=== PATIENT | female | born 2000 | race Caucasian/White ===

== ENCOUNTER 2024-04-22 07:57 | Outpatient (OUT) | payer BC, SELFPAY ==
--- NOTE | 2024-04-22 08:10 | US_ITS ---
The [address] [address] Patient Name: GRACIELA HORN MRN: [id number] date: 2000 Sex: F Assigned Patient Location: Current Patient Location: Accession/Order Number: [id number] Exam Date: 04/22/2024 08:10 Report Date: 04/22/2024 08:53 At the request of: CORDELL MALIK Procedure: US OB transvaginal EXAMINATION: US OB transvaginal HISTORY: AMENORRHEA COMPARISON: No relevant comparison available. FINDINGS: GESTATIONAL SAC: Present and normal appearing. YOLK SAC: Present and normal appearing. POLE: Present and normal appearing. CARDIAC: Present. UTERUS: Normal size and appearance. OVARIES: Right: Normal. Left: Normal. CERVIX: 3.8 cm in length and closed. CUL-DE-SAC: Normal. OTHER: None. AGE BY LMP: 8 weeks 0 days BRADLEY BY LMP: 12/02/2024 AGE BY US CRL: 6 weeks 1 day BRADLEY BY US CRL: 12/15/2024 US/US OB transvaginal IMPRESSION: 1. Single live intrauterine . Electronically authenticated by: JOSEPH LOPEZ Date: 04/22/2024 08:53
== END 2024-04-22 07:58 | disposition home or self-care (01) ==
LOC: US 08:03
PROVIDERS: PCP Student in an Organized Health Care Education/Training Program; Visit Provider Midwife
DX: N91.2 Amenorrhea, unspecified (principal); Z3A.08 8 weeks gestation of pregnancy
CPT/HCPCS: 76817

== ENCOUNTER 2024-10-23 16:50 | Observation (INO) | payer BC, OTHER, SELFPAY ==
--- OUTSIDE RECORDS SUMMARY | 2024-10-09 15:00 | XMS_ITS | Encounter Summary ---
Author Organization [facility] Address [address] [place] [address] Care Team Providers Care Negative Assembler Name Role Phone Tiara Casper MD Primary Care Provider [phone] Encounter Details Date Type Department Care Team (Latest Contact Info) Description 10/09/2024 3:00 PM EDT Ancillary Procedure [facility] [address] [address] related condition in third trimester ([facility]) Social History Tobacco Use Types Packs/Day Years Used Date Smoking Tobacco: Former Cigarettes Smokeless Tobacco: Never Alcohol Use Standard Drinks/Week Comments Not Currently 0 (1 standard drink = 0.6 oz pur e alcohol) Estimated Date of Delivery Comme nts Yes 12/15/2024 Based on Ultraso und Sex and Gender Information Value Date Recorded Sex Assigned at Not on file Legal Sex Female 10:12 PM EDT Gender Identity Not on file Sexual Orientation Not on file documented as of this encounter Plan of Treatment Upcoming Encounters Date Type Department Care Team (Late st Contact Info) Description 10/26/2024 3:30 PM EDT Routine [facility] [address] [place] [address] Terri Gifford CNM [address] [place] [address] documented as of this encounter Goals Goal Patient Goal Type Associated Problems Recent Progress Patient-Stated? Author Reminders Care Plan OB Reminders No Open Scheduling, Background documented as of this encounter Procedures Procedure Name Priority Date/Time Associated Diagnosis Comments US OB FOLLOW UP TRANSABDOMINAL APPROACH Routine 10/09/2024 3:39 PM EDT related condition in third trimester ([facility]) documented in this encounter Results * US OB follow up transabdominal approach (10/09/2024 3:39 PM EDT) Anatomical Region Laterality Modality Body Ultrasound 10/11/2024 8:27 AM EDT Narrative 10/11/2024 8:27 AM EDT EXAM: US OB FOLLOW UP TRANSABDOMINAL APPROACH HISTORY: growth. COMPARISON: Ob ultrasound 07/31/2024. TECHNIQUE: Two-dimensional transabdominal grayscale ultrasound imaging of the pelvis was performed. Limited exam due to position and movement. FINDINGS: Gestation: Single Presentation: Cephalic Cardiac Activity: 143 beats per minute Placental Location: Posterior with no sonographic abnormalities identified. Cervical Length: 3.7 cm Amniotic Fluid Index: 15.2 cm MEASUREMENTS: BPD: 7.7 cm EGA: 31 weeks 0 days HC: 28.4 cm EGA: 31 weeks 1 days AC: 26.8 cm EGA: 30 weeks 6 days FL: 5.9 cm EGA: 30 weeks 6 days HC/AC Ratio: 1.06 The gestational age by today's ultrasound is 31 weeks 0 days. Estimated Weight: 1658 grams, ( 3 lb 10 oz). Weight Percentile for gestational age: 53 % IMPRESSION: 1. Single, live intrauterine gestation 30 weeks, 3 days by LMP. Today's ultrasound measurements correlate with a gestational age of 31 weeks 0 days. Estimated weight is 1658 grams, ( 3 lb 10 oz) which correlates to 53 %. BRADLEY is 12/11/2024. Interpreted by: Electronically signed by JENNIFER JOLLY II, MD, PHD at 11-Oct-2024 08:25:22 AM [facility] Procedure Note Jennifer Jolly MD - 10/11/2024 EXAM: US OB FOLLOW UP TRANSABDOMINAL APPROACH HISTORY: growth. COMPARISON: Ob ultrasound 07/31/2024. TECHNIQUE: Two-dimensional transabdominal grayscale ultrasound imaging ofthe pelvis was performed. Limited exam due to position and fetalmovement. FINDINGS: Gestation: Single Presentation: Cephalic Cardiac Activity: 143 beats per minute Placental Location: Posterior with no sonographic abnormalitiesidentified. Cervical Length: 3.7 cm Amniotic Fluid Index: 15.2 cm MEASUREMENTS: BPD: 7.7 cm EGA: 31 weeks 0 days HC: 28.4 cm EGA: 31 weeks 1 days AC: 26.8 cm EGA: 30 weeks 6 days FL: 5.9 cm EGA: 30 weeks 6 days HC/AC Ratio: 1.06 The gestational age by today's ultrasound is 31 weeks 0 days. Estimated Weight: 1658 grams, ( 3 lb 10 oz). Weight Percentile for gestational age: 53 % IMPRESSION: 1. Single, live intrauterine gestation 30 weeks, 3 days by LMP. Today'sultrasound measurements correlate with a gestational age of 31 weeks 0days. Estimated weight is 1658 grams, ( 3 lb 10 oz) which correlatesto 53 %. BRADLEY is 12/11/2024. Interpreted by: Electronically signed by JENNIFER JOLLY II, MD, PHD [id number] 08:25:22 AM [facility] us Terri Gifford CNM IMG OB US PROCEDURES Final R esult documented in this encounter Visit Diagnoses Diagnosis related condition in third trimester ([facility]) documented in this encounter Additional Health Concerns Active Problems Noted Date Diagnosed Date OB Reminders 06/22/2024 documented as of this encounter Care Teams Negative Assembler Relationship Specialty Start Date End Date Tiara Casper MD PCP - General Family Medicine 02/19/23 documented as of this encounter
--- OUTSIDE RECORDS SUMMARY | 2024-10-23 16:56 | XMS_ITS | Clinical Summary ---
Author Organization [employer] Address [id number] [address] [place] [address] Care Team Providers Care Cafeteria Manager Name Role Phone Mini Cristobal MD Primary Care Provider [phone] Allergies No known active allergies Medications vit no.[id number] c acid ( VITAMIN) 27 mg iron- 800 mcg tablet Take 1 tablet by mouth in the morning. Active Active Problems Problem Noted Date Diagnosed Date Obesity (BMI 30-39.9) 05/26/2023 Comments Yes Family History Medical History Relation Name Comments Breast cancer Mother Relation Name Status Comments Mother Alive Social History Tobacco Use Types Packs/Day Years Used Date Smoking Tobacco: Former Cigarettes S tarted: 07/02/2023 Smokeless Tobacco: Former Tobacco Cessation:Counseling Given: Not Answered Alcohol Use Standard Drinks/Week Comments Not Currently 0 (1 standard drink = 0.6 oz pur e alcohol) occasionally Overall Financial Resource Strain (CARDIA) Answe r Date Recorded How hard is it for you to pa y for the very basics like food, housing, medical care, and heating? Not hard at all 04/20/2023 PRAPARE - Transportation Answer Date Re corded In the past 12 months, has l ack of transportation kept you from medical appointments or from getting medications? No 04/02 In the past 12 months, has l ack of transportation kept you from meetings, work, or from getting things needed for daily living? No 04/20/2023 Housing Instability Answer Date Recorde d Are you worried or concerned that in the next two months you may not have stable housing that you own, rent or stay in as a part of a household? No 04/20/2023 Hunger Screening Answer Date Recorded Within the past 12 months we worried whether our food would run out before we got money to buy more. Never True 09/08/2023 Within the past 12 months th e food we bought just didn't last and we didn't have money to get more. Never True 09/08/2023 Comments Yes Sex and Gender Information Value Date Recorded Sex Assigned at Not on file Legal Sex Female 1:35 PM EDT Gender Identity Not on file Sexual Orientation Not on file Last Filed Vital Signs Vital Sign Reading Time Taken Comments Blood Pressure 116/68 02/24/2024 11:30 AM EDT Pulse 72 02/24/2024 11:30 AM EDT Temperature 37.1 C (98.7 F) 02/24/2024 11:30 AM EDT Respiratory Rate 20 09/08/2023 12:16 PM EDT Oxygen Saturation 98% 02/24/2024 11:30 AM EDT Inhaled Oxygen Concentration - - Weight 104.3 kg (230 lb) 02/24/2024 11:30 AM EDT Height 180.3 cm (5' 11 ) 02/24/2024 11:30 AM EDT Body Mass Index 32.08 02/24/2024 11:30 AM EDT Plan of Treatment Health Maintenance Due Date Last Done Comments Chlamydia Screening 1999 Depression Screening 2011 Adult BMI Follow Up Plan 10/26/2017 Pap Smear 10/26/2020 COVID-19 Vaccine (2 - 2023-2 5 season) 2024 05/05/2021 DTaP,Tdap and Td Vaccines (8 - Td or Tdap) 06/29/2024 06/29/2014, 07/23/2011, 12/26/2004, Additional history exists Influenza Vaccine 01/01/2025 Adult BMI Screening 02/23/2025 02/24/2024 Tobacco Screening 02/23/2025 02/24/2024 Medical Devices Not on file Insurance TERA Care Teams Cafeteria Manager Relationship Specialty Start Date End Date Mini Cristobal MD [address] [place] [address] PCP - General Internal Medicine 02/24/23
--- OUTSIDE RECORDS SUMMARY | 2024-10-23 16:56 | XMS_ITS | Encounter Summary ---
Author Organization [facility] Address [address] [facility] [place] [address] Care Team Providers Care Loss Control Consultant Name Role Phone Tiara Casper MD Primary Care Provider [phone] Encounter Details Date Type Department Care Team (Late Contact Info) Description 09/07/2024 Results Follow-Up [facility] [address] [place] [address] Terri Gifford CN [address] [place], [place] [phone] Social History Tobacco Use Types Packs/Day Years [...] Encounters Date Type Department Care Team (Late Contact Info) Description 10/26/2024 3:30 PM EDT Routine [facility] [address] [place] [address] Terri Gifford CN [address] [place], [place] [id number] documented as of this encounter Goals Goal Patient Goal Type Associated Problems Recent Progress Patient-Stated? Author Reminders Care Plan OB Reminders No Open Scheduling, Background documented as of this encounter Visit Diagnoses Not on filedocumented in this encounter Additional Health Concerns Active Problems Noted Date Diagnosed Date OB Reminders 06/22/2024 documented as of this encounter Care Teams Loss Control Consultant Relationship Specialty Start Date End Date Tiara Casper MD PCP - General Family Medicine 02/19/23 documented as of this encounter
--- OUTSIDE RECORDS SUMMARY | 2024-10-23 16:56 | XMS_ITS | Encounter Summary ---
Author Organization [facility] Address [address] [place] [address] Care Team Providers Care Data Transcriber Name Role Phone Tiara Casper MD Primary Care Provider [phone] Encounter Details Date Type Department Care Team (Late Contact Info) Description 04/22/2024 Clinisync Result Encounter [facility] External Department Unsolicited Cordell Gifford CNM [address] [place], [place] [id number] Social History Tobacco Use Types Packs/Day Years Used Date Smoking Tobacco: Former Cigarettes Smokeless Tobacco: Never Alcohol Use Standard Drinks/Week Comments Never 0 (1 standard drink = 0.6 oz pur e alcohol) Comments Yes Sex and Gender Information Value Date Recorded Sex Assigned at Not on file Legal Sex Female 10:12 PM EDT Gender Identity Not on file Sexual Orientation Not on file documented as of this encounter Plan of Treatment Upcoming Encounters Date Type Department Care Team ([facility] Contact Info) Description 10/26/2024 3:30 PM EDT Routine [facility] OB [address] [place] [phone] Cordell Gifford CNM [address] [place], [place] [phone] documented as of this encounter Procedures Procedure Name Priority Date/Time Associated Diagnosis Comments US OB TRANSVAGINAL 04/22/2024 8: 53 AM EST documented in this encounter Results * US OB TRANSVAGINAL (04/22/2024 8:53 AM EST) Anatomical Region Laterality Modality Other 04/22/2024 8:53 AM EST Narrative 04/22/2024 8:55 [place] [address] Ultrasound Report Signed Patient: JACQUE MYERS MR#: [id number] : 2000 Acct:[id number] Age/Sex: 23 / F ADM Date: 04/22/24 Loc: US Attending Dr: CORDELL GIFFORD APRN, CNM Ordering Physician: CORDELL GIFFORD APRN, CNM Date of Service: 04/22/24 Procedure(s): US OB transvaginal Accession Number(s): [id number] cc: Mini Cristobal ND; CORDELL GIFFORD APRN, CNM [place] [address] Patient Name: JACQUE MYERS MRN: [id number] date: 2000 Sex: F Assigned Patient Location: US Current Patient Location: US Accession/Order Number: [id number] Exam Date: 04/22/2024 08:10 Report Date: 04/22/2024 08:53 At the request of: CORDELL GIFFORD Procedure: US OB transvaginal EXAMINATION: US OB transvaginal HISTORY: AMENORRHEA COMPARISON: No relevant comparison available. FINDINGS: GESTATIONAL SAC: Present and normal appearing. YOLK SAC: Present and normal appearing. POLE: Present and normal appearing. CARDIAC: Present. UTERUS: Normal size and appearance. OVARIES: Right: Normal. Left: Normal. CERVIX: 3.8 cm in length and closed. CUL-DE-SAC: Normal. OTHER: None. AGE BY LMP: 8 weeks 0 days BRADLEY BY LMP: 12/02/2024 AGE BY US CRL: 6 weeks 1 day BRADLEY BY US CRL: 12/15/2024 US/US OB transvaginal IMPRESSION: 1. Single live intrauterine . Electronically authenticated by: RIO COOLEY Date: 04/22/2024 08:53 Dictated By: Rio Cooley M.D. Signed By: 04/22/2455 DD/ 2 TD/TT: Licensing Director: Procedure Note Radiology, Radiologist, MD - 04/22/2024 [place] [address] Ultrasound Report Signed Patient: JACQUE MYERS CMR#: [id number] : 2000Acct:[id number] Age/Sex: 23 / FADM Date: 04/22/24 Loc: US Attending Dr: CORDELL GIFFORD APRN, CNM Ordering Physician: CORDELL GIFFORD APRN, CNM Date of Service: 04/22/24 Procedure(s): US OB transvaginal Accession Number(s): [id number] cc: Mini Cristobal ND; CORDELL GIFFORD APRN, CNM The [place] [id number] Patient Name: JACQUE MYERS MRN: [id number] date: 2000 Sex: F Assigned Patient Location: US Current Patient Location: US Accession/Order Number: [id number] Exam Date: 04/22/2024 08:10 Report Date: 04/22/2024 08:53 At the request of: CORDELL GIFFORD Procedure: US OB transvaginal EXAMINATION: US OB transvaginal HISTORY: AMENORRHEA COMPARISON: No relevant comparison available. FINDINGS: GESTATIONAL SAC: Present and normal appearing. YOLK SAC: Present and normal appearing. POLE: Present and normal appearing. CARDIAC: Present. UTERUS: Normal size and appearance. OVARIES: Right: Normal. Left: Normal. CERVIX: 3.8 cm in length and closed. CUL-DE-SAC: Normal. OTHER: None. AGE BY LMP: 8 weeks 0 days BRADLEY BY LMP: 12/02/2024 AGE BY US CRL: 6 weeks 1 day BRADLEY BY US CRL: 12/15/2024 US/US OB transvaginal IMPRESSION: 1. Single live intrauterine . Electronically authenticated by: RIO COOLEY Date: 04/22/2024 08:53 Dictated By: Rio Cooley M.D. Signed By:04/22/24854 DD/ 2 TD/TT: Licensing Director: us Cordell Gifford CNM [facility] Final Resu lt documented in this encounter Visit Diagnoses Not on filedocumented in this encounter Care Teams Data Transcriber Relationship Specialty Start Date End Date Tiara Casper MD PCP - General Family Medicine 02/19/23 documented as of this encounter
--- OUTSIDE RECORDS SUMMARY | 2024-10-23 16:56 | XMS_ITS | Encounter Summary ---
Author Organization [facility] Address [address] [place] [address] Care Team Providers Care Fur Weigher Name Role Phone Missy Britt MD Primary Care Provider [phone] Reason for Visit * Reason Onset Date Comments Medication Refill 03/03/2014 Encounter Details Date Type Department Care Team (Late st Contact Info) Description 03/03/2014 Refill [facility] [place] [address] [place] [address] Michelle Cramer, MATERIALS TECH - [facility] [address] [place] [address] Medication Refill Social History Tobacco Use Types Packs/Day Years Used Date Smoking Tobacco: Never Alcohol Use Standard Drinks/Week Comments No 0 (1 standard drink = 0.6 oz pur e alcohol) Comments No Sex and Gender Information Value Date Recorded Sex Assigned at Not on file Legal Sex Female 5:52 PM EST Gender Identity Not on file Sexual Orientation Not on file documented as of this encounter Plan of Treatment Not on file documented as of this encounter Visit Diagnoses Not on filedocumented in this encounter Additional Health Concerns Infection Onset Date Last Indicated Resolved Time COVID-19 (Rule Out) 01/03/2020 01/03/2020 01/09/20 20 6:08 PM EDT COVID-19 (Rule Out) 01/10/2020 01/10/2020 01/12/20 20 5:06 PM EDT documented as of this encounter Care Teams Fur Weigher Relationship Specialty Start Date End Date Missy Britt MD [address] [place] [address] PCP - General 01/09/20 documented as of this encounter
--- OUTSIDE RECORDS SUMMARY | 2024-10-23 16:56 | XMS_ITS | Encounter Summary ---
Author Organization [employer] Address [id number] [address] [place] [address] Care Team Providers Care Zoning Engineer Name Role Phone iMni Cristobal MD Primary Care Provider [phone] Encounter Details Date Type Department Care Team ([facility] st Contact Info) Description 03/04[facility]20[facility] [address] [address] Sarah Curran Social History Tobacco Use Types Packs/Day Years Used Date Smoking Tobacco: Former Cigarettes S tarted: 07/02/2023 Smokeless Tobacco: Former Alcohol Use Standard Drinks/Week Comments Not Currently [...] on file documented as of this encounter Miscellaneous Notes * Telephone Encounter - Sarah Curran - 03/04/2024 10:[address] Antunez's 03/02/24 note in Sleep Lab encounter: Ok for PS[facility] PPG read/follow * Telephone Encounter - Nandini Muller - 03/04/2024 10:13 AM EDT Called and left message can add 04/20 with SE. documented in this encounter Plan of Treatment Not on file documented as of this encounter Visit Diagnoses Not on filedocumented in this encounter Care Teams Zoning Engineer Relationship Specialty Start Date End Date Mini Cirstobal MD [address] [facility] [place] [address] PCP - General Internal Medicine 02/24/23 documented as of this encounter
--- OUTSIDE RECORDS SUMMARY | 2024-10-23 16:56 | XMS_ITS | Encounter Summary ---
Author Organization [employer] [facility] tem Address [id number] [address] [place] [address] Care Team Providers Care Fitter Armament Name Role Phone Mini Cristobal MD Primary Care Provider [phone] Encounter Details Date Type Department Care Team (Late st Contact Info) Description 02/24/2023 Telephone [facility] Family Medicine [address] [place] [address] Mini Cristobal MD [address] [place] [address] Social History Tobacco Use Types Packs/Day Years Used Date Smoking Tobacco: Every Day Cigarettes Smokeless Tobacco: Former Alcohol Use Standard Drinks/Week Comments Yes 0 (1 standard drink = 0.6 oz pur e alcohol) occasionally Comments Unknown Sex and Gender Information Value Date Recorded Sex Assigned at Not on file Legal Sex Female 1:35 PM EDT Gender Identity Not on file Sexual Orientation Not on file documented as of this encounter Miscellaneous Notes * Telephone Encounter - Crystal Nelson - 02/24/2023 11:20 AM EDT LM to let patient know the orders for her labs are in her chart. documented in this encounter Plan of Treatment Not on file documented as of this encounter Visit Diagnoses Not on filedocumented in this encounter Care Teams Fitter Armament Relationship Specialty Start Date End Date Mini Cristobal MD [address] [place] [address] PCP - General Internal Medicine 02/24/23 documented as of this encounter
--- OUTSIDE RECORDS SUMMARY | 2024-10-23 16:56 | XMS_ITS | Encounter Summary ---
Author Organization [facility] Address [address] [place] [address] Care Team Providers Care Rug Clipper Name Role Phone Tiara Casper MD Primary Care Provider [phone] Encounter Details Date Type Department Care Team (Late Contact Info) Description 10/04/2024 Results Follow-Up [facility] OB [address] [place] [address] Nell Goldstein MA Social History Tobacco Use Types Packs/Day Years [...] Upcoming Encounters Date Type Department Care Team ([facility] Contact Info) Description 10/26/2024 3:30 PM EDT Routine [facility] OB [address] [place] [address] Terri Gifford, LINDAM [address] [place] [address] documented as of this encounter Goals Goal Patient Goal Type Associated Problems Recent Progress Patient-Stated? Author Reminders Care Plan OB Reminders No Open Scheduling, Background documented as of this encounter Visit Diagnoses Not on filedocumented in this encounter Additional Health Concerns Active Problems Noted Date Diagnosed Date OB Reminders 06/22/2024 documented as of this encounter Care Teams Rug Clipper Relationship Specialty Start Date End Date Tiara Casper MD PCP - General Family Medicine 02/19/23 documented as of this encounter
--- OUTSIDE RECORDS SUMMARY | 2024-10-23 16:56 | XMS_ITS | Encounter Summary ---
Author Organization [employer] Address [id number] [address] [place] [address] Care Team Providers Care Blower Blast Furnace Name Role Phone Mini Cristobal MD Primary Care Provider [phone] Encounter Details Date Type Department Care Team (Late st Contact Info) Description 03/09/2023 Orders Only [facility] [address] [place] [address] Bhargavi Clemens CMA Social History Tobacco Use Types Packs/Day Years [...] on filedocumented in this encounter Care Teams Blower Blast Furnace Relationship Specialty Start Date End Date Mini Cristobal MD [address], [place] [address] PCP - General Internal Medicine 02/24/23 documented as of this encounter
--- OUTSIDE RECORDS SUMMARY | 2024-10-23 16:56 | XMS_ITS | Encounter Summary ---
Author Organization [facility] Address [address] [place] [address] Care Team Providers Care Alarm Adjuster Name Role Phone Tiara Casper MD Primary Care Provider [phone] Encounter Details Date Type Department Care Team (Latest Contact Info) Description 10/09/2024 Travel Social History Tobacco Use Types Packs/Day Years [...] Upcoming Encounters Date Type Department Care Team ( Contact Info) Description 10/26/2024 3:30 PM EDT Routine [facility] OB [address] [place] [id number] Terri Gifford, CNM [address] [place], [place] [id number] documented as of this encounter Goals Goal Patient Goal Type Associated Problems Recent Progress Patient-Stated? Author Reminders Care Plan OB Reminders No Open Scheduling, Background documented as of this encounter Visit Diagnoses Not on filedocumented in this encounter Additional Health Concerns Active Problems Noted Date Diagnosed Date OB Reminders 06/22/2024 documented as of this encounter Care Teams Alarm Adjuster Relationship Specialty Start Date End Date Tiara Casper MD PCP - General Family Medicine 02/19/23 documented as of this encounter
--- OUTSIDE RECORDS SUMMARY | 2024-10-23 16:56 | XMS_ITS | Clinical Summary ---
Author Organization [facility] Address [address] [place] [address] Care Team Providers Care Data Control Assistant Name Role Phone Missy Britt MD Primary Care Provider [phone] Allergies No known active allergies Medications Norgestim-Eth Estrad Triphasic (TRI-SPRINTEC) 0.18/0.215/0.25 MG-35 MCG TABSIndications: Irregular menstrual cycle Take 1 tablet by mouth daily 28 tablet 1 04/10/2019 Active Active Problems No known active problems Immunizations Immunization Administration Dates Next Due DTaP, INFANRIX, (age 6w-6y), IM, 0.5mL 0 12/26/2004,05/12/2001,05/20/2000,03/09,1999 Hep B, ENGERIX-B, RECOMBIVAX -HB, (age - 19y), IM, 0.5mL 11/02/2000,03/09/2000,1999 Hepatitis A Ped/Adol (Vaqta) 01/28/2012,07/23/19 12 Hib PRP-OMP, PEDVAXHIB, (age 2m-6y, Adlt Risk), IM, 0.5mL 11/02/2000,03/09/2000,1999 MMR, PRIORIX, M-M-R II, (age 12m+), SC, 0.5mL 12/26/2004,05/12/2001 Meningococcal ACWY, MENACTRA (MenACWY-D), (age 9m-55y), IM, 0.5mL 12/17/2016,09/24/2011 Poliovirus, IPOL, (age 6w+), SC/IM, 0.5mL 12/26/2004,05/12/2001,03/09/2000,12/28 TDaP, ADACEL (age 10y-64y), BOOSTRIX (age 10y+), IM, 0.5mL 06/29/2014 Varicella, VARIVAX, (age 12m +), SC, 0.5mL 07/23/2011,11/02/2000 Family History Medical History Relation Name Comments Breast Cancer Mother Relation Name Status Comments Mother Alive Social History Tobacco Use Types Packs/Day Years Used Date Smoking Tobacco: Every Day Cigarettes Smokeless Tobacco: Never Comments: 4 cigarrettes a da y Alcohol Use Standard Drinks/Week Comments No 0 (1 standard drink = 0.6 oz pur e alcohol) Comments No Sex and Gender Information Value Date Recorded Sex Assigned at Not on file Legal Sex Female 5:52 PM EST Gender Identity Not on file Sexual Orientation Not on file Last Filed Vital Signs Vital Sign Reading Time Taken Comments Blood Pressure 138/75 08/06/2018 2:14 PM EDT Pulse 62 08/06/2018 2:14 PM EDT Temperature 37.4 C (99.3 F) 08/06/2018 2:14 PM EDT Respiratory Rate 16 08/06/2018 2:14 PM EDT Oxygen Saturation 98% 06/29/2014 10:01 PM EST Inhaled Oxygen Concentration - - Weight 77.1 kg (170 lb) 08/06/2018 2:14 PM EDT Height 180.3 cm (5' 11 ) 08/06/2018 2:14 PM EDT Body Mass Index 23.71 08/06/2018 2:14 PM EDT Plan of Treatment Not on file Insurance [address] [place] [address] [facility] OUT OF STATE Care Teams Data Control Assistant Relationship Specialty Start Date End Date Missy Britt MD [address] [place] [address] PCP - General 01/09/20
--- OUTSIDE RECORDS SUMMARY | 2024-10-23 16:56 | XMS_ITS | Clinical Summary ---
Author Organization [facility] Address [address] [place] [address] Care Team Providers Care Self Sealing Fuel Tank Repairer Name Role Phone Tiara Casper MD Primary Care Provider [phone] Allergies No known active allergies Medications Dtdkqmnu-Vnj-Or -FA ( 1 + IRON PO) Take by mouth Active ferrous sulfate (Fe Tabs) 325 (65 Fe) MG EC tabletIndicatio ns: related condition in third trimester ([facility]) Take 1 tablet (325 mg) by mouth in the morning and 1 tablet (325 mg) before bedtime. Do not crush, chew, or split. 60 tablet 11 5 10/05/19 26 Active docusate sodium (Colace) 100 MG capsuleIndicati ons: related condition in third trimester ([facility]) Take 1 capsule (100 mg) by mouth in the morning and 1 capsule (100 mg) before bedtime. 60 capsule 3 5 02/02/20 25 Active docusate sodium (Colace) 50 MG capsule Take 50 mg by mouth in the morning and 50 mg before bedtime. 09/29/19 25 Discontinu ed(Therapy completed) Fiber Gummies 2 g chewable tablet Chew 09/29/19 25 Discontinu ed(Therapy completed) predniSONE (Deltasone) 20 MG tabletIndicatio ns:Connor MYLES for care of first , second trimester ([facility]) 40 mg daily x5 days 10 tablet 5 09/29/19 25 Discontinu ed(Therapy completed) azithromycin (Zithromax) 250 MG tabletIndicatio ns:COVID,Encoun ter for care of first , second trimester ([facility]) 500 mg on day #1 and then 250 mg x4 days 6 tablet 09/29/19 25 Discontinu ed(Therapy completed) Encounters Date Type Department Care Team Description 10/09/2024 3:00 PM EDT Ancillary Procedure [facility] [address] [place] [id number] related condition in third trimester ([facility]) 10/09/2024 Travel 10/04/2024 Results Follow-Up [facility] [address] [facility] [place] [address] Nell Goldstein MA 10/04/2024 Refill [facility] [address] [facility] [place] [phone] Nell Goldstein MA related condition in third trimester ([facility]) 09/28/2024 2:30 PM EDT Routine [facility] [address] [facility] [place] [id number] Terri Gifford CNM Encounter for supervision of other normal , second trimester ([facility]) (Primary Dx); Screening for diabetes mellitus; Screening for iron deficiency anemia; related condition in third trimester ([facility]) 09/28/2024 Bamboo flowsheet [facility] [address] [place] [phone] Terri Gifford CNM 09/07/2024 Results Follow-Up [facility] [address] [facility] [place] [id number] Terri Gifford CNM 08/29/2024 3:00 PM EDT Routine [facility] [address] [facility] [place] [address] Terri Gifford CNM Encounter for supervision of other normal , second trimester ([facility]) (Primary Dx) 08/29/2024 Bamboo flowsheet [facility] [address] [place] [phone] Terri Gifford CNM 07/31/2024 7:00 PM EDT Routine [facility] [address] [place] [phone] Terri Gifford CNM Encounter for supervision of other normal , second trimester ([facility]) (Primary Dx); related condition in second trimester ([facility]) 07/31/2024 6:15 PM EDT Ancillary Procedure [facility] [address] [facility] [address] [place] [address] related condition in second trimester ([facility]) 07/31/2024 Bamboo flowsheet [facility] [address] [place] [address] Terri Gifford CNM 07/31/2024 Travel from Last 3 Months Family History Relation Name Status Comments Father Alive Mother Alive Social History Tobacco Use Types Packs/Day Years Used Date Smoking Tobacco: Former Cigarettes Smokeless Tobacco: Never Tobacco Cessation:Counseling Given: Not Answered Alcohol Use [...] Sign Reading Time Taken Comments Blood Pressure 122/70 09/28/2024 2:28 PM EDT Pulse - - Temperature - - Respiratory Rate - - Oxygen Saturation - - Inhaled Oxygen Concentration - - Weight 123 kg (271 lb) 09/28/2024 2:28 PM EDT Height 179.1 cm (5' 10.5 ) 08/04/2022 12:00 PM E DT Body Mass Index 38.33 08/04/2022 12:00 PM EDT Plan of Treatment Upcoming Encounters Date Type Department Care Team (Late st Contact Info) Description 10/26/2024 3:30 PM EDT Routine [facility] [address] [place] [address] Balta Terri Alcocer, CNM [address] [place] [address] Health Maintenance Due Date Last Done Comments Influenza Vaccine (Season Ended) 2025 Goals Goal Patient Goal Type Associated Problems Recent Progress Patient-Stated? Author Reminders Care Plan OB Reminders No Open Scheduling, Background Procedures Procedure Name Priority Date/Time Associated Diagnosis Comments US OB FOLLOW UP TRANSABDOMINAL APPROACH Routine 10/09/2024 3:39 PM EDT related condition in third trimester ([facility]) CBC Routine 09/28/2024 3:17 PM EDT Screening for iron deficiency anemia GLUCOSE, GESTATIONAL SCREEN (50G)-135 CUTOFF Routine 09/28/2024 3:17 PM EDT Screening for diabetes mellitus US OB 14+ WEEKS ANATOMY SCAN Routine 07/31/2024 7:04 PM EDT related condition in second trimester ([facility]) from Last 3 Months Results * US OB follow up transabdominal [...] II, MD, PHD at 11-Oct-2024 08:25:22 AM [facility] Procedure Note Jennifer Jolly MD - [...] signed by JENNIFER JOLLY II, MD, PHD [id number] 08:25:22 AM [facility] us Terri Gifford CNM IMG OB US PROCEDURES Final R esult * GLUCOSE, GESTATIONAL SCREEN (50G)-135 CUTOFF (09/28/2024 3:17 PM EDT) GLUCOSE, GESTATIONAL SCREEN (50G)-135 CUTOFF 106 <135 mg/dL [facility] 09/28/2024 3:17 PM EDT 09/28/2024 3:18 PM EDT Narrative Resulting Agency Comment Performing Organization Information Site ID: QPT Name: [facility] Address: [address] [place] [address] Director: Juan Mensah MD us Terri MCKEON LAB BLOOD ORDERABLES Final R esult [facility] * (ABNORMAL) CBC (09/28/2024 3:17 PM EDT) WHITE BLOOD CELL COUNT 11.9(H) 3.8 - 10.8 Thousand/u L [facility] RED BLOOD CELL COUNT 3.80 3.80 - 5.10 Million/uL [facility] HEMOGLOBIN 10.9(L) 11.7 - 15.5 g/dL [facility] HEMATOCRIT 33.7(L) 35.0 - 45.0 % [facility] MCV 88.7 80.0 - 100.0 fL [facility] MCH 28.7 27.0 - 33.0 pg [facility] MCHC 32.3 32.0 - 36.0 g/dL [facility] Comment: For adults, a slight decrease in the calculated MCHC value (in the range of 30 to 32 g/dL) is most likely not clinically significant; however, it should be interpreted with caution in correlation with other red cell parameters and the patient's clinical condition. RDW 12.8 11.0 - 15.0 % [facility] PLATELET COUNT 303 140 - 400 Thousand/u L [facility] MPV 10.9 7.5 - 12.5 fL [facility] Blood Venous blood specimen / Unknown 09/28/2024 3:17 PM EDT 09/28/2024 3:18 PM EDT Narrative Resulting Agency Comment Performing Organization Information Site ID: QPT Name: [facility]: [facility] [address] [place] [address] Director: Juan Mensah MD us Terri Leodan Gifford CNM LAB BLOOD ORDERABLES Final R esult [facility] * US OB 14+ weeks anatomy scan (07/31/2024 7:04 PM EDT) Anatomical Region Laterality Modality Body Ultrasound 08/01/2024 4:36 PM EDT Narrative 08/01/2024 4:36 PM EDT TITLE OF EXAM: OB Ultrasound: REASON FOR EXAM: Anatomy scan. COMPARISON: None TECHNIQUE: Grayscale and M-mode Doppler imaging is performed. FINDINGS: heart rate: 139 bpm BRITTANY: 17.3 cm (9.4-21.3) BPD: 4.9 cm HC: 18.1 cm AC: 15.4 cm FL: 3.6 cm GA for sonogram: 20.6 wk (19.2-22.0) Cervix length: 4.3 cm BRADLEY: 12/15/2024 Weight Estimate: Weight: 386 gm / 0 lbs, 13 oz (330-443 gm) Hadlock Normal: 370 gm (307-433 gm) Hadlock Wt%: 65% for 20.6 wks (GA selected) <3% for 22.3 wks (LMP) LMP: 02-26-24 Age by LMP: 22 w 2 d Age Prior US: 20 w 3 d Age US Today: 20 w 6 d BRADLEY by LMP: 12-02-24 BRADLEY Prior US: 12-15-24 BRADLEY US Today: 12-12-24 Gestation: Single Position: Cephalic Placental Location: 4.3 cm from cervix Placental Grade: 0 Heart Rate: 139 BPM Cervical Length: 4.3 cm Lateral Ventricles: Yes Cerebellum: Yes Cisterna Mag: Yes Orbits: Yes 4 Chamber heart: Yes Stomach: Yes Renals: Yes Cord Insert: Yes Heart Rate: 139 bpm 3 Vessel Cord: Yes Bladder: Yes Gender: Female 12 Long Bones: Yes Diaphragm: Yes Long Spine: Yes TRV Spine: Yes Somatic Movement: Yes IMPRESSION: 1. Single intrauterine gestation in cephalic position. Estimated ultrasound age of 20 weeks 6 days. 2. Posterior placenta. 3. Discrepant weight depending on whether last menstrual period or estimated ultrasound age is used. Dictated and transcribed 08/01/24dpd This report has been electronically signed and approved by the interpreting radiologist. Procedure Note Patric Knapp MD - 08/01/2024 TITLE OF EXAM: OB Ultrasound: REASON FOR EXAM: Anatomy scan. COMPARISON: None TECHNIQUE: Grayscale and M-mode Doppler imaging is performed. FINDINGS: heart rate: 139 bpm BRITTANY: 17.3 cm (9.4-21.3) BPD: 4.9 cm HC: 18.1 cm AC: 15.4 cm FL: 3.6 cm GA for sonogram: 20.6 wk (19.2-22.0) Cervix length: 4.3 cm BRADLEY: 12/15/2024 Weight Estimate: Weight: 386 gm / 0 lbs, 13 oz (330-443 gm) Hadlock Normal: 370 gm (307-433 gm) Hadlock Wt%: 65% for 20.6 wks (GA selected) <3% for 22.3 wks (LMP) LMP: 02-26-24 Age by LMP: 22 w 2 d Age Prior US: 20 w 3 d Age US Today: 20w 6 d BRADLEY by LMP: 12-02-24 BRADLEY Prior US: 12-15-24 BRADLEY US Today:12-12-24 Gestation: Single Position: Cephalic Placental Location: 4.3 cm from cervix Placental Grade: 0 Heart Rate: 139 BPM Cervical Length: 4.3 cm Lateral Ventricles: Yes Cerebellum: Yes Cisterna Mag: Yes Orbits: Yes 4 Chamber heart: Yes Stomach: Yes Renals: Yes Cord Insert: Yes Heart Rate: 139 bpm 3 Vessel Cord: Yes Bladder: Yes Gender: Female 12 Long Bones: Yes Diaphragm: Yes Long Spine: Yes TRV Spine: Yes Somatic Movement: Yes IMPRESSION: 1. Single intrauterine gestation in cephalic position. Estimatedultrasound age of 20 weeks 6 days. 2. Posterior placenta. 3. Discrepant weight depending on whether last menstrual period orestimated ultrasound age is used. Dictated and transcribed 08/01/24dpd This report has been electronically signed and approved by theinterpreting radiologist. us Terri Gifford CNM IMG OB US PROCEDURES Final R esult from Last 3 Months Additional Health Concerns Active Problems Noted Date Diagnosed Date OB Reminders 06/22/2024 Insurance [facility] [place]ID [place] [facility] [place] Care Teams Self Sealing Fuel Tank Repairer Relationship Specialty Start Date End Date Tiara Casper MD PCP - General Family Medicine 02/19/23
--- NOTE | 2024-10-23 17:03 | US_ITS ---
[place] [id number] Patient Name: GRACIELA HORN MRN: [id number] date: 2000 Sex: F Assigned Patient Location: [facility] Current Patient Location: Accession/Order Number: [id number] Exam Date: 10/23/2024 19:09 Report Date: 10/23/2024 19:14 At the request of: CORDELL MALIK APRN [facility] Procedure: US OB cervical length US OB cervical length 10/23/2024 7:10 PM SIGNS AND SYMPTOMS: ^spotting PROTOCOL: Transabdominal sonographic imaging of the gravid uterus/cervix COMPARISON: None FINDINGS: Estimated gestational age is 32 weeks and 3 days. heart rate is 131 bpm. The cervix measures 3.0 cm in length. The internal os is closed. US/US OB cervical length IMPRESSION: The cervix measures 3.0 cm in length. The internal os is closed. Impression dictated by: Rom Ortega M.D. 10/23/2024 7:14 PM Dictation Location: [facility] Electronically authenticated by: [id number] Y Date: 10/23/2024 19:14
[2024-10-23 17:09] VITALS: BP 131/69; PULSE 95
[2024-10-23 17:23] LABS: Bilirubin Urine NEGATIVE (NEGATIVE); Blood Urine NEGATIVE (NEGATIVE); Clarity Urine CLEAR (CLEAR); Color Urine LT. YELLOW (YELLOW); Glucose Urine UA NEGATIVE (NEGATIVE); Ketones Urine NEGATIVE (NEGATIVE); Leukocyte Esterase Urine SMALL (NEGATIVE); Nitrite Urine NEGATIVE (NEGATIVE); Protein Urine NEGATIVE (NEG/TRACE); Specific Gravity Urine <=1.005 (1.005-1.025); Urobilinogen Urine 0.2 EU/dL (0.2-1.0)
[2024-10-23 17:25] LABS: Urine Microscopic Indicated YES
--- NOTE | 2024-10-23 17:27 | US_ITS ---
[address] [address] Patient Name: GRACIELA HORN MRN: [id number] date: 2000 Sex: F Assigned Patient Location: [facility] Current Patient Location: Accession/Order Number: [id number] Exam Date: 10/23/2024 19:15 Report Date: 10/23/2024 19:16 At the request of: CORDELL MALIK APRN [facility] Procedure: US OB BPP w non-stress US OB BPP w non-stress 10/23/2024 7:10 PM SIGNS AND SYMPTOMS: ^02/26/2024 ^decreased movement PROTOCOL: Transabdominal imaging of the gravid uterus COMPARISON: None FINDINGS: Estimated gestational age is 32 weeks and 3 days Amniotic fluid index is 18.03 cm. The single deepest vertical pocket is 5.9 cm. heart rate is 133 bpm. Biophysical profile: movement: 2/2 tone: 2/2. breathing movements: 2/2 Amniotic fluid volume: 2/2 US/US OB BPP w non-stress IMPRESSION: Biophysical profile score: 8/8 Impression dictated by: Rom Ortega M.D. 10/23/2024 7:16 PM Dictation Location: [facility] Electronically authenticated by: [id number] Y Date: 10/23/2024 19:16
[2024-10-23 17:51] LABS: Bacteria Urine TRACE #/HPF (NONE SEEN); Cast Seen? NONE SEEN #/LPF (NONE SEEN); Crystals Seen? None Seen #/HPF (None Seen); Mucus Urine TRACE (NONE SEEN); RBC Urine 0-2 #/HPF (0-2); Squamous Epithelial Cell Urine MODERATE #/LPF (NONE/RARE); Urine Culture Indicated YES-LC
--- OUTSIDE RECORDS SUMMARY | 2024-10-23 18:49 | XMS_ITS | CCD ---
Author Organization [facility] Care Team Providers Care Record Searcher Name Role Phone Karel Barkley I Primary Care Provider LIYA MISSY Admitting Unavailable LIYA MISSY Attending Unavailable LIT ELIZABETH P Referring Unavailable MOCATALINOI, ROMENA I Primary Care Unavailable LIT ELIZABETH P Referring Unavailable MOCATALINOI, ROMENA I Primary Care Unavailable LIYA MISSY Abreu Referring Unavailable LIYA MISSY Abreu Primary Care Unavailable Missy Britt Brady Primary Care Provider [phone] DORON, MUHAMID M Primary Care Unavailable JOSH HUNTLEY Attending Unavailable JOSH HUNTLEY Referring Unavailable DORON, MUHAMID M Primary Care Unavailable DORON, MUHAMID M Attending Unavailable DORON, MUHAMID M Referring Unavailable DORON, MUHAMID M Primary Care Unavailable DORON, MUHAMID M Attending Unavailable DORON, MUHAMID M Referring Unavailable DORON, MUHAMID M Primary Care Unavailable DORON, MUHAMID M Attending Unavailable DORON, MUHAMID M Referring Unavailable DORON, MUHAMID M Primary Care Unavailable DORON, MUHAMID M Attending Unavailable DORON, MUHAMID M Referring Unavailable DORON, MUHAMID M Primary Care Unavailable Tiara Casper MD Primary Care Provider Mini Sal MD Primary Care Provider [phone] CORDELL GIFFORD Attending Unavailable FLORO, CORDELL L Attending Unavailable FLORO, CORDELL L Attending Unavailable FLORO, CORDELL L Referring Unavailable FLORO, CORDELL L Attending Unavailable FLORO, CORDELL L Attending Unavailable FLORO, CORDELL L Referring Unavailable FLORO, CORDELL L Attending Unavailable Medications Current Medications Medication Drug Class(es) Dates Sig (Normalized) Sig (Original) ciprofloxacin 3 mg/ml / dexamethasone 1 mg/ml otic suspension (1 source) Corticosteroid, Quinolone Antimicrobial Start: 07-06-2023 End: 07-13-2023 ciprofloxacin-dex AMETHasone (CIPRODEX) otic suspension Indications: Acute otitis externa of both ears, unspecified type Administer 4 drops into both ears in the morning and 4 drops before bedtime. Do all this for 7 days. 7.5 mL 0 07/06/2023 07/13/2023 Active docusate sodium 100 mg oral capsule (20 sources) Start: 10-04-2024 End: 02-01-2025 take 1 capsule by mouth in the morning docusate sodium (Colace) 100 MG capsule Indications: related condition in third trimester ([facility]) Take 1 capsule (100 mg) by mouth in the morning and 1 capsule (100 mg) before bedtime. 60 capsule 3 10/04/2024 02/01/2025 Active End: 09-28-2024 take 1 capsule by mouth in the morning docusate sodium (Colace) 50 MG capsule Take 50 mg by mouth in the morning and 50 mg before bedtime. 09/28/2024 Discontinued (Therapy completed) Ethinyl Estradiol / norgestimate (3 sources) Progestin, Estrogen Start: 04-10-2019 take 1 tablet by mouth once daily Norgestim-Eth Estrad Triphasic (TRI-SPRINTEC) 0.18/0.215/0.25 MG-35 MCG TABS Indications: Irregular menstrual cycle Take 1 tablet by mouth daily 28 tablet 1 04/10/2019 Active ferrous sulfate 325 mg delayed release oral tablet (1 source) Start: 10-04-2024 End: 10-04-2025 take 1 tablet by mouth in the morning ferrous sulfate (Fe Tabs) 325 (65 Fe) MG EC tablet Indications: related condition in third trimester ([facility]) Take 1 tablet (325 mg) by mouth in the morning and 1 tablet (325 mg) before bedtime. Do not crush, chew, or split. 60 tablet 11 10/04/2024 10/04/2025 Active Mbrrdpmb-Iep-Fb-FA ( 1 + IRON PO) (20 sources) Ajzzxvrq-Aor-Rx-FA ( 1 + IRON PO) Take by mouth Active vit no.527-unzk-xqycb acid ( VITAMIN) 27 mg iron- 800 mcg tablet (3 sources) take 1 tablet by mouth in the morning vit no.652-escr-bhlgq acid ( VITAMIN) 27 mg iron- 800 mcg tablet Take 1 tablet by mouth in the morning. Active Completed/Discontinued Medications Medication Drug Class(es) Dates Sig (Normalized) Sig (Original) azithromycin 250 mg oral tablet (10 sources) Macrolide Antimicrobial Start: 06-27-2024 End: 09-28-2024 azithromycin (Zithromax) 250 MG tablet Indications: COVID , Encounter for care of first , second trimester 500 mg on day #1 and then 250 mg x4 days 6 tablet 06/27/2024 09/28/2024 Discontinued (Therapy completed) Fiber Gummies 2 g chewable tablet (17 sources) End: 09-28-2024 Fiber Gummies 2 g chewable tablet Chew 09/28/2024 Discontinued (Therapy completed) Fiber Gummies 2 g chewable tablet Chew Active predniSONE 20 mg oral tablet (10 sources) Start: 06-27-2024 End: 09-28-2024 predniSONE (Deltasone) 20 MG tablet Indications: COVID , Encounter for care of first , second trimester 40 mg daily x5 days 10 tablet 06/27/2024 09/28/2024 Discontinued (Therapy completed) topiramate 50 mg oral tablet (4 sources) Start: 04-20-2023 End: 02-24-2024 take 1 tablet by mouth in the morning, then take 1 tablet by mouth at bedtime topiramate (TOPAMAX) 50 mg tablet Indications: Weight loss Take 1 tablet (50 mg total) by mouth in the morning and 1 tablet (50 mg total) before bedtime. 60 tablet 2 04/20/2023 02/24/2024 Discontinued Problems Active Problems Problem Classification Problem Date Documented Da te Episodic/Chronic Hemorrhage during ; abruptio placenta; placenta previa (1 source) Threatened ; Translations: [Threatened ] Onset: 09-08-2023 Episodic Other complications of (4 sources) Finding related to ; Translations: [ related conditions, unspecified, second trimester] 07-31-2024 Episodic Other endocrine disorders (1 source) Polycystic ovarian syndrome; Translations: [Polycystic ovarian syndrome] Onset: 02-24-2024 Chronic Other endocrine disorders (1 source) Polycystic ovary syndrome; Translations: [Polycystic ovarian syndrome] 02-24-2024 Chronic Other female genital disorders (2 sources) Vaginal bleeding Onset: 09-08-2023 Chronic Other female genital disorders (1 source) Other specified conditions associated with female genital organs and menstrual cycle; Translations: [Other specified conditions associated with female genital organs and menstrual cycle] Onset: 09-08-2023 Episodic Other nutritional; endocrine; and metabolic disorders (1 source) Obesity Onset: 02-24-2024 Chronic Other nutritional; endocrine; and metabolic disorders (1 source) Obesity, unspecified; Translations: [Obesity, unspecified] Onset: 05-26-2023 Chronic Other nutritional; endocrine; and metabolic disorders (13 sources) Body mass index 30+ - obesity; Translations: [Body mass index (BMI) 35.0-35.9, adult] Onset: 05-26-2023 05-26-2023 Chronic Other and delivery including normal (15 sources) test positive; Translations: [Encounter for test, result positive] 06-20-2024 Episodic Other screening for suspected conditions (not mental disorders or infectious disease) (5 sources) Raised TSH level; Translations: [Other specified abnormal findings of blood chemistry] 06-20-2024 Episodic Unclassified (1 source) medication Onset: 07-06-2023 Unclassified (13 sources) OB Reminders Onset: 06-22-2024 06-22-2024 Viral infection (1 source) Disease caused by 2019-nCoV; Translations: [COVID-19] 06-27-2024 Episodic Past or Other Problems Problem Classification Problem Date Documented Da te Episodic/Chronic Other ear and sense organ disorders (1 source) Unspecified acute noninfective otitis externa, bilateral; Translations: [Unspecified acute noninfective otitis externa, bilateral] Onset: 07-06-2023 Episodic Other ear and sense organ disorders (1 source) Acute otitis externa of bilateral ears; Translations: [Unspecified acute noninfective otitis externa, bilateral] 07-06-2023 Episodic Other nutritional; endocrine; and metabolic disorders (1 source) Abnormal weight loss; Translations: [Abnormal weight loss] Onset: 04-20-2023 Episodic Other nutritional; endocrine; and metabolic disorders (2 sources) Weight loss; Translations: [Abnormal weight loss] 05-26-2023 Episodic Results Test Name Value Interpretation Reference Range Facility [facility] UA (CLEAN/CATCH) [employer] SUPERINTENDENT/ANNABELLA RO IF IND.on 10-23-2024 BILIRUBIN URINE Negative NEGATIVE [facility] BLOOD URINE Negative NEGATIVE [facility] Clarity (U) CLEAR CLEAR [facility] Color (U) LT. YELLOW YELLOW [facility] GLUCOSE URINE UA Negative NEGATIVE mg/dL [facility] Interpretation and review of laboratory results Abnormal [facility] Ketones Ql (U) Negative NEGATIVE mg/dL [facility] Leukocyte esterase Test strip Ql (U) SMALL Abnormal NEGATIVE [facility] NITRITE URINE Negative NEGATIVE [facility] pH (U) 6.0 [pH] 5.0 - 9.0 [facility] PROTEIN URINE Negative NEG/TRACE mg/dL [facility] SPECIFIC GRAVITY URINE <=1.005 Abnormal 1.005 - 1.025 [facility] URINE MICROSCOPIC INDICATED YES [facility] UROBILINOGEN URINE 0.2 EU/dL 0.2 - 1.0 EU/dL [facility] US OB FOLLOW UP TRANSABDOMIN AL APPROACHon 10-09-2024 US OB FOLLOW UP TRANSABDOMINAL APPROACH EXAM: US OB FOLLOW UP TRANSABDOMINAL APPROACH [...] 12/11/2024. Interpreted by: Electronically signed by JENNIFER CURTIS II, MD, PHD at 11-Oct-2024 08:25:22 AM [facility] Normal Not Available US OB 14+ WEEKS ANATOMY SCAN on 07-31-2024 US OB 14+ WEEKS ANATOMY SCAN TITLE OF EXAM: OB Ultrasound: REASON FOR [...] ultrasound age is used. Dictated and transcribed 08/01/24/dpd This report has been electronically signed and approved by the interpreting radiologist. Normal Not Available Bacteria identified Cx Nom ( U)on 05-26-2024 Appearance (U) Adequate [facility] Internal identifier for Provider [id number] [facility] Specimen source Nom (Unsp spec) URINE [facility] STATUS FINAL [facility] - Drug toxicology on 05-26-2024 5-Iaxsnknnoy-4,5-Dimethy l-3,3-Diphenylpyrrolidin e (EDDP) Ql (U) Negative NINF - 100 ng/mL [facility] Amphetamines Ql (U) Negative NINF - 5 00 ng/mL [facility] Barbiturates Ql (U) Negative NINF - 3 00 ng/mL [facility] Benzodiazepines Ql (U) Negative NINF - 100 ng/mL [facility] Benzoylecgonine Ql (U) Negative NINF - 150 ng/mL [facility] Opiates Ql (U) Negative NINF - 100 ng/mL [facility] oxyCODONE Ql (U) Negative NINF - 100 ng/mL [facility] Phencyclidine Ql (U) Negative NINF - 25 ng/mL [facility] Tetrahydrocannabinol Screen method >20 ng/mL Ql (U) Negative NINF - 20 ng/mL [facility] Laboratory - Microbiology an d Antimicrobial susceptibilityon 05-26-2024 Bacteria identified Cx Nom (U) SEE NOTE [facility] Comment on above: No Growth Laboratory - Miscellaneous t estson 05-26-2024 Service comment (Unsp spec) [Interp] [facility] Comment on above: This urine was martin zed for the presence of WBC, RBC, bacteria, casts, and other formed elements. Only those elements seen were reported. Laboratory - Urinalysison Bacteria LM.HPF (Urine sed) [#/Area] NONE SEEN NONE SEEN /HPF [facility] Epithelial cells.squamous LM.HPF (Urine sed) [#/Area] 0-5 < OR = 5 /HPF [facility] Hyaline casts (Urine sed) [#/Area] NONE SEEN NONE SEEN /LPF [facility] RBC LM.HPF (Urine sed) [#/Area] NONE SEEN < OR = 2 /HPF [facility] WBC LM.HPF (Urine sed) [#/Area] 6-10 Abnormal < OR = 5 /HPF [facility] N. gonorrhoeae DNA CHRISTY+probe Ql (Cervical mucus)on 05-26-2024 C. trachomatis rRNA CHRISTY+probe Ql (Unsp spec) Not detected NOT DETECTED [facility] N. gonorrhoeae rRNA CHRISTY+probe Ql (Unsp spec) Not detected NOT DETECTED [facility] No Panel Informationon 05-26 (ALWAYS MESSAGE) [facility] Comment on above: See Note 1 Note 1 This drug testing is for medical treatment only. Analysis was performed as non-forensic testing and these results should be used only by healthcare providers to render diagnosis or treatment, or to monitor progress of medical conditions. For assistance with interpreting these drug results, please contact a [facility]ist: [phone] ( ), M-F, 8am-6pm EST. The analytical perfo rmance characteristics of this assay, when used to test SurePath(TM) specimens have been determined by [facility]. The modifications have not been cleared or approved by the FDA. This assay has been validated pursuant to the CLIA regulations and is used for clinical purposes. For additional information, please refer to https://education.3Jam/faq/WKY409 (This link is being provided for information/ educational purposes only.) Interpretation and review of laboratory results Abnormal [facility] SPLIT 05/24/2024 FROM [id number] A.P Avanashiappa [facility] Organization Information Site ID: QPT Name: [facility] Address: [address] [place] [address], [address] [place] [phone] Director: Juan Mensah MD [facility] CBC panel Auto (Bld)on 05-25 Erythrocyte distribution width (RBC) [Ratio] 12.9 % 11.0 - 15.0 % [facility] Hematocrit (Bld) [Volume fraction] 39.1 % 35.0 - 45.0 % [facility] Hemoglobin (Bld) [Mass/Vol] 12.9 g/dL 11.7 - 15.5 g/dL [facility] MCH (RBC) [Entitic mass] 28.8 pg 27. 0 - 33.0 pg [facility] MCHC (RBC) [Mass/Vol] 33 g/dL 32.0 - 36.0 g/dL [facility] Comment on above: For adults, a slight decrease in the calculated MCHC value (in the range of 30 to 32 g/dL) is most likely not clinically significant; however, it should be interpreted with caution in correlation with other red cell parameters and the patient's clinical condition. MCV (RBC) [Entitic vol] 87.3 fL 80.0 - 100.0 fL [facility] Platelet mean volume (Bld) [Entitic vol] 10.4 fL 7.5 - 12.5 fL [facility] Platelets (Bld) [#/Vol] 269 10*3/uL [facility] RBC (Bld) [#/Vol] 4.48 10*6/uL [facility] WBC (Bld) [#/Vol] 10.6 10*3/uL [facility] Performing Organization Information Site ID: QTW Name: [facility] Address: [address] [place] [phone] Director: Nishi Squires [facility] Laboratory - Blood bankon ABO group Nom (Bld) O [facility] Blood group antibody screen Ql Detected [facility] Comment on above: Reference range No antibodies detected This assay is a screening test for the detection of red blood cell antibodies. The test is not to be used for pretransfusion screening or for the medical management of an alloimmunized . Rh Nom (Bld) Positive [facility] Comment on above: For additional information, please refer to http://education.[employer]faq/ATJ201 (This link is being provided for informational/ educational purposes only.) Laboratory - Chemistry and C hemistry - challengeon 05-25-2024 Free T4 [Mass/Vol] 1.3 ng/dL 0.8 - 1.8 ng/dL [facility] TSH Qn 4.91 m[IU]/L High mIU/L [facility] Comment on above: Reference Range > or = 20 Years 0.40-4.50 Ranges First trimester 0.26-2.66 Second trimester 0.55-2.73 Third trimester 0.43-2.91 Laboratory - Hematology and Cell countson 05-25-2024 HbA1c (Bld) [Mass fraction] 5.5 % [facility] Comment on above: For the purpose of s creening for the presence of diabetes: <5.7% Consistent with the absence of diabetes 5.7-6.4% Consistent with increased risk for diabetes (prediabetes) > or =6.5% Consistent with diabetes This assay result is consistent with a decreased risk of diabetes. Currently, no consensus exists regarding use of hemoglobin A1c for diagnosis of diabetes in children. According to [place] [employer] (ADA) guidelines, hemoglobin A1c <7.0% represents optimal control in non- diabetic patients. Different metrics may apply to specific patient populations. Standards of Medical Care in Diabetes(ADA). Laboratory - Microbiology an d Antimicrobial susceptibilityon 05-25-2024 HBV surface Ag IA Ql Non-Reactive NON-REACTIVE [facility] Comment on above: For additional information, please refer to http://PharmMD.3Jam/faq/NQV253 (This link is being provided for informational/ educational purposes only.) HCV Ab IA Ql Non-Reactive NON-REACTIVE [facility] Comment on above: HCV antibody was non-reactive. There is no laboratory evidence of HCV infection. In most cases, no further action is required. However, if recent HCV exposure is suspected, a test for HCV RNA (test code 14068) is suggested. For additional information please refer to http://PharmMD.3Jam/faq/ZDI54h4 (This link is being provided for informational/ educational purposes only.) HIV 1+2 Ab+HIV1 p24 Ag IA Ql Non-Reactive NON-REACTIVE [facility] Comment on above: HIV-1 antigen and HI V-1/HIV-2 antibodies were not detected. There is no laboratory evidence of HIV infection. PLEASE NOTE: This information has been disclosed to you from records whose confidentiality may be protected by state law. If your state requires such protection, then the state law prohibits you from making any further disclosure of the information without the specific written consent of the person to whom it pertains, or as otherwise permitted by law. A general authorization for the release of medical or other information is NOT sufficient for this purpose. For additional information please refer to http://PharmMD.3Jam/faq/PEN138 (This link is being provided for informational/ educational purposes only.) The performance of this assay has not been clinically validated in patients less than 2 years old. Reagin Ab RPR Ql (S) Non-Reactive NON-REACTIVE [facility] Rubella virus IgG Qn (S) 1.63 [IU]/mL Index [facility] Comment on above: Index Interpretation ----- <0.90 Not consistent with immunity 0.90-0.99 Equivocal > or = 1.00 Consistent with immunity The presence of rubella IgG antibody suggests immunization or past or current infection with rubella virus. No Panel Informationon 05-25 Interpretation and review of laboratory results Abnormal [facility] COLLECTION KIT GIVEN TO PATIENT. PATIENT ADVISED TO RETURN. [facility] Organization Information Site ID: QPT Name: [facility] Address: [address] , [address] [place] [phone] Director: Juan Mensah MD [facility] BASIC METABOLIC PANLon 09-07 Anion gap [Moles/Vol] 8 mmol/L Normal 5-15 [facility] Comment on above: Performed By: #### C BELEN ALTAMIRANO, #### [facility] ([id number]) [address] [place] [address] Calcium [Mass/Vol] 9.8 mg/dL Normal 8.5-10.5 [facility] Comment on above: Performed By: #### C BELEN ALTAMIRANO, #### [facility] ([id number]) [address] [place] [address] Chloride [Moles/Vol] 102 mmol/L Normal 98-[address] [facility] Comment on above: Performed By: #### C BELEN ALTAMIRANO, #### [facility] ([id number]) [address] [place] [address]338 CO2 [Moles/Vol] 25 mmol/L Normal 22-32 [facility] Comment on above: Performed By: #### C BELEN ALTAMIRANO, #### [facility] ([id number]) [address] [place] [address]75 Creatinine [Mass/Vol] 0.66 mg/dL Normal 0.40-1.00 [facility] Comment on above: Result Comment: METH OD TRACEABLE TO IDMS STANDARD Performed By: #### C BELEN ALTAMIRANO, #### [facility] ([id number]) [address] [place] [address] eGFR (CKD-EPI) NON-RACE DEPENDENT >90 Normal >59 [facility] Comment on above: Result Comment: Reported eGFR is based on the CKD-EPI 2020 equation that does not use a race coefficient. Performed By: #### C BELEN ALTAMIRANO, #### [facility] ([id number]) [address] [place] [address] Glucose [Mass/Vol] 97 mg/dL Normal 65-99 [facility] Comment on above: Performed By: #### C BELEN ALTAMIRANO, #### [facility] ([id number]) [address] [place] [address] Potassium [Moles/Vol] 3.6 mmol/L Normal 3.5-5.0 [facility] Comment on above: Performed By: #### C BELEN ALTAMIRANO, #### [facility] ([id number]) [address] [place] [address] 13690 Sodium [Moles/Vol] 135 mmol/L Normal 134-146 [facility] Comment on above: Performed By: #### C BELEN ALTAMIRANO, #### [facility] ([id number]) [address] [place] [address] 13523 Urea nitrogen [Mass/Vol] 14 mg/dL Normal 5-23 [facility] Comment on above: Performed By: #### C BELNE ALTAMIRANO, #### [facility] ([id number]) [address] [place] [address] 15174 CBC AND AUTO DIFFon 09-08-19 24 ABSOLUTE BASOPHIL 0.1 X10E9/L Normal 0.0-0.2 [facility] Comment on above: Performed By: #### C EVELIA [facility], #### [facility] ([id number]) [address] [place] [address]78 ABSOLUTE NEUTROPHIL 6.9 X10E9/L High 1.5-6.[address] [facility] Comment on above: Performed By: #### BELEN Chowdary [facility], #### [facility] ([id number]) [address] [place] [address] 74998 Basophils/100 WBC (Bld) 0.8 % Normal [facility] Comment on above: Performed By: #### BELEN Chowdary [facility], #### [facility] ([id number]) [address] [place] [address] 37463 Eosinophils (Bld) [#/Vol] 0.2 10*3/uL Normal 0.0-0.4 [facility] Comment on above: Performed By: #### C EVELIA [facility], #### [facility] ([id number]) [address] [place] [address] 62850 Eosinophils/100 WBC (Bld) 2.0 % Normal [facility] Comment on above: Performed By: #### Ricarda ALTAMIRANO [facility], #### [facility] ([id number]) [address] [place] [address]76 Erythrocyte distribution width (RBC) [Ratio] 12.9 % Normal 11.5-15.0 [facility] Comment on above: Performed By: #### C BELEN ALTAMIRANO, #### [facility] ([id number]) [address] [place] [address]5008 Hematocrit (Bld) [Volume fraction] 39.3 % Normal 35-47 [facility] Comment on above: Performed By: #### BELEN Chowdary [facility], #### [facility] ([id number]) [address] [place] [address] 56530 Hemoglobin (Bld) [Mass/Vol] 13.1 g/dL Normal 11.7-15.5 [facility] Comment on above: Performed By: #### C BELEN ALTAMIRANO, #### [facility] ([id number]) [address] [place] [address] 14392 Lymphocytes (Bld) [#/Vol] 2.2 10*3/uL Normal 1.0-3.5 [facility] Comment on above: Performed By: #### BELEN Chowdary [facility], #### [facility] ([id number]) [address] [place] [address] 84489 Lymphocytes/100 WBC (Bld) 21.0 % Normal [facility] Comment on above: Performed By: #### BELEN Chowdary [facility], #### [facility] ([id number]) [address] [place] [address] 35359 MCH (RBC) [Entitic mass] 29.1 pg Normal 27-34 [facility] Comment on above: Performed By: #### BELEN Chowdary B[facility], #### [facility] ([id number]) [address] [place] [address] 69883 MCHC (RBC) [Mass/Vol] 33.3 g/dL Normal 32-36 [facility] Comment on above: Performed By: #### BELEN Chowdary BCA, #### [facility] ([id number]) [address] [place] [address] 15388 MCV (RBC) [Entitic vol] 87 fL Normal 80-100 [facility] Comment on above: Performed By: #### BELEN Chowdary BCA, #### [facility] ([id number]) [address] [place] [address] 40091 Monocytes (Bld) [#/Vol] 1.0 10*3/uL High 0-0.9 [facility] Comment on above: Performed By: #### C BELEN ALTAMIRANO, #### [facility] ([id number]) [address] [place] [address] 24781 Monocytes/100 WBC (Bld) 9.5 % Normal [facility] Comment on above: Performed By: #### BELEN Chowdary BCA, #### [facility] ([id number]) [address] [place] [address] 65072 Neutrophils/100 WBC (Bld) 66.7 % Normal [facility] Comment on above: Performed By: #### BELEN Chowdary BCA, #### [facility] ([id number]) [address] [place] [address] 00328 Platelet mean volume (Bld) [Entitic vol] 8.7 fL Normal 7-12 [facility] Comment on above: Performed By: #### BELEN Chowdary BCA, #### [facility] ([id number]) [address] [place] [address] 21817 Platelets (Bld) [#/Vol] 299 10*3/uL Normal 150-450 [facility] Comment on above: Performed By: #### BELEN Chowdary BCA, #### [facility] ([id number]) [address] [place] [address] 12967 RBC COUNT 4.50 X10E12/L Normal 3.80-5.20 [facility] Comment on above: Performed By: #### BELEN Chowdary BCA, #### [facility] ([id number]) [address] [place] [address] 87069 WBC (Bld) [#/Vol] 10.4 10*3/uL Normal 4.0-11.0 [facility] Comment on above: Performed By: #### C BELEN ALTAMIRANO, [id number] #### [facility] ([id number]) [address] [place] [address] 21312 HCG ( test) Ql (U)o n 09-08-2023 Beta HCG ( test) Ql (U) Positive Abnormal NEG [facility] Comment on above: Performed By: #### 2 106-3 #### [facility] ([id number]) [address] [place] [address] 48383 HCG.beta subunit IA 3rd IS Q non 09-08-2023 HCG.beta subunit Qn 126 m[IU]/mL Normal [facility] Comment on above: Result Comment: NEW REFERENCE RANGE WEEKS (SINCE LMP) MIU/mL 3 WEEKS 5 - 50 4 WEEKS 5 - 426 5 WEEKS 18 - 7,340 6 WEEKS 1,080 - 56,500 7-8 WEEKS 7,650 - 229,000 9-12 WEEKS 25,700 - 288,000 13-16 WEEKS 13,300 - 254,000 17-24 WEEKS 4,060 - 165,400 25-40 WEEKS 3,640 - 117,000 MALES AND NON- FEMALES - <5 MIU/mL This test has been FDA approved for use in only. Elevated levels are not necessarily diagnostic for trophoblastic or nontrophoblastic neoplasms. Performed By: #### C BELEN ALTAMIRANO, #### [facility] ([id number]) [address] [place] [address] 55274 URINE CULTUREon 09-08-2023 Bacteria identified Cx Nom (U) CULTURE RESULTS >100,000 ORGANISMS/ML NORMAL UROGENITAL JUSTINE Normal [facility] Comment on above: Performed By: #### 6 30-4 #### [facility] ([id number]) [address] [place] [address], [address] [place] [address] URN MACROSCOPIC NURon 2023 BILIRUBIN PRAMOD Negative Normal NEG [facility] Comment on above: Performed By: #### N UM #### [facility] ([id number]) [address] [place] [address] 42436 BLOOD/HGB PRAMOD Large Abnormal NEG [facility] Comment on above: Performed By: #### N UM #### [facility] ([id number]) [address] [place] [address] 74832 GLUCOSE PRAMOD Negative Normal NEG [facility] Comment on above: Performed By: #### N UM #### [facility] ([id number]) [address] [place] [address] 50571 KETONES PRAMOD Negative Normal NEG [facility] Comment on above: Performed By: #### N UM #### [facility] ([id number]) [address] [place] [address] 10774 LEUKOCYTE ESTERASE PRAMOD Small Abnormal NEG Pr [facility] Comment on above: Performed By: #### N UM #### [facility] ([id number]) [address] [place] [address] 34880 NITRITE PRAMOD Negative Normal NEG [facility] Comment on above: Performed By: #### N UM #### [facility] ([id number]) [address] [place] [address] 57202 PH PRAMOD 5.0 Normal 5.0-8.5 [facility] Comment on above: Performed By: #### N UM #### [facility] ([id number]) [address] [place] [address] 10484 PROTEIN PRAMOD 100 mg/dL Abnormal NEG [facility] Comment on above: Performed By: #### N UM #### [facility] ([id number]) [address] [place] [address] 62300 SPECIFIC GRAVITY PRAMOD 1.025 Normal 1.003-1.[address] [facility] Comment on above: Performed By: #### N UM #### [facility] ([id number]) [address] [place] [address] 10786 UROBILINOGEN PRAMOD 0.2 eu/dL Normal <1.1 [facility] Comment on above: Performed By: #### N UM #### [facility] ([id number]) [address] [place] [address] 08263 US PREG LESS THAN 14 WKS WIT H TRANSVAGINALon 09-08-2023 US PREG LESS THAN 14 WKS WITH TRANSVAGINAL US PREG LESS THAN 14 WKS WITH TRANSVAGINAL US PREG LESS THAN 14 WKS WITH TRANSVAGINAL: 09/08/2023 1:02 PM Clinical: Positive test. Polycystic ovarian disease. Irregular periods. Real-time transabdominal transvaginal sonography pelvis performed. Unremarkable uterus measures 7.9 x 3.9 x 4.3 cm. Endometrium is 5 mm in thickness. No intrauterine seen. Unremarkable right ovary measures 3.6 x 2.4 x 2.8 cm. In the left adnexa there are 2 distinct structures one of which is likely the ovary and 1 which is a adnexal mass. These measure 3.4 x 2.2 x 2.1 cm and 2.9 x 1.4 x 1.4 cm. Small amount cul-de-sac fluid. IMPRESSION: * No intrauterine greater than 5-6 weeks. * Given the positive test, differential diagnosis includes early intrauterine and missed . Ectopic is also possible given the left adnexal mass separate from the left ovary. Recommend correlation with quantitative beta hCG. THIS REPORT CONTAINS A SIGNIFICANT RESULT AND/OR RECOMMENDATION, WHICH REQUIRES THE ATTENTION OF THE LICENSED CAREGIVER RESPONSIBLE FOR THIS PATIENT. THEREFORE, I SPECIFICALLY DESIGNATED THIS REPORT TO BE TELEPHONED BY THE RADIOLOGY DEPARTMENT. * Finalized by Gato Dave MD on 09/08/2023 1:54 PM Normal [facility] [id number] 01-12-2020 SARS-CoV-2 Not Detected Normal Not Detected [facility] Hospital Comment on above: Result Comment: (NOT E) This nucleic acid amplification test was developed and its performance characteristics determined by [employer]. Nucleic acid amplification tests include PCR and TMA. This test has not been FDA cleared or approved. This test has been authorized by FDA under an Emergency Use Authorization (EUA). This test is only authorized for the duration of time the declaration that circumstances exist justifying the authorization of the emergency use of in vitro diagnostic tests for detection of SARS-CoV-2 virus and/or diagnosis of COVID-19 infection under section 564(b)(1) of the Act, 21 U.S.C. 360bbb-3(b) (1), unless the authorization is terminated or revoked sooner. When diagnostic testing is negative, the possibility of a false negative result should be considered in the context of a patient's recent exposures and the presence of clinical signs and symptoms consistent with COVID-19. An individual without symptoms of COVID- 19 and who is not shedding SARS-CoV-2 virus would expect to have a negative (not detected) result in this assay. Performed At: [facility] [address] [facility] [place] [id number] Cindy Rodriguez MD Ph:[phone] Performed By: #### A COV #### [facility] [address] [place] [address] Boat Puller: Gerardo Baez MD [id number] 01-09-2020 SARS-CoV-2 Not Detected Normal Not Detected [facility] Comment on above: Result Comment: (NOT E) This nucleic acid amplification test was developed and its performance characteristics determined by [employer]. Nucleic acid amplification tests include PCR and TMA. This test has not been FDA cleared or approved. This test has been authorized by FDA under an Emergency Use Authorization (EUA). This test is only authorized for the duration of time the declaration that circumstances exist justifying the authorization of the emergency use of in vitro diagnostic tests for detection of SARS-CoV-2 virus and/or diagnosis of COVID-19 infection under section 564(b)(1) of the Act, 21 U.S.C. 360bbb-3(b) (1), unless the authorization is terminated or revoked sooner. When diagnostic testing is negative, the possibility of a false negative result should be considered in the context of a patient's recent exposures and the presence of clinical signs and symptoms consistent with COVID-19. An individual without symptoms of COVID- 19 and who is not shedding SARS-CoV-2 virus would expect to have a negative (not detected) result in this assay. Performed At: [facility] [address] [place], [place] [id number] Bunny Esquivel [facility] Ph:[phone] Performed By: #### A COV #### [facility] [address] [place] [address] Boat Puller: Gerardo Baez MD Vital Signs Date Time Vital Sign Value Performing Clinician Facility 09-28-2024 14:28-0400 Body mass index (BMI) [Ratio] 38.33 kg/m2 Cordell Floro CNM Work Phone: [facility] 09-28-2024 14:28-0400 Body weight 122.92 kg Cordell Floro CNM Work Phone: [facility] 09-28-2024 14:28-0400 Diastolic blood pressure 70 mm[Hg] Cordell Floro CNM Work Phone: [facility] 09-28-2024 14:28-0400 Systolic blood pressure 122 mm[Hg] Cordell Floro CNM Work Phone: [facility] 08-29-2024 15:07-0400 Body mass index (BMI) [Ratio] 37.2 kg/m2 Cordell Floro CNM Work Phone: [facility] 08-29-2024 15:07-0400 Body weight 119.3 kg Cordell Floro CNM Work Phone: [facility] 08-29-2024 15:07-0400 Diastolic blood pressure 80 mm[Hg] Cordell Floro CNM Work Phone: [facility] 08-29-2024 15:07-0400 Systolic blood pressure 118 mm[Hg] Cordell Floro CNM Work Phone: [facility] 07-31-2024 17:13-0400 Body mass index (BMI) [Ratio] 36.64 kg/m2 Cordell Floro CNM Work Phone: [facility] 07-31-2024 17:13-0400 Body weight 117.48 kg Cordell Floro CNM Work Phone: [facility] 06-22-2024 08:28-0500 Body mass index (BMI) [Ratio] 35.08 kg/m2 Cordell Floro CNM Work Phone: [facility] 06-22-2024 08:28-0500 Body weight 112.49 kg Cordell Floro CNM Work Phone: [facility] 06-22-2024 08:28-0500 Diastolic blood pressure 72 mm[Hg] Cordell Floro CNM Work Phone: [facility] 06-22-2024 08:28-0500 Systolic blood pressure 120 mm[Hg] Cordell Floro CNM Work Phone: [facility] 05-04-2024 14:32-0500 Body mass index (BMI) [Ratio] 32.96 kg/m2 Cordell Floro CNM Work Phone: [facility] 05-04-2024 14:32-0500 Body weight 105.69 kg Cordell Floro CNM Work Phone: [facility] 05-04-2024 14:32-0500 Diastolic blood pressure 70 mm[Hg] Cordell Floro CNM Work Phone: [facility] 05-04-2024 14:32-0500 Systolic blood pressure 110 mm[Hg] Cordell Floro CNM Work Phone: [facility] 02-24-2024 11:30-0400 Body height 180.3 cm Mini Sal MD Work Phone: [facility] 02-24-2024 11:30-0400 Body mass index (BMI) [Ratio] 32.08 kg/m2 Mini Sal MD Work Phone: [facility] 02-24-2024 11:30-0400 Body temperature 98.71 [degF] Mini Sal MD Work Phone: [facility] 02-24-2024 11:30-0400 Body weight 104.33 kg Mini Sal MD Work Phone: [facility] 02-24-2024 11:30-0400 Diastolic blood pressure 68 mm[Hg] Mini Sal MD Work Phone: [facility] 02-24-2024 11:30-0400 Heart rate 72 /min Mini Sal MD Work Phone: [facility] 02-24-2024 11:30-0400 SaO2% (BldA) [Mass fraction] 98 % Mini Sal MD Work Phone: [facility] 02-24-2024 11:30-0400 Systolic blood pressure 116 mm[Hg] Mini Sal MD Work Phone: [facility] 07-06-2023 12:57-0500 Body height 179.1 cm Mini Sal MD Work Phone: [facility] 07-06-2023 12:57-0500 Body mass index (BMI) [Ratio] 31.39 kg/m2 Mini Sal MD Work Phone: [facility] 07-06-2023 12:57-0500 Body temperature 98.8 [degF] Mini Sal MD Work Phone: [facility] 07-06-2023 12:57-0500 Body weight 100.7 kg Mini Sal MD Work Phone: [facility] 07-06-2023 12:57-0500 Diastolic blood pressure 74 mm[Hg] Mini Sal MD Work Phone: [facility] 07-06-2023 12:57-0500 Heart rate 70 /min Mini Sal MD Work Phone: [facility] 07-06-2023 12:57-0500 SaO2% (BldA) [Mass fraction] 99 % Mini Sal MD Work Phone: [facility] 07-06-2023 12:57-0500 Systolic blood pressure 122 mm[Hg] Mini Sal MD Work Phone: [facility] Encounters Encounter Date Encounter Type Care Provider Facility Start: 10-23-2024 End: 10-23-2024 Clinisync Result Encounter Cordell Solimano CNM Work Phone: [facility] Unsolicited Start: 10-23-2024 End: 10-23-2024 Clinisync Result Encounter Cordell Solimano CNM Work Phone: [facility] Unsolicited Start: 10-09-2024 End: 10-09-2024 ambulatory CORDELL L FLORO Not Available Start: 09-28-2024 End: 09-28-2024 Subsequent care visit Cordell Solimano CNM Work Phone: [facility] Comment on above: Encounter for superv ision of other normal , second trimester (Primary Dx); Screening for diabetes mellitus; Screening for iron deficiency anemia; related condition in third trimester Start: 09-28-2024 End: 09-28-2024 ambulatory CORDELL L FLORO Not Available Start: 09-28-2024 End: 09-28-2024 Bamboo flowsheet Cordell L Floro CNM Work Phone: [facility] Start: 09-28-2024 End: 09-28-2024 Bamboo flowsheet Cordell L Floro CNM Work Phone: [facility] Start: 08-29-2024 End: 08-29-2024 Subsequent care visit Cordell Leodan Solimano CNM Work Phone: [facility] Comment on above: Encounter for superv ision of other normal , second trimester (Primary Dx) Start: 08-29-2024 End: 08-29-2024 ambulatory CORDELL L FLORO Not Available Start: 08-29-2024 End: 08-29-2024 Bamboo flowsheet Cordell L Floro CNM Work Phone: [facility] Start: 08-29-2024 End: 08-29-2024 Bamboo flowsheet Cordell L Floro CNM Work Phone: [facility] Start: 07-31-2024 End: 07-31-2024 Subsequent care visit Cordell L Floro CNM Work Phone: [facility] Comment on above: Encounter for superv ision of other normal , second trimester (Primary Dx); related condition in second trimester Start: 07-31-2024 End: 07-31-2024 ambulatory CORDELL L FLORO Not Available Start: 07-31-2024 End: 07-31-2024 Bamboo flowsheet Cordell L Floro CNM Work Phone: [facility] Start: 07-31-2024 End: 07-31-2024 Bamboo flowsheet Cordell L Floro CNM Work Phone: [facility] Start: 06-27-2024 End: 06-27-2024 Orders Only Cordell L Floro CNM Work Phone: [facility] Comment on above: COVID (Primary Dx); Encounter for care of first , second trimester Start: 06-22-2024 End: 06-22-2024 Bamboo flowsheet Cordell L Floro CNM Work Phone: [facility] Start: 06-22-2024 End: 06-22-2024 Bamboo flowsheet Cordell L Floro CNM Work Phone: [facility] Start: 06-22-2024 End: 06-22-2024 Subsequent care visit Cordell L Floro CNM Work Phone: [facility] Comment on above: Encounter for prenat al care of first , second trimester (Primary Dx) Start: 06-22-2024 End: 06-22-2024 ambulatory CORDELL L FLORO Not Available Start: 06-20-2024 End: 06-20-2024 Orders Only Cordell L Floro CNM Work Phone: [facility] Comment on above: Elevated TSH (Primar y Dx) Start: 05-24-2024 End: 05-24-2024 Bamboo flowsheet Cordell L Floro CNM Work Phone: [facility] Start: 05-24-2024 End: 05-24-2024 Bamboo flowsheet Cordell L Floro CNM Work Phone: [facility] Start: 05-24-2024 End: 05-24-2024 ambulatory CORDELL L FLORO Not Available Start: 05-04-2024 End: 05-04-2024 ambulatory Cordell L Floro CNM Work Phone: [facility] Comment on above: GA: 7w6d Start: 05-04-2024 End: 05-04-2024 Bamboo flowsheet Cordell L Floro CNM Work Phone: [facility] Start: 05-04-2024 End: 05-04-2024 Bamboo flowsheet Cordell L Floro CNM Work Phone: [facility] Start: 04-28-2024 End: 04-28-2024 ambulatory Cordell L Floro CNM Work Phone: [facility] Comment on above: GA: 7w0d Start: 04-21-2024 End: 04-21-2024 ambulatory CORDELL FLORO Not Available Start: 04-03-2024 End: 04-03-2024 Telephone encounter Cordell L Floro CNM Work Phone: [facility] Start: 02-28-2024 End: 02-28-2024 Telephone encounter Mini Sal MD Work Phone: [facility] Comment on above: Sleep Lab (HST/PSG/C PAP) Start: 02-24-2024 End: 02-24-2024 ambulatory [facility] Start: 02-24-2024 End: 02-24-2024 Office outpatient visit 25 minutes Mini Sal MD Work Phone: [facility] Comment on above: Obesity (BMI 30-39.9 ) (Primary Dx); Weight loss; PCOS (polycystic ovarian syndrome) Start: 01-13-2024 End: 01-13-2024 Telephone encounter Karolina Lawrence [facility] Call Karl powell Comment on above: Abdominal Pain; Dizz iness Start: 09-08-2023 End: 09-09-2023 Emergency department patient visit JOSH Aimee [facility] Start: 07-06-2023 End: 07-06-2023 Office outpatient visit 25 minutes Mini Sal MD Work Phone: [facility] Comment on above: Obesity (BMI 30-39.9 ) (Primary Dx); Acute otitis externa of both ears, unspecified type Start: 07-06-2023 End: 07-06-2023 ambulatory [facility] Start: 05-26-2023 End: 05-26-2023 ambulatory [facility] Start: 05-26-2023 End: 05-26-2023 Office outpatient visit 25 minutes Mini Sal MD Work Phone: [facility] Comment on above: Obesity (BMI 30-39.9 ) (Primary Dx); Weight loss; BMI 35.0-35.9,adult Start: 04-20-2023 End: 04-20-2023 ambulatory [facility] Start: 01-10-2020 Patient encounter procedure MISSY BRITT Facility: Start: 01-10-2020 End: 01-11-2020 Patient encounter procedure MISSY BRITT [facility] Start: 01-10-2020 End: 01-10-2020 Subsequent hospital visit by physician [facility] Covid Screening Schedule [facility] Screening Comment on above: Arrived Start: 01-04-2020 End: 01-05-2020 Patient encounter procedure LIT Pedroza [facility] Start: 01-04-2020 End: 01-04-2020 Subsequent hospital visit by physician Karel [facility] Start: 01-03-2020 End: 01-04-2020 Patient encounter procedure LIT Pedroza [facility] Start: 01-03-2020 End: 01-03-2020 Subsequent hospital visit by physician Karel Barkley [facility] Laboratory Procedures Date Procedure Procedure Detail Performing Clinician Start: 10-23-2024 TBH UA (CLEAN/CATCH) [employer] SUPERINTENDENT/MICRO IF IND. Cordell L Floro CNM Work Phone: Start: 05-24-2024 Culture bacterial quanttative colony count urine Cordell L Floro CNM Work Phone: Start: 05-24-2024 DRUG TOX MONITORIGN 6 W/ CONF,URINE Cordell L Floro CNM Work Phone: Start: 05-24-2024 URINALYSIS MICROSCOPIC Cordell L Floro CNM Work Phone: Start: 05-24-2024 Antibody screen rbc each serum technique Cordell L Floro CNM Work Phone: Start: 05-24-2024 Hemoglobin glycosyla leighton a1c Cordell L Floro CNM Work Phone: Start: 05-24-2024 Iaad ia hepatitis b surface antigen Cordell L Floro CNM Work Phone: Start: 05-24-2024 TSH W/REFLEX TO FT4 Mery nahomi L Floro CNM Work Phone: Start: 01-10-2020 COVID-19 AMBULATORY DIP CJ ELIZABETH Start: 01-03-2020 COVID-19 AMBULATORY DIP CJ ELIZABETH Plan of Treatment Date Care Activity Detail Author Start: 02-23-2025 Adult BMI Screening Adult BMI Screen ing [facility] Start: 02-23-2025 Tobacco Screening Tobacco Screening [facility] Start: 01-01-2025 Influenza vaccination Influenz a Vaccine (Season Ended) [facility] Start: 10-26-2024 End: 10-26-2024 Patient encounter procedure 10/26/2024 3:30 PM EDT Routine [facility] [address] [place] [phone] Cordell Gifford CNM [address] [place] [address] [facility] Start: 09-28-2024 End: 09-28-2024 Patient encounter procedure [facility] Comment on above: Screening for diabet es mellitus; Screening for iron deficiency anemia; related condition in third trimester Start: 09-28-2024 End: 09-28-2025 CBC panel - Blood by Automated count CBC Lab Routine Screening for iron deficiency anemia Expected: 09/28/2024 (Approximate), Expires: 09/28/2025 [facility] Comment on above: Expected: 09/28/2024 (Approximate), Expires: 09/28/2025 Start: 09-28-2024 End: 09-28-2025 GLUCOSE, GESTATIONAL SCREEN (50G)-135 CUTOFF GLUCOSE, GESTATIONAL SCREEN (50G)-135 CUTOFF Lab Routine Screening for diabetes mellitus Expected: 09/28/2024 (Approximate), Expires: 09/28/2025 [facility] Work Phone: Comment on above: Expected: 09/28/2024 (Approximate), Expires: 09/28/2025 Start: 09-28-2024 End: 09-28-2025 US for US OB follow up transabdominal approach Imaging Routine related condition in third trimester Expected: 09/28/2024, Expires: 09/28/2025 [facility] Comment on above: Expected: 09/28/2024 , Expires: 09/28/2025 Start: 09-07-2024 Adult BMI Screening Adult BMI Screen ing [facility] Start: 09-07-2024 Tobacco Screening Tobacco Screening [facility] Start: 08-29-2024 End: 08-29-2024 Patient encounter procedure 08/29/2024 3:00 PM EDT Routine [facility] [address] [place] [phone] Cordell Gifford, CNM [address] [place] [address] Arrived [facility] Comment on above: Arrived Start: 08-28-2024 End: 08-28-2024 Patient encounter procedure 08/28/2024 5:00 PM EDT Routine [facility] [address] [place] [phone] Cordell Gifford, CNM [address] [place] [address] [facility] Start: 07-31-2024 End: 07-31-2024 Patient encounter procedure [facility] Comment on above: related co ndition in second trimester Start: 07-31-2024 End: 07-31-2024 Professional / ancillary services management 07/31/2024 5:45 PM EDT Ancillary Procedure [facility] [address] [place] [phone] [facility] Start: 07-31-2024 End: 07-31-2025 US for [facility] Work Phone: Comment on above: Expected: 07/31/2024 , Expires: 07/31/2025 Start: 07-20-2024 End: 07-20-2024 Patient encounter procedure 07/20/2024 3:00 PM EDT Routine [facility] [address] [facility] [place] [phone] Cordell Gifford, CNM [address] [place] [address] [facility] Start: 07-05-2024 Adult BMI Screening Adult BMI Screen ing [facility] Start: 07-05-2024 Tobacco Screening Tobacco Screening [facility] Start: 06-29-2024 DTaP,Tdap and Td Vac cines (8 - Td or Tdap) DTaP,Tdap and Td Vaccines (8 - Td or Tdap) [facility] Start: 06-29-2024 DTaP/Tdap/Td vaccine (7 - Td) DTaP/Tdap/Td vaccine (7 - Td) [place] Start: 06-22-2024 End: 06-22-2024 Patient encounter procedure [facility] Comment on above: Arrived Start: 06-20-2024 End: 06-20-2025 Thyrotropin [Units/volume] in Serum or Plasma TSH Lab Routine Elevated TSH Expected: 06/20/2024 (Approximate), Expires: 06/20/2025 [facility] Work Phone: Comment on above: Expected: 06/20/2024 (Approximate), Expires: 06/20/2025 Start: 05-24-2024 End: 05-24-2024 Patient encounter procedure 05/24/2024 8:30 AM EST Routine [facility] [address] [place] [address] Cordell Gifford CNM [address] [place], [place] [id number] Arrived [facility] Comment on above: Arrived Start: 03-17-2024 Adult BMI Screening Adult BMI Screen [facility] Start: 03-17-2024 Tobacco Screening Tobacco Screening [facility] Start: 02-24-2024 End: 02-23-2025 Polysomnography 4 or more parameters with PAP titration Polysomnography 4 or more parameters with PAP titration Sleep Center Routine Obesity (BMI 30-39.9) Expected: 02/24/2024 (Approximate), Expires: 02/23/2025 [facility] Comment on above: Expected: 02/24/2024 (Approximate), Expires: 02/23/2025 Start: 02-24-2024 End: 02-23-2025 PSG Diagnostic [facility] Routine Obesity (BMI 30-39.9) Expected: 02/24/2024 (Approximate), Expires: 02/23/2025 [facility] Comment on above: Expected: 02/24/2024 (Approximate), Expires: 02/23/2025 Start: 02-24-2024 End: 03-26-2024 SARS COV 2 (COVID-19) SARS COV 2 (COVID-19) Microbiology STAT Obesity (BMI 30-39.9) Expected: 02/24/2024 (Approximate), Expires: 03/26/[address] [facility] Comment on above: Expected: 02/24/2024 (Approximate), Expires: 03/26/2024 Start: 02-24-2024 End: 02-23-2025 TSH with Reflex TSH with Reflex Lab Routine PCOS (polycystic ovarian syndrome) Expected: 02/24/2024 (Approximate), Expires: 02/23/[address] [facility] Work Phone: Comment on above: Expected: 02/24/2024 (Approximate), Expires: 02/23/2025 Start: 02-24-2024 End: 02-23-2025 Vitamin D 25 hydroxy Vitamin D 25 hydroxy Lab Routine PCOS (polycystic ovarian syndrome) Expected: 02/24/2024 (Approximate), Expires: 02/23/[address] [facility] Organizer Comment on above: Expected: 02/24/2024 (Approximate), Expires: 02/23/2025 Start: 01-02-2024 COVID-19 Vaccine () COVID-19 Vaccine () [facility] Start: 01-02-2024 Influenza vaccination N [facility] Start: 10-08-2023 End: 10-08-2023 Patient encounter procedure 10/08/2023 9:00 AM EDT Office Visit [facility] [address] [place] [id number] Mini Sal MD [address] [place] [address] [facility] Start: 01-01-2023 COVID-19 Vaccine ( season) COVID-19 Vaccine () [facility] Start: 01-01-2023 Influenza vaccination Influenza Vacc ine [facility] Start: 10-26-2020 Screening for malign ant neoplasm of cervix Pap Smear [facility] Start: 01-02-2020 Influenza vaccination Flu vaccine (# 1) [place], [place] Start: 05-31-2018 Screening for Chlamy esthela trachomatis Chlamydia screen [place] Start: 10-26-2017 Adult BMI Follow Up Plan Adult BMI F ollow Up Plan [facility] Start: 10-26-2014 HIV screening HIV screen [facility] [place], [place] Start: 2011 [facility] Start: 10-26-2010 HPV vaccine (1 - 2-d ose series) HPV vaccine (1 - 2-dose series) [place], [place] Start: 10-26-2005 Pneumococcal 0-64 ye ars Vaccine (1 of 1 - PPSV23) Pneumococcal 0-64 years Vaccine (1 of 1 - PPSV23) [place], [place] Start: 1999 Screening for Chlamy esthela trachomatis Chlamydia Screening [facility] Start: 1999 Tobacco Counseling Tobacco Counselin g [facility] End: 02-23-2025 Cortisol Cortisol Lab Routine PCOS (polycystic ovarian syndrome) 1 Occurrences starting 02/24/2024 until 02/23/2025 [facility] Comment on above: 1 Occurrences starti ng 02/24/2024 until 02/23/2025 End: 01-03-2020 Covid-19 Ambulatory Covid-19 Ambulatory Lab Routine Once for 1 Occurrences starting 01/03/2020 until 01/03/2020 [place] Comment on above: Once for 1 Occurrenc es starting 01/03/2020 until 01/03/2020 Covid-19 Ambulatory [place], [place] End: 01-10-2020 Covid-19 Ambulatory Covid-19 Ambulatory Lab Routine Once for 1 Occurrences starting 01/10/2020 until 01/10/2020 [place] Comment on above: Once for 1 Occurrenc es starting 01/10/2020 until 01/10/2020 End: 02-23-2025 Estradiol Estradiol Lab Routine PCOS (polycystic ovarian syndrome) 1 Occurrences starting 02/24/2024 until 02/23/2025 [facility] Comment on above: 1 Occurrences starti ng 02/24/2024 until 02/23/2025 End: 02-23-2025 FSH FSH Lab Routine PCOS (polycystic ovarian syndrome) 1 Occurrences starting 02/24/2024 until 02/23/[address] [facility] Comment on above: 1 Occurrences starti ng 02/24/2024 until 02/23/2025 End: 02-23-2025 Home sleep study Home sleep study Sleep Center Routine Obesity (BMI 30-39.9) 1 Occurrences starting 02/24/2024 until 02/23/[address] [facility] Comment on above: 1 Occurrences starti ng 02/24/2024 until 02/23/2025 End: 02-23-2025 Luteinizing hormone Luteinizing hormone Lab Routine PCOS (polycystic ovarian syndrome) 1 Occurrences starting 02/24/2024 until 02/23/[address] [facility] Comment on above: 1 Occurrences starti ng 02/24/2024 until 02/23/2025 End: 02-23-2025 Testosterone [Mass/volume] in Serum or Plasma Testosterone Lab Routine PCOS (polycystic ovarian syndrome) 1 Occurrences starting 02/24/2024 until 02/23/[address] [facility] Comment on above: 1 Occurrences starti ng 02/24/2024 until 02/23/2025 Immunizations Immunization Date Immunization Notes Care Provider Cristin pereira 12-17-2016 meningococcal polysaccharide (groups A, C, Y and W-135) diphtheria toxoid conjugate vaccine (MCV4P) [facility] 06-29-2014 tetanus toxoid, redu marci diphtheria toxoid, and acellular pertussis vaccine, adsorbed [facility] 01-28-2012 Hepatitis A Ped/Adol (Vaqta) [facility] 09-24-2011 meningococcal polysaccharide (groups A, C, Y and W-135) diphtheria toxoid conjugate vaccine (MCV4P) [facility] 07-23-2011 Hepatitis A Ped/Adol (Vaqta) [facility] 07-23-2011 varicella virus vaccine [facility], [place] 12-26-2004 diphtheria, tetanus toxoids and acellular pertussis vaccine [facility] 12-26-2004 measles, mumps and r ubella virus vaccine [facility] 12-26-2004 poliovirus vaccine, inactivated [facility] 05-12-2001 diphtheria, tetanus toxoids and acellular pertussis vaccine [facility] 05-12-2001 measles, mumps and r ubella virus vaccine [facility] 05-12-2001 poliovirus vaccine, inactivated [facility] 11-02-2000 haemophilus influenz ae type b vaccine, PRP-OMP conjugate [facility] 11-02-2000 hepatitis B vaccine, pediatric or pediatric/adolescent dosage [facility] 11-02-2000 varicella virus vaccine [facility] 05-20-2000 diphtheria, tetanus toxoids and acellular pertussis vaccine [facility] 03-09-2000 diphtheria, tetanus toxoids and acellular pertussis vaccine [facility] 03-09-2000 haemophilus influenz ae type b vaccine, PRP-OMP conjugate [facility] 03-09-2000 hepatitis B vaccine, pediatric or pediatric/adolescent dosage [facility] 03-09-2000 poliovirus vaccine, inactivated [facility], [place] 1999 diphtheria, tetanus toxoids and acellular pertussis vaccine [facility], [place] 1999 haemophilus influenz ae type b vaccine, PRP-OMP conjugate [facility], [place] 1999 hepatitis B vaccine, pediatric or pediatric/adolescent dosage [facility], [place] 1999 poliovirus vaccine, inactivated [facility] Payers Date Payer Category Payer Medicaid [place]ICAID [place] [id number] 2024 Medicaid [id number] 2019 Blue Cross Blue Shield [id number] 2019 Blue Cross Blue Shie ld Managed Care - Other [employer] [id number] 2019 Unknown [employer] BCBS OUT OF STATE PPO/TRUST [id number] 2019-Present [phone] [id number] [place] [address] [id number] 2017 Unknown [id number]. [id number] 1999 Unknown [id number] 2.16.840.1.130374.3.579.2. 593 1999 Unknown [id number] 2.16.840.1.165076.3.579.2. 173 1999 Unknown [id number] 2.16.840.1.838071.3.579.2. 173 1999 Unknown [id number] 2.16.840.1.445398.3.579.2. 173 1999 Unknown [id number] 2.16.840.1.679351.3.579.2. 128 1999 Unknown [id number] 2.16.840.1.748330.3.579.2. 1285 1999 Unknown [id number] 2.16.840.1.171982.3.579.2. 1285 1999 Unknown [id number] 2.16.840.1.848150.3.579.2. 1285 1999 Unknown [id number] 2.16.840.1.238730.3.579.2. 1285 1999 Unknown [id number] 2.16.840.1.175734.3.579.2. 1285 1999 Unknown [id number] 2.16.840.1.998488.3.579.2. 1258 1999 Unknown [id number] 2.16.840.1.722959.3.579.2. 1258 1999 Unknown [id number] 2.16.840.1.440155.3.579.2. 1258 1999 Unknown [id number] 2.16.840.1.047296.3.579.2. 1258 1999 Unknown [id number] 2.16.840.1.186509.3.579.2. 9 1999 Unknown [id number] 2.16.840.1.886104.3.579.2. 9 1999 Unknown [id number] 2.16.840.1.468748.3.579.2. 1259 1999 Unknown [id number] 2.16.840.1.817553.3.579.2. 1259 1999 Unknown [id number] 2.16.840.1.729708.3.579.2. 1259 1959 Self-pay Social History Date Type Detail Facility Start: 08-06-2018 End: 02-18-2023 Tobacco smoking status VAIS Current every day smoker [place] Start: 07-02-2023 History of tobacco use Cigarette Smo [place] Start: 08-06-2018 End: 09-09-2023 Tobacco use and exposure Never used [place] Start: 08-06-2018 Alcohol intake Current non-dr heel edge inker machine of alcohol (finding) [place] Start: 08-06-2018 Tobacco Comment 4 cigarrettes a day [place] Start: 1999 Sex Assigned At Not on file [place] Start: 09-08-2023 End: 09-09-2023 Tobacco smoking status [facility] Ex-smoker [facility] Start: 07-02-2023 History of tobacco use Current smoke r [facility] Start: 09-09-2023 Alcoholic beverage intake Lifetime non-drinker (finding) [facility] Start: 09-09-2023 End: 05-04-2024 History of Social function [facility] Start: 09-09-2023 End: 05-04-2024 Tobacco use panel [facility] Start: 04-28-2024 End: 05-04-2024 Alcoholic beverage intake Ex-drinker (finding) [facility] Start: 03-24-2024 [facility] Start: 02-18-2023 End: 09-08-2023 Tobacco use and exposure Former smokeless tobacco user [facility] Start: 03-17-2023 End: 07-06-2023 Alcohol intake Current drinker of alcohol (finding) [facility] How hard is it for y ou to pay for the very basics like food, housing, medical care, and heating Not hard at all [facility] Start: 02-18-2023 Alcohol Comment occasionally [facility] Start: 01-14-2023 Sex Female (finding) [facility] Goals Date Patient Goal Desired Activity /State Personal health goal Clinical Notes 05-26-2023 to 09-28-2024 Cordell Giffrod CNM - 09/28/2024 2:30 PM EDMathieu Gifford CNM - 08/29/2024 3:00 PM EDTCordell Gifford CNM - 06/27/2024 3:38 PM Stefanie Gifford CNM - 06/22/2024 8:30 AM ESTPatient Instructions Note Date & Type Note Facility 09-28-2024 History of Presen t illness Narrative Subjective No chief complaint on file. Jacque Horn is a 23 y.o. at 28w6d with a working estimated date of delivery of 12/15/2024, by Ultrasound who presents for a routine visit. She denies vaginal bleeding, leakage of fluid, decreased movements, or contractions. OB History Para Term AB Living 2 1 SAB IAB Ectopic Multiple Live Births 1 # Outcome Date GA Lbr Brooks/2nd Weight Sex Type Anes PTL Lv 2 Current 1 SAB Her is complicated by: h/o PCOS, had low thyroid with labs, and then repeated and lab is normal No problems The following portions of the chart were reviewed this encounter and updated as appropriate: Objective Physical Exam Weight: 271 lb Expected Total Weight Gain: 11 lb-19 lb Pregravid BMI: 32.95 Urine protein-negative Urine glucose-negative Labs: reviewed Imaging Assessment/Plan Continue vitamin. Labs reviewed. Rhogam not needed GTT today Follow up in 4 weeks for a routine visit. documented in this encounter [facility] 08-29-2024 History of Presen t illness Narrative Subjective No chief complaint on file. Jacque Horn is a 23 y.o. at 24w4d with a working estimated date of delivery of 12/15/2024, by Ultrasound who presents for a routine visit. She denies vaginal bleeding, leakage of fluid, decreased movements, or contractions. OB History Para Term AB Living 2 1 SAB IAB Ectopic Multiple Live Births 1 # Outcome Date GA Lbr Brooks/2nd Weight Sex Type Anes PTL Lv 2 Current 1 SAB Her is complicated by: history of previous loss, h/o PCOS The following portions of the chart were reviewed this encounter and updated as appropriate: Objective Physical Exam Weight: 263 lb Expected Total Weight Gain: 11 lb-19 lb Pregravid BMI: 32.95 BP: 118/80 Urine protein-negative Urine glucose-negative Labs: reviewed Imaging Assessment/Plan Diagnoses and all orders for this visit: Encounter for supervision of other normal , second trimester 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 I did question the liability this could place on her and especially will get more difficult as her progresses. I will write a note to her employer if needed. I did advise her to go the HR and inquire what the legal PRODUCER DIRECTOR to patient ratio is . Not only for the resident's safety, but my patient's as well. She states she will inquire about it as it's getting harder to do. Continue vitamin. Labs reviewed. Rhogam GTT . Follow up in 2 weeks for a routine visit. documented in this encounter [facility] 06-27-2024 History of Presen t illness Narrative Patient is and tested positive for COVID. Instructions to go to nearest ER for difficulty breathing, chest pain, or worsening symptoms. Rx meds sent to pharmacy documented in this encounter [facility] 06-22-2024 History of Presen t illness Narrative Subjective No chief complaint on file. Jacque Horn is a 23 y.o. at 14w6d with a working estimated date of delivery of 12/15/2024, by Ultrasound who presents for a routine visit. She denies vaginal bleeding, leakage of fluid, decreased movements, or contractions. OB History Para Term AB Living 2 1 SAB IAB Ectopic Multiple Live Births 1 # Outcome Date GA Lbr Brooks/2nd Weight Sex Type Anes PTL Lv 2 Current 1 SAB Her is complicated by: pt states that she doesn't have pain during intercourse but the day after she has it she has abdominal pain. If she doesn't have intercourse, she doesn't have the pain. The following portions of the chart were reviewed this encounter and updated as appropriate: Objective Physical Exam weight: 248 lb Expected Total Weight Gain: 11 lb-19 lb Pregravid BMI: 32.95 BP: 120/72 Urine protein-negative Urine glucose-negative Labs: reviewed Imaging Assessment/Plan Diagnoses and all orders for this visit: Encounter for care of first , second trimester Continue vitamin. Labs reviewed. Rhogam not needed patient is O+ positive GTT at 28 weeks Patient had elevated thyroid in labs, repeated today if remains elevated I will start her on medication and have her follow up with PCP PVU and agrees with the plan of care. Follow up in 2 weeks for a growth scan and then 4 weeks for a routine visit. documented in this encounter [facility] 05-04-2024 History of Presen t illness Narrative Subjective Jacque Horn is a 23 y.o. at 7w6d with a working estimated date of delivery of 12/15/2024, by Ultrasound who presents for an initial visit. This is planned. Patient Care Team: Tiara Casper MD as PCP - General (Family Medicine) OB History Para Term AB Living 2 1 SAB IAB Ectopic Multiple Live Births 1 # Outcome Date GA Lbr Brooks/2nd Weight Sex Type Anes PTL Lv 2 Current 1 SAB Her is complicated by: Patient referred by Gynecology History Last Pap 07/22/22..abnormal The following portions of the chart were reviewed this encounter and updated as appropriate: Review of Systems Negative except Objective Physical Exam weight: 233 lb Expected Total Weight Gain: 11 lb-19 lb Pregravid BMI: 32.95 Urine protein Urine glucose Labs Assessment/Plan Diagnoses and all orders for this visit: examination or test, positive result - Hepatitis B surface antigen; Future - Rubella antibody, IgG; Future - CBC; Future - Antibody screen; Future - RPR; Future - Hemoglobin A1c; Future - TSH W/REFLEX TO FT4; Future - HIV-1 and HIV-2 antibodies; Future - ABO/Rh - DRUG TOX MONITORIGN 6 W/ CONF,URINE; Future - Hepatitis C antibody; Future - Urine culture; Future - URINALYSIS MICROSCOPIC; Future - C. trachomatis / N. gonorrhoeae, DNA probe; Future - Ambulatory referral to Obstetrics / Gynecology; Future Other orders - T4, free Blue education folder given. Patient educated on safe medication list. Genetic testing information given. Discussed the do's and don'ts in the blue folder. We discussed labs and what we draw and what we are testing for. Patient is also informed that we do a urine drug test. Patient also given office phone number and [facility] number to call in case of an emergency or after hours needs. PVU and all questions answered. We did discuss place of delivery. Patient should plan to go to [facility] for all services unless an emergency and they need to go to the closest ER. We can make other arrangements possibly if patient would like to deliver at another facility but I did explain I am now at [place] 100% of the time and would like to do all deliveries there. documented in this encounter [facility] 04-28-2024 History of Presen t illness Narrative W OB nurse visit documented in this encounter [facility] 04-03-2024 Telephone encount er Note PT TOOK a positive preganacy test and is about 3 weeks, and wants scheduled lola. [facility] 04-03-2024 Miscellaneous Notes Formattin g of this note might be different from the original. PT TOOK a positive preganacy test and is about 3 weeks, and wants scheduled lola. documented in this encounter [facility] 02-28-2024 Miscellaneous Notes Formattin g of this note might be different from the original. 02/23 Order received 02/27 Called PT LM to schedule sleep study. HST/PSG/PAP Order and 02/24/24 M. Doron Epic Notes documented in this encounter [facility] 02-28-2024 Telephone encount er Note 02/23 Order received 02/27 Called PT LM to schedule sleep study. HST/PSG/PAP Order and 02/24/24 M. Doron Epic Notes [facility] 02-24-2024 History of Presen t illness Narrative Images from the original note were not included. [address] [place] [id number] Patient: Jacque Horn Date of : 2000 Encounter Date: 02/24/2024 SUBJECTIVE: Chief Complaint: Chief Complaint Patient presents with Obesity Patient ID: Jacque Horn is a 23 y.o. female. Plan 23-year-old female here today with concerns of menstrual irregularities, concerns of weight gain, fatigue. Did undergo a spontaneous approximately 6 weeks several months ago. Since that time reports feeling not like herself and feeling like her periods are regular. Does report having periods every 35 days which she is tracking regularly. Previously has been concerned of PCOS. Follows OB Gyne for routine well-woman care. She does endorse some challenges sleep, including multiple waking throughout the night, does not endorse any snoring or apneic episodes. Does endorse waking up with some fatigue and brain fog which takes some time to resolve. Reports feeling tired throughout the day despite having a full night sleep. Sneezes her alarm multiple times. Will doze off fall asleep when watching TV in the evening. STOP BANG SCORE high The following portions of the patient's history were reviewed and updated as appropriate: allergies, current medications, past family history, past medical history, past social history, past surgical history and problem list. PHYSICAL EXAMINATION: Vitals: 02/24/24 1130 BP: 116/68 Pulse: 72 Temp: 37.1 C (98.7 F) TempSrc: Oral SpO2: 98% Weight: 104.3 kg (230 lb) Height: 180.3 cm (5' 11 ) Physical Exam Vitals reviewed. Constitutional: General: She is not in acute distress. Appearance: Normal appearance. Eyes: Extraocular Movements: Extraocular movements intact. Pupils: Pupils are equal, round, and reactive to light. Cardiovascular: Rate and Rhythm: Normal rate and regular rhythm. Pulses: Normal pulses. Heart sounds: Normal heart sounds. Pulmonary: Effort: Pulmonary effort is normal. No respiratory distress. Breath sounds: Normal breath sounds. No wheezing or rhonchi. Abdominal: General: Bowel sounds are normal. There is no distension. Palpations: Abdomen is soft. There is no mass. Tenderness: There is no abdominal tenderness. There is no right CVA tenderness, left CVA tenderness or guarding. Musculoskeletal: Cervical back: Normal range of motion and neck supple. Neurological: Mental Status: She is alert and oriented to person, place, and time. Mental status is at baseline. ASSESSMENT/PLAN: Jacque was seen today for obesity. Diagnoses and all orders for this visit: Obesity (BMI 30-39.9) - SARS COV 2 (COVID-19); Future - PSG Diagnostic; Future - Polysomnography 4 or more parameters with PAP titration; Future - Ambulatory referral to [facility] Sleep Medicine; Future - Home sleep study; Future Weight loss PCOS (polycystic ovarian syndrome) - TSH with Reflex; Future - Luteinizing hormone; Future - FSH; Future - Testosterone; Future - Estradiol; Future - Vitamin D 25 hydroxy; Future - Cortisol; Future Pleasant 23-year-old female interested in BMI of 32 Stopping score high, will order sleep apnea assessment as above Also screening for PCOS as above A1c has been within normal limits. Follow-up in 3 months MINI SAL MD Family Medicine Physician [facility] / [facility] 02/24/24 This note was completed with voice recognition software. The document was reviewed for errors however some may still be present. Please do not hesitate to contact/Epic ms the author to verify any questions/concerns. documented in this encounter [facility] 01-13-2024 Miscellaneous Notes Formattin g of this note might be different from the original. Contract: ob [id number] Ms Jose Alejandro pantoja 27 weeks, has been experiencing off and on pain for about 3 days, has been more steady this evening; a little dizziness Numeric page sent documented in this encounter [facility] 01-13-2024 Telephone encount er Note Contract: ob [id number] Ms Jose Alejandro pantoja 27 weeks, has been experiencing off and on pain for about 3 days, has been more steady this evening; a little dizziness [facility] 01-13-2024 Telephone encount er Note Numeric page sent [facility] 07-06-2023 History of Presen t illness Narrative Images from the original note were not included. [address] [place] [id number] Patient: Jacque Horn Date of : 2000 Encounter Date: 07/06/2023 SUBJECTIVE: Chief Complaint: Chief Complaint Patient presents with medication Patient ID: Jacque Horn is a 22 y.o. female. Ear infection, right ear, started 2 days ago Intermittent Had ear infections in the past but this feels different No recent URI Symptoms worse at night Taking topamax, interested in trying to lose weight. Desires coming off the topamax with lifestyle modifications. The following portions of the patient's history were reviewed and updated as appropriate: allergies, current medications, past family history, past medical history, past social history, past surgical history and problem list. PHYSICAL EXAMINATION: Vitals: 07/06/23 1257 BP: 122/74 Pulse: 70 Temp: 37.1 C (98.8 F) SpO2: 99% Weight: 100.7 kg (222 lb) Height: 179.1 cm (5' 10.51 ) Physical Exam Vitals reviewed. Constitutional: General: She is not in acute distress. Appearance: Normal appearance. HENT: Ears: Comments: Bilateral chronic ear effusion, tympanic membrane not bulging or erythematous. Ear canal on right side notably edematous, erythematous with white discharge present. Eyes: Extraocular Movements: Extraocular movements intact. Pupils: Pupils are equal, round, and reactive to light. Cardiovascular: Rate and Rhythm: Normal rate and regular rhythm. Pulses: Normal pulses. Heart sounds: Normal heart sounds. Pulmonary: Effort: Pulmonary effort is normal. No respiratory distress. Breath sounds: Normal breath sounds. No wheezing or rhonchi. Abdominal: General: Bowel sounds are normal. There is no distension. Palpations: Abdomen is soft. There is no mass. Tenderness: There is no abdominal tenderness. There is no right CVA tenderness, left CVA tenderness or guarding. Musculoskeletal: Cervical back: Normal range of motion and neck supple. Neurological: Mental Status: She is alert and oriented to person, place, and time. Mental status is at baseline. ASSESSMENT/PLAN: Jacque was seen today for medication. Diagnoses and all orders for this visit: Obesity (BMI 30-39.9) Patient doing a good job of cutting down on weight. Draw from 240-222. Discussed lifestyle modifications including decreasing sugar intake, monitoring carb intake stays between 30 and 120 g, on average well below 100 most days. Does try to incorporate exercise as able. Currently on Topamax 50 mg since April. Desires to cut back or scaled back. -plan to scale back but maintain good lifestyle modifications. Monitor may need re-initiation. Follow-up in 1-3 months. Acute otitis externa of both ears, unspecified type - ciprofloxacin-dexAMETHasone (CIPRODEX) otic suspension; Administer 4 drops into both ears in the morning and 4 drops before bedtime. Do all this for 7 days. MINI SAL MD Family Medicine Physician [facility] / [facility] 07/06/23 This note was completed with voice recognition software. The document was reviewed for errors however some may still be present. Please do not hesitate to contact/[facility] the author to verify any questions/concerns. documented in this encounter [facility] 05-26-2023 History of Presen t illness Narrative Images from the original note were not included. [address] [place] [phone] Patient: Jacque Horn Date of : 2000 Encounter Date: 05/26/2023 SUBJECTIVE: Chief Complaint: No chief complaint on file. Patient ID: Jacque Horn is a 22 y.o. female. Here today for interval weight loss management visit. Approximately 1 month ago we had started Topamax and increase the dose to 50 mg b.i.d., she has been tolerating this well. Does note that intermittently will get paresthesias of her lower extremities although there rapidly resolving when she gets up or moves around. Has been trying to stay active and eat healthy, monitoring carb intake. Carb intake levels ranging for anywhere from 60 g to 200 gm a day. Goal is approximately 60-80 per day. Max 100. -Goes to gym 3 time a week -Wt 254 -> 233. On the weighing scale at the gym. The following portions of the patient's history were reviewed and updated as appropriate: allergies, current medications, past family history, past medical history, past social history, past surgical history and problem list. PHYSICAL EXAMINATION: There were no vitals filed for this visit. Physical Exam Constitutional: Appearance: She is well-developed. She is not ill-appearing. HENT: Head: Normocephalic and atraumatic. Nose: Nose normal. Eyes: General: No scleral icterus. Extraocular Movements: Extraocular movements intact. Pupils: Pupils are equal, round, and reactive to light. Musculoskeletal: Cervical back: Normal range of motion. Neurological: Mental Status: She is alert and oriented to person, place, and time. Psychiatric: Mood and Affect: Mood normal. Behavior: Behavior normal. Thought Content: Thought content normal. Judgment: Judgment normal. ASSESSMENT/PLAN: Diagnoses and all orders for this visit: Obesity (BMI 30-39.9) Weight loss BMI 35.0-35.9,adult Consumes 30-40% of her calories in the evening, skips meals, endorses a lot of emotionally eating based on stressors. Current dose of Topamax 25 mg b.i.d. -increase Topamax dose of 50 mg b.i.d. Patient was previously tried Wellbutrin and had negative side effects of his non option. May consider addition of phentermine her Adipex in the future or GLP1 Currently is losing weight at a steady and healthy paste, will continue stay the course. Provided motivational reinforcement and support for positive changes. Patient to call insurance company and find out coverage for GLP 1 agonist Follow-up in 1 month Video Visit via Real-time Synchronous Audiovisual Provider Location: [facility] [address] [place] [phone] Patient Location: Patient's home Video Visit Consent Statement: I discussed risks, benefits, and alternatives of a real-time synchronous audiovisual consultation with the patient (and any accompanying persons) including the risks that the patient's personal health details and medical records will be discussed over real-time, synchronous, interactive video/audio/telecommunication technology, the visit will not be recorded without the express consent of both the provider and the patient, and that there are some limitations compared to [id number] evaluations. The patient consented to the presence of additional virtual and/or in-person participants. We elected to proceed. MINI SAL MD Family Medicine Physician [facility] 05/26/23 This note was completed with voice recognition software. The document was reviewed for errors however some may still be present. Please do not hesitate to contact/[facility] the author to verify any questions/concerns. documented in this encounter [facility] 05-26-2023 Instructions Mini Sal MD - 05/26/2023 7:45 AM EST Call number on back of insuracne card to find out if they cover GLP1 medications. If so, for what diagnosis? Diabetes or Weight loss? Which GLP1 medications are preferred? ie: Ozempic, wegovy, mounjaro, trulicity etc. documented in this encounter [facility] Evaluation note Diagnosis Obesity (BMI 30-39.9)- Primary Weight loss Loss of weight BMI 35.0-35.9,adult [facility] Diagnosis Obesity (BMI 30-39.9)- Primary Acute otitis externa of both ears, unspecified type [facility] Diagnosis Obesity (BMI 30-39.9)- Primary Weight loss Loss of weight PCOS (polycystic ovarian syndrome) Polycystic ovaries [facility] Diagnosis examination or test, positive result [facility] Diagnosis Elevated TSH- Primary Other abnormal blood chemistry [facility] Diagnosis Encounter for care of first , second trimester- Primary [facility]* Diagnosis COVID- Primary Encounter for care of first , second trimester [facility]* Diagnosis examination or test, positive result- Primary [facility] Diagnosis Encounter for supervision of other normal , second trimester- Primary related condition in second trimester [facility] Diagnosis Encounter for supervision of other normal , second trimester- Primary [facility] Diagnosis Encounter for supervision of other normal , second trimester- Primary Screening for diabetes mellitus Screening for iron deficiency anemia related condition in third trimester documented [facility] Narrative* Cordell Gifford CNM - 07/31/2024 7:00 PM EDT Subjective No chief complaint on file. Jacque Horn is a 23 y.o. at 20w3d with a working estimated date of delivery of 12/15/2024, by Ultrasound who presents for a routine visit. She denies vaginal bleeding, leakage of fluid, decreased movements, or contractions. OB History Para Term AB Living 2 1 SAB IAB Ectopic Multiple Live Births 1 # Outcome Date GA Lbr Brooks/2nd Weight Sex Type Anes PTL Lv 2 Current 1 SAB Her is complicated by: The following portions of the chart were reviewed this encounter and updated as appropriate: Objective Physical Exam weight: 259 lb Expected Total Weight Gain: 11 lb-19 lb Pregravid BMI: 32.95 Urine protein-negative Urine glucose-negative Labs: reviewed Imaging Assessment/Plan Diagnoses and all orders for this visit: Encounter for supervision of other normal , second trimester related condition in second trimester - US OB 14+ weeks anatomy scan; Future Continue vitamin. Labs reviewed. Rhogam GTT . Follow up in 2 weeks for a routine visit. documented in this encounterNOKS HealthcareInstructionsNot on filedocumented in this encounterProMedide Health SystemInstructionsNot on filedocumented in this encounterProUniversity [facility] SystemInstructionsNot on filedocumented in this encounterProUniversity [facility]als [facility] System Advance Directives Documents on File Type Date Recorded Patient Roading Engineer Expl anation ACP-Advance Directive ACP-Power of [employer]mer Summary Purpose Family History No Family History Records FoundNo Family History Records FoundNo Family History Records FoundNo Family History Records FoundNo Family History Records Found Additional Source Comments INFORMATION SOURCE (unrecogn ized section and content) DATE CREATED AUTHOR 01/11/2020 [facility] DATE CREATED AUTHOR AUTHOR'S ORGANIZ ATION 01/13/2020 [facility] DATE CREATED AUTHOR AUTHOR'S ORGANIZ ATION 09/10/2023 [facility] DATE CREATED AUTHOR AUTHOR'S ORGANIZ ATION 02/26/2024 [facility] DATE CREATED AUTHOR AUTHOR'S ORGANIZ ATION 10/13/2024 [facility] Special[facility] Care Teams (unrecognized sec tion and content) Record Searcher Relationship Specialty Start Date End Date Tiara Casper MD PCP - General Family Medicine 02/19/23 Record Searcher Relationship Specialty Start Date End Date Tiara Casper MD PCP - General Family Medicine 02/19/23 Record Searcher Relationship Specialty Start Date End Date Tiara Casper MD PCP - General Family Medicine 02/19/23 Record Searcher Relationship Specialty Start Date End Date Mini Sal MD [address] [place] [address] PCP - General Internal Medicine 02/24/23 Record Searcher Relationship Specialty Start Date End Date Mini Sal MD [address] [place] [address] PCP - General Internal Medicine 02/24/23 Record Searcher Relationship Specialty Start Date End Date Mini Sal MD [address] [place] [address] PCP - General Internal Medicine 02/24/23 Record Searcher Relationship Specialty Start Date End Date Mini Sal MD [address] [place] [address] PCP - General Internal Medicine 02/24/23 Record Searcher Relationship Specialty Start Date End Date Mini Sal MD [address] [place] [id number] PCP - General Internal Medicine 02/24/23 Record Searcher Relationship Specialty Start Date End Date Tiara Casper MD PCP - General Family Medicine 02/19/23 Record Searcher Relationship Specialty Start Date End Date Tiara Casper MD PCP - General Family Medicine 02/19/23 Record Searcher Relationship Specialty Start Date End Date Tiara Casper MD PCP - General Family Medicine 02/19/23 Record Searcher Relationship Specialty Start Date End Date Tiara Casper MD PCP - General Family Medicine 02/19/23 Record Searcher Relationship Specialty Start Date End Date Tiara Casper MD PCP - General Family Medicine 02/19/23 Record Searcher Relationship Specialty Start Date End Date Tiara Casper MD PCP - General Family Medicine 02/19/23 Record Searcher Relationship Specialty Start Date End Date Tiara Casper MD PCP - General Family Medicine 02/19/23 Record Searcher Relationship Specialty Start Date End Date Tiara Casper MD PCP - General Family Medicine 02/19/23 Record Searcher Relationship Specialty Start Date End Date Tiara Casper MD PCP - General Family Medicine 02/19/23 Reason for Visit (unrecogniz ed section and content) Reason Comments medication Reason Onset Date Comments Abdominal Pain 01/13/2024 Dizziness 01/13/2024 Reason Comments Obesity Reason Onset Date Comments Sleep Lab 02/28/2024 HST/PSG/CPAP Reason Comments Initial Visit FOR RECORDS PERTAINING TO PATIENTS WHO ARE OR HAVE BEEN ENROLLED IN A CHEMICAL DEPENDENCY/SUBSTANCEABUSE PROGRAM, SOME INFORMATION MAY BE OMITTED. This clinical summary was aggregated from multiple sources. Caution should be exercised in using it in the provision of clinical care. This summary normalizes information from multiple sources, and as a consequence, information in this document may materially change the coding, format and clinical context of patient data. In addition, data may be omitted in some cases. CLINICAL DECISIONS SHOULD BE BASED ON THE PRIMARY CLINICAL RECORDS. [facility]. provides no warranty or guarantee of the accuracy or completeness of information in this document.
== END 2024-10-23 18:35 | disposition home or self-care (01) ==
PROVIDERS: Admitting Provider Midwife; PCP Student in an Organized Health Care Education/Training Program; Visit Provider Midwife
DX: O26.853 Spotting complicating pregnancy, third trimester (principal); Z3A.32 32 weeks gestation of pregnancy
CPT/HCPCS: 76817; 76818; 81001; 87086; G0378; G0379

== ENCOUNTER 2024-11-28 16:04 | Observation (INO) | payer BC, OTHER, SELFPAY ==
[2024-11-28 16:22] VITALS: BP 135/79; PULSE 95; O2SAT 97
[2024-11-28 16:54] VITALS: BP 115/70; PULSE 92
[2024-11-28 17:14] VITALS: BP 131/70; PULSE 94
--- OUTSIDE RECORDS SUMMARY | 2024-11-28 18:17 | XMS_ITS | CCD ---
Author Organization [facility] Care Team Providers Care Coat Examiner Name Role Phone Karel Barkley I Primary Care Provider [phone] LORENZAMISSY Admitting Unavailable LORENZA MISSY Attending Unavailable EDDI ELIZABETHKIAM P Referring Unavailable MOORJANI, ROMENA I Primary Care Unavailable MICHELLE ELIZABETHAKKUMAR P Referring Unavailable MOORJANI, ROMENA I Primary Care Unavailable LORENZAMISSY Referring Unavailable LORENZA MISSY Abreu Primary Care Unavailable Lorenza Missy Abreu Primary Care Provider [phone] DORON, MUHAMID M Primary Care Unavailable JOSH [...] Provider Mini Sal MD Primary Care Provider [phone] CORDELL GIFFORD Attending Unavailable CORDELL GIFFORD Attending Unavailable CORDELL GIFFORD Attending Unavailable CORDELL GIFFORD Referring Unavailable CORDELL GIFFORD Attending Unavailable CORDELL GIFFORD Attending Unavailable JERMAINEOCORDELL Referring Unavailable CORDELL GIFFORD Attending Unavailable CORDELL GIFFORD Attending Unavailable CORDELL GIFFORD Referring Unavailable CORDELL GIFFORD Attending Unavailable Medications Current Medications Medication Drug [...] capsule Indications: related condition in third trimester (HHS-HCC) Take 1 capsule (100 mg) by mouth [...] sulfate 325 mg delayed release oral tablet (7 sources) Start: 10-04-2024 End: 10-04-2025 take 1 tablet by mouth in the morning ferrous sulfate (Fe Tabs) 325 (65 Fe) MG EC tablet Indications: 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 Do not crush, chew, or split. 60 tablet 11 10/04/2024 10/04/2025 Active Kslxuryx-Fop-Uy-FA ( 1 + IRON PO) (20 sources) Tkjjyijz-Qzm-Hn-FA ( 1 + IRON PO) Take by mouth Active vit no.247-zudz-oojaa acid ( VITAMIN) 27 mg iron- 800 mcg tablet (3 sources) take 1 tablet by mouth in the morning vit no.411-szed-maaom acid ( VITAMIN) 27 mg iron- 800 [...] conditions, unspecified, second trimester] 07-31-2024 Episodic Other complications of (2 sources) Excessive growth affecting management of mother; Translations: [Maternal care for excessive growth, third trimester, fetus 1] 11-22-2024 Episodic Other endocrine disorders (1 source) Polycystic [...] 35.0-35.9, adult] Onset: 05-26-2023 05-26-2023 Chronic Other conditions (2 sources) Kupbi-wnz-cjbsl at regardless of gestation period; Translations: [Other heavy for gestational age ] 11-22-2024 Episodic Other and delivery including normal (17 sources) test positive; Translations: [Encounter for test, result positive] 06-20-2024 Episodic Other screening for suspected conditions (not mental disorders or infectious disease) (7 sources) Raised TSH level; Translations: [Other specified abnormal findings of blood chemistry] 06-20-2024 Episodic Unclassified (1 source) medication Onset: 07-06-2023 Unclassified (19 sources) OB Reminders Onset: 06-22-2024 06-22-2024 Viral [...] Test Name Value Interpretation Reference Range Facility US OB FOLLOW UP TRANSABDOMIN AL APPROACHon 11-23-2024 US OB FOLLOW UP TRANSABDOMINAL APPROACH EXAM: [...] 12/08/2024. Interpreted by: Electronically signed by JENNIFER CURTIS II, MD, PHD at 24-Nov-2024 08:35:02 AM [facility] Normal Not Available [facility] UA (CLEAN/CATCH) SCORE CALLER/ANNABELLA RO IF IND.on 10-23-2024 BILIRUBIN URINE Negative NEGATIVE [facility] BLOOD URINE Negative NEGATIVE [facility] Clarity (U) CLEAR CLEAR [facility] Color (U) LT. YELLOW YELLOW [facility] GLUCOSE URINE UA Negative NEGATIVE mg/dL [facility] Interpretation and review of laboratory results Abnormal [facility] Ketones Ql (U) Negative NEGATIVE mg/dL [facility] Leukocyte esterase Test strip Ql (U) SMALL Abnormal NEGATIVE [facility] NITRITE URINE Negative NEGATIVE [facility] pH (U) 6.0 [pH] 5.0 - 9.0 [facility] PROTEIN URINE Negative NEG/TRACE mg/dL [facility] SPECIFIC GRAVITY URINE <=1.005 Abnormal 1.005 - 1.025 [facility] URINE MICROSCOPIC INDICATED YES [facility] UROBILINOGEN URINE 0.2 EU/dL 0.2 - 1.0 EU/dL [facility] US OB CERVICAL LENGTHon 10-02 [place] [address] Ultrasound Report Signed Patient: JACQUE HORN MR#: [id number] : 2000 Acct:[id number] Age/Sex: 23 / F ADM Date: Loc: [facility] 254-[address]: CORDELL GIFFORD APRN, CNM Ordering Physician: CORDELL GIFFORD APRN, CNM Date of Service: 10/23/24 Procedure(s): US OB cervical length Accession Number(s): [id number] cc: Mini Sal ND; CORDELL GIFFORD APRN, CNM [place] [id number] Patient Name: JACQUE HORN MRN: [id number] date: 2000 Sex: F Assigned Patient Location: [facility] Current Patient Location: Accession/Order Number: [id number] Exam Date: 10/23/2024 19:09 Report Date: 10/23/2024 19:14 At the request of: CORDELL GIFFORD APRN, CNM Procedure: US OB cervical length US OB cervical length 10/23/2024 7:10 PM SIGNS AND SYMPTOMS: spotting PROTOCOL: Transabdominal sonographic imaging of the gravid uterus/cervix COMPARISON: None FINDINGS: Estimated gestational age is 32 weeks and 3 days. heart rate is 131 bpm. The cervix measures 3.0 cm in length. The internal os is closed. US/US OB cervical length IMPRESSION: The cervix measures 3.0 cm in length. The internal os is closed. Impression dictated by: Rom Ortega M.D. 10/23/2024 7:14 PM Dictation Location: [place] [address] Electronically authenticated by: [id number] Y Date: 10/23/2024 19:14 Dictated By: Rom Ortega M.D. Signed By: 10/23/241916 DD/ 13 TD/TT: Gas Charger: [facility] Radiology, Radiologist, MD - 10/23/2024 [place] [address] Ultrasound Report Signed Patient: JACQUE HORN MR#: [id number] : 2000 Acct:[id number] Age/Sex: 23 / F ADM Date: Loc: [facility] 254-[address]: CORDELL GIFFORD APRN, CNM Ordering Physician: CORDELL GIFFORD APRN, CNM Date of Service: 10/23/24 Procedure(s): US OB cervical length Accession Number(s): [id number] cc: Mini Sal ND; CORDELL GIFFORD APRN, CNM The [place] [id number] Patient Name: JACQUE HORN MRN: [facility]:[id number] date: 2000 Sex: F Assigned Patient Location: [facility] Current Patient Location: Accession/Order Number: [id number] Exam Date: 10/23/2024 19:09 Report Date: 10/23/2024 19:14 At the request of: CORDELL GIFFORD APRN, CNM Procedure: US OB cervical length US OB cervical length 10/23/2024 7:10 PM SIGNS AND SYMPTOMS: spotting PROTOCOL: Transabdominal sonographic imaging of the gravid uterus/cervix COMPARISON: None FINDINGS: Estimated gestational age is 32 weeks and 3 days. heart rate is 131 bpm. The cervix measures 3.0 cm in length. The internal os is closed. US/US OB cervical length IMPRESSION: The cervix measures 3.0 cm in length. The internal os is closed. Impression dictated by: Rom Ortega M.D. 10/23/2024 7:14 PM Dictation Location: [place] [address] Electronically authenticated by: [id number] Y Date: 10/23/2024 19:14 Dictated By: Rom Ortega M.D. Signed By: 10/23/241916 DD/ 13 TD/TT: Gas Charger: [facility] Radiology Study observation (narrative) [facility] US OB CERVICAL LENGTHOrdered By: Radiologist Radiology on 10-23-2024 [facility] Work Phone: US OB BPP W NON-STRESS on 10-23-2024 [place] [address] Ultrasound Report Signed Patient: JACQUE HORN MR#: [id number] : 2000 Acct:[id number] Age/Sex: 23 / F ADM Date: Loc: [facility] 254-[address]: CORDELL GIFFORD APRN, CNM Ordering Physician: CORDELL GFIFORD APRN, CNM Date of Service: 10/23/24 Procedure(s): US OB BPP w non-stress Accession Number(s): [id number] cc: Mini Sal ND; CORDELL GIFFORD APRN, CNM [place] [address] Patient Name: JACQUE HORN MRN: [id number] date: 2000 Sex: F Assigned Patient Location: [facility] Current Patient Location: Accession/Order Number: [id number] Exam Date: 10/23/2024 19:15 Report Date: 10/23/2024 19:16 At the request of: CORDELL GIFFORD APRN, CNM Procedure: US OB BPP w non-stress US OB BPP w non-stress 10/23/2024 7:10 PM SIGNS AND SYMPTOMS: 02/26/2024 decreased movement PROTOCOL: Transabdominal imaging of the gravid uterus COMPARISON: None FINDINGS: Estimated gestational age is 32 weeks and 3 days Amniotic fluid index is 18.03 cm. The single deepest vertical pocket is 5.9 cm. heart rate is 133 bpm. Biophysical profile: movement: 2/2 tone: 2/2. breathing movements: 2/2 Amniotic fluid volume: 2/2 US/US OB BPP w non-stress IMPRESSION: Biophysical profile score: 8/8 Impression dictated by: Rom Ortega M.D. 10/23/2024 7:16 PM Dictation Location: [place] [address] Electronically authenticated by: [id number] Y Date: 10/23/2024 19:16 Dictated By: Rom Ortega M.D. Signed By: 10/23/241917 DD/ 15 TD/TT: Gas Charger: [facility] Radiology, Radiologist, MD - 10/23/2024 [place] [address] Ultrasound Report Signed Patient: JACQUE HORN MR#: [id number] : 2000 Acct:[id number] Age/Sex: 23 / F ADM Date: Loc: [facility] 254-[address]: CORDELL GIFFORD APRN, CNM Ordering Physician: CORDELL GIFFORD APRN, CNM Date of Service: 10/23/24 Procedure(s): US OB BPP w non-stress Accession Number(s): [id number] cc: Mini Sal ND; CORDELL GIFFORD APRN, CNM The [address] [address] Patient Name: JACQUE HORN MRN: [facility]:[id number] date: 2000 Sex: F Assigned Patient Location: [facility] Current Patient Location: Accession/Order Number: [id number] Exam Date: 10/23/2024 19:15 Report Date: 10/23/2024 19:16 At the request of: CORDELL GIFFORD APRN, CNM Procedure: US OB BPP w non-stress US OB BPP w non-stress 10/23/2024 7:10 PM SIGNS AND SYMPTOMS: 02/26/2024 decreased movement PROTOCOL: Transabdominal imaging of the gravid uterus COMPARISON: None FINDINGS: Estimated gestational age is 32 weeks and 3 days Amniotic fluid index is 18.03 cm. The single deepest vertical pocket is 5.9 cm. heart rate is 133 bpm. Biophysical profile: movement: 2/2 tone: 2/2. breathing movements: 2/2 Amniotic fluid volume: 2/2 US/US OB BPP w non-stress IMPRESSION: Biophysical profile score: 8/8 Impression dictated by: Rom Ortega M.D. 10/23/2024 7:16 PM Dictation Location: [place] [address] Electronically authenticated by: [id number] Y Date: 10/23/2024 19:16 Dictated By: Rom Ortega M.D. Signed By: 10/23/241917 DD/ 15 TD/TT: Gas Charger: [facility] Radiology Study observation (narrative) [facility] US OB BPP W NON-STRESS Ordered By: Radiologist Radiology on 10-23-2024 [facility] Work Phone: US OB FOLLOW UP TRANSABDOMIN AL APPROACHon [...] II, MD, PHD at 11-Oct-2024 08:25:22 AM [facility] Normal Not Available US OB 14+ [...] Nom ( U)on 05-26-2024 Appearance (U) Adequate [facility] Internal identifier for Provider [id number] [facility] Specimen source Nom (Unsp spec) URINE [facility] STATUS FINAL [facility] Laboratory - Drug toxicology on 05-26-2024 2-Ijwrqoglly-0,5-Dimethy l-3,3-Diphenylpyrrolidin e (EDDP) Ql (U) Negative NINF - 100 ng/mL [facility] Amphetamines Ql (U) Negative NINF - 5 00 ng/mL [facility] Barbiturates Ql (U) Negative NINF - 3 00 ng/mL [facility] Benzodiazepines Ql (U) Negative NINF - 100 ng/mL [facility] Benzoylecgonine Ql (U) Negative NINF - 150 ng/mL [facility] Opiates Ql (U) Negative NINF - 100 ng/mL [facility] oxyCODONE Ql (U) Negative NINF - 100 ng/mL [facility] Phencyclidine Ql (U) Negative NINF - 25 ng/mL [facility] Tetrahydrocannabinol Screen method >20 ng/mL Ql (U) Negative NINF - 20 ng/mL [facility] Laboratory - Microbiology an d Antimicrobial susceptibilityon 05-26-2024 Bacteria identified Cx Nom (U) SEE NOTE [facility] Comment on above: No Growth Laboratory - Miscellaneous t estson 05-26-2024 Service comment (Unsp spec) [Interp] [facility] Comment on above: This urine was martin zed for the presence of WBC, RBC, bacteria, casts, and other formed elements. Only those elements seen were reported. Laboratory - Urinalysison Bacteria LM.HPF (Urine sed) [#/Area] NONE SEEN NONE SEEN /HPF [facility] Epithelial cells.squamous LM.HPF (Urine sed) [#/Area] 0-5 < OR = 5 /HPF [facility] Hyaline casts (Urine sed) [#/Area] NONE SEEN NONE SEEN /LPF [facility] RBC LM.HPF (Urine sed) [#/Area] NONE SEEN < OR = 2 /HPF [facility] WBC LM.HPF (Urine sed) [#/Area] 6-10 Abnormal < OR = 5 /HPF [facility] N. gonorrhoeae DNA CHRISTY+probe Ql (Cervical mucus)on 05-26-2024 C. trachomatis rRNA CHRISTY+probe Ql (Unsp spec) Not detected NOT DETECTED [facility] N. gonorrhoeae rRNA CHRITSY+probe Ql (Unsp spec) Not detected NOT DETECTED [facility] No Panel Informationon 05-26 (ALWAYS MESSAGE) [facility] Comment on above: See Note 1 Note 1 This drug testing is for medical treatment only. Analysis was performed as non-forensic testing and these results should be used only by healthcare providers to render diagnosis or treatment, or to monitor progress of medical conditions. For assistance with interpreting these drug results, please contact a [facility] Toxicology Specialist: [phone] ( ), M-F, 8am-6pm EST. The analytical perfo rmance characteristics of this assay, when used to test SurePath(TM) specimens have been determined by [facility]. The modifications have not been cleared or approved by the FDA. This assay has been validated pursuant to the CLIA regulations and is used for clinical purposes. For additional information, please refer to https://education.[employer]/faq/ISI019 (This link is being provided for information/ educational purposes only.) Interpretation and review of laboratory results Abnormal [facility] SPLIT 05/24/2024 FROM [id number] [employer] Organization Information Site ID: QPT Name: [facility] [address] Address: [address] [place] [address], [address] [place] [phone] Director: Juan Mensah MD [facility] CBC panel Auto (Bld)on 05-25 Erythrocyte distribution width (RBC) [Ratio] 12.9 % 11.0 - 15.0 % [facility] Hematocrit (Bld) [Volume fraction] 39.1 % 35.0 - 45.0 % [facility] Hemoglobin (Bld) [Mass/Vol] 12.9 g/dL 11.7 - 15.5 g/dL [facility] MCH (RBC) [Entitic mass] 28.8 pg 27. 0 - 33.0 pg [facility] MCHC (RBC) [Mass/Vol] 33 g/dL 32.0 - 36.0 g/dL [facility] Comment on above: For adults, a slight decrease in the calculated MCHC value (in the range of 30 to 32 g/dL) is most likely not clinically significant; however, it should be interpreted with caution in correlation with other red cell parameters and the patient's clinical condition. MCV (RBC) [Entitic vol] 87.3 fL 80.0 - 100.0 fL [facility] Platelet mean volume (Bld) [Entitic vol] 10.4 fL 7.5 - 12.5 fL [facility] Platelets (Bld) [#/Vol] 269 10*3/uL [facility] RBC (Bld) [#/Vol] 4.48 10*6/uL [facility] WBC (Bld) [#/Vol] 10.6 10*3/uL [facility] Performing Organization Information Site ID: QTW Name: [facility] Address: [address] [place] [phone] Director: Nishi Squires [facility] Laboratory - Blood bankon ABO group Nom (Bld) O [facility] Blood group antibody screen Ql Detected [facility] Comment on above: Reference range No antibodies detected This assay is a screening test for the detection of red blood cell antibodies. The test is not to be used for pretransfusion screening or for the medical management of an alloimmunized . Rh Nom (Bld) Positive [facility] Comment on above: For additional information, please refer to http://education.[facility]/faq/FTU445 (This link is being provided for informational/ educational purposes only.) Laboratory - Chemistry and C hemistry - challengeon 05-25-2024 Free T4 [Mass/Vol] 1.3 ng/dL 0.8 - 1.8 ng/dL [facility] TSH Qn 4.91 m[IU]/L High mIU/L [facility] Comment on above: Reference Range > or = 20 Years 0.40-4.50 Ranges First trimester 0.26-2.66 Second trimester 0.55-2.73 Third trimester 0.43-2.91 Laboratory - Hematology and Cell countson 05-25-2024 HbA1c (Bld) [Mass fraction] 5.5 % [facility]F [facility] Comment on above: For the purpose of s creening for the presence of diabetes: <5.7% Consistent with the absence of diabetes 5.7-6.4% Consistent with increased risk for diabetes (prediabetes) > or =6.5% Consistent with diabetes This assay result is consistent with a decreased risk of diabetes. Currently, no consensus exists regarding use of hemoglobin A1c for diagnosis of diabetes in children. According to [place] [employer] (ADA) guidelines, hemoglobin A1c <7.0% represents optimal control in non- diabetic patients. Different metrics may apply to specific patient populations. Standards of Medical Care in Diabetes(ADA). Laboratory - Microbiology an d Antimicrobial susceptibilityon 05-25-2024 HBV surface Ag IA Ql Non-Reactive NON-REACTIVE [facility] Comment on above: For additional information, please refer to http://education.[employer]/faq/IKL767 (This link is being provided for informational/ educational purposes only.) HCV Ab IA Ql Non-Reactive NON-REACTIVE [facility] Comment on above: HCV antibody was non-reactive. There is no laboratory evidence of HCV infection. In most cases, no further action is required. However, if recent HCV exposure is suspected, a test for HCV RNA (test code 98978) is suggested. For additional information please refer to http://education.[employer]/faq/XKD96m1 (This link is being provided for informational/ educational purposes only.) HIV 1+2 Ab+HIV1 p24 Ag IA Ql Non-Reactive NON-REACTIVE [facility] Comment on above: HIV-1 antigen and HI [...] purpose. For additional information please refer to http://education.[employer]/faq/LHA983 (This link is being provided for informational/ educational purposes only.) The performance of this assay has not been clinically validated in patients less than 2 years old. Reagin Ab RPR Ql (S) Non-Reactive NON-REACTIVE [facility] Rubella virus IgG Qn (S) 1.63 [IU]/mL Index [facility] Comment on above: Index Interpretation ----- <0.90 Not consistent with immunity 0.90-0.99 Equivocal > or = 1.00 Consistent with immunity The presence of rubella IgG antibody suggests immunization or past or current infection with rubella virus. No Panel Informationon 05-25 Interpretation and review of laboratory results Abnormal [facility] COLLECTION KIT GIVEN TO PATIENT. PATIENT ADVISED TO RETURN. [employer] Information Site ID: QPT Name: [facility] [address] [facility] Address: [address] [place] [address], [address] [place] [phone] Director: Juan Mensah MD [facility] BASIC METABOLIC PANLon 09-07 Anion gap [Moles/Vol] 8 mmol/L Normal 5-15 [facility] Comment on above: Performed By: #### C [facility], #### [facility] ([id number]) [address] [place] [address] Calcium [Mass/Vol] 9.8 mg/dL Normal 8.5-10.5 [facility] Comment on above: Performed By: #### C [facility], #### [facility] ([id number]) [address] [place] [address] Chloride [Moles/Vol] 102 mmol/L Normal 98-[address] [facility] Comment on above: Performed By: #### C [facility], #### [facility] ([id number]) [address] [place] [address] CO2 [Moles/Vol] 25 mmol/L Normal 22-32 [facility] Comment on above: Performed By: #### C BELEN ALTAMIRANO, [address]-3 #### [facility] ([id number]) [address] [place] [address] Creatinine [Mass/Vol] 0.66 mg/dL Normal 0.40-1.00 [facility] Comment on above: Result Comment: METH OD TRACEABLE TO IDMS STANDARD Performed By: #### C BELEN ALTAMIRANO, #### [facility] ([id number]) [address] [place] [address] eGFR (CKD-EPI) NON-RACE DEPENDENT >90 Normal >59 [facility] Comment on above: Result Comment: Reported eGFR is based on the CKD-EPI 2020 equation that does not use a race coefficient. Performed By: #### C BELEN ALTAMIRANO, #### [facility] ([id number]) [address] [place] [address] Glucose [Mass/Vol] 97 mg/dL Normal 65-99 [facility] Comment on above: Performed By: #### C [facility], #### [facility] ([id number]) [address] [place] [address] Potassium [Moles/Vol] 3.6 mmol/L Normal 3.5-5.0 [facility] Comment on above: Performed By: #### C BELEN ALTAMIRANO, #### [facility] ([id number]) [address] [place] [address] Sodium [Moles/Vol] 135 mmol/L Normal 134-146 [facility] Comment on above: Performed By: #### C BELEN ALTAMIRANO, #### [facility] ([id number]) [address] [place] [address] Urea nitrogen [Mass/Vol] 14 mg/dL Normal 5-23 [facility] Comment on above: Performed By: #### C [facility], #### [facility] ([id number]) [address] [place] [address] CBC AND AUTO DIFFon 09-08-19 24 ABSOLUTE BASOPHIL 0.1 X10E9/L Normal 0.0-0.2 [facility] Comment on above: Performed By: #### Ricarda [facility]AMIRANO [facility], #### [facility] ([id number]) [address] [place] [address] ABSOLUTE NEUTROPHIL 6.9 X10E9/L High 1.5-6.[address] [facility] Comment on above: Performed By: #### C BELEN ALTAMIRANO, #### [facility] ([id number]) [address] [place] [address] Basophils/100 WBC (Bld) 0.8 % Normal [facility] Comment on above: Performed By: #### Ricarda ALTAMIRANO [facility], #### [facility] ([id number]) [address] [place] [address] Eosinophils (Bld) [#/Vol] 0.2 10*3/uL Normal 0.0-0.4 [facility] Comment on above: Performed By: #### BELEN Chowdary [facility], #### [facility] ([id number]) [address] [place] [address] Eosinophils/100 WBC (Bld) 2.0 % Normal [facility] Comment on above: Performed By: #### BELEN Chowdary [facility], #### [facility] ([id number]) [address] [place] [address] Erythrocyte distribution width (RBC) [Ratio] 12.9 % Normal 11.5-15.0 [facility] Comment on above: Performed By: #### C BELEN ALTAMIRANO, #### [facility] ([id number]) [address] [place] [address] Hematocrit (Bld) [Volume fraction] 39.3 % Normal 35-47 [facility] Comment on above: Performed By: #### BELEN Chowdary BCA, #### [facility] ([id number]) [address] [place] [address] 04328 Hemoglobin (Bld) [Mass/Vol] 13.1 g/dL Normal 11.7-15.5 [facility] Comment on above: Performed By: #### BELEN Chowdary BCA, #### [facility] ([id number]) [address] [place] [address] 42273 Lymphocytes (Bld) [#/Vol] 2.2 10*3/uL Normal 1.0-3.5 [facility] Comment on above: Performed By: #### BELEN Chowdary BCA, #### [facility] ([id number]) [address] [place] [address] 54438 Lymphocytes/100 WBC (Bld) 21.0 % Normal [facility] Comment on above: Performed By: #### BELEN Chowdary BCA, #### [facility] ([id number]) [address] [place] [address] 98571 MCH (RBC) [Entitic mass] 29.1 pg Normal 27-34 [facility] Comment on above: Performed By: #### BELEN Chowdary BCA, #### [facility] ([id number]) [address] [place] [address] 24813 MCHC (RBC) [Mass/Vol] 33.3 g/dL Normal 32-36 [facility] Comment on above: Performed By: #### BELEN Chowdary BCA, #### [facility] ([id number]) [address] [place] [address] 41288 MCV (RBC) [Entitic vol] 87 fL Normal 80-100 [facility] Comment on above: Performed By: #### BELEN Chowdary BCA, #### [facility] ([id number]) [address] [place] [address] 64753 Monocytes (Bld) [#/Vol] 1.0 10*3/uL High 0-0.9 [facility] Comment on above: Performed By: #### Ricarda [facility]ANO [facility], #### [facility] ([id number]) [address] [place] [address] 27871 Monocytes/100 WBC (Bld) 9.5 % Normal [facility] Comment on above: Performed By: #### Ricarda [facility]ANO [facility], #### [facility] ([id number]) [address] [place] [address] 71574 Neutrophils/100 WBC (Bld) 66.7 % Normal [facility] Comment on above: Performed By: #### Ricarda [facility], #### [facility] ([id number]) [address] [place] [address] 99290 Platelet mean volume (Bld) [Entitic vol] 8.7 fL Normal 7-12 [facility] Comment on above: Performed By: #### Ricarda [facility], #### [facility] ([id number]) [address] [place] [address] 15108 Platelets (Bld) [#/Vol] 299 10*3/uL Normal 150-450 [facility] Comment on above: Performed By: #### BELEN Chowdary BCA, #### [facility] ([id number]) [address] [place] [address] 57468 RBC COUNT 4.50 X10E12/L Normal 3.80-5.20 [facility] Comment on above: Performed By: #### C BELEN ALTAMIRANO, #### [facility] ([id number]) [address] [place] [address] 93104 WBC (Bld) [#/Vol] 10.4 10*3/uL Normal 4.0-11.0 [facility] Comment on above: Performed By: #### C BELEN ALTAMIRANO, #### [facility] ([id number]) [address] [place] [address] 31325 HCG ( test) Ql (U)o n 09-08-2023 Beta HCG ( test) Ql (U) Positive Abnormal NEG [facility] Comment on above: Performed By: #### 2 106-3 #### [facility] ([id number]) [address] [place] [address] 62097 HCG.beta subunit IA 3rd IS Q non 09-08-2023 HCG.beta subunit Qn 126 m[IU]/mL Normal [facility] Comment on above: Result Comment: NEW REFERENCE [...] Performed By: #### C BELEN ALTAMIRANO, #### [facility] ([id number]) [address] [place] [address] 67009 URINE CULTUREon 09-08-2023 Bacteria identified Cx Nom (U) CULTURE RESULTS >100,000 ORGANISMS/ML NORMAL UROGENITAL JUSTINE Normal [facility] Comment on above: Performed By: #### 6 30-4 #### [facility] ([id number]) [address] [place] [address], [address] [place] [address] URN MACROSCOPIC NURon 2023 BILIRUBIN PRAMOD Negative Normal NEG [facility] Comment on above: Performed By: #### N UM #### [facility] ([id number]) [address] [place] [address] 53027 BLOOD/HGB PRAMOD Large Abnormal NEG [facility] Comment on above: Performed By: #### N UM #### [facility] ([id number]) [address] [place] [address] 66821 GLUCOSE PRAMOD Negative Normal NEG [facility] Comment on above: Performed By: #### N UM #### [facility] ([id number]) [address] [place] [address] 24054 KETONES PRAMOD Negative Normal NEG [facility] Comment on above: Performed By: #### N UM #### [facility] ([id number]) [address] [place] [address] 93114 LEUKOCYTE ESTERASE PRAMOD Small Abnormal NEG [facility] Comment on above: Performed By: #### N UM #### [facility] ([id number]) [address] [place] [address] 08286 NITRITE PRAMOD Negative Normal NEG [facility] Comment on above: Performed By: #### N UM #### [facility] ([id number]) [address] [place] [address] 77148 PH PRAMOD 5.0 Normal 5.0-8.5 [facility] Comment on above: Performed By: #### N UM #### [facility] ([id number]) [address] [place] [address] PROTEIN PRAMOD 100 mg/dL Abnormal NEG [facility] Comment on above: Performed By: #### N UM #### [facility] ([id number]) [address] [place] [address] SPECIFIC GRAVITY PRAMOD 1.025 Normal 1.003-1.035 Pro [facility] Comment on above: Performed By: #### N UM #### [facility] ([id number]) [address] [place] [address] 46167 UROBILINOGEN PRAMOD 0.2 eu/dL Normal <1.1 [facility] Comment on above: Performed By: #### N UM #### [facility] ([id number]) [address] [place] [address] 40140 [place] PREG LESS THAN 14 WKS WIT [...] Dave MD on 09/08/2023 1:54 PM Normal [facility] [id number] 01-12-2020 SARS-CoV-2 Not Detected Normal Not Detected [facility] Comment on above: Result Comment: (NOT E) This nucleic acid amplification test was developed and its performance characteristics determined by [employer]. Nucleic acid amplification tests include PCR and [...] detected) result in this assay. Performed At: [facility] [address] [facility] [place] [id number] Cindy Rodriguez MD Ph:[phone] Performed By: #### A COV #### [facility] [address] [place] [address] [employer] Operator: Gerardo Baez MD [id number] 01-09-2020 SARS-CoV-2 Not Detected Normal Not Detected [facility] Comment on above: Result Comment: (NOT E) This nucleic acid amplification test was developed and its performance characteristics determined by [employer]. Nucleic acid amplification tests include PCR and [...] assay. Performed At: [facility] [address] [place], [place] [id number] Pavithraeli Núñezeli [facility] Ph:[phone] Performed By: #### A COV #### [facility] [address] [place] [address] [employer]: Gerardo Baez MD Vital Signs Date Time Vital Sign Value Performing Clinician Facility 11-22-2024 16:01-0400 Body mass index (BMI) [Ratio] 40.6 kg/m2 Cordell Yoviao CN Work Phone: [facility] 11-22-2024 16:01-0400 Body weight 130.18 kg Cordell Jermaineo CNM Work Phone: [facility] 11-22-2024 16:01-0400 Diastolic blood pressure 80 mm[Hg] Cordell Floro CNM Work Phone: [facility] 11-22-2024 16:01-0400 Systolic blood pressure 122 mm[Hg] Cordell Floro CNM Work Phone: [facility] 09-28-2024 14:28-0400 Body mass index (BMI) [Ratio] 38.33 kg/m2 Cordell Floro CNM Work Phone: [facility] 09-28-2024 14:28-0400 Body weight 122.92 kg Cordell Jermaineo CNM Work Phone: [facility] 09-28-2024 14:28-0400 Diastolic blood pressure 70 mm[Hg] Cordell Floro CNM Work Phone: [facility] 09-28-2024 14:28-0400 Systolic blood pressure 122 mm[Hg] Cordell Floro CNM Work Phone: [facility] 08-29-2024 15:07-0400 Body mass index (BMI) [Ratio] 37.2 kg/m2 Cordell Floro CNM Work Phone: [facility] 08-29-2024 15:07-0400 Body weight 119.3 kg Cordell Floro CNM Work Phone: [facility] 08-29-2024 15:07-0400 Diastolic blood pressure 80 mm[Hg] Cordell Floro CNM Work Phone: [facility] 08-29-2024 15:07-0400 Systolic blood pressure 118 mm[Hg] Cordell Floro CNM Work Phone: [facility] 07-31-2024 17:13-0400 Body mass index (BMI) [Ratio] 36.64 kg/m2 Cordell Floro CNM Work Phone: [facility] 07-31-2024 17:13-0400 Body weight 117.48 kg Cordell Floro CNM Work Phone: [facility] 06-22-2024 08:28-0500 Body mass index (BMI) [Ratio] 35.08 kg/m2 Cordell Floro CNM Work Phone: [facility] 06-22-2024 08:28-0500 Body weight 112.49 kg Cordell Floro CNM Work Phone: [facility] 06-22-2024 08:28-0500 Diastolic blood pressure 72 mm[Hg] Cordell Floro CNM Work Phone: [facility] 06-22-2024 08:28-0500 Systolic blood pressure 120 mm[Hg] Cordell Floro CNM Work Phone: [facility] 05-04-2024 14:32-0500 Body mass index (BMI) [Ratio] 32.96 kg/m2 Cordell Gifford CNM Work Phone: [facility] 05-04-2024 14:32-0500 Body weight 105.69 kg Cordell Gifford CNM Work Phone: [facility] 05-04-2024 14:32-0500 Diastolic blood pressure 70 mm[Hg] Cordell Gifford CNM Work Phone: [facility] 05-04-2024 14:32-0500 Systolic blood pressure 110 mm[Hg] Cordell Gifford CNM Work Phone: [facility] 02-24-2024 11:30-0400 Body height 180.3 cm Mini Sal MD Work Phone: [facility] 02-24-2024 11:30-0400 Body mass index (BMI) [Ratio] 32.08 kg/m2 Mini Sal MD Work Phone: [facility] 02-24-2024 11:30-0400 Body temperature 98.71 [degF] Mini Sal MD Work Phone: [facility] 02-24-2024 11:30-0400 Body weight 104.33 kg Mini Sal MD Work Phone: [facility] 02-24-2024 11:30-0400 Diastolic blood pressure 68 mm[Hg] Mini Sal MD Work Phone: [facility] 02-24-2024 11:30-0400 Heart rate 72 /min Mini Sal MD Work Phone: [facility] 02-24-2024 11:30-0400 SaO2% (BldA) [Mass fraction] 98 % Mini Sal MD Work Phone: [facility] 02-24-2024 11:30-0400 Systolic blood pressure 116 mm[Hg] Mini Sal MD Work Phone: [facility] 07-06-2023 12:57-0500 Body height 179.1 cm Mini Sal MD Work Phone: [facility] 07-06-2023 12:57-0500 Body mass index (BMI) [Ratio] 31.39 kg/m2 Mini Sal MD Work Phone: [facility] 07-06-2023 12:57-0500 Body temperature 98.8 [degF] Mini Sal MD Work Phone: [facility] 07-06-2023 12:57-0500 Body weight 100.7 kg Mini Sal MD Work Phone: [facility] 07-06-2023 12:57-0500 Diastolic blood pressure 74 mm[Hg] Mini Sal MD Work Phone: [facility] 07-06-2023 12:57-0500 Heart rate 70 /min Mini Sal MD Work Phone: [facility] 07-06-2023 12:57-0500 SaO2% (BldA) [Mass fraction] 99 % Mini Sal MD Work Phone: [facility] 07-06-2023 12:57-0500 Systolic blood pressure 122 mm[Hg] Mini Sal MD Work Phone: [facility] Encounters Encounter Date Encounter Type Care Provider Facility Start: 11-23-2024 End: 11-23-2024 ambulatory CORDELL GIFFORD Not Available Start: 11-22-2024 End: 11-22-2024 Subsequent care visit Cordell Gifford CNM Work Phone: [facility] Comment on above: Large for dates affe cting management of mother, third trimester, fetus 1 ([facility]) (Primary Dx); Encounter for care of first , third trimester ([facility]); screening for streptococcus B ([facility]); Large for dates ([facility]) Start: 11-22-2024 End: 11-22-2024 ambulatory CORDELL L FLORO Not Available Start: 11-22-2024 End: 11-22-2024 Bamboo flowsheet Cordell L Floro CNM Work Phone: [facility] Start: 11-22-2024 End: 11-22-2024 Bamboo flowsheet Cordell L Floro CNM Work Phone: [facility] Start: 11-07-2024 End: 11-07-2024 ambulatory CORDELL L FLORO Not Available Start: 11-07-2024 End: 11-07-2024 Bamboo flowsheet Cordell L Floro CNM Work Phone: [facility] Start: 11-07-2024 End: 11-07-2024 Bamboo flowsheet Cordell L Floro CNM Work Phone: [facility] Start: 10-23-2024 End: 10-23-2024 Clinisync Result Encounter Cordell L Floro CNM Work Phone: [facility] Unsolicited Start: 10-23-2024 End: 10-23-2024 Clinisync Result Encounter Cordell L Floro CNM Work Phone: [facility] Unsolicited Start: 10-09-2024 End: 10-09-2024 ambulatory CORDELL L FLORO Not Available Start: 09-28-2024 End: 09-28-2024 Subsequent care visit Cordell L Floro CNM [...] 07-31-2024 End: 07-31-2024 Subsequent care visit Cordell Leodan Solimano CNM [...] 7w0d Start: 04-21-2024 End: 04-21-2024 ambulatory CORDELL GIFFORD Not Available Start: 04-03-2024 End: 04-03-2024 Telephone encounter Cordell Gifford CNM Work Phone: [facility] Start: 02-28-2024 End: 02-28-2024 Telephone encounter Mini Sal MD Work Phone: [facility] Comment on above: Sleep Lab (HST/PSG/C PAP) Start: 02-24-2024 End: 02-24-2024 ambulatory [facility] Start: 02-24-2024 End: 02-24-2024 Office outpatient visit 25 minutes Mini Sal MD Work Phone: [facility] Comment on above: Obesity (BMI 30-39.9 ) (Primary Dx); Weight loss; PCOS (polycystic ovarian syndrome) Start: 01-13-2024 End: 01-13-2024 Telephone encounter Karolinapati Lawrence [facility] Call Karl powell Comment on above: Abdominal Pain; Dizz iness Start: 09-08-2023 End: 09-09-2023 Emergency department patient visit JOSH Yu [facility] Start: 07-06-2023 End: 07-06-2023 Office outpatient visit 25 minutes Mini Sal MD Work Phone: [facility] Comment on above: Obesity (BMI 30-39.9 ) (Primary Dx); Acute otitis externa of both ears, unspecified type Start: 07-06-2023 End: 07-06-2023 ambulatory [facility] Start: 05-26-2023 End: 05-26-2023 ambulatory [facility] Start: 05-26-2023 End: 05-26-2023 Office outpatient visit 25 minutes Mini Sal MD Work Phone: [facility] Comment on above: Obesity (BMI 30-39.9 ) (Primary Dx); Weight loss; BMI 35.0-35.9,adult Start: 04-20-2023 End: 04-20-2023 ambulatory MINI Farias [facility] Start: 01-10-2020 Patient encounter procedure MISSY NICKERSON Facility: Start: 01-10-2020 End: 01-11-2020 Patient encounter procedure MISSY NICKERSON [facility] Start: 01-10-2020 End: 01-10-2020 Subsequent hospital visit by physician Stephenie Covid Screening Schedule [facility] Covid Screening Comment on above: Arrived Start: 01-04-2020 End: 01-05-2020 Patient encounter procedure [facility] Start: 01-04-2020 End: 01-04-2020 Subsequent hospital visit by physician Karel [facility] Start: 01-03-2020 End: 01-04-2020 Patient encounter procedure [facility] Start: 01-03-2020 End: 01-03-2020 Subsequent hospital visit by physician Karel Barkley [facility] Laboratory Procedures Date Procedure Procedure Detail Performing Clinician Start: 10-23-2024 US OB BPP W NON-STRESS Cordell L Floro CNM Work Phone: Start: 10-23-2024 US OB CERVICAL LENGTH V alerie L Floro CNM Work Phone: Start: 10-23-2024 [facility] UA (CLEAN/CATCH) SCORE CALLER/MICRO IF IND. Cordell L Floro CNM Work [...] Start: 05-24-2024 Hemoglobin glycosyla leighton a1c Cordell Gifford CNM Work Phone: Start: 05-24-2024 Iaad ia hepatitis b surface antigen Cordell Gifford CNM Work Phone: Start: 05-24-2024 TSH W/REFLEX TO FT4 Mery nahomi Gifford CNM Work Phone: Start: 01-10-2020 COVID-19 AMBULATORY DIP AKKUMAR ELIZABETH Start: 01-03-2020 COVID-19 AMBULATORY DIP AKKUMAR ELIZABETH Plan of Treatment Date Care Activity Detail Author Start: 02-23-2025 Adult BMI Screening Adult BMI Screen ing [facility] Start: 02-23-2025 Tobacco Screening Tobacco Screening [facility] Start: 01-01-2025 Influenza vaccination N [facility] Start: 12-13-2024 End: 12-13-2024 Patient encounter procedure 12/13/2024 3:30 PM EDT Routine [facility] [address] [place] [phone] Cordell Gifford, CNM [address] [place] [address] [facility] Start: 12-06-2024 End: 12-06-2024 Patient encounter procedure 12/06/2024 3:30 PM EDT Routine [facility] [address] [place] [id number] Cordell Gifford CNM [address] [place] [address] [facility] Start: 11-29-2024 End: 11-29-2024 Patient encounter procedure 11/29/2024 3:00 PM EDT Routine [facility] [address] [place] [phone] Cordell Gifford, LINDAM [address] [place] [address] [facility] Start: 11-23-2024 End: 11-23-2024 Professional / ancillary services management 11/23/2024 2:15 PM EDT Ancillary Procedure [facility] [address] [place] [phone] [facility] Start: 11-22-2024 End: 11-22-2024 Patient encounter procedure 11/22/2024 4:00 PM EDT Routine [facility] [address] [place] [phone] Cordell Gifford, CNM [address] [place], [place] [phone] Arrived [facility] Comment on above: Arrived Start: 11-22-2024 End: 11-22-2025 STREPTOCCOUS, GROUP B CULTURE STREPTOCCOUS, GROUP B CULTURE Lab Routine screening for streptococcus B ([facility]) Expected: 11/22/2024 (Approximate), Expires: 11/22/2025 [facility] Work Phone: Comment on above: Expected: 11/22/2024 (Approximate), Expires: 11/22/2025 Start: 11-22-2024 End: 11-22-2025 US for US OB follow up transabdominal approach Imaging Routine Large for dates ([facility]) Expected: 11/22/2024, Expires: 11/22/2025 [facility] Comment on above: Expected: 11/22/2024 , Expires: 11/22/2025 Start: 10-26-2024 End: 10-26-2024 Patient encounter procedure 10/26/2024 3:30 PM EDT Routine [facility] [address] [facility] [place]NOTE [address]], [place] [phone] Cordell Gifford, CNM [address] [place] [address] [facility] Start: 09-28-2024 End: 09-28-2024 Patient encounter procedure [facility] Comment on above: Screening for diabet es mellitus; Screening for iron deficiency anemia; related condition in third trimester Start: 09-28-2024 End: 09-28-2025 CBC panel - Blood by Automated count CBC Lab Routine Screening for iron deficiency anemia Expected: 09/28/2024 (Approximate), Expires: 09/28/2025 [facility] Comment on above: Expected: 09/28/2024 (Approximate), Expires: 09/28/2025 Start: 09-28-2024 End: 09-28-2025 GLUCOSE, GESTATIONAL SCREEN (50G)-135 CUTOFF GLUCOSE, GESTATIONAL SCREEN (50G)-135 CUTOFF Lab Routine Screening for diabetes mellitus Expected: 09/28/2024 (Approximate), Expires: 09/28/2025 [facility] Work Phone: Comment on above: Expected: 09/28/2024 (Approximate), Expires: 09/28/2025 Start: 09-28-2024 End: 09-28-2025 US for US OB follow up transabdominal approach Imaging Routine related condition in third trimester Expected: 09/28/2024, Expires: 09/28/2025 [facility] Comment on above: Expected: 09/28/2024 , Expires: 09/28/2025 Start: 09-07-2024 Adult BMI Screening Adult BMI Screen ing [facility] Start: 09-07-2024 Tobacco Screening Tobacco Screening [facility] Start: 08-29-2024 End: 08-29-2024 Patient encounter procedure 08/29/2024 3:00 PM EDT Routine [facility] [address] [place] [address] Cordell Gifford, [facility] [address] [place] [address] Arrived [facility] Comment on above: Arrived Start: 08-28-2024 End: 08-28-2024 Patient encounter procedure 08/28/2024 5:00 PM EDT Routine [facility] [address] [place] [address] Cordell Gifford, ASA [address] [place] [address] [facility] Start: 07-31-2024 End: 07-31-2024 Patient encounter procedure [facility] Comment on above: related co ndition in second trimester Start: 07-31-2024 End: 07-31-2024 Professional / ancillary services management 07/31/2024 5:45 PM EDT Ancillary Procedure [facility] [address] [phone] [facility] Start: 07-31-2024 End: 07-31-2025 US for [facility] Work Phone: Comment on above: Expected: 07/31/2024 , Expires: 07/31/2025 Start: 07-20-2024 End: 07-20-2024 Patient encounter procedure 07/20/2024 3:00 PM EDT Routine [facility] [address] [place] [phone] Cordell Gifford CNM [address] [place], [place] [id number] [facility] Start: 07-05-2024 Adult BMI Screening Adult BMI Screen ing [facility] Start: 07-05-2024 Tobacco Screening Tobacco Screening [facility] Start: 06-29-2024 DTaP,Tdap and Td Vac cines (8 - Td or Tdap) DTaP,Tdap and Td Vaccines (8 - Td or Tdap) [facility] Start: 06-29-2024 DTaP/Tdap/Td vaccine (7 - Td) DTaP/Tdap/Td vaccine (7 - Td) [facility] [place] Start: 06-22-2024 End: 06-22-2024 Patient encounter procedure [facility] Comment on above: Arrived Start: 06-20-2024 End: 06-20-2025 Thyrotropin [Units/volume] in Serum or Plasma TSH Lab Routine Elevated TSH Expected: 06/20/2024 (Approximate), Expires: 06/20/2025 [facility] Work Phone: Comment on above: Expected: 06/20/2024 (Approximate), Expires: 06/20/2025 Start: 05-24-2024 End: 05-24-2024 Patient encounter procedure 05/24/2024 8:30 AM EST Routine [facility] [address] [place] [address] Cordell Gifford CNM [address] [place], [place] [phone] Arrived [facility] Comment on above: Arrived Start: 03-17-2024 Adult BMI Screening Adult BMI Screen ing [facility] Start: 03-17-2024 Tobacco Screening Tobacco Screening [facility] Start: 02-24-2024 End: 02-23-2025 Polysomnography 4 or more parameters with PAP titration Polysomnography 4 or more parameters with PAP titration Sleep Center Routine Obesity (BMI 30-39.9) Expected: 02/24/2024 (Approximate), Expires: 02/23/2025 [facility] Comment on above: Expected: 02/24/2024 (Approximate), Expires: 02/23/2025 Start: 02-24-2024 End: 02-23-2025 PSG Diagnostic [facility] Routine Obesity (BMI 30-39.9) Expected: 02/24/2024 (Approximate), Expires: 02/23/2025 [facility] Comment on above: Expected: 02/24/2024 (Approximate), Expires: 02/23/2025 Start: 02-24-2024 End: 03-26-2024 SARS COV 2 (COVID-19) SARS COV 2 (COVID-19) Microbiology STAT Obesity (BMI 30-39.9) Expected: 02/24/2024 (Approximate), Expires: 03/26/2024 [facility] Comment on above: Expected: 02/24/2024 (Approximate), Expires: 03/26/2024 Start: 02-24-2024 End: 10-24-2025 TSH with Reflex TSH with Reflex Lab Routine PCOS (polycystic ovarian syndrome) Expected: 02/24/2024 (Approximate), Expires: 02/23/2025 [facility] Work Phone: Comment on above: Expected: 02/24/2024 (Approximate), Expires: 02/23/2025 Start: 02-24-2024 End: 02-23-2025 Vitamin D 25 hydroxy Vitamin D 25 hydroxy Lab Routine PCOS (polycystic ovarian syndrome) Expected: 02/24/2024 (Approximate), Expires: 02/23/2025 [facility] Comment on above: Expected: 02/24/2024 (Approximate), Expires: 02/23/2025 Start: 01-02-2024 COVID-19 Vaccine () COVID-19 Vaccine () [facility] Start: 01-02-2024 Influenza vaccination N [facility] Start: 10-08-2023 End: 10-08-2023 Patient encounter procedure 10/08/2023 9:00 AM EDT Office Visit [facility] [address] [place] [address] [phone] Mini Sal MD [address] [place] [address] [facility] Start: 01-01-2023 COVID-19 Vaccine () COVID-19 Vaccine () [facility] Start: 01-01-2023 Influenza vaccination Influenza Vacc ine [facility] Start: 10-26-2020 Screening for malign ant neoplasm of cervix Pap Smear [facility] Start: 01-02-2020 Influenza vaccination Flu vaccine (# 1) [place], [place] Start: 05-31-2018 Screening for Chlamy esthela trachomatis Chlamydia screen [place], [place] Start: 10-26-2017 Adult BMI Follow Up Plan Adult BMI F ollow Up Plan [facility] Start: 10-26-2014 HIV screening HIV screen [place], [place] Start: 2011 Depression Screening Depression Scre ening [facility] Start: 10-26-2010 HPV vaccine (1 - 2-d ose series) HPV vaccine (1 - 2-dose series) [place] Start: 10-26-2005 Pneumococcal 0-64 ye ars Vaccine (1 of 1 - PPSV23) Pneumococcal 0-64 years Vaccine (1 of 1 - PPSV23) [place] Start: 1999 Screening for Chlamy esthela trachomatis Chlamydia Screening [facility] Start: 1999 Tobacco Counseling Tobacco Counselin g [facility] End: 02-23-2025 Cortisol Cortisol Lab Routine PCOS (polycystic ovarian syndrome) 1 Occurrences starting 02/24/2024 until 02/23/2025 [facility] Comment on above: 1 Occurrences starti ng 02/24/2024 until 02/23/2025 End: 01-03-2020 Covid-19 Ambulatory Covid-19 Ambulatory Lab Routine Once for 1 Occurrences starting 01/03/2020 until 01/03/2020 [place] Comment on above: Once for 1 Occurrenc es starting 01/03/2020 until 01/03/2020 Covid-19 Ambulatory [place], [place] End: 01-10-2020 Covid-19 Ambulatory Covid-19 Ambulatory Lab Routine Once for 1 Occurrences starting 01/10/2020 until 01/10/2020 [place] Comment on above: Once for 1 Occurrenc es starting 01/10/2020 until 01/10/2020 End: 02-23-2025 Estradiol Estradiol Lab Routine PCOS (polycystic ovarian syndrome) 1 Occurrences starting 02/24/2024 until 02/23/2025 [facility] Comment on above: 1 Occurrences starti ng 02/24/2024 until 02/23/2025 End: 02-23-2025 FSH FSH Lab Routine PCOS (polycystic ovarian syndrome) 1 Occurrences starting 02/24/2024 until 02/23/2025 [facility] Comment on above: 1 Occurrences starti ng 02/24/2024 until 02/23/2025 End: 02-23-2025 Home sleep study Home sleep study Sleep Center Routine Obesity (BMI 30-39.9) 1 Occurrences starting 02/24/2024 until 02/23/2025 [facility] Comment on above: 1 Occurrences starti ng 02/24/2024 until 02/23/2025 End: 02-23-2025 Luteinizing hormone Luteinizing hormone Lab Routine PCOS (polycystic ovarian syndrome) 1 Occurrences starting 02/24/2024 until 02/23/2025 [facility] Comment on above: 1 Occurrences starti ng 02/24/2024 until 02/23/2025 End: 02-23-2025 Testosterone [Mass/volume] in Serum or Plasma Testosterone Lab Routine PCOS (polycystic ovarian syndrome) 1 Occurrences starting 02/24/2024 until 02/23/2025 [facility] Comment on above: 1 Occurrences starti ng 02/24/2024 until 02/23/2025 Immunizations Immunization Date Immunization Notes Care Provider Cristin pereira 12-17-2016 meningococcal polysaccharide (groups A, C, Y and W-135) diphtheria toxoid conjugate vaccine (MCV4P) [facility], [place] 06-29-2014 tetanus toxoid, redu marci diphtheria toxoid, and acellular pertussis vaccine, adsorbed [facility] 01-28-2012 Hepatitis A Ped/Adol (Vaqta) [facility], [place] 09-24-2011 meningococcal polysaccharide (groups A, C, Y and W-135) diphtheria toxoid conjugate vaccine (MCV4P) [facility] 07-23-2011 Hepatitis A Ped/Adol (Vaqta) [facility], [place] 07-23-2011 varicella virus vaccine [facility], [place] 12-26-2004 diphtheria, tetanus toxoids and acellular pertussis vaccine [facility] 12-26-2004 measles, mumps and r ubella virus vaccine [facility] 12-26-2004 poliovirus vaccine, inactivated [facility] 05-12-2001 diphtheria, tetanus toxoids and acellular pertussis vaccine [facility], [place] 05-12-2001 measles, mumps and r ubella virus vaccine [facility], [place] 05-12-2001 poliovirus vaccine, inactivated [facility], [place] 11-02-2000 haemophilus influenz ae type b vaccine, PRP-OMP conjugate [facility], [place] 11-02-2000 hepatitis B vaccine, pediatric or pediatric/adolescent dosage [facility], [place] 11-02-2000 varicella virus vaccine [facility], [place] 05-20-2000 diphtheria, tetanus toxoids and acellular pertussis vaccine [facility], [place] 03-09-2000 diphtheria, tetanus toxoids and acellular pertussis vaccine [facility], [place] 03-09-2000 haemophilus influenz ae type b vaccine, PRP-OMP conjugate [facility], [place] 03-09-2000 hepatitis B vaccine, pediatric or pediatric/adolescent dosage [facility], [place] 03-09-2000 poliovirus vaccine, inactivated [facility], [place] 1999 diphtheria, tetanus toxoids and acellular pertussis vaccine [facility], [place] 1999 haemophilus influenz ae type b vaccine, PRP-OMP conjugate [facility], [place] 1999 hepatitis B vaccine, pediatric or pediatric/adolescent dosage [facility], [place] 1999 poliovirus vaccine, inactivated [facility], [place] Payers Date Payer Category Payer Private Health Insurance [facility] MEDICAID [id number] 2024 Medicaid [place]ICAID [place] [id number] 2024 Medicaid [id number] 2019 Blue Cross Blue Shield [id number] 2019 Blue Cross Blue Shie ld Managed Care - Other ANTHEM [id number] 2019 Unknown ANTHEM BCBS OUT OF STATE PPO/TRUST [id number] 2019-Present [phone] [address] [place] [address] [id number] 2017 Unknown [id number] [id number]. [id number] 1999 Unknown [id number] 2.16.840.1.399817.3.579.2. 593 1999 Unknown [id number] 2.16.840.1.022529.3.579.2. 173 1999 Unknown [id number] 2.16.840.1.169483.3.579.2. 173 1999 Unknown [id number] 2.16.840.1.634512.3.579.2. 173 1999 Unknown [id number] 2.16.840.1.854975.3.579.2. 1286 1999 Unknown [id number] 2.16.840.1.096043.3.579.2. 1286 1999 Unknown [id number] 2.16.840.1.330450.3.579.2. 128 1999 Unknown [id number] 2.16.840.1.576926.3.579.2. 128 1999 Unknown [id number] 2.16.840.1.279377.3.579.2. 1285 1999 Unknown [id number] 2.16.840.1.848543.3.579.2. 1286 1999 Unknown [id number] 2.16.840.1.683068.3.579.2. 1259 1999 Unknown [id number] 2.16.840.1.390030.3.579.2. 1259 1999 Unknown [id number] 2.16.840.1.772633.3.579.2. 9 1999 Unknown [id number] 2.16.840.1.500701.3.579.2. 1259 1999 Unknown [id number] 2.16.840.1.404418.3.579.2. 9 1999 Unknown [id number] 2.16.840.1.182129.3.579.2. 9 1999 Unknown [id number] 2.16.840.1.351085.3.579.2. 9 1999 Unknown [id number] 2.16.840.1.569319.3.579.2. 1258 1999 Unknown [id number] 2.16.840.1.618889.3.579.2. 1258 1999 Unknown [id number] 2.16.840.1.473220.3.579.2. 1258 1999 Unknown [id number] 2.16.840.1.684834.3.579.2. 1258 1999 Unknown [id number] 2.16.840.1.892159.3.579.2. 1259 1959 Self-pay Social History Date Type Detail Facility Start: 08-06-2018 End: 02-18-2023 Tobacco smoking status NYIS Current every day smoker [place] Start: 07-02-2023 History of tobacco use Cigarette Smo [place] Start: 08-06-2018 End: 09-09-2023 Tobacco use and exposure Never used [place] Start: 08-06-2018 Alcohol intake Current non-dr sausage linker of alcohol (finding) [place] Start: 08-06-2018 Tobacco Comment 4 cigarrettes a day [place], [place] Start: 1999 Sex Assigned At Not on file M [place], [place] Start: 09-08-2023 End: 09-09-2023 Tobacco smoking status NYIS Ex-smoker [facility] Start: 07-02-2023 History of tobacco use Current smoke r [facility] Start: 09-09-2023 Alcoholic beverage intake Lifetime non-drinker (finding) [facility] Start: 09-09-2023 End: 05-04-2024 History of Social function [facility] Start: 09-09-2023 End: 05-04-2024 Tobacco use panel [facility] Start: 04-28-2024 End: 05-04-2024 Alcoholic beverage intake Ex-drinker (finding) [facility] Start: 03-24-2024 [facility] Start: 02-18-2023 End: 09-08-2023 Tobacco use and exposure Former smokeless tobacco user [facility] Start: 03-17-2023 End: 07-06-2023 Alcohol intake Current drinker of alcohol (finding) [facility] How hard is it for y ou to pay for the very basics like food, housing, medical care, and heating Not hard at all [facility] Start: 02-18-2023 Alcohol Comment occasionally [facility] Start: 01-14-2023 Sex Female (finding) [facility] Goals Date Patient Goal Desired Activity /State Personal health goal Clinical Notes 05-26-2023 to 11-22-2024 LINDA Lau - 11/22/2024 4:00 PM EDMathieu Gifford, LINDA - 09/28/2024 2:30 PM EDTCordell Gifford, LINDA - 08/29/2024 3:00 PM EDTCordell Gifford, LINDA - 06/27/2024 3:38 PM ESTPatient Instructions Note Date & Type Note Facility 11-22-2024 History of Presen t illness Narrative Subjective No chief complaint on file. Jacque Horn is a 24 y.o. at 36w5d with [...] management of mother, third trimester, fetus 1 ([facility]) Encounter for care of first , third trimester ([facility]) screening for streptococcus B ([facility]) - STREPTOCCOUS, GROUP B CULTURE; Future Large for dates ([facility]) - US OB follow up transabdominal approach; Future Continue vitamin. Labs reviewed. GBS taken today Expected mode of delivery Patient is measuring large for dates. She is 36.5 today and measuring 41. I will get US -growth done tomorrow. Scheduled Follow up in 1 week for a routine visit. documented in this encounter [facility] 09-28-2024 History of Presen t illness Narrative [...] a routine visit. documented in this encounter [facility] 08-29-2024 History of Presen t illness Narrative [...] normal , second trimester Patient is an [employer] at the [employer] in [place]. 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 I did question the liability this could place on her and especially will get more difficult as her progresses. I will write a note to her employer if needed. I did advise her to go the HR and inquire what the legal [employer] to patient ratio is . Not only for the resident's safety, but my patient's as well. She states she will inquire about it as it's getting harder to do. Continue vitamin. Labs reviewed. Rhogam GTT . Follow up in 2 weeks for a routine visit. documented in this encounter [facility] 06-27-2024 History of Presen t illness Narrative Patient is and tested positive for COVID. Instructions to go to nearest ER for difficulty breathing, chest pain, or worsening symptoms. Rx meds sent to pharmacy documented in this encounter [facility] 06-22-2024 History of Presen t illness Narrative [...] a routine visit. documented in this encounter [facility] 05-04-2024 History of Presen t illness Narrative [...] also given office phone number and [facility] number to call in case of an emergency or after hours needs. PVU and all questions answered. We did discuss place of delivery. Patient should plan to go to [facility] for all services unless an emergency and they need to go to the closest ER. We can make other arrangements possibly if patient would like to deliver at another facility but I did explain I am now at [place] 100% of the time and would like to do all deliveries there. documented in this encounter [facility] 04-28-2024 History of Presen t illness Narrative W OB nurse visit documented in this encounter [facility] 04-03-2024 Telephone encount er Note PT TOOK a positive preganacy test and is about 3 weeks, and wants scheduled lola. [facility] 04-03-2024 Miscellaneous Notes Formattin g of this note might be different from the original. PT TOOK a positive preganacy test and is about 3 weeks, and wants scheduled lola. documented in this encounter [facility] 02-28-2024 Miscellaneous Notes Formattin g of this note might be different from the original. 02/23 Order received 02/27 Called PT LM to schedule sleep study. HST/PSG/PAP Order and 02/24/24 M. Doron Epic Notes documented in this encounter [facility] 02-28-2024 Telephone encount er Note 02/23 Order received 02/27 Called PT LM to schedule sleep study. HST/PSG/PAP Order and 02/24/24 M. Doron Epic Notes [facility] 02-24-2024 History of Presen t illness Narrative Images from the original note were not included. [address] [place] [phone] Patient: Jacque Horn Date of : [...] PAP titration; Future - Ambulatory referral to [facility] Sleep Medicine; Future - Home [...] months MINI SAL MD Family Medicine Physician [facility] / [facility] 02/24/24 This note was completed with voice recognition software. The document was reviewed for errors however some may still be present. Please do not hesitate to contact/Epic ms the author to verify any questions/concerns. documented in this encounter [facility] 01-13-2024 Miscellaneous Notes Formattin g of this note might be different from the original. Contract: ob [id number] Ms Jose Alejandro pantoja 27 weeks, has been experiencing off and on pain for about 3 days, has been more steady this evening; a little dizziness Numeric page sent documented in this encounter [facility] 01-13-2024 Telephone encount er Note Contract: ob [phone] Ms Blount re 27 weeks, has been experiencing off and on pain for about 3 days, has been more steady this evening; a little dizziness [facility] 01-13-2024 Telephone encount er Note Numeric page sent [facility] 07-06-2023 History of Presen t illness Narrative Images from the original note were not included. [address] [place] [phone] Patient: Jacque Horn Date of : [...] days. MINI SAL MD Family Medicine Physician [facility] / [facility] 07/06/23 This note was completed with voice recognition software. The document was reviewed for errors however some may still be present. Please do not hesitate to contact/Epic [facility] the author to verify any questions/concerns. documented in this encounter [facility] 05-26-2023 History of Presen t illness Narrative Images from the original note were not included. [address] [place] [phone] Patient: Jacque Horn Date of : [...] Visit via Real-time Synchronous Audiovisual Provider Location: [facility] [address] [place] [phone] Patient Location: Patient's home Video Visit Consent [...] that there are some limitations compared to [id number] evaluations. The patient consented to the presence of additional virtual and/or in-person participants. We elected to proceed. MINI SAL MD Family Medicine Physician [facility] / [facility] 05/26/23 This note was completed with voice recognition software. The document was reviewed for errors however some may still be present. Please do not hesitate to contact/Epic ms the author to verify any questions/concerns. documented in this encounter [facility] 05-26-2023 Instructions Mini Sal MD - 05/26/2023 7:45 AM EST Call number on back of insuracne card to find out if they cover GLP1 medications. If so, for what diagnosis? Diabetes or Weight loss? Which GLP1 medications are preferred? ie: Ozempic, wegovy, mounjaro, trulicity etc. documented in this encounter [facility] Evaluation note Diagnosis Obesity (BMI 30-39.9)- Primary Weight loss Loss of weight BMI 35.0-35.9,adult documented [facility] Diagnosis Obesity (BMI 30-39.9)- Primary Acute otitis externa of both ears, unspecified type [facility] Diagnosis Obesity (BMI 30-39.9)- Primary Weight loss Loss of weight PCOS (polycystic ovarian syndrome) Polycystic ovaries [facility] Diagnosis examination or test, positive [...] third trimester [facility] Diagnosis Large for dates affecting management of mother, third trimester, fetus 1 ([facility])- Primary Encounter for care of first , third trimester ([facility]) screening for streptococcus B ([facility]) screening for Streptococcus B Large for dates ([facility]) documented [facility] [...] for a routine visit. documented in this encounterNOMN HealthcareInstructionsNot on filedocumented in this encounterProMediMemorial Hospital SystemInstructionsNot on filedocumented in this encounterProMediMemorial Hospital SystemInstructionsNot on filedocumented in this encounterProUniversity [facility] Advance Directives No Advanced Directives Records FoundDocuments on File Type Date Recorded Patient Endoscopic Technician Expl anation ACP-Advance Directive ACP-Power of Other Sports Official Summary Purpose Family History No Family History Records FoundNo Family History Records FoundNo Family History Records FoundNo Family History Records FoundNo Family History Records Found Additional Source Comments INFORMATION SOURCE (unrecogn ized section and content) DATE CREATED AUTHOR 01/11/2020 [facility] DATE CREATED AUTHOR AUTHOR'S ORGANIZ ATION 01/13/2020 [facility] DATE CREATED AUTHOR AUTHOR'S ORGANIZ ATION 09/10/2023 [facility] DATE CREATED AUTHOR AUTHOR'S ORGANIZ ATION 02/26/2024 [facility] DATE CREATED AUTHOR AUTHOR'S ORGANIZ ATION 11/27/2024 [facility] EPIC Care Teams (unrecognized sec tion and content) Coat Examiner Relationship Specialty Start Date End Date Tiara Casper MD PCP - General Family Medicine 02/19/23 Coat Examiner Relationship Specialty Start Date End Date Tiara Casper MD PCP - General Family Medicine 02/19/23 Coat Examiner Relationship Specialty Start Date End Date Tiara Casper MD PCP - General Family Medicine 02/19/23 Coat Examiner Relationship Specialty Start Date End Date Mini Sal MD [address] [place] [address] PCP - General Internal Medicine 02/24/23 Coat Examiner Relationship Specialty Start Date End Date Mini Sal MD [address] [place], [place] [id number] PCP - General Internal Medicine 02/24/23 Coat Examiner Relationship Specialty Start Date End Date Mini Sal MD [address] [place], [place] [id number] PCP - General Internal Medicine 02/24/23 Coat Examiner Relationship Specialty Start Date End Date Mini Sal MD [address] [place] [address] PCP - General Internal Medicine 02/24/23 Coat Examiner Relationship Specialty Start Date End Date Mini Sal MD [address] [place] [address] PCP - General Internal Medicine 02/24/23 Coat Examiner Relationship Specialty Start Date End Date Tiara Casper MD PCP - General Family Medicine 02/19/23 Coat Examiner Relationship Specialty Start Date End Date Tiara Casper MD PCP - General Family Medicine 02/19/23 Coat Examiner Relationship Specialty Start Date End Date Tiara Casper MD PCP - General Family Medicine 02/19/23 Coat Examiner Relationship Specialty Start Date End Date Tiara Casper MD PCP - General Family Medicine 02/19/23 Coat Examiner Relationship Specialty Start Date End Date Tiara Casper MD PCP - General Family Medicine 02/19/23 Coat Examiner Relationship Specialty Start Date End Date Tiara Casper MD PCP - General Family Medicine 02/19/23 Coat Examiner Relationship Specialty Start Date End Date Tiara Casper MD PCP - General Family Medicine 02/19/23 Coat Examiner Relationship Specialty Start Date End Date Tiara Casper MD PCP - General Family Medicine 02/19/23 Coat Examiner Relationship Specialty Start Date End Date Tiara Casper MD PCP - General Family Medicine 02/19/23 Coat Examiner Relationship Specialty Start Date End Date Tiara [...] BE BASED ON THE PRIMARY CLINICAL RECORDS. [facility]. provides no warranty or guarantee of the accuracy or completeness of information in this document.
== END 2024-11-28 17:30 | disposition home or self-care (01) ==
PROVIDERS: Admitting Provider Midwife; PCP Student in an Organized Health Care Education/Training Program; Visit Provider Midwife
DX: O26.893 Other specified pregnancy related conditions, third trimester (principal); R03.0 Elevated blood-pressure reading, without diagnosis of hypertension; Z3A.37 37 weeks gestation of pregnancy
CPT/HCPCS: G0378; G0379

== ENCOUNTER 2024-11-29 16:01 | Observation (INO) | payer BC, OTHER, SELFPAY ==
--- NOTE | 2024-11-29 16:03 | US_ITS ---
[place] [address] Patient Name: GRACIELA HORN MRN: [id number] date: 2000 Sex: F Assigned Patient Location: [facility] Current Patient Location: [facility] Accession/Order Number: [id number] Exam Date: 11/29/2024 17:52 Report Date: 11/29/2024 17:54 At the request of: CORDELL MALIK APRN CNDinora Procedure: US OB BPP w non-stress Ultrasound biophysical profile INDICATION: Hypertension COMPARISON: 10/23/2024 FINDINGS: Single live intrauterine in cephalic position noted. heart rate 129 beats beats per minute. 8 out of 8 score Biophysical profile. BRITTANY index 17.8 cm. US/US OB BPP w non-stress IMPRESSION: 8 out of 8 biophysical profile score Impression dictated by: Augie Landeros M.D. 11/29/2024 5:54 PM Dictation Location: [place] [address] Electronically authenticated by: [id number] Y Date: 11/29/2024 17:54
[2024-11-29 16:17] VITALS: TEMP 36.2
[2024-11-29 16:18] VITALS: BP 138/91; PULSE 94
[2024-11-29 16:25] VITALS: BP 156/78
--- NOTE | 2024-11-29 16:31 | PC.NURSE ---
1610- Pt arrives from office at this time. [facility]. Orders received for NST/BPP, CBC, CMP, LDH, P:C urine, fibrogen, uric acid, ALT, AST, urinalysis, type and screen and IV SL. RN confirms and reads back. NO orders for medications at this time. Pt given urine specimen cup and ambulates to restroom w/o difficulty. Pt denies MIRANDA, vision changes, and epigastric pain. No swelling noted bilaterally lower extremities. Pt states she has just felt weird recently and has SOB with certain position changes. Pt reports movement. 1617- IV SL and lab work obtained at this time per Bentley ABBOTT. 1625- Manual BP obtained at this time. Lung sounds clear throughout.
[2024-11-29 16:34] VITALS: BP 141/79; PULSE 93
[2024-11-29 16:39] LABS: Hematocrit 35.1 % (36.0-48.0); Hemoglobin 11.8 g/dL (12.0-16.0); Immature Granulocytes Abs Auto 0.05 10^3/uL (0.00-0.03); Immature Granulocytes Pct Auto 0.5 % (0.0-0.5); Lymphocytes Absolute Auto 1.9 10^3/uL (1.2-3.8); Mean Corpuscular HGB Conc 33.6 g/dL (29.9-35.2); Mean Corpuscular Hemoglobin 28.9 pg (26.7-34.0); Mean Corpuscular Volume 86.0 fL (81.0-99.0); Platelet Count 266 10^3/uL (150-450); Red Blood Count 4.08 10^6/uL (4.20-5.40); White Blood Count 9.8 10^3/uL (4.0-11.0)
[2024-11-29 16:40] VITALS: O2SAT 97
[2024-11-29 16:42] LABS: Protein Creatinine Ratio Urine 0.22; Total Protein Urine Random 14.6 mg/dL (<=11.9)
[2024-11-29 16:49] VITALS: BP 138/73; PULSE 96
[2024-11-29 16:49] LABS: Alanine Aminotransferase 19 U/L (14-59); Albumin Globulin Ratio 0.5; Albumin Level 2.4 g/dL (3.4-5.0); Alkaline Phosphatase 213 U/L (46-116); Anion Gap 12.2; Aspartate Amino Transferase 22 U/L (15-37); Blood Urea Nitrogen 11.0 mg/dL (7.0-18.0); Calcium 10.0 mg/dL (8.5-10.1); Carbon Dioxide 24.6 mmol/L (21.0-32.0); Chloride 101 mmol/L (98-107); Estimated GFR (African America >60 (>=60 mL/min/1.73m^2); Estimated GFR (Non-African Ame >60 (>=60 mL/min/1.73m^2); Globulin 4.6 g/dL; Glucose 144 mg/dL (74-106); Potassium 3.8 mmol/L (3.5-5.1); Sodium 134 mmol/L (136-145); Total Protein 7.0 g/dL (6.4-8.2)
[2024-11-29 16:53] LABS: Glucose Urine UA NEGATIVE (NEGATIVE)
[2024-11-29 17:00] LABS: Uric Acid 4.0 mg/dL (2.6-6.0)
[2024-11-29 17:03] LABS: Fibrinogen 478 mg/dL (200-400)
[2024-11-29 17:06] LABS: Cast Seen? NONE SEEN #/LPF (NONE SEEN); Crystals Seen? None Seen #/HPF (None Seen); Urine Culture Indicated YES-LC
--- NOTE | 2024-11-29 17:50 | PC.NURSE ---
1740- Discharge instructions provided at this time. Pt educated to follow-up with Mery Gifford CNM on Wednesday or Wednesday.
== END 2024-11-29 17:50 | disposition home or self-care (01) ==
PROVIDERS: Admitting Provider Midwife; PCP Student in an Organized Health Care Education/Training Program; Visit Provider Midwife
DX: O26.893 Other specified pregnancy related conditions, third trimester (principal); R03.0 Elevated blood-pressure reading, without diagnosis of hypertension; Z3A.37 37 weeks gestation of pregnancy
CPT/HCPCS: 36415; 59025; 76818; 80053; 81001; 82565; 82570; 83615; 84156; 84450; 84460; 84520; 84550; 85025; 85384; 86850; 86900; 86901; 87086; G0378; G0379

== ENCOUNTER 2024-12-04 19:33 | Inpatient (IN) | payer BC, OTHER, SELFPAY ==
--- OUTSIDE RECORDS SUMMARY | 2024-11-22 16:00 | XMS_ITS | Encounter Summary ---
Author Organization [facility] Address [address] [place] [address] Care Team Providers Care Binding Cutter Synthetic Cloth Name Role Phone Tiara Casper MD Primary Care Provider Encounter Details Date Type Department Care Team (Latest Contact Info) Description 11/22/2024 4:00 PM EDT Routine [facility]ACH[facility] [address] [place] [phone] Terri Gifford CNM [address] [place], [place] [phone] Large for dates affecting management of mother, third trimester, fetus 1 ([facility] (Primary Dx); Encounter for care of first , third trimester ([facility]); screening for streptococcus B ([facility]); Large for dates ([facility]) Social History Tobacco Use Types Packs/Day Years [...] on file documented as of this encounter Last Filed Vital Signs Vital Sign Reading Time Taken Comments Blood Pressure 122/80 11/22/2024 4:01 PM EDT Pulse - - Temperature - - Respiratory Rate - - Oxygen Saturation - - Inhaled Oxygen Concentration - - Weight 130 kg (287 lb) 11/22/2024 4:01 PM EDT Height - - Body Mass Index 40.6 08/04/2022 12:00 PM EDT documented in this encounter Progress Notes * Terri Gifford CNM - 11/22/2024 4:00 PM EDT Subjective No chief complaint on file. Jacque Myers is a 24 y.o. at 36w5d with a working estimated date of delivery of 12/15/2024, by Ultrasound who presents for a routine visit. She denies vaginal bleeding, leakage of fluid, decreased movements, or contractions. OB History Para Term AB Living 2 1 SAB IAB Ectopic Multiple Live Births 1 # Outcome Date GA Lbr Brooks/2nd Weight Sex Type Anes PTL Lv 2 Current 1 SAB Her is complicated by: PCOS, abnormal thyroid lab first trimester, Large for dates today Objective Physical Exam Weight: 287 lb Expected Total Weight Gain: 11 lb-19 lb Pregravid BMI: 32.95 BP: 122/80 Urine protein-negative Urine glucose-negative Assessment/Plan Diagnoses and all orders for this visit: Large for dates affecting management of mother, third trimester, fetus 1 ([facility]) Encounter for care of first , third trimester ([facility]) screening for streptococcus B ([facility]) - STREPTOCCOUS, GROUP B CULTURE; Future Large for dates ([facility]) - US OB follow up transabdominal approach; Future Continue vitamin. Labs reviewed. GBS taken today Expected mode of delivery Patient is measuring large for dates. She is 36.5 today and measuring 41. I will get US -growth done tomorrow. Scheduled Follow up in 1 week for a routine visit. documented in this encounter Plan of Treatment Upcoming Encounters Date Type Department Care Team (Late st Contact Info) Description 12/07/2024 3:30 PM EDT Routine [facility] [facility] [address] [place] [address] Terri Gifford CN [address] [facility] [place] [address] 12/13/2024 3:30 PM EDT Routine [facility] [place] [facility] [address] [facility] [place] [phone] Terri Gifford, CN [address] [facility] [place], [place] [phone] documented as of this encounter Goals Goal Patient Goal Type Associated Problems Recent Progress Patient-Stated? Author Reminders Care Plan OB Reminders No Open Scheduling, Background documented as of this encounter Procedures Procedure Name Priority Date/Time Associated Diagnosis Comments STREPTOCCOUS, GROUP B CULTURE Routine 11/22/2024 4:31 PM EDT screening for streptococcus B ([facility]) documented in this encounter Results * US OB follow up transabdominal approach (11/23/2024 2:49 PM EDT) Anatomical Region Laterality Modality Body Ultrasound 11/24/2024 8:36 AM EDT Narrative 11/24/2024 8:36 AM EDT EXAM: US OB FOLLOW UP TRANSABDOMINAL APPROACH HISTORY: Large for dates. COMPARISON: Ob ultrasound 10/09/2024. TECHNIQUE: Two-dimensional transabdominal grayscale ultrasound imaging of the pelvis was performed. FINDINGS: Gestation: Single Presentation: Cephalic Cardiac Activity: 139 beats per minute Placental Location: Posterior fundal with no sonographic abnormalities identified. Cervical Length: 5.2 cm Amniotic Fluid Index: 11.2 cm MEASUREMENTS: BPD: 9.2 cm EGA: 37 weeks 3 days HC: 33.2 cm EGA: 37 weeks 6 days AC: 34.4 cm EGA: 38 weeks 2 days FL: 7.5 cm EGA: 38 weeks 1 days HC/AC Ratio: 0.96 The gestational age by today's ultrasound is 37 weeks 6 days. Estimated Weight: 3406 grams, ( 7 lb 8 oz). Weight Percentile for gestational age: 85 % IMPRESSION: 1. Single, live intrauterine gestation 36 weeks, 6 days by LMP. Today's ultrasound measurements correlate with a gestational age of 37 weeks 6 days. Estimated weight is 3406 grams, ( 7 lb 8 oz) which correlates to 85 %. BRADLEY by today's ultrasound is 12/08/2024. Interpreted by: Electronically signed by JENNIFER JOLLY II, MD, PHD at 24-Nov-2024 08:35:02 AM [facility] Procedure Note Jennifer Jolly MD - 11/24/2024 EXAM: US OB FOLLOW UP TRANSABDOMINAL APPROACH HISTORY: Large for dates. COMPARISON: Ob ultrasound 10/09/2024. TECHNIQUE: Two-dimensional transabdominal grayscale ultrasound imaging ofthe pelvis was performed. FINDINGS: Gestation: Single Presentation: Cephalic Cardiac Activity: 139 beats per minute Placental Location: Posterior fundal with no sonographic abnormalitiesidentified. Cervical Length: 5.2 cm Amniotic Fluid Index: 11.2 cm MEASUREMENTS: BPD: 9.2 cm EGA: 37 weeks 3 days HC: 33.2 cm EGA: 37 weeks 6 days AC: 34.4 cm EGA: 38 weeks 2 days FL: 7.5 cm EGA: 38 weeks 1 days HC/AC Ratio: 0.96 The gestational age by today's ultrasound is 37 weeks 6 days. Estimated Weight: 3406 grams, ( 7 lb 8 oz). Weight Percentile for gestational age: 85 % IMPRESSION: 1. Single, live intrauterine gestation 36 weeks, 6 days by LMP. Today'sultrasound measurements correlate with a gestational age of 37 weeks 6days. Estimated weight is 3406 grams, ( 7 lb 8 oz) which correlatesto 85 %. BRADLEY by today's ultrasound is 12/08/2024. Interpreted by: Electronically signed by JENNIFER JOLLY II, MD, PHD [id number] 08:35:02 AM [facility] us Terri Gifford CNM IMG OB US PROCEDURES Final R esult * STREPTOCCOUS, GROUP B CULTURE (11/22/2024 4:31 PM EDT) MICRO NUMBER [id number] [facility] SPECIMEN QUALITY Adequate [facility] SOURCE VAGINAL/ANOR ECTAL [facility] STATUS FINAL [facility] RESULT SEE NOTE [facility] Comment: No group B Streptococcus isolated COMMENT SEE NOTE [facility] Comment: Note per CDC guidelines optimal recovery is achieved by swabbing both the lower vagina and rectum (through the anal sphincter). 11/22/2024 4:31 PM EDT 11/22/2024 4:32 PM EDT Narrative Resulting Agency Comment Performing Organization Information Site ID: QPT Name: [facility] Address: [address] [place] [address], [address] [place] [id number] Director: Juan Mensah MD us Terri Gifford CNM LAB BODY FLUIDS AND STOOLS O RDERABLES Final Result [facility] documented in this encounter Visit Diagnoses Diagnosis Large for dates affecting management of mother, third trimester, fetus 1 ([facility])- Primary Encounter for care of first , third trimester ([facility]) screening for streptococcus B ([facility]) screening for Streptococcus B Large for dates ([facility]) Large for dates ([facility]) documented in this encounter Additional Health Concerns Active Problems Noted Date Diagnosed Date OB Reminders 06/22/2024 documented as of this encounter Care Teams Binding Cutter Synthetic Cloth Relationship Specialty Start Date End Date Tiara Casper MD [address] [place] [address] PCP - General Family Medicine 02/19/23 documented as of this encounter
--- OUTSIDE RECORDS SUMMARY | 2024-11-23 14:15 | XMS_ITS | Encounter Summary ---
Author Organization [facility] Address [address] [place] [address] Care Team Providers Care Firer Low Pressure Name Role Phone Tiara Casper MD Primary Care Provider [phone] Encounter Details Date Type Department Care Team (Latest Contact Info) Description 11/23/2024 2:15 PM EDT Ancillary Procedure [facility] [address] [phone] Large for dates ([facility]) Social History Tobacco Use Types Packs/Day Years [...] Description 12/07/2024 3:30 PM EDT Routine [facility] [address] [place] [address] Terri Gifford, LINDAM [address] [place], [place] [phone] 12/13/2024 3:30 PM EDT Routine [facility] [address] [place] [address] Terri Gifford, ASA [address] [place] [address] documented as of this encounter Goals Goal Patient Goal Type Associated Problems Recent Progress Patient-Stated? Author Reminders Care Plan OB Reminders No Open Scheduling, Background documented as of this encounter Procedures Procedure Name Priority Date/Time Associated Diagnosis Comments US OB FOLLOW UP TRANSABDOMINAL APPROACH Routine 11/23/2024 2:49 PM EDT Large for dates ([facility]) documented in this encounter Results * [...] II, MD, PHD at 24-Nov-2024 08:35:02 AM [facility] Procedure Note Jennifer Jolly MD - [...] signed by JENNIFER JOLLY II, MD, PHD [id number] 08:35:02 AM [facility] us Terri MCKEON IM OB US PROCEDURES Final R esult documented in this encounter Visit Diagnoses Diagnosis Large for dates ([facility]) documented in this encounter Additional Health Concerns Active Problems Noted Date Diagnosed Date OB Reminders 06/22/2024 documented as of this encounter Care Teams Firer Low Pressure Relationship Specialty Start Date End Date Tiara Casper MD [address] [place] [address] PCP - General Family Medicine 02/19/23 documented as of this encounter
--- OUTSIDE RECORDS SUMMARY | 2024-11-29 15:00 | XMS_ITS | Encounter Summary ---
Author Organization [facility] Address [address] [place] [address] Care Team Providers Care Flag Maker Name Role Phone Tiara Casper MD Primary Care Provider [phone] Encounter Details Date Type Department Care Team (Latest Contact Info) Description 11/29/2024 3:00 PM EDT Routine [facility] CAMACHO [address] [place] [phone] Terri Gifford, ASA [address] [place], [place] [id number] Large for dates affecting management of mother, third trimester, fetus 1 ([facility]) (Primary Dx); Encounter for care of first , third trimester ([facility]); Elevated blood pressure affecting in third trimester, antepartum ([facility]) Social History Tobacco Use Types Packs/Day [...] Sign Reading Time Taken Comments Blood Pressure 140/90 11/29/2024 2:50 PM EDT 150 /100 Pulse - - Temperature - - Respiratory Rate - - Oxygen Saturation - - Inhaled Oxygen Concentration - - Weight 130 kg (286 lb) 11/29/2024 2:50 PM EDT Height - - Body Mass Index 40.46 08/04/2022 12:00 PM EDT documented in this encounter Progress Notes * Terri Gifford CNM - 11/29/2024 3:00 PM EDT Subjective No chief complaint on file. Jacque Myers is a 24 y.o. at 37w5d with a working estimated date of delivery of 12/15/2024, by Ultrasound who presents for a routine visit. She denies vaginal bleeding, leakage of fluid, decreased movements, or contractions. OB History Para Term AB Living 2 1 SAB IAB Ectopic Multiple Live Births 1 # Outcome Date GA Lbr Brooks/2nd Weight Sex Type Anes PTL Lv 2 Current 1 SAB Her is complicated by: H/o pcos. Objective Physical Exam Weight: 286 lb Expected Total Weight Gain: 11 lb-19 lb Pregravid BMI: 32.95 BP: 140/90 Urine protein-negative Urine glucose-negative Assessment/Plan Blood pressure repeat is 150/100 and 160/90 Patient to go to [facility] L&D and orders called over for Pre-e work up, NST and BPP Patient states I haven't felt right for a couple days, just really tired. Had a headache but it went away., Diagnoses and all orders for this visit: Large for dates affecting management of mother, third trimester, fetus 1 ([facility]) Encounter for care of first , third trimester ([facility]) Elevated blood pressure affecting in third trimester, antepartum ([facility]) Continue vitamin. Labs reviewed. GBS taken. Expected mode of delivery vaginal Follow up in 1 week for a routine visit. documented in this encounter Plan of Treatment Upcoming Encounters Date Type Department Care Team (Late st Contact Info) Description 12/07/2024 3:30 PM EDT Routine [facility] [address] [place] [address] Terri Gifford CNM [address] [place] [address] 12/13/2024 3:30 PM EDT Routine [facility] [address] [place] [address] Terri Gifford CNM [address] [place], [place] [id number] documented as of this encounter Goals Goal Patient Goal Type Associated Problems Recent Progress Patient-Stated? Author Reminders Care Plan OB Reminders No Open Scheduling, Background documented as of this encounter Visit Diagnoses Diagnosis Large for dates affecting management of mother, third trimester, fetus 1 ([facility] Primary Encounter for care of first , third trimester ([facility]) Elevated blood pressure affecting in third trimester, antepartum ([facility]) documented in this encounter Additional Health Concerns Active Problems Noted Date Diagnosed Date OB Reminders 06/22/2024 documented as of this encounter Care Teams Flag Maker Relationship Specialty Start Date End Date Tiara Casper MD [address], [place] [address] PCP - General Family Medicine 02/19/23 documented as of this encounter
--- OUTSIDE RECORDS SUMMARY | 2024-12-04 14:30 | XMS_ITS | Encounter Summary ---
Author Organization [facility] Address [address] [place] [address] Care Team Providers Care Associate Professor Of Art Name Role Phone Tiara Casper MD Primary Care Provider [phone] Encounter Details Date Type Department Care Team (Latest Contact Info) Description 12/04/2024 2:30 PM EDT Routine MARISEL CAMACHO [address] [place] [phone] Terri Gifford CNM [address] [place], [place] [phone] Encounter for care of first , third trimester ([facility]) (Primary Dx); Elevated blood pressure affecting in third trimester, antepartum ([facility]) Social History Tobacco Use Types Packs/Day [...] Sign Reading Time Taken Comments Blood Pressure 150/100 12/04/2024 2:13 PM EDT repeat is 130/80 and 128/78 Pulse - - Temperature - - Respiratory Rate - - Oxygen Saturation - - Inhaled Oxygen Concentration - - Weight 132 kg (290 lb) 12/04/2024 2:13 PM EDT Height - - Body Mass Index 41.02 08/04/2022 12:00 PM EDT documented in this encounter Progress Notes * Terri Gifford CNM - 12/04/2024 2:30 PM EDT Subjective No chief complaint on file. Jacque Myers is a 24 y.o. at 38w3d with a working estimated date of delivery of 12/15/2024, by Ultrasound who presents for a routine visit. She denies vaginal bleeding, leakage of fluid, decreased movements, or contractions. OB History Para Term AB Living 2 1 SAB IAB Ectopic Multiple Live Births 1 # Outcome Date GA Lbr Brooks/2nd Weight Sex Type Anes PTL Lv 2 Current 1 SAB Her is complicated by: elevated blood pressures H/o pcos Objective Physical Exam Weight: 290 lb Expected Total Weight Gain: 11 lb-19 lb Pregravid BMI: 32.95 BP: (!) 150/100 Urine protein 30 Urine glucose negative Assessment/Plan Diagnoses and all orders for this visit: Encounter for care of first , third trimester ([facility]) Elevated blood pressure affecting in third trimester, antepartum ([facility]) Patient has been home monitoring her blood pressure. She had some elevations and did not call the office or me with those. We went to a family reunion and that would raise anyone's blood pressure.: She denies headache, visual changes and no epigastric/flank pain. She will continue to monitor her BP at home. I did take her blood pressure with her home cuff and it was 128/78 and I took it with my m anual cuff and it was 130/80. I want to see her on and review blood pressures and possiblyschedule her for IOL. I also questioned her as to why she didn't call with those elevated blood pressures and she states I didn't want to go to the hospital and get sent home. I did explain blood pressure and the dangers of blood pressure in and I need to know if it's elevated and she again said it was family stress from the reunion. Continue vitamin. Labs reviewed. GBS taken. Expected mode of delivery vaginal Follow up in 1 week for a routine visit. documented in this encounter Plan of Treatment Upcoming Encounters Date Type Department Care Team (Late st Contact Info) Description 12/07/2024 3:30 PM EDT Routine [facility] [address] [place] [phone] Terri Gifford CNM [address] [place] [address] 12/13/2024 3:30 PM EDT Routine [facility] [address] [place] [phone] Terri Gifford CNM [address] [place] [address] documented as of this encounter Goals Goal Patient Goal Type Associated Problems Recent Progress Patient-Stated? Author Reminders Care Plan OB Reminders No Open Scheduling, Background documented as of this encounter Visit Diagnoses Diagnosis Encounter for care of first , third trimester ([facility])- Primary Elevated blood pressure affecting in third trimester, antepartum ([facility]) documented in this encounter Additional Health Concerns Active Problems Noted Date Diagnosed Date OB Reminders 06/22/2024 documented as of this encounter Care Teams Associate Professor Of Art Relationship Specialty Start Date End Date Tiara Casper MD [address], [address] [place], [place] [phone] PCP - General Family Medicine 02/19/23 documented as of this encounter
--- NOTE | 2024-12-04 19:35 | US_ITS ---
[place] [address] Patient Name: GRACIELA HORN MRN: [id number] date: 2000 Sex: F Assigned Patient Location: [facility] Current Patient Location: [facility] Accession/Order Number: [id number] Exam Date: 12/04/2024 21:45 Report Date: 12/04/2024 21:52 At the request of: CORDELL MALIK APRN, CNM Procedure: US OB BPP w non-stress Ultrasound biophysical profile INDICATION: -induced hypertension COMPARISON: 11/29/2024 FINDINGS: Single live intrauterine in cephalic position noted. heart rate 131 beats beats per minute. 8 out of 8 score Biophysical profile. BRITTANY index 14.7 cm. US/US OB BPP w non-stress IMPRESSION: 8 out of 8 biophysical profile score Impression dictated by: Augie Landeros M.D. 12/04/2024 9:52 PM Dictation Location: [place] [address] Electronically authenticated by: [id number] Y Date: 12/04/2024 21:52
--- OUTSIDE RECORDS SUMMARY | 2024-12-04 19:36 | XMS_ITS | Encounter Summary ---
Author Organization [facility] Address [address] [place] [address] Care Team Providers Care Vice President Pharmacy Name Role Phone Tiara Casper MD Primary Care Provider Encounter Details Date Type Department Care Team (Late Contact Info) Description 11/14/2024 Results Follow-Up MARISEL CAMACHO [address] [place] [address] Terri Gifford CNM [address] [place], [place] [phone] Social History Tobacco Use Types Packs/Day Years [...] Upcoming Encounters Date Type Department Care Team ([facility] Contact Info) Description 12/07/2024 3:30 PM EDT Routine MARISEL CAMACHO [address] [place] [address] Terri Gifford CNM [address] [place], [place] [id number] 12/13/2024 3:30 PM EDT Routine [facility] [address] [place] [address] Terri Gifford, CNM [address] [place], [place] [address] documented as of this encounter Goals Goal Patient Goal Type Associated Problems Recent Progress Patient-Stated? Author Reminders Care Plan OB Reminders No Open Scheduling, Background documented as of this encounter Visit Diagnoses Not on filedocumented in this encounter Additional Health Concerns Active Problems Noted Date Diagnosed Date OB Reminders 06/22/2024 documented as of this encounter Care Teams Vice President Pharmacy Relationship Specialty Start Date End Date Tiara Casper MD [address], [place] [address] PCP - General Family Medicine 02/19/23 documented as of this encounter
--- OUTSIDE RECORDS SUMMARY | 2024-12-04 19:36 | XMS_ITS | Clinical Summary ---
Author Organization [facility] [employer] Address [id number] [address] [place] [address] Care Team Providers Care Butcher Helper Name Role Phone Mini Cristobal MD Primary Care Provider [phone] Allergies No known active allergies Medications vit no.079-afwd-odut c acid ( VITAMIN) 27 mg iron- [...] Health Maintenance Due Date Last Done Comments Depression Screening 2011 Adult BMI Follow Up Plan 10/26/2017 Pap Smear 10/26/2020 COVID-19 Vaccine (2 - 2023-2 5 season) 2024 05/05/2021 DTaP,Tdap and Td Vaccines (8 - Td or Tdap) 06/29/2024 06/29/2014, 07/23/2011, 12/26/2004, Additional history exists Influenza Vaccine 01/01/2025 Adult BMI Screening 02/23/2025 02/24/2024 Tobacco Screening 02/23/2025 02/24/2024 Medical Devices Not on file Insurance Care Teams Butcher Helper Relationship Specialty Start Date End Date Mini Cristobal MD [address] [place] [address] PCP - General Internal Medicine 02/24/23
--- OUTSIDE RECORDS SUMMARY | 2024-12-04 19:36 | XMS_ITS | Encounter Summary ---
Author Organization [facility] Address [address] [place] [address] Care Team Providers Care Cart Pusher Name Role Phone Tiara Casper MD Primary Care Provider [phone] Encounter Details Date Type Department Care Team (Late Contact Info) Description 09/07/2024 Results Follow-Up MARISEL CAMACHO [address] [place] [address] Terri Gifford CNM [address] [place], [place] [phone] Social History Tobacco Use Types Packs/Day Years [...] Upcoming Encounters Date Type Department Care Team ([facility] Contact Info) Description 12/07/2024 3:30 PM EDT Routine MARISEL CAMACHO [address] [place] [address] Terri Gifford CNM [address] [place], [place] [phone] 12/13/2024 3:30 PM EDT Routine [facility] [address] [place] [address] Terri Gifford, CNM [address] [place], [place] [address] documented as of this encounter Goals Goal Patient Goal Type Associated Problems Recent Progress Patient-Stated? Author Reminders Care Plan OB Reminders No Open Scheduling, Background documented as of this encounter Visit Diagnoses Not on filedocumented in this encounter Additional Health Concerns Active Problems Noted Date Diagnosed Date OB Reminders 06/22/2024 documented as of this encounter Care Teams Cart Pusher Relationship Specialty Start Date End Date Tiara Casper MD [address], [place] [address] PCP - General Family Medicine 02/19/23 documented as of this encounter
--- OUTSIDE RECORDS SUMMARY | 2024-12-04 19:36 | XMS_ITS | Encounter Summary ---
Author Organization [facility] Address [address], [address] [place] [address] Care Team Providers Care Planer Hand Name Role Phone Missy Britt MD Primary Care Provider [phone] Reason for Visit * Reason Comments Medication Refill Encounter Details Date Type Department Care Team (Late st Contact Info) Description 02/25/2019 [facility] PAYABLE MANAGER [address] [place] [phone] Michelle Cramer, [facility] [address] [place] [address] Medication Refill Social History Tobacco [...] as of this encounter Visit Diagnoses Diagnosis Irregular menstrual cycle documented in this encounter Additional Health Concerns Infection Onset Date Last Indicated Resolved Time COVID-19 (Rule Out) 01/03/2020 01/03/2020 01/09/20 20 6:08 PM EDT COVID-19 (Rule Out) 01/10/2020 01/10/2020 01/12/20 20 5:06 PM EDT documented as of this encounter Care Teams Planer Hand Relationship Specialty Start Date End Date Missy Britt MD [address] [place] [address] PCP - General 01/09/20 documented as of this encounter
--- OUTSIDE RECORDS SUMMARY | 2024-12-04 19:36 | XMS_ITS | Encounter Summary ---
Author Organization [facility] Address [address], [address] [place] [address] Care Team Providers Care Box Fabricator Name Role Phone Missy Britt MD Primary Care Provider [phone] Reason for Visit * Reason Onset Date Comments Medication Refill 03/03/2014 Encounter Details Date Type Department Care Team (Late st Contact Info) Description 03/03/2014 Refill [facility] [address] [place] [address] Michelle Cramer, [place] [facility] [address] [place] [address] Medication Refill Social History Tobacco [...] documented as of this encounter Care Teams Box Fabricator Relationship Specialty Start Date End Date Missy Britt MD [address] [place] [address] PCP - General 01/09/20 documented as of this encounter
--- OUTSIDE RECORDS SUMMARY | 2024-12-04 19:36 | XMS_ITS | Encounter Summary ---
Author Organization [employer] Address [id number] [address] [place] [address] Care Team Providers Care Coiler Name Role Phone Mini Cristobal MD Primary Care Provider [phone] Encounter Details Date Type Department Care Team (Late st Contact Info) Description 03/09/2023 Orders Only [facility] [address] [place] [address] Bhargavi Clemens CMA Social History [...] on filedocumented in this encounter Care Teams Coiler Relationship Specialty Start Date End Date Mini Cristobal MD [address], [place] [address] PCP - General Internal Medicine 02/24/23 documented as of this encounter
--- OUTSIDE RECORDS SUMMARY | 2024-12-04 19:36 | XMS_ITS | Encounter Summary ---
Author Organization [facility] Address [address] [place] [address] Care Team Providers Care Hooker Up Name Role Phone Tiara Casper MD Primary Care Provider [phone] Encounter Details Date Type Department Care Team (Late Contact Info) Description 11/30/2024 Results Follow-Up MARISEL CAMACHO [address] [place] [address] Terri Gifford CNM [address] [place], [place] [phone] Social History Tobacco Use Types Packs/Day Years [...] Upcoming Encounters Date Type Department Care Team ([facility] Contact Info) Description 12/07/2024 3:30 PM EDT Routine MARISEL CAMACHO [address] [place] [address] Terri Gifford CNM [address] [place], [place] [address] 12/13/2024 3:30 PM EDT Routine [facility] [address] [place] [address] Terri Gifford, CNM [address] [place], [place] [id number] documented as of this encounter Goals Goal Patient Goal Type Associated Problems Recent Progress Patient-Stated? Author Reminders Care Plan OB Reminders No Open Scheduling, Background documented as of this encounter Visit Diagnoses Not on filedocumented in this encounter Additional Health Concerns Active Problems Noted Date Diagnosed Date OB Reminders 06/22/2024 documented as of this encounter Care Teams Hooker Up Relationship Specialty Start Date End Date Tiara Casper MD [address], [place] [address] PCP - General Family Medicine 02/19/23 documented as of this encounter
--- OUTSIDE RECORDS SUMMARY | 2024-12-04 19:36 | XMS_ITS | Encounter Summary ---
Author Organization [facility] Address [address] [place] [address] Care Team Providers Care Pantry Attendant Name Role Phone Tiara Casper MD Primary Care Provider [phone] Encounter Details Date Type Department Care Team (Latest Contact Info) Description 11/23/2024 Travel Social History Tobacco Use Types Packs/Day [...] Department Care Team ( Contact Info) Description 12/07/2024 3:30 PM EDT Routine [facility] [address] [place] [address] Terri Gifford CNM [address] [place], [place] [address] 12/13/2024 3:30 PM EDT Routine [facility] [address] [place] [address] Terri Gifford CNM [address] [place] [address] documented as of this encounter Goals Goal Patient Goal Type Associated Problems Recent Progress Patient-Stated? Author Reminders Care Plan OB Reminders No Open Scheduling, Background documented as of this encounter Visit Diagnoses Not on filedocumented in this encounter Additional Health Concerns Active Problems Noted Date Diagnosed Date OB Reminders 06/22/2024 documented as of this encounter Care Teams Pantry Attendant Relationship Specialty Start Date End Date Tiara Casper MD [address] [place] [address] PCP - General Family Medicine 02/19/23 documented as of this encounter
--- OUTSIDE RECORDS SUMMARY | 2024-12-04 19:36 | XMS_ITS | Encounter Summary ---
Author Organization [facility] Address [address] [place] [address] Care Team Providers Care Target Aircraft Technician Name Role Phone Tiara Casper MD Primary Care Provider [phone] Encounter Details Date Type Department Care Team (Late Contact Info) Description 11/28/2024 Results Follow-Up MARISEL CAMACHO [address] [place] [address] Terri Gifford CNM [address] [place], [place] [phone] Social History Tobacco Use Types Packs/Day Years [...] Upcoming Encounters Date Type Department Care Team ([facility] Contact Info) Description 12/07/2024 3:30 PM EDT Routine MARISEL CAMACHO [address] [place] [address] Terri Gifford CNM [address] [place], [place] [address] 12/13/2024 3:30 PM EDT Routine [facility] [address] [place] [address] Terri Gifford, CNM [address] [place], [place] [address] documented as of this encounter Goals Goal Patient Goal Type Associated Problems Recent Progress Patient-Stated? Author Reminders Care Plan OB Reminders No Open Scheduling, Background documented as of this encounter Visit Diagnoses Not on filedocumented in this encounter Additional Health Concerns Active Problems Noted Date Diagnosed Date OB Reminders 06/22/2024 documented as of this encounter Care Teams Target Aircraft Technician Relationship Specialty Start Date End Date Tiara Casper MD [address], [place] [address] PCP - General Family Medicine 02/19/23 documented as of this encounter
--- OUTSIDE RECORDS SUMMARY | 2024-12-04 19:36 | XMS_ITS | Encounter Summary ---
Author Organization [facility] Address [address] [place] [address] Care Team Providers Care Animal Ecologist Name Role Phone Tiara Casper MD Primary Care Provider [phone] Encounter Details Date Type Department Care Team ([facility] Contact Info) Description 11/29/2024 Clinisync Result Encounter [facility] External Department Unsolicited Terri Gifford CNM [address] [place], [place] [phone] Social History Tobacco Use Types Packs/Day Years [...] Upcoming Encounters Date Type Department Care Team ([facility] Contact Info) Description 12/07/2024 3:30 PM EDT Routine [facility] [place] [facility] [address] [place] [address] Terri Gifford CNM [address] [place], [place] [id number] 12/13/2024 3:30 PM EDT Routine [facility] [place] [facility] [address] [place] [id number] Terri Gifford CNM [address] [place] [address] documented as of this encounter Goals Goal Patient Goal Type Associated Problems Recent Progress Patient-Stated? Author Reminders Care Plan OB Reminders No Open Scheduling, Background documented as of this encounter Procedures Procedure Name Priority Date/Time Associated Diagnosis Comments MHPT FIBRINOGEN Routine 11/29/2024 4:25 PM EDT [facility] CMP (CMP) (FOR REMOTE [facility] USE) Routine 11/29/2024 4:25 PM EDT ALL URIC ACID Routine 11/29/2024 4:25 PM EDT ALL LDH Routine 11/29/2024 4:25 PM EDT ALL CBC WITH AUTO DIFF Routine 11/29/2024 4:25 PM EDT TBH URINE T PROTEIN CREAT RATIO Routine 11/29/2024 4:11 PM EDT TBH URINE MICROSCOPIC ONLY Routine 11/29/2024 4:11 PM EDT TBH UA (CLEAN/CATCH) COMPLIANCE ASSISTANT/MICRO IF IND. Routine 11/29/2024 4:11 PM EDT documented in this encounter Results * ALL URIC ACID (11/29/2024 4:25 PM EDT) URIC ACID 4.0 2.6 - 6.0 mg/dL TBH 11/29/2024 4:25 PM EDT 11/29/2024 4:29 PM EDT Narrative CLINISYNC - 11/29/2024 5:03 PM EDT Terri Gifford CNM CLINIS[facility] Final Result [facility] TB[facility] * (ABNORMAL) MHPT FIBRINOGEN (11/29/2024 4:25 PM EDT) FIBRINOGEN 478(H) 200 - 400 mg/dL TBH 11/29/2024 4:25 PM EDT 11/29/2024 4:29 PM EDT Narrative CLINISYNC - 11/29/2024 5:03 PM EDT Terri Leodan [facility] CN CLINISYNC Final Result [facility]IN[facility]NC [facility] * ALL LDH (11/29/2024 4:25 PM EDT) LACTATE DEHYDROGENASE 168 81 - 234 U/L TBH 11/29/2024 4:25 PM EDT 11/29/2024 4:29 PM EDT Narrative CLINISYNC - 11/29/2024 4:51 PM EDT [facility] Final Result Performing Organization Address City/[facility]/ZIP Co de Phone Number CLINISYNC TB * (ABNORMAL) [facility] CMP (CMP) (FOR REMOTE [facility] USE) (11/29/2024 4:25 PM EDT) SODIUM 134(L) 136 - 145 mmol/L TBH POTASSIUM 3.8 3.5 - 5.1 mmol/L TBH CHLORIDE 101 98 - 107 mmol/L TBH CARBON DIOXIDE 24.6 21.0 - 32.0 mmol/L TBH ANION GAP 12.2 TBH GLUCOSE 144(H) 74 - 106 mg/dL TBH BLOOD UREA NITROGEN 11.0 7.0 - 18.0 mg/dL TBH CREATININE 0.58 0.55 - 1.02 mg/dL TBH TBH EGFR-AF TUNISIAN >60 >=60 mL/min/1. 73m 2 TBH TBH EGFR-NON AF TUNISIAN >60 >=60 mL/min/1. 73m 2 TBH BUN CREATININE RATIO 19.0 TBH CALCIUM 10.0 8.5 - 10.1 mg/dL TBH BILIRUBIN TOTAL 0.1(L) 0.2 - 1.0 mg/dL TBH ASPARTATE AMINO TRANSFERASE 22 15 - 37 U/L TBH ALANINE AMINOTRANSFERASE 19 14 - 59 U/L TBH ALKALINE PHOSPHATASE 213(H) 46 - 116 U/L TBH TOTAL PROTEIN 7.0 6.4 - 8.2 g/dL TBH ALBUMIN LEVEL 2.4(L) 3.4 - 5.0 g/dL TBH GLOBULIN 4.6 g/dL TBH ALBUMIN GLOBULIN RATIO 0.5 TBH 11/29/2024 4:25 PM EDT 11/29/2024 4:29 PM EDT Narrative CLINISYNC - 11/29/2024 4:49 PM EDT us Terri Gifford CNM [facility] Final Result [facility] * ([facility]NORMAL) ALL CBC WITH AUTO DIFF (11/29/2024 4:25 PM EDT) TB WBC 9.8 4.0 - 11.0 10 3/uL TBH TB RBC 4.08(L) 4.20 - 5.40 10 6/uL TBH TBH HGB 11.8(L) 12.0 - 16.0 g/dL TBH TB HCT 35.1(L) 36.0 - 48.0 % TBH TBH MCV 86.0 81.0 - 99.0 fL TBH TBH MCH 28.9 26.7 - 34.0 pg TBH TBH MCHC 33.6 29.9 - 35.2 g/dL TBH TB RDW 14.0 11.0 - 15.0 % TBH TBH PLT 266 150 - 450 10 3/uL TBH TBH MPV 12.2 9.5 - 13.5 fL TBH NEUTROPHILS PERCENT AUTO 72.3 43.0 - 75.0 % TBH LYMPHOCYTES PERCENT AUTO 19.1(L) 20.5 - 60.0 % TBH MONOCYTES PERCENT AUTO 7.0 1.7 - 12.0 % TBH TBH EO % 0.8(L) 0.9 - 7.0 % TBH BASOPHILS PERCENT AUTO 0.3 0.2 - 2.0 % TBH IMMATURE GRANULOCYTES PCT AUTO 0.5 0.0 - 0.5 % TBH NEUTROPHILS ABSOLUTE AUTO 7.1(H) 1.4 - 6.5 10 3/uL TBH LYMPHOCYTES ABSOLUTE AUTO 1.9 1.2 - 3.8 10 3/uL TBH MONOCYTES ABSOLUTE AUTO 0.7 0.3 - 0.8 10 3/uL TBH TBH EO # 0.1 0.0 - 0.7 10 3/uL TBH BASOPHILS ABSOLUTE AUTO 0.0 0.0 - 0.1 10 3/uL TBH IMMATURE GRANULOCYTES ABS AUTO 0.05(H) 0.00 - 0.03 10 3/uL TBH 11/29/2024 4:25 PM EDT 11/29/2024 4:29 PM EDT Narrative CLINISYNC - 11/29/2024 4:39 PM EDT Terri Gifford [facility] CLINISYNC Final Result Performing Organization Address [facility]/ZIP Co de Phone Number CLINISYNC TBH * (ABNORMAL) TBH URINE MICROSCOPIC ONLY (11/29/2024 4:11 PM EDT) TB WBC 5-10(A) NONE SEEN #/HPF TBH TBH RBC 0-2 0 - 2 #/HPF TBH BACTERIA URINE SMALL(A) NONE SEEN #/HPF TBH MUCUS URINE NONE SEEN NONE SEEN TBH SQUAMOUS EPITHELIAL CELL URINE MANY(A) NONE/RARE #/LPF TBH CRYSTALS SEEN? None Seen None Seen #/HPF TBH CAST SEEN? NONE SEEN NONE SEEN #/LPF TBH URINE CULTURE INDICATED YES-LC TBH 11/29/2024 4:11 PM EDT 11/29/2024 4:30 PM EDT Narrative CLINISYNC - 11/29/2024 5:06 PM EDT us Terri Leodan [facility] CLINISYNC Final Result Performing Organization Address [facility]/ZIP Co de Phone Number CLINISYNC TBH * (ABNORMAL) TBH UA (CLEAN/CATCH) COMPLIANCE ASSISTANT/MICRO IF IND. (11/29/2024 4:11 PM EDT) COLOR URINE LT. YELLOW YELLOW TBH CLARITY URINE CLEAR CLEAR TBH SPECIFIC GRAVITY URINE 1.020 1.005 - 1.025 TBH PH URINE 5.5 5.0 - 9.0 TBH PROTEIN URINE NEGATIVE NEG/TRACE mg/dL TBH GLUCOSE URINE UA NEGATIVE NEGATIVE mg/dL TBH BILIRUBIN URINE NEGATIVE NEGATIVE TBH KETONES URINE NEGATIVE NEGATIVE mg/dL TBH BLOOD URINE NEGATIVE NEGATIVE TBH NITRITE URINE NEGATIVE NEGATIVE TBH UROBILINOGEN URINE 0.2 0.2 - 1.0 EU/dL TBH LEUKOCYTE ESTERASE URINE SMALL(A) NEGATIVE TBH URINE MICROSCOPIC INDICATED YES TBH 11/29/2024 4:11 PM EDT 11/29/2024 4:30 PM EDT Narrative CLINISYNC - 11/29/2024 5:06 PM EDT us Terri MCKEON CLINISYNC Final Result Performing Organization Address [facility] de Phone Number CLINISYNC TB * (ABNORMAL) TBH URINE T PROTEIN CREAT RATIO (11/29/2024 4:11 PM EDT) TOTAL PROTEIN URINE RANDOM 14.6(H) <=11.9 mg/dL TBH CREATININE URINE RANDOM 66.79 20.00 - 300.00 mg/dL TBH PROTEIN CREATININE RATIO URINE 0.22 TBH 11/29/2024 4:11 PM EDT 11/29/2024 4:30 PM EDT Narrative CLINISYNC - 11/29/2024 4:53 PM EDT us Terrinubia MCKEON CLINISYNC Final Result Performing Organization Address City/[facility] Co de Phone Number CLINISYNC TB documented in this encounter Visit Diagnoses Not on filedocumented in this encounter Additional Health Concerns Active Problems Noted Date Diagnosed Date OB Reminders 06/22/2024 documented as of this encounter Care Teams Animal Ecologist Relationship Specialty Start Date End Date Tiara Casper MD [address], [place] [address] PCP - General Family Medicine 02/19/23 documented as of this encounter
--- OUTSIDE RECORDS SUMMARY | 2024-12-04 19:36 | XMS_ITS | Encounter Summary ---
Author Organization [facility] Address [address] [place] [address] Care Team Providers Care University Dean Name Role Phone Tiara Casper MD Primary Care Provider [phone] Encounter Details Date Type Department Care Team (Late Contact Info) Description 11/29/2024 Bamboo flowsheet MARISEL CAMACHO [address] [place] [address] Terri Gifford CNM [address] [place], [place] [phone] Social History Tobacco Use Types Packs/Day Years [...] Department Care Team (Late Contact Info) Description 12/07/2024 3:30 PM EDT Routine MARISEL RUIZN [address] [place] [address] Terri Gifford CNM [address] [place], [place] [phone] 12/13/2024 3:30 PM EDT Routine [facility] [place] [facility] [address] [place] [address] Terri Gifford, CNDinora [address] [place], [place] [phone] documented as of this encounter Goals Goal Patient Goal Type Associated Problems Recent Progress Patient-Stated? Author Reminders Care Plan OB Reminders No Open Scheduling, Background documented as of this encounter Visit Diagnoses Not on filedocumented in this encounter Additional Health Concerns Active Problems Noted Date Diagnosed Date OB Reminders 06/22/2024 documented as of this encounter Care Teams University Dean Relationship Specialty Start Date End Date Tiara Casper MD [address], [place] [address] PCP - General Family Medicine 02/19/23 documented as of this encounter
--- OUTSIDE RECORDS SUMMARY | 2024-12-04 19:36 | XMS_ITS | Encounter Summary ---
Author Organization [facility] Address [address] [place] [address] Care Team Providers Care Hyperion Analyst Name Role Phone Tiara Casper MD Primary Care Provider [phone] Encounter Details Date Type Department Care Team ([facility] Contact Info) Description 11/29/2024 Clinisync Result Encounter NOMS External Department Unsolicited Cordell Gifford CNM [address] [place], [place] [phone] Social History Tobacco Use Types Packs/Day Years [...] Description 12/07/2024 3:30 PM EDT Routine [facility] [place] [facility] [address] [place] [address] Cordell Gifford CNM [address] [place], [place] [id number] 12/13/2024 3:30 PM EDT Routine [facility] [place] [facility] [address] [place] [address] Cordell Gifford CNM [address] [place] [address] documented as of this encounter Goals Goal Patient Goal Type Associated Problems Recent Progress Patient-Stated? Author Reminders Care Plan OB Reminders No Open Scheduling, Background documented as of this encounter Procedures Procedure Name Priority Date/Time Associated Diagnosis Comments US OB BPP W NON-STRESS 11/29/2024 5:54 PM EDT URINE CULTURE, ROUTINE Routine 11/29/2024 4:11 PM EDT documented in this encounter Results * US OB BPP W NON-STRESS (11/29/2024 5:54 PM EDT) Anatomical Region Laterality Modality Other 11/29/2024 5:54 PM EDT Narrative 11/29/2024 5:57 [place] [address] Ultrasound Report Signed Patient: JACQUE MYERS MR#: [id number] : 2000 Acct:[id number] Age/Sex: 24 / F ADM Date: Loc: [facility] 250-[address]: CORDELL GIFFORD APRN, CNM Ordering Physician: CORDELL GIFFORD APRN, CNM Date of Service: 11/29/24 Procedure(s): US OB BPP w non-stress Accession Number(s): [id number] cc: Mini Cristobal ND; CORDELL GIFFORD APRN, CNM [address] [address] Patient Name: JACQUE MYERS MRN: [id number] date: 2000 Sex: F Assigned Patient Location: [facility] Current Patient Location: [facility] Accession/Order Number: [id number] Exam Date: 11/29/2024 17:52 Report Date: 11/29/2024 17:54 At the request of: CORDELL GIFFORD APRN, CNM Procedure: US OB BPP w non-stress Ultrasound biophysical profile INDICATION: Hypertension COMPARISON: 10/23/2024 FINDINGS: Single live intrauterine in cephalic position noted. heart rate 129 beats beats per minute. 8 out of 8 score Biophysical profile. BRITTANY index 17.8 cm. US/US OB BPP w non-stress IMPRESSION: 8 out of 8 biophysical profile score Impression dictated by: Augie Landeros M.D. 11/29/2024 5:54 PM Dictation Location: [place] [address] Electronically authenticated by: [id number] Y Date: 11/29/2024 17:54 Dictated By: Augie Landeros M.D. Signed By: 11/29/241756 DD/ 53 TD/TT: Histologist Technologist: Procedure Note Radiology, Radiologist, MD - 11/29/2024 [place] [address] Ultrasound Report Signed Patient: JACQUE MYERS CMR#: [id number] : 2000Acct:[id number] Age/Sex: Date: Loc: [facility] 250- Attending Dr: CORDELL GIFFORD APRN, CNM Ordering Physician: CORDELL GIFFORD APRN, CNM Date of Service: 11/29/24 Procedure(s): US OB BPP w non-stress Accession Number(s): [id number] cc: Mini Cristobal ND; CORDELL GIFFORD APRN, CNM The [address] [address] Patient Name: JACQUE MYERS MRN: [id number] date: 2000 Sex: F Assigned Patient Location: [facility] Current Patient Location: [facility] Accession/Order Number: [id number] Exam Date: 11/29/2024 17:52 Report Date: 11/29/2024 17:54 At the request of: CORDELL GIFFORD APRN, CNM Procedure: US OB BPP w non-stress Ultrasound biophysical profile INDICATION: Hypertension COMPARISON: 10/23/2024 FINDINGS: Single live intrauterine in cephalic position noted. heart rate 129 beats beats per minute. 8 out of 8 score Biophysical profile. BRITTANY index 17.8 cm. US/US OB BPP w non-stress IMPRESSION: 8 out of 8 biophysical profile score Impression dictated by: Augie Landeros M.D. 11/29/2024 5:54 PM Dictation Location: [place] [address] Electronically authenticated by: [id number] Y Date: 7:54 Dictated By: Augie Landeros M.D. Signed By:11/29/241756 DD/ 53 TD/TT: Histologist Technologist: us Cordell Gifford CNM [facility]IN[facility] IMAGING Final Resu lt * URINE CULTURE, ROUTINE (11/29/2024 4:11 PM EDT) URINE CULTURE, ROUTINE Urine Culture, Routine TBH URINE CULTURE, ROUTINE Mixed urogenital gregoria TB URINE CULTURE, ROUTINE 25,000-50,000 colony forming units per mL [facility] URINE CULTURE, ROUTINE Performed at: [facility] URINE CULTURE, ROUTINE [address] [place], [place] [id number] [facility] URINE CULTURE, ROUTINE Corporate Analyst: Thaddeus Stout PhD, Phone: [phone] [facility] 11/29/2024 4:11 PM EDT 11/29/2024 4:30 PM EDT Narrative CLINISYNC - 12/01/2024 9:08 PM EDT us Cordell Gifford CNM LAB BLOOD ORDERABLES Final R [facility] documented in this encounter Visit Diagnoses Not on filedocumented in this encounter Additional Health Concerns Active Problems Noted Date Diagnosed Date OB Reminders 06/22/2024 documented as of this encounter Care Teams Hyperion Analyst Relationship Specialty Start Date End Date Tiara Casper MD [address] [place], [place] [address] PCP - General Family Medicine 02/19/23 documented as of this encounter
--- OUTSIDE RECORDS SUMMARY | 2024-12-04 19:36 | XMS_ITS | Encounter Summary ---
Author Organization [facility] Address [address] [place] [address] Care Team Providers Care Bath Steward/Stewardess Name Role Phone Tiara Casper MD Primary Care Provider [phone] Encounter Details Date Type Department Care Team ([facility] Contact Info) Description 10/04/2024 Results Follow-Up [facility] [address] [place] [address] Nell Goldstein MA Social History [...] Upcoming Encounters Date Type Department Care Team ([facility] Contact Info) Description 12/07/2024 3:30 PM EDT Routine [facility] [place] [facility] [address] [place] [address] Terri Gifford CNM [address] [place] [address] 12/13/2024 3:30 PM EDT Routine [facility] [address] [place] [address] Terri Gifford, CNM [address] [place] [address] documented as of this encounter Goals Goal Patient Goal Type Associated Problems Recent Progress Patient-Stated? Author Reminders Care Plan OB Reminders No Open Scheduling, Background documented as of this encounter Visit Diagnoses Not on filedocumented in this encounter Additional Health Concerns Active Problems Noted Date Diagnosed Date OB Reminders 06/22/2024 documented as of this encounter Care Teams Bath Steward/Stewardess Relationship Specialty Start Date End Date Tiara Casper MD [address], [place] [address] PCP - General Family Medicine 02/19/23 documented as of this encounter
--- OUTSIDE RECORDS SUMMARY | 2024-12-04 19:36 | XMS_ITS | Encounter Summary ---
Author Organization [facility] Address [address] [place] [address] Care Team Providers Care Special Agent In Charge Name Role Phone Tiara Casper MD Primary Care Provider [phone] Encounter Details Date Type Department Care Team (Late Contact Info) Description 04/22/2024 Clinisync Result Encounter NOMS External Department Unsolicited Cordell Gifford CNM [address] [place], [place] [phone] Social History Tobacco Use Types Packs/Day Years [...] Upcoming Encounters Date Type Department Care Team ([facility] Contact Info) Description 12/07/2024 3:30 PM EDT Routine [facility] [place] [facility] [address] [place] [address] Cordell Gifford CNM [address] [place], [place] [address] 12/13/2024 3:30 PM EDT Routine [facility] [place] [facility] [address] [place] [address] Cordell Gifford CNM [address] [place] [address] documented as of this encounter Procedures Procedure Name Priority Date/Time Associated Diagnosis Comments US OB TRANSVAGINAL 04/22/2024 8: 53 AM EST documented in this encounter Results * US OB TRANSVAGINAL (04/22/2024 8:53 AM EST) Anatomical Region Laterality Modality Other 04/22/2024 8:53 AM EST Narrative 04/22/2024 8:55 [place] [address] Ultrasound Report Signed Patient: JACQUE MYERS MR#: [id number] : 2000 Acct:[id number] Age/Sex: 23 / F ADM Date: 04/22/24 Loc: US Attending Dr: CORDELL GIFFORD APRN, CNM Ordering Physician: CORDELL GIFFORD APRN, CNM Date of Service: 04/22/24 Procedure(s): US OB transvaginal Accession Number(s): [id number] cc: Mini Cristobal ND; CORDELL GIFFORD APRN, CNM [address] [address] Patient Name: JACQUE MYERS MRN: [facility]:[id number] date: 2000 Sex: F Assigned Patient Location: US Current Patient Location: US Accession/Order Number: [id number] Exam Date: 04/22/2024 08:10 Report Date: 04/22/2024 [...] Dictated By: Rio Cooley M.D. Signed By: 04/22/24854 DD/ 2 TD/TT: Rn Relief Charge: Procedure Note Radiology, Radiologist, MD - 04/22/2024 [place] [address] Ultrasound Report Signed Patient: JACQUE MYERS CMR#: [id number] : 2000Acct:[id number] Age/Sex: 23 / FADM Date: 04/22/24 Loc: US Attending Dr: CORDELL GIFFORD APRN, CNM Ordering Physician: CORDELL GIFFORD APRN, CNM Date of Service: 04/22/24 Procedure(s): US OB transvaginal Accession Number(s): [id number] cc: Mini Cristobal ND; CORDELL GIFFORD APRN, CNM The [place] [id number] Patient Name: JACQUE MYERS MRN: [facility]:[id number] date: 2000 Sex: F Assigned Patient Location: US Current Patient Location: US Accession/Order Number: [id number] Exam Date: 04/22/2024 08:10 Report Date: 04/22/2024 [...] Cooley M.D. Signed By:04/22/24854 DD/ 2 TD/TT: Rn Relief Charge: us Cordell MCKEON [facility] IMAGING Final Resu lt documented in this encounter Visit Diagnoses Not on filedocumented in this encounter Care Teams Special Agent In Charge Relationship Specialty Start Date End Date Tiara Casper MD [address] [place] [address], [address] [place] [address] PCP - General Family Medicine 02/19/23 documented as of this encounter
--- OUTSIDE RECORDS SUMMARY | 2024-12-04 19:36 | XMS_ITS | Encounter Summary ---
Author Organization [facility] Address [address] [place] [address] Care Team Providers Care Cupola Liner Name Role Phone Tiara Casper MD Primary Care Provider [phone] Encounter Details Date Type Department Care Team (Late Contact Info) Description 11/22/2024 Bamboo flowsheet MARISEL CAMACHO [address] [place] [address] Terri Gifford CNM [address] [place], [place] [address] Social History Tobacco Use Types Packs/Day Years [...] 3:30 PM EDT Routine MARISEL CAMACHO [address] [place] [address] Terri Gifford CNM [address] [place], [place] [address] 12/13/2024 3:30 PM EDT Routine [facility] [place] [facility] [address] [place] [address] Terri Gifford, CNDinora [address] [place], [place] [phone] documented as of this encounter Goals Goal Patient Goal Type Associated Problems Recent Progress Patient-Stated? Author Reminders Care Plan OB Reminders No Open Scheduling, Background documented as of this encounter Visit Diagnoses Not on filedocumented in this encounter Additional Health Concerns Active Problems Noted Date Diagnosed Date OB Reminders 06/22/2024 documented as of this encounter Care Teams Cupola Liner Relationship Specialty Start Date End Date Tiara Casper MD [address], [place] [address] PCP - General Family Medicine 02/19/23 documented as of this encounter
--- OUTSIDE RECORDS SUMMARY | 2024-12-04 19:36 | XMS_ITS | Encounter Summary ---
Author Organization [employer] Address [id number] [place] [address] Care Team Providers Care Snuff Grinder Name Role Phone Mini Cristobal MD Primary Care Provider [phone] Encounter Details Date Type Department Care Team ([facility] st Contact Info) Description 03/04/2024 Telephone [facility] [address] [address] Sarah Curran Social History Tobacco [...] on filedocumented in this encounter Care Teams Snuff Grinder Relationship Specialty Start Date End Date Mini Cristobal MD [address] [facility] [place] [address] PCP - General Internal Medicine 02/24/23 documented as of this encounter
--- OUTSIDE RECORDS SUMMARY | 2024-12-04 19:36 | XMS_ITS | Clinical Summary ---
Author Organization [facility] Address [address], [address] [place] [address] Care Team Providers Care Legal Research Analyst Name Role Phone Missy Britt MD Primary Care Provider [phone] Allergies No known active allergies Medications Norgestim-Eth [...] Plan of Treatment Not on file Insurance BCBS OUT OF STATE Care Teams Legal Research Analyst Relationship Specialty Start Date End Date Missy Britt MD [address] [place] [address] PCP - General 01/09/20
--- OUTSIDE RECORDS SUMMARY | 2024-12-04 19:36 | XMS_ITS | Clinical Summary ---
Author Organization [facility] Address [address] [place] [address] Care Team Providers Care Research And Insights Executive Name Role Phone Tiara Casper MD Primary Care Provider [phone] Allergies No known active allergies Medications Wfggaypg-Gpz-Ml -FA ( 1 + IRON PO) Take by mouth Active ferrous sulfate (Fe Tabs) 325 (65 Fe) MG EC tabletIndicatio ns: related condition in third trimester ([facility]) Take 1 tablet (325 mg) by mouth in the morning and 1 tablet (325 mg) before bedtime. Do not crush, chew, or split. 60 tablet 11 10/04/2024 6 Active docusate sodium (Colace) 100 MG capsuleIndicati ons: related condition in third trimester ([facility]) Take 1 capsule (100 mg) by mouth in the morning and 1 capsule (100 mg) before bedtime. 60 capsule 3 10/04/2024 5 Active Encounters Date Type Department Care Team Description 12/04/2024 2:30 PM EDT [facility] [place] [address] Cordell Gifford CNM Encounter for care of first , third trimester ([facility]) (Primary Dx); Elevated blood pressure affecting in third trimester, antepartum ([facility]) 12/04/2024 Bamboo flowsheet [facility] [place] [address] Cordell Gifford, CNM 11/30/2024 Results Follow-Up [facility] [address] [facility] [place] [phone] Cordell Gifford, CNM 11/29/2024 3:00 PM EDT Routine [facility] [address] [facility] [place] [address] Cordell Gifford, CNM Large for dates affecting management of mother, third trimester, fetus 1 ([facility]) (Primary Dx); Encounter for care of first , third trimester ([facility]); Elevated blood pressure affecting in third trimester, antepartum ([facility]) 11/29/2024 Clinisync Result Encounter [facility] External Department Unsolicited Cordell Gifford, CNM 11/29/2024 Clinisync Result Encounter [facility]OMS External Department Unsolicited Cordell Gifford, CNM 11/29/2024 Bamboo flowsheet [facility] [address] [facility] [place] [phone] Cordell Gifford, CNM 11/28/2024 Results Follow-Up [facility] [address] [facility] [place] [address] Cordell Gifford, CNM 11/23/2024 2:15 PM EDT Ancillary Procedure [facility] [address] [place] [address] Large for dates ([facility]) 11/23/2024 Travel 11/22/2024 4:00 PM EDT [facility] [address] [facility] [place] [phone] Cordell Gifford, CNM Large for dates affecting management of mother, third trimester, fetus 1 ([facility]) (Primary Dx); Encounter for care of first , third trimester ([facility]); screening for streptococcus B ([facility]); Large for dates ([facility]) 11/22/2024 Bamboo flowsheet [facility] [address] [place] [address] Cordell Gifford, CNM 11/14/2024 Results Follow-Up [facility] [address] [facility] [place] [address] Cordell Gifford, CNM 11/07/2024 2:45 PM EDT Routine [facility] [address] [place] [address] Cordell Gifford, CNM 11/07/2024 Bamboo flowsheet [facility] [address] [place] [address] Cordell Gifford, CNM 10/24/2024 Results Follow-Up [facility] [address] [place] [address] Cordell Gifford L, CNM 10/23/2024 Clinisync Result Encounter [facility] External Department Unsolicited Cordell Gifford, CNM 10/23/2024 Clinisync Result Encounter [facility] External Department Unsolicited Cordell Gifford, CNM 10/23/2024 Clinisync Result Encounter [facility]S External Department Unsolicited Cordell Gifford, CNM 10/09/2024 3:00 PM EDT Ancillary Procedure [facility] [address] [place] [address] related condition in third trimester ([facility]) 10/09/2024 Travel 10/04/2024 Results Follow-Up [facility] [address] [facility] [place] [address] Nell Goldstein MA 10/04/2024 Refill [facility] [address] [place] [address] Nell Goldstein MA related condition in third trimester ([facility]) 09/28/2024 2:30 PM EDT Routine [facility] [place] BAILEYKRYSTIAN [address] [place] [address] Cordell Gifford CNM Encounter for supervision of other normal , second trimester ([facility]) (Primary Dx); Screening for diabetes mellitus; Screening for iron deficiency anemia; related condition in third trimester ([facility]) 09/28/2024 Bamboo flowsheet [facility] [address] [place] [address] Cordell Gifford CNM 09/07/2024 Results [facility] [address] [place] [address] Cordell Gifford CNM from Last 3 Months Family History Relation [...] (290 lb) 12/04/2024 2:13 PM EDT Height 179.1 cm (5' 10.5 ) 08/04/2022 1 2:00 PM EDT Body Mass Index 41.02 08/04/2022 12:00 PM EDT Plan of Treatment Upcoming Encounters Date Type Department Care Team (Late st Contact Info) Description 12/07/2024 3:30 PM EDT Routine [facility] [place] LEOKRYSTIAN [address] [place] [phone] Cordell Gifford, CNDinora [address] [facility] [place] [address] 12/13/2024 3:30 PM EDT Routine [facility] [address] [facility] [place] [phone] Cordell Gifford, CNDinora [address] [facility], [place] [phone] Health Maintenance Due Date Last Done Comments Influenza Vaccine (#1) 2025 Goals Goal Patient Goal Type Associated Problems Recent Progress Patient-Stated? Author Reminders Care Plan OB Reminders No Open Scheduling, Background Procedures Procedure Name Priority Date/Time Associated Diagnosis Comments US OB BPP W NON-STRESS 11/29/2024 5:54 PM EDT ALL URIC ACID Routine 11/29/2024 4:25 PM EDT MHPT FIBRINOGEN Routine 11/29/2024 4:25 PM EDT ALL LDH Routine 11/29/2024 4:25 PM EDT [facility] CMP (CMP) (FOR REMOTE [facility] USE) Routine 11/29/2024 4:25 PM EDT ALL CBC WITH AUTO DIFF Routine 4:25 PM EDT URINE CULTURE, ROUTINE Routine 4:11 PM EDT TBH URINE MICROSCOPIC ONLY Routine 11/29/2024 4:11 PM EDT TBH UA (CLEAN/CATCH) GIS ENGINEER/MICRO IF IND. Routine 11/29/2024 4:11 PM EDT TBH URINE T PROTEIN CREAT RATIO Routine 11/29/2024 4:11 PM EDT US OB FOLLOW UP TRANSABDOMINAL APPROACH Routine 11/23/2024 2:49 PM EDT Large for dates ([facility]) STREPTOCCOUS, GROUP B CULTURE Routine 11/22/2024 4:31 PM EDT screening for streptococcus B ([facility]) US OB BPP W NON-STRESS 10/23/2024 7:16 PM EDT US OB CERVICAL LENGTH 10/23/2024 7:14 PM EDT URINE CULTURE, ROUTINE Routine 5:05 PM EDT TBH URINE MICROSCOPIC ONLY Routine 10/23/2024 5:05 PM EDT TBH UA (CLEAN/CATCH) GIS ENGINEER/MICRO IF IND. Routine 10/23/2024 5:05 PM EDT US OB FOLLOW UP TRANSABDOMINAL APPROACH Routine 10/09/2024 3:39 PM EDT related condition in third trimester ([facility]) CBC Routine 09/28/2024 3:17 PM EDT Screening for iron deficiency anemia GLUCOSE, GESTATIONAL SCREEN (50G)-135 CUTOFF Routine 09/28/2024 3:17 PM EDT Screening for diabetes mellitus from Last 3 Months Results * US OB BPP W NON-STRESS (11/29/2024 5:54 PM EDT) Only the most recent of2 resultswithin the time period is included. Anatomical Region Laterality Modality Other 11/29/2024 5:54 PM EDT Narrative 11/29/2024 5:57 PM EDT The [address] [address] Ultrasound Report Signed Patient: JACQUE HORN MR#: [id number] : 2000 Acct:[id number] Age/Sex: 24 / F ADM Date: Loc: [facility] 250-[address]: CORDELL GIFFORD APRN, CNM Ordering Physician: CORDELL GIFFORD APRN, CNM Date of Service: 11/29/24 Procedure(s): US OB BPP w non-stress Accession Number(s): [id number] cc: LevarMini khan ND; CORDELL GIFFORD APRN, CNM The [place] [address] Patient Name: JACQUE HORN MRN: [facility]:[id number] date: 2000 Sex: F Assigned Patient Location: [facility] Current Patient Location: [facility] Accession/Order Number: [id number] Exam Date: 11/29/2024 17:52 Report Date: 11/29/2024 [...] Landeros M.D. 11/29/2024 5:54 PM Dictation Location: [place] [address] Electronically authenticated by: [id number] Y Date: 11/29/2024 17:54 Dictated By: Augie Landeros M.D. Signed By: 11/29/241756 DD/ 53 TD/TT: Temporary Administrative Assistant: Procedure Note Radiology, Radiologist, MD - 11/29/2024 [place] [address] Ultrasound Report Signed Patient: JACQUE HORN CMR#: [id number] : 2000Acct:[id number] Age/Sex: 24 / FADM Date: Loc: [facility] 250-[address]: CORDELL GIFFORD APRN, CNM Ordering Physician: CORDELL GIFFORD APRN, CNM Date of Service: 11/29/24 Procedure(s): US OB BPP w non-stress Accession Number(s): [id number] cc: Mini Cristobal ND; CORDELL GIFFORD APRN, CNM [place] [address] Patient Name: JACQUE HORN MRN: [facility]:[id number] date: 2000 Sex: F Assigned Patient Location: [facility] Current Patient Location: [facility] Accession/Order Number: [id number] Exam Date: 11/29/2024 17:52 Report Date: 11/29/2024 [...] Landeros M.D. 11/29/2024 5:54 PM Dictation Location: [place] [address] Electronically authenticated by: [id number] Y Date: 7:54 Dictated By: Augie Landeros M.D. Signed By:11/29/241756 DD/ 53 TD/TT: Temporary Administrative Assistant: Cordell Gifford CNM [facility] Final Resu lt * (ABNORMAL) MHPT FIBRINOGEN (11/29/2024 4:25 PM EDT) FIBRINOGEN 478(H) 200 - 400 mg/dL TBH 11/29/2024 4:25 PM EDT 11/29/2024 4:29 PM EDT Narrative [facility] - 11/29/2024 5:03 PM EDT us Cordell Gifford CNM [facility] Final Result [facility] * (ABNORMAL) [facility] CMP (CMP) (FOR REMOTE [facility] USE) (11/29/2024 4:25 PM EDT) SODIUM 134(L) 136 - 145 mmol/L TBH POTASSIUM 3.8 3.5 - 5.1 mmol/L TBH CHLORIDE 101 98 - 107 mmol/L TBH CARBON DIOXIDE 24.6 21.0 - 32.0 mmol/L TBH ANION GAP 12.2 TBH GLUCOSE 144(H) 74 - 106 mg/dL TBH BLOOD UREA NITROGEN 11.0 7.0 - 18.0 mg/dL TBH CREATININE 0.58 0.55 - 1.02 mg/dL TBH TBH EGFR-AF IRISH >60 >=60 mL/min/1. 73m 2 TBH TBH EGFR-NON AF IRISH >60 >=60 mL/min/1. 73m 2 TBH BUN [...] [facility] - 11/29/2024 4:49 PM EDT us Cordell Gifford CNM [facility] Final Result [facility] * ALL URIC ACID (11/29/2024 4:25 PM EDT) [facility] URIC ACID 4.0 2.6 - 6.0 mg/dL TB 11/29/2024 4:25 PM EDT 11/29/2024 4:29 PM EDT Narrative [facility] - 11/29/2024 5:03 PM EDT [facility] Final Result [facility] TB * ALL LDH (11/29/2024 4:25 PM EDT) [facility] LACTATE DEHYDROGENASE 168 81 - 234 U/L TB 11/29/2024 4:25 PM EDT 11/29/2024 4:29 PM EDT Narrative [facility] - 11/29/2024 4:51 PM EDT Cordell Acision CN [facility] Final Result Performing Organization Address [facility] Co de Phone Number [facility] TB * (ABNORMAL) ALL CBC WITH AUTO DIFF (11/29/2024 4:25 PM EDT) [facility] WBC 9.8 4.0 - 11.0 10 3/uL TBH TB RBC 4.08(L) 4.20 - 5.40 10 6/uL TBH TB HGB 11.8(L) 12.0 - 16.0 g/dL TB TB HCT 35.1(L) 36.0 - 48.0 % TB TB MCV 86.0 81.0 - 99.0 fL TB TB MCH 28.9 26.7 - 34.0 pg TBH TB MCHC 33.6 29.9 - 35.2 g/dL TB TB RDW 14.0 11.0 - 15.0 % TBH TBH PLT 266 150 - 450 10 3/uL TBH TB MPV 12.2 9.5 - 13.5 fL TB NEUTROPHILS PERCENT AUTO 72.3 43.0 - 75.0 [...] Narrative [facility] - 11/29/2024 4:39 PM EDT us Cordell [facility] CLINIS[facility]NC Final Result [facility] * URINE CULTURE, ROUTINE (11/29/2024 4:11 PM EDT) Only the most recent of2 resultswithin the time period is included. URINE CULTURE, ROUTINE Urine Culture, Routine [facility] URINE CULTURE, ROUTINE Mixed urogenital gregoria [facility] URINE CULTURE, ROUTINE 25,000-50,000 colony forming units per mL [facility] URINE CULTURE, ROUTINE Performed at: - [facility] URINE CULTURE, ROUTINE [address] [place], [place] [id number] [facility] URINE CULTURE, ROUTINE Paint Formulator: Thaddeus Stout PhD, Phone: [phone] [facility] 11/29/2024 4:11 PM EDT 11/29/2024 4:30 PM EDT Narrative [facility] - 12/01/2024 9:08 PM EDT Cordell [facility]KE[facility] LAB BLOOD ORDERABLES Final R esult Performing Organization Address [facility] Co de Phone Number [facility] TBH * (ABNORMAL) TBH URINE T PROTEIN CREAT RATIO (11/29/2024 4:11 PM EDT) TOTAL PROTEIN URINE RANDOM 14.6(H) <=11.9 mg/dL TBH CREATININE URINE RANDOM 66.79 20.00 - 300.00 mg/dL TBH PROTEIN CREATININE RATIO URINE 0.22 TBH 11/29/2024 4:11 PM EDT 11/29/2024 4:30 PM EDT Narrative [facility] - 11/29/2024 4:53 PM EDT Cordell [facility]ON [facility] Final Result Performing Organization Address [facility] de Phone Number [facility] TBH * (ABNORMAL) TBH URINE MICROSCOPIC ONLY (11/29/2024 4:11 PM EDT) Only the most recent of2 resultswithin the time period is included. TBH WBC 5-10(A) NONE SEEN #/HPF TBH TBH [...] Narrative CLINISYNC - 11/29/2024 5:06 PM EDT Cordellnahomi MCKEON [facility] Final Result Performing Organization Address [facility] Co de Phone Number [facility] TBH * (ABNORMAL) TBH UA (CLEAN/CATCH) GIS ENGINEER/MICRO IF IND. (11/29/2024 4:11 PM EDT) Only the most recent of2 resultswithin the time period is included. COLOR URINE LT. YELLOW YELLOW TBH CLARITY [...] Narrative [facility] - 11/29/2024 5:06 PM EDT Cordell [facility] Final Result [facility] * US OB follow up transabdominal approach (11/23/2024 2:49 PM EDT) Only the most recent of2 resultswithin the time period is included. Anatomical Region Laterality Modality Body Ultrasound 11/24/2024 [...] II, MD, PHD at 24-Nov-2024 08:35:02 AM [facility] Procedure Note Jennifer Jolly MD - [...] signed by JENNIFER JOLLY II, MD, PHD [id number] 08:35:02 AM [facility] us Cordell Gifford CNM IMG OB US PROCEDURES Final R esult * STREPTOCCOUS, GROUP B CULTURE (11/22/2024 4:31 PM EDT) MICRO NUMBER [id number] [facility] SPECIMEN QUALITY Adequate [facility] SOURCE VAGINAL/ANOR [...] Performing Organization Information Site ID: QPT Name: [facility] Address: [address] [place] [address], [address] [place] [phone] Director: Juan Mensah MD us Cordell Gifford CNM LAB BODY FLUIDS AND STOOLS O RDERABLES Final Result [facility] * US OB CERVICAL LENGTH (10/23/2024 7:14 PM EDT) Anatomical Region Laterality Modality Other 10/23/2024 7:14 PM EDT Narrative 10/23/2024 7:17 [place] [address] Ultrasound Report Signed Patient: JACQUE HORN MR#: [id number] : 2000 Acct:[id number] Age/Sex: 23 / F ADM Date: Loc: [facility] 254- Attending Dr: CORDELL GIFFORD APRN, CNM Ordering Physician: CORDELL GIFFORD APRN, CNM Date of Service: 10/23/24 Procedure(s): US OB cervical length Accession Number(s): [id number] cc: Mini Cristobal ND; CORDELL GIFFORD APRN, CNM [address] [address] Patient Name: JACQUE HORN MRN: [id number] date: 2000 Sex: F Assigned Patient Location: [facility] Current Patient Location: Accession/Order Number: [id number] Exam Date: 10/23/2024 19:09 Report Date: 10/23/2024 [...] Ortega M.D. 10/23/2024 7:14 PM Dictation Location: [place] [address] Electronically authenticated by: [id number] Y Date: 10/23/2024 19:14 Dictated By: Rom Ortega M.D. Signed By: 10/23/241916 DD/ 13 TD/TT: Temporary Administrative Assistant: Procedure Note Radiology, Radiologist, MD - 10/23/2024 [place] [address] Ultrasound Report Signed Patient: JACQUE HORN CMR#: [id number] : 2000Acct:[id number] Age/Sex: 23 / FADM Date: Loc: [facility] 254-[address]: CORDELL GIFFORD APRN, CNM Ordering Physician: CORDELL GIFFORD APRN, CNM Date of Service: 10/23/24 Procedure(s): US OB cervical length Accession Number(s): [id number] cc: Mini Cristobal ND; CORDELL GIFFORD APRN, CNM [address] [address] Patient Name: JACQUE HORN MRN: [id number] date: 2000 Sex: F Assigned Patient Location: [facility] Current Patient Location: Accession/Order Number: [id number] Exam Date: 10/23/2024 19:09 Report Date: 10/23/2024 [...] Ortega M.D. 10/23/2024 7:14 PM Dictation Location: [place] [address] Electronically authenticated by: [id number] Y Date: 9:14 Dictated By: Rom Ortega M.D. Signed By:10/23/241916 DD/ 13 TD/TT: Temporary Administrative Assistant: Cordell Gifford CNM [facility] Final Resu lt * GLUCOSE, GESTATIONAL SCREEN (50G)-135 CUTOFF (09/28/2024 3:17 PM EDT) GLUCOSE, GESTATIONAL SCREEN (50G)-135 CUTOFF 106 <135 mg/dL [facility] 09/28/2024 3:17 PM EDT 09/28/2024 3:18 PM EDT Narrative Resulting Agency Comment Performing Organization Information Site ID: QPT Name: [facility] Address: [address] [place] [address], [address] [place] [phone] Director: Juan Mensah MD Cordell Gifford CNM LAB BLOOD ORDERABLES Final [...] Performing Organization Information Site ID: QPT Name: [facility] Address: [address] [place] [phone] Director: Juan Mensah MD Cordell [facility]KEON LAB BLOOD ORDERABLES Final R esult [facility] from Last 3 Months Additional Health Concerns Active Problems Noted Date Diagnosed Date OB Reminders 06/22/2024 Insurance BS [place]ICAID [place] Care Teams Research And Insights Executive Relationship Specialty Start Date End Date Tiara Casper MD [address], [place] [address] PCP - General Family Medicine 02/19/23
--- OUTSIDE RECORDS SUMMARY | 2024-12-04 19:36 | XMS_ITS | Encounter Summary ---
Author Organization [facility] Address [address] [place] [address] Care Team Providers Care Carpet Layer Name Role Phone Tiara Casper MD Primary Care Provider [phone] Encounter Details Date Type Department Care Team (Late Contact Info) Description 12/04/2024 Bamboo flowsheet MARISEL CAMACHO [address] [place] [address] Terri Gifford CNM [address] [place], [place] [phone] Social History Tobacco Use Types Packs/Day Years [...] 3:30 PM EDT Routine MARISEL RUIZN [address] [place] [address] Terri Gifford CNM [address] [place], [place] [phone] 12/13/2024 3:30 PM EDT Routine [facility] [address] [place] [address] Terri Gifford, CNDinora [address] [place], [place] [phone] documented as of this encounter Goals Goal Patient Goal Type Associated Problems Recent Progress Patient-Stated? Author Reminders Care Plan OB Reminders No Open Scheduling, Background documented as of this encounter Visit Diagnoses Not on filedocumented in this encounter Additional Health Concerns Active Problems Noted Date Diagnosed Date OB Reminders 06/22/2024 documented as of this encounter Care Teams Carpet Layer Relationship Specialty Start Date End Date Tiara Casper MD [address], [place] [address] PCP - General Family Medicine 02/19/23 documented as of this encounter
--- OUTSIDE RECORDS SUMMARY | 2024-12-04 19:36 | XMS_ITS | Encounter Summary ---
Author Organization [facility] tem Address [id number] [address] [place] [address] Care Team Providers Care Fish Bait Processing Supervisor Name Role Phone Mini Cristobal MD Primary Care Provider [phone] Encounter Details Date Type Department Care Team (Late st Contact Info) Description 02/24/2023 Telephone [facility] Family Medicine [address] [place] [address] Mini Cristobal MD [address] [facility] [place] [address] Social History Tobacco Use [...] on filedocumented in this encounter Care Teams Fish Bait Processing Supervisor Relationship Specialty Start Date End Date Mini Cristobal MD [address] [place] [address] PCP - General Internal Medicine 02/24/23 documented as of this encounter
--- OUTSIDE RECORDS SUMMARY | 2024-12-04 19:37 | XMS_ITS | Encounter Summary ---
Author Organization [facility] Address [address] [place] [address] Care Team Providers Care Stabber Name Role Phone Tiara Casper MD Primary Care Provider [phone] Encounter Details Date Type Department Care Team (Late Contact Info) Description 10/24/2024 Results Follow-Up MARISEL CAMACHO [address] [place] [address] Terri Gifford CNM [address] [place], [place] [phone] Social History Tobacco Use Types Packs/Day Years [...] 3:30 PM EDT Routine MARISEL CAMACHO [address] [place] [address] Terri Gifford CNM [address] [place], [place] [phone] 12/13/2024 3:30 PM EDT Routine [facility] [address] [place] [address] Terri Gifford, CNM [address] [place], [place] [phone] documented as of this encounter Goals Goal Patient Goal Type Associated Problems Recent Progress Patient-Stated? Author Reminders Care Plan OB Reminders No Open Scheduling, Background documented as of this encounter Visit Diagnoses Not on filedocumented in this encounter Additional Health Concerns Active Problems Noted Date Diagnosed Date OB Reminders 06/22/2024 documented as of this encounter Care Teams Stabber Relationship Specialty Start Date End Date Tiara Casper MD [address] [place] [address] PCP - General Family Medicine 02/19/23 documented as of this encounter
--- OUTSIDE RECORDS SUMMARY | 2024-12-04 19:42 | XMS_ITS | CCD ---
Author Organization [facility] Care Team Providers Care Sales Support Coordinator Name Role Phone Rubia Romesonia I Primary Care Provider LORENZAMISSY Admitting Unavailable LORENZAMISSY ALLEN Attending Unavailable LIT ELIZABETH P Referring Unavailable MOORJANI, ROMENA I Primary Care Unavailable LIT ELIZABETH P Referring Unavailable MOCATALINOI, ROMENA I Primary Care Unavailable LORENZA MISSY F Referring Unavailable LORENZA MISSY Abreu Primary Care Unavailable Lorenza Missy Abreu Primary Care Provider [phone] DORON, MUHAMID M Primary Care Unavailable JOSH [...] Care Unavailable DORON, MUHAMID M Attending Unavailable DORNO, MUHAMID M Referring Unavailable DORON, MUHAMID M Primary Care Unavailable Tiara Casper MD Primary Care Provider Mini Sal MD Primary Care Provider Tiara Casper MD Primary Care Provider CORDELL GIFFORD Attending Unavailable FLOROCORDELL Attending Unavailable FLOROCORDELL Attending Unavailable FLORO, CORDELL L Referring Unavailable FLORO, CORDELL Alcocer Attending Unavailable FLORO, CORDELL Alcocer Attending Unavailable FLORO, CORDELL Alcocer Attending Unavailable FLORO, CORDELL L Referring Unavailable FLORO, CORDELL L Attending Unavailable CORDELL GIFFORD Attending Unavailable CORDELL [...] sulfate 325 mg delayed release oral tablet (15 sources) Start: 10-04-2024 End: 10-04-2025 take 1 tablet by mouth in the morning ferrous sulfate (Fe Tabs) 325 (65 Fe) MG EC tablet Indications: 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 Do not crush, chew, or split. 60 tablet 11 10/04/2024 10/04/2025 Active Hzjhvsvs-Yfa-Wg-FA ( 1 + IRON PO) (20 sources) Biodrnuv-Zhn-Ti-FA ( 1 + IRON PO) Take by mouth Active vit no.772-qfyq-wjepu acid ( VITAMIN) 27 mg iron- 800 mcg tablet (3 sources) take 1 tablet by mouth in the morning vit no.090-jcey-szfuy acid ( VITAMIN) 27 mg iron- 800 [...] ; Translations: [Threatened ] Onset: 09-08-2023 Episodic Hypertension complicating ; childbirth and the puerperium (4 sources) Hypertension complicating ; Translations: [Unspecified maternal hypertension, third trimester] 11-29-2024 Chronic Other complications of (4 sources) Finding related to ; Translations: [ related conditions, unspecified, second trimester] 07-31-2024 Episodic Other complications of (4 sources) Excessive growth affecting management of mother; [...] 05-26-2023 05-26-2023 Chronic Other conditions (2 sources) Yjexn-lah-gppij at regardless of gestation period; Translations: [Other heavy for gestational age ] 11-22-2024 Episodic Other and delivery including normal (20 sources) test positive; Translations: [Encounter for test, result positive] 06-20-2024 Episodic Other screening for suspected conditions (not mental disorders or infectious disease) (7 sources) Raised TSH level; Translations: [Other specified abnormal findings of blood chemistry] 06-20-2024 Episodic Unclassified (1 source) medication Onset: 07-06-2023 Unclassified (20 sources) OB Reminders Onset: 06-22-2024 06-22-2024 Viral [...] Test Name Value Interpretation Reference Range Facility ALL CBC WITH AUTO DIFFon BASOPHILS ABSOLUTE AUTO [facility] Basophils/100 WBC (Bld) 0.3 % 0.2 - 2.0 % [facility] Eosinophils/100 WBC (Bld) 0.8 % Low 0.9 - 7.0 % [facility] Erythrocyte distribution width (RBC) [Ratio] 14 % 11.0 - 15.0 % [facility] Hematocrit (Bld) [Volume fraction] 35.1 % Low 36.0 - 48.0 % [facility] Hemoglobin (Bld) [Mass/Vol] 11.8 g/dL Low 12.0 - 16.0 g/dL [facility] IMMATURE GRANULOCYTES ABS AUTO 0.05 High [facility] Immature granulocytes/100 WBC (Bld) 0.5 % 0.0 - 0.5 % [facility] Interpretation and review of laboratory results Abnormal [facility] LYMPHOCYTES ABSOLUTE AUTO 1.9 [facility] Lymphocytes/100 WBC (Bld) 19.1 % Low 20.5 - 60.0 % [facility] MCH (RBC) [Entitic mass] 28.9 pg 26. 7 - 34.0 pg [facility] MCHC (RBC) [Mass/Vol] 33.6 g/dL 29.9 - 35.2 g/dL [facility] MCV (RBC) [Entitic vol] 86 fL 81.0 - 99.0 fL [facility] MONOCYTES ABSOLUTE AUTO 0.7 [facility] Monocytes/100 WBC (Bld) 7 % 1.7 - 12.0 % [facility] NEUTROPHILS ABSOLUTE AUTO 7.1 High [facility] Neutrophils/100 WBC (Bld) 72.3 % 43.0 - 75.0 % [facility] Platelet mean volume (Bld) [Entitic vol] 12.2 fL 9.5 - 13.5 fL [facility] EO # 0.1 [facility] PLT 266 [facility] RBC 4.08 Low [facility] WBC 9.8 [facility] US OB BPP W NON-STRESS on 11-29-2024 [place] [address] Ultrasound Report Signed Patient: JACQUE HORN MR#: [id number] : 2000 Acct:[id number] Age/Sex: 24 / F ADM Date: Loc: [facility] 250-[address]: CORDELL GIFFORD APRN, CNM Ordering Physician: CORDELL GIFFORD APRN, CNM Date of Service: 11/29/24 Procedure(s): US OB BPP w non-stress Accession Number(s): [id number] cc: Mini Sal ND; CORDELL GIFFORD APRN, CNM [place] [id number] Patient Name: JACQUE HORN MRN: [facility]:[id number] date: 2000 Sex: F Assigned Patient Location: [facility] Current Patient Location: [facility] Accession/Order Number: [id number] Exam Date: 11/29/2024 17:52 Report Date: 11/29/2024 [...] 11/29/2024 5:54 PM Dictation Location: [place] [address] Electronically authenticated by: [id number] Y Date: 11/29/2024 17:54 Dictated By: Augie Landeros M.D. Signed By: 11/29/241756 DD/ 53 TD/TT: Food Broker: [facility] Radiology, Radiologist, MD - 11/29/2024 [place] [address] Ultrasound Report Signed Patient: JACQUE HORN MR#: [id number] : 2000 Acct:[id number] Age/Sex: 24 / F ADM Date: Loc: [facility] 250-[address]: CORDELL GIFFORD APRN, CNM Ordering Physician: CORDELL GIFFORD APRN, CNM Date of Service: 11/29/24 Procedure(s): US OB BPP w non-stress Accession Number(s): [id number] cc: Mini Sal ND; CORDELL GIFFORD APRN, CNM The [place] [address] Patient Name: JACQUE HORN MRN: [facility]:[id number] date: 2000 Sex: F Assigned Patient Location: [facility] Current Patient Location: [facility] Accession/Order Number: [id number] Exam Date: 11/29/2024 17:52 Report Date: 11/29/2024 [...] 11/29/2024 5:54 PM Dictation Location: [place] [address] Electronically authenticated by: [id number] Y Date: 11/29/2024 17:54 Dictated By: Augie Landeros M.D. Signed By: 11/29/241756 DD/ 53 TD/TT: Food Broker: [facility] Radiology Study observation (narrative) [facility] US OB BPP W NON-STRESS Ordered By: Radiologist Radiology on 11-29-2024 [facility] Work Phone: US OB FOLLOW UP TRANSABDOMIN [...] II, MD, PHD at 24-Nov-2024 08:35:02 AM [facility] Normal Not Available [facility] UA (CLEAN/CATCH) CREDIT COLLECTIONS REP/ANNABELLA RO IF IND.on 10-23-2024 BILIRUBIN URINE Negative NEGATIVE [facility] BLOOD URINE Negative NEGATIVE [facility] Clarity (U) CLEAR CLEAR [facility] Color (U) LT. YELLOW YELLOW [facility] GLUCOSE URINE UA Negative NEGATIVE mg/dL [facility] Interpretation and review of laboratory results Abnormal [facility] Ketones Ql (U) Negative NEGATIVE mg/dL [facility] Leukocyte esterase Test strip Ql (U) SMALL Abnormal NEGATIVE [facility] NITRITE URINE Negative NEGATIVE [facility] pH (U) 6.0 [pH] 5.0 - 9.0 [facility] PROTEIN URINE Negative NEG/TRACE mg/dL [facility] SPECIFIC GRAVITY URINE <=1.005 Abnormal 1.005 - 1.025 [facility] URINE MICROSCOPIC INDICATED YES [facility] UROBILINOGEN URINE 0.2 EU/dL 0.2 - 1.0 EU/dL [facility] US OB CERVICAL LENGTHon 10-02 [place] [address] Ultrasound Report Signed Patient: JACQUE HORN MR#: [id number] : 2000 Acct:[id number] Age/Sex: 23 / F ADM Date: Loc: [facility] 254-[address]: CORDELL GIFFORD APRN, CNM Ordering Physician: CORDELL GIFFORD APRN, CNM Date of Service: 10/23/24 Procedure(s): US OB cervical length Accession Number(s): [id number] cc: Mini Sal ND; CORDELL GIFFORD APRN, CNM [address] [address] Patient Name: JACQUE HORN MRN: [facility]:[id number] date: 2000 Sex: F Assigned Patient Location: [facility] Current Patient Location: Accession/Order Number: [id number] Exam Date: 10/23/2024 19:09 Report Date: 10/23/2024 [...] Ortega M.D. 10/23/2024 7:14 PM Dictation Location: [place] [address] Electronically authenticated by: [id number] Y Date: 10/23/2024 19:14 Dictated By: Rom Ortega M.D. Signed By: 10/23/241916 DD/ 13 TD/TT: Food Broker: [facility] Radiology, Radiologist, MD - 10/23/2024 [place] [address] Ultrasound Report Signed Patient: JACQUE HORN MR#: [id number] : 2000 Acct:[id number] Age/Sex: 23 / F ADM Date: Loc: [facility] 254-[address]: CORDELL GIFFORD APRN, CNM Ordering Physician: CORDELL GIFFORD APRN, CNM Date of Service: 10/23/24 Procedure(s): US OB cervical length Accession Number(s): [id number] cc: Mini Sal ND; CORDELL GIFFORD APRN, CNM The [address] [address] Patient Name: JACQUE HORN MRN: [facility]:[id number] date: 2000 Sex: F Assigned Patient Location: [facility] Current Patient Location: Accession/Order Number: [id number] Exam Date: 10/23/2024 19:09 Report Date: 10/23/2024 [...] Ortega M.D. 10/23/2024 7:14 PM [facility] Electron[facility] authenticated by: [id number] Y Date: 10/23/2024 19:14 Dictated By: Rom Ortega M.D. Signed By: 10/23/241916 DD/ 13 TD/TT: Food Broker: [facility] Radiology Study observation (narrative) [facility] US OB CERVICAL LENGTHOrdered By: Radiologist Radiology on 10-23-2024 [facility] [employer] Work Phone: US OB BPP W NON-STRESS on 10-23-2024 [place] [address] Ultrasound Report Signed Patient: JACQUE HORN MR#: [id number] : 2000 Acct:[id number] Age/Sex: 23 / F ADM Date: Loc: [facility] 254-[address]: CORDELL GIFFORD APRN, CNM Ordering Physician: CORDELL GIFFORD APRN, CNM Date of Service: 10/23/24 Procedure(s): US OB BPP w non-stress Accession Number(s): [id number] cc: Mini Sal ND; CORDELL GIFFORD APRN, CNM [place] [address] Patient Name: JACQUE HORN MRN: [facility]:[id number] date: 2000 Sex: F Assigned Patient Location: [facility] Current Patient Location: Accession/Order Number: [id number] Exam Date: 10/23/2024 19:15 Report Date: 10/23/2024 [...] Ortega M.D. 10/23/2024 7:16 PM Dictation Location: [place] [address] Electronically authenticated by: [id number] Y Date: 10/23/2024 19:16 Dictated By: Rom Ortega M.D. Signed By: 10/23/241917 DD/ 15 TD/TT: Food Broker: [facility] Radiology, Radiologist, MD - 10/23/2024 [place] [address] Ultrasound Report Signed Patient: JACQUE HORN MR#: [id number] : 2000 Acct:[id number] Age/Sex: 23 / F ADM Date: Loc: [facility] 254-[address]: CORDELL GIFFORD APRN, CNM Ordering Physician: COREDLL GIFFORD APRN, CNM Date of Service: 10/23/24 Procedure(s): US OB BPP w non-stress Accession Number(s): [id number] cc: Mini Sal ND; CORDELL GIFFORD APRN, CNM The [address] [address] Patient Name: JACQUE HORN MRN: [facility]:[id number] date: 2000 Sex: F Assigned Patient Location: [facility] Current Patient Location: Accession/Order Number: [id number] Exam Date: 10/23/2024 19:15 Report Date: 10/23/2024 [...] Ortega M.D. 10/23/2024 7:16 PM Dictation Location: [employer] Electronically authenticated by: [id number] Y Date: 10/23/2024 19:16 Dictated By: Rom Ortega M.D. Signed By: 10/23/241917 DD/ 15 TD/TT: Food Broker: [facility] Radiology Study observation (narrative) [facility] US OB BPP W NON-STRESS Ordered By: Radiologist Radiology on 10-23-2024 [facility] [employer] Work Phone: US OB FOLLOW UP TRANSABDOMIN [...] II, MD, PHD at 11-Oct-2024 08:25:22 AM [facility] Normal Not Available US OB 14+ [...] Nom ( U)on 05-26-2024 Appearance (U) Adequate [facility] Internal identifier for Provider [id number] [facility] Specimen source Nom (Unsp spec) URINE [facility] STATUS FINAL [facility] - Drug toxicology on 05-26-2024 9-Vlzbgkeqfg-4,5-Dimethy l-3,3-Diphenylpyrrolidin e (EDDP) Ql (U) Negative NINF - 100 ng/mL [facility] Amphetamines Ql (U) Negative NINF - 5 00 ng/mL [facility] Barbiturates Ql (U) Negative NINF - 3 00 ng/mL [facility] Benzodiazepines Ql (U) Negative NINF - 100 ng/mL [facility] Benzoylecgonine Ql (U) Negative NINF - 150 ng/mL [facility] Opiates Ql (U) Negative NINF - 100 ng/mL [facility] oxyCODONE Ql (U) Negative NINF - 100 ng/mL [facility] Phencyclidine Ql (U) Negative NINF - 25 ng/mL [facility] Tetrahydrocannabinol Screen method >20 ng/mL Ql (U) Negative NINF - 20 ng/mL [facility] Laboratory - Microbiology an d Antimicrobial susceptibilityon 05-26-2024 Bacteria identified Cx Nom (U) SEE NOTE [facility] Comment on above: No Growth Laboratory - Miscellaneous t estson 05-26-2024 Service comment (Unsp spec) [Interp] [facility] Comment on above: This urine was martin zed for the presence of WBC, RBC, bacteria, casts, and other formed elements. Only those elements seen were reported. Laboratory - Urinalysison Bacteria LM.HPF (Urine sed) [#/Area] NONE SEEN NONE SEEN /HPF [facility] Epithelial cells.squamous LM.HPF (Urine sed) [#/Area] 0-5 < OR = 5 /HPF [facility] Hyaline casts (Urine sed) [#/Area] NONE SEEN NONE SEEN /LPF [facility] RBC LM.HPF (Urine sed) [#/Area] NONE SEEN < OR = 2 /HPF [facility] WBC LM.HPF (Urine sed) [#/Area] 6-10 Abnormal < OR = 5 /HPF [facility] N. gonorrhoeae DNA CHRISTY+probe Ql (Cervical mucus)on 05-26-2024 C. trachomatis rRNA CHRISTY+probe Ql (Unsp spec) Not detected NOT DETECTED [facility] N. gonorrhoeae rRNA CHRISTY+probe Ql (Unsp spec) Not detected NOT DETECTED [facility] No Panel Informationon 05-26 (ALWAYS MESSAGE) [facility] Comment on above: See Note 1 Note 1 This drug testing is for medical treatment only. Analysis was performed as non-forensic testing and these results should be used only by healthcare providers to render diagnosis or treatment, or to monitor progress of medical conditions. For assistance with interpreting these drug results, please contact a [facility] Toxicology Specialist: [phone] ( ), M-F, 8am-6pm EST. The analytical perfo rmance characteristics of this assay, when used to test SurePath(TM) specimens have been determined by [facility]. The modifications have not been cleared or approved by the FDA. This assay has been validated pursuant to the CLIA regulations and is used for clinical purposes. For additional information, please refer to https://education.TextualAds/faq/OEH761 (This link is being provided for information/ educational purposes only.) Interpretation and review of laboratory results Abnormal [facility] SPLIT 05/24/2024 FROM [id number] [facility] Organization Information Site ID: QPT Name: [facility] Address: [address] [place] [address], [address] [place] [phone] Director: Juan Mensah MD [facility] CBC panel Auto (Bld)on 05-25 Erythrocyte distribution width (RBC) [Ratio] 12.9 % 11.0 - 15.0 % [facility] Hematocrit (Bld) [Volume fraction] 39.1 % 35.0 - 45.0 % [facility] Hemoglobin (Bld) [Mass/Vol] 12.9 g/dL 11.7 - 15.5 g/dL [facility] MCH (RBC) [Entitic mass] 28.8 pg 27. 0 - 33.0 pg [facility] MCHC (RBC) [Mass/Vol] 33 g/dL 32.0 - 36.0 g/dL [facility] Comment on above: For adults, a slight decrease in the calculated MCHC value (in the range of 30 to 32 g/dL) is most likely not clinically significant; however, it should be interpreted with caution in correlation with other red cell parameters and the patient's clinical condition. MCV (RBC) [Entitic vol] 87.3 fL 80.0 - 100.0 fL [facility] Platelet mean volume (Bld) [Entitic vol] 10.4 fL 7.5 - 12.5 fL [facility] Platelets (Bld) [#/Vol] 269 10*3/uL [facility] RBC (Bld) [#/Vol] 4.48 10*6/uL [facility] WBC (Bld) [#/Vol] 10.6 10*3/uL [facility] Performing Organization Information Site ID: QTW [facility] Address: [address] [place] [phone] Director: Nishi Squires [facility] Laboratory - Blood bankon ABO group Nom (Bld) O [facility] Blood group antibody screen Ql Detected [facility] Comment on above: Reference range No antibodies detected This assay is a screening test for the detection of red blood cell antibodies. The test is not to be used for pretransfusion screening or for the medical management of an alloimmunized . Rh Nom (Bld) Positive [facility] Comment on above: For additional information, please refer to http://education.Material Wrld/faq/QTY656 (This link is being provided for informational/ educational purposes only.) Laboratory - Chemistry and C hemistry - challengeon 05-25-2024 Free T4 [Mass/Vol] 1.3 ng/dL 0.8 - 1.8 ng/dL [facility] TSH Qn 4.91 m[IU]/L High mIU/L [facility] Comment on above: Reference Range > or = 20 Years 0.40-4.50 Ranges First trimester 0.26-2.66 Second trimester 0.55-2.73 Third trimester 0.43-2.91 Laboratory - Hematology and Cell countson 05-25-2024 HbA1c (Bld) [Mass fraction] 5.5 % [facility] Comment on above: For the purpose of s creening for the presence of diabetes: <5.7% Consistent with the absence of diabetes 5.7-6.4% Consistent with increased risk for diabetes (prediabetes) > or =6.5% Consistent with diabetes This assay result is consistent with a decreased risk of diabetes. Currently, no consensus exists regarding use of hemoglobin A1c for diagnosis of diabetes in children. According to [place] [employer] Association (ADA) guidelines, hemoglobin A1c <7.0% represents optimal control in non- diabetic patients. Different metrics may apply to specific patient populations. Standards of Medical Care in Diabetes(ADA). Laboratory - Microbiology an d Antimicrobial susceptibilityon 05-25-2024 HBV surface Ag IA Ql Non-Reactive NON-REACTIVE [facility] Comment on above: For additional information, please refer to http://Inneractive.TextualAds/faq/KPZ080 (This link is being provided for informational/ educational purposes only.) HCV Ab IA Ql Non-Reactive NON-REACTIVE [facility] Comment on above: HCV antibody was non-reactive. There is no laboratory evidence of HCV infection. In most cases, no further action is required. However, if recent HCV exposure is suspected, a test for HCV RNA (test code 19489) is suggested. For additional information please refer to http://Inneractive.TextualAds/faq/XPL95l6 (This link is being provided for informational/ educational purposes only.) HIV 1+2 Ab+HIV1 p24 Ag IA Ql Non-Reactive NON-REACTIVE [facility] Comment on above: HIV-1 antigen and HI [...] purpose. For additional information please refer to http://education.TextualAds/faq/MRI058 (This link is being provided for informational/ educational purposes only.) The performance of this assay has not been clinically validated in patients less than 2 years old. Reagin Ab RPR Ql (S) Non-Reactive NON-REACTIVE [facility] Rubella virus IgG Qn (S) 1.63 [IU]/mL Index [facility] Comment on above: Index Interpretation ----- <0.90 Not consistent with immunity 0.90-0.99 Equivocal > or = 1.00 Consistent with immunity The presence of rubella IgG antibody suggests immunization or past or current infection with rubella virus. No Panel Informationon 05-25 Interpretation and review of laboratory results Abnormal [facility] COLLECTION KIT GIVEN TO PATIENT. PATIENT ADVISED TO RETURN. [employer] Organization Information Site ID: QPT Name: [facility] Address: [address] [place] [address], [address] [place] [phone] Director: Juan Mensah MD [facility] BASIC METABOLIC PANLon 09-07 Anion gap [Moles/Vol] 8 mmol/L Normal 5-15 [facility] Comment on above: Performed By: #### C EVELIA [facility], #### [facility] ([id number]) [address] [place] [place] [id number] Calcium [Mass/Vol] 9.8 mg/dL Normal 8.5-10.5 [facility] Comment on above: Performed By: #### C BELEN ALTAMIRANO, #### [facility] ([id number]) [address] [place] [place] [address] Chloride [Moles/Vol] 102 mmol/L Normal 98-109 [facility] Comment on above: Performed By: #### C BELEN ALTAMIRANO, #### [facility] ([id number]) [address] [place] [place] [address] CO2 [Moles/Vol] 25 mmol/L Normal 22-32 [facility] Comment on above: Performed By: #### C BELEN ALTAMIRANO, #### [facility] ([id number]) [address] [place] [place] [address] Creatinine [Mass/Vol] 0.66 mg/dL Normal 0.40-1.00 [facility] Comment on above: Result Comment: METH OD TRACEABLE TO IDMS STANDARD Performed By: #### C BELEN ALTAMIRANO, #### [facility] ([id number]) [address] [place] [place] [address] eGFR (CKD-EPI) NON-RACE DEPENDENT >90 Normal >59 [facility] Comment on above: Result Comment: Reported eGFR is based on the CKD-EPI 2020 equation that does not use a race coefficient. Performed By: #### C BELEN ALTAMIRANO, #### [facility] ([id number]) [address] [place] [place] [address] Glucose [Mass/Vol] 97 mg/dL Normal 65-99 [facility] Comment on above: Performed By: #### C BELEN ALTAMIRANO, #### [facility] ([id number]) [address] [place] [place] [address] Potassium [Moles/Vol] 3.6 mmol/L Normal 3.5-5.0 [facility] Comment on above: Performed By: #### C BELEN ALTAMIRANO, #### [facility] ([id number]) [address] [place] [place] [address] Sodium [Moles/Vol] 135 mmol/L Normal 134-146 [facility] Comment on above: Performed By: #### C BELEN ALTAMIRANO, #### [facility] ([id number]) [address] [place] [place] [address] Urea nitrogen [Mass/Vol] 14 mg/dL Normal 5-23 [facility] Comment on above: Performed By: #### C BELEN ALTAMIRANO, #### [facility] ([id number]) [address] [place] [place] [address] CBC AND AUTO DIFFon 09-08-19 24 ABSOLUTE BASOPHIL 0.1 X10E9/L Normal 0.0-0.2 [facility] Comment on above: Performed By: #### C EVELIA [facility], #### [facility] ([id number]) [address] [place] [place] [address] ABSOLUTE NEUTROPHIL 6.9 X10E9/L High 1.5-6.6 [facility] Comment on above: Performed By: #### Ricarda ALTAMIRANO [facility], #### [facility] ([id number]) [address] [place] [phone] Basophils/100 WBC (Bld) 0.8 % Normal [facility] Comment on above: Performed By: #### Ricarda [facility]AN[facility], #### [facility] ([id number]) [address] [place] [address]139 Eosinophils (Bld) [#/Vol] 0.2 10*3/uL Normal 0.0-0.4 [facility] Comment on above: Performed By: #### Ricarda [facility]ANO [facility], #### [facility] ([id number]) [address] [place] [address] 32811 Eosinophils/100 WBC (Bld) 2.0 % Normal [facility] Comment on above: Performed By: #### Ricarda [facility]ANO [facility], #### [facility] ([id number]) [address] [place] [address] 14560 Erythrocyte distribution width (RBC) [Ratio] 12.9 % Normal 11.5-15.0 [facility] Comment on above: Performed By: #### BELEN Chowdary [facility], #### [facility] ([id number]) [address] [place] [address] 68047 Hematocrit (Bld) [Volume fraction] 39.3 % Normal 35-47 [facility] Comment on above: Performed By: #### C BELEN ALTAMIRANO, #### [facility] ([id number]) [address] [place] [address] 31656 Hemoglobin (Bld) [Mass/Vol] 13.1 g/dL Normal 11.7-15.5 [facility] Comment on above: Performed By: #### BELEN Chowdary [facility], #### [facility] ([id number]) [address] [place] [address] 80509 Lymphocytes (Bld) [#/Vol] 2.2 10*3/uL Normal 1.0-3.5 [facility] Comment on above: Performed By: #### Ricarda [facility]AN[facility], #### [facility] ([id number]) [address] [place] [address] 32258 Lymphocytes/100 WBC (Bld) 21.0 % Normal [facility] Comment on above: Performed By: #### BELEN Chowdary [facility], #### [facility] ([id number]) [address] [place] [address] 00297 MCH (RBC) [Entitic mass] 29.1 pg Normal 27-34 [facility] Comment on above: Performed By: #### C BELEN ALTAMIRANO, #### [facility] ([id number]) [address] [place] [place] [address] 77097 MCHC (RBC) [Mass/Vol] 33.3 g/dL Normal 32-36 [facility] Comment on above: Performed By: #### BELEN Chowdary BCA, #### [facility] ([id number]) [address] [place] [address] MCV (RBC) [Entitic vol] 87 fL Normal 80-100 [facility] Comment on above: Performed By: #### BELEN Chowdary BCA, #### [facility] ([id number]) [address] [place] [address] 89559 Monocytes (Bld) [#/Vol] 1.0 10*3/uL High 0-0.9 [facility] Comment on above: Performed By: #### BELEN Chowdary BCA, #### [facility] ([id number]) [address] [place] [place] [address] 26414 Monocytes/100 WBC (Bld) 9.5 % Normal [facility] Comment on above: Performed By: #### BELEN Chowdary BCA, #### [facility] ([id number]) [address] [place] [address] 87140 Neutrophils/100 WBC (Bld) 66.7 % Normal [facility] Comment on above: Performed By: #### Ricarda [facility], #### [facility] ([id number]) [address] [place] [place] [address] 61027 Platelet mean volume (Bld) [Entitic vol] 8.7 fL Normal 7-12 [facility] Comment on above: Performed By: #### BELEN Chowdary B[facility], #### [facility] ([id number]) [address] [place] [address] 47832 Platelets (Bld) [#/Vol] 299 10*3/uL Normal 150-450 [facility] Comment on above: Performed By: #### BELEN Chowdary BCA, #### [facility] ([id number]) [address] [place] [place] [address] 21912 RBC COUNT 4.50 X10E12/L Normal 3.80-5.20 [facility] Comment on above: Performed By: #### C BELEN ALTAMIRANO, [id number] #### [facility] ([id number]) [address] [place] [address] 29453 WBC (Bld) [#/Vol] 10.4 10*3/uL Normal 4.0-11.0 [facility] Comment on above: Performed By: #### C BELEN ALTAMIRANO, #### [facility] ([id number]) [address] [place] [address] 30990 HCG ( test) Ql (U)o n 09-08-2023 Beta HCG ( test) Ql (U) Positive Abnormal NEG [facility] Comment on above: Performed By: #### 2 106-3 #### [facility] ([id number]) [address] [place] [place] [address] 50049 HCG.beta subunit IA 3rd IS Q non 09-08-2023 HCG.beta subunit Qn 126 m[IU]/mL Normal [facility] Comment on above: Result Comment: NEW REFERENCE [...] Performed By: #### C BELEN ALTAMIRANO, #### [facility] ([id number]) [address] [place] [address] 33262 URINE CULTUREon 09-08-2023 Bacteria identified Cx Nom (U) CULTURE RESULTS >100,000 ORGANISMS/ML NORMAL UROGENITAL JUSTINE Normal [facility] Comment on above: Performed By: #### 6 30-4 #### [facility] ([id number]) [address], [address] [place] [address] URN MACROSCOPIC NURon 2023 BILIRUBIN PRAMOD Negative Normal NEG [facility] Comment on above: Performed By: #### N UM #### [facility] ([id number]) [address] [place] [address] 05845 BLOOD/HGB PRAMOD Large Abnormal NEG [facility] Comment on above: Performed By: #### N UM #### [facility] ([id number]) [address] [place] [place] [address] 14429 GLUCOSE PRAMOD Negative Normal NEG [facility] Comment on above: Performed By: #### N UM #### [facility] ([id number]) [address] [place] [address] [place] [address] KETONES PRMAOD Negative Normal NEG [facility] Comment on above: Performed By: #### N UM #### [facility] ([id number]) [address] [place] [address] [place] [address] LEUKOCYTE ESTERASE PRAMOD Small Abnormal NEG Pr [facility] Comment on above: Performed By: #### N UM #### [facility] ([id number]) [address] [place] [address] [place] [address] NITRITE PRAMOD Negative Normal NEG [facility] Comment on above: Performed By: #### N UM #### [facility] ([id number]) [address] [place] [address] 08601 PH PRAMOD 5.0 Normal 5.0-8.5 [facility] Comment on above: Performed By: #### N UM #### [facility] ([id number]) [address] [place] [address] PROTEIN PRAMOD 100 mg/dL Abnormal NEG [facility] Comment on above: Performed By: #### N UM #### [facility] ([id number]) [address] [place] [address] SPECIFIC GRAVITY PRAMOD 1.025 Normal 1.003-1.035 [facility] Comment on above: Performed By: #### N UM #### [facility] ([id number]) [address] [place] [address] UROBILINOGEN PRAMOD 0.2 eu/dL Normal <1.1 [facility] Comment on above: Performed By: #### N UM #### [facility] ([id number]) [address] [place] [address] US PREG LESS THAN 14 WKS WIT [...] Dave MD on 09/08/2023 1:54 PM Normal [facility] [id number] 01-12-2020 SARS-CoV-2 Not Detected Normal Not Detected [facility] Comment on above: Result Comment: (NOT E) This nucleic acid amplification test was developed and its performance characteristics determined by [employer]. Nucleic acid amplification tests include PCR and [...] detected) result in this assay. Performed At: [facility] [address] [facility] [place] [id number] Cindy Rodriguez MD Ph:[phone] Performed By: #### A COV #### [facility] [address] [place] [address] [employer] Worker: Gerardo Baez MD [id number] 01-09-2020 SARS-CoV-2 Not Detected Normal Not Detected [facility] Comment on above: Result Comment: (NOT E) This nucleic acid amplification test was developed and its performance characteristics determined by [employer]. Nucleic acid amplification tests include PCR and [...] this assay. Performed At: [facility] [address] [place], [place] [id number] Bunny Esquivel [facility] Ph:[phone] Performed By: #### A COV #### [facility] [address] [place], [place] [id number] [employer] Worker: Gerardo Baez MD Vital Signs Date Time Vital Sign Value Performing Clinician Facility 12-04-2024 14:13-0400 Body mass index (BMI) [Ratio] 41.02 kg/m2 [facility] Work Phone: [facility] 12-04-2024 14:13-0400 Body weight 131.54 kg Cordell [facility] Work Phone: [facility] 12-04-2024 14:13-0400 Diastolic blood pressure 100 mm[Hg] [facility] Work Phone: [facility] Comment on above: repeat is 130/80 and 128/78 12-04-2024 14:13-0400 Systolic blood pressure 150 mm[Hg] [facility] Work Phone: [facility] Comment on above: repeat is 130/80 and 128/78 11-29-2024 14:50-0400 Body mass index (BMI) [Ratio] 40.46 kg/m2 [facility] Work Phone: [facility] 11-29-2024 14:50-0400 Body weight 129.73 kg Cordell Floro CNM Work Phone: [facility] 11-29-2024 14:50-0400 Diastolic blood pressure 90 mm[Hg] Cordell Floro CNM Work Phone: [facility] Comment on above: 150/100 11-29-2024 14:50-0400 Systolic blood pressure 140 mm[Hg] Cordell Floro CNM Work Phone: [facility] Comment on above: 150/100 11-22-2024 16:01-0400 Body mass index (BMI) [Ratio] 40.6 kg/m2 Cordell Floro CNM Work Phone: [facility] 11-22-2024 16:01-0400 Body weight 130.18 kg Cordell Floro CNM Work Phone: [facility] 11-22-2024 16:01-0400 Diastolic blood pressure 80 mm[Hg] Cordell Floro CNM Work Phone: [facility] 11-22-2024 16:01-0400 Systolic blood pressure 122 mm[Hg] Cordell Floro CNM Work Phone: [facility] 09-28-2024 14:28-0400 Body mass index (BMI) [Ratio] 38.33 kg/m2 Cordell Floro CNM Work Phone: [facility] 09-28-2024 14:28-0400 Body weight 122.92 kg Cordell Floro CNM Work Phone: [facility] 09-28-2024 14:28-0400 Diastolic blood pressure 70 mm[Hg] Cordell Floro CNM Work Phone: [facility] 09-28-2024 14:28-0400 Systolic blood pressure 122 mm[Hg] Cordell Floro CNM Work Phone: [facility] 08-29-2024 15:07-0400 Body mass index (BMI) [Ratio] 37.2 kg/m2 Cordell Floro CNM Work Phone: [facility] 08-29-2024 15:07-0400 Body weight 119.3 kg Cordell Floro CNM Work Phone: [facility] 08-29-2024 15:07-0400 Diastolic blood pressure 80 mm[Hg] Cordell Floro CNM Work Phone: [facility] 08-29-2024 15:07-0400 Systolic blood pressure 118 mm[Hg] Cordell Floro CNM Work Phone: [facility] 07-31-2024 17:13-0400 Body mass index (BMI) [Ratio] 36.64 kg/m2 Cordell Floro CNM Work Phone: [facility] 07-31-2024 17:13-0400 Body weight 117.48 kg Cordell Floro CNM Work Phone: [facility] 06-22-2024 08:28-0500 Body mass index (BMI) [Ratio] 35.08 kg/m2 Cordell Floro CNM Work Phone: [facility] 06-22-2024 08:28-0500 Body weight 112.49 kg Cordell Floro CNM Work Phone: [facility] 06-22-2024 08:28-0500 Diastolic blood pressure 72 mm[Hg] Cordell Floro CNM Work Phone: [facility] 06-22-2024 08:28-0500 Systolic blood pressure 120 mm[Hg] Cordell Floro CNM Work Phone: [facility] 05-04-2024 14:32-0500 Body mass index (BMI) [Ratio] 32.96 kg/m2 Cordell Floro CNM Work Phone: [facility] 05-04-2024 14:32-0500 Body weight 105.69 kg Cordell Floro CNM Work Phone: [facility] 05-04-2024 14:32-0500 Diastolic blood pressure 70 mm[Hg] Cordell Floro CNM Work Phone: [facility] 05-04-2024 14:32-0500 Systolic blood pressure 110 mm[Hg] Cordell Gifford CNDinora Work Phone: [facility] 02-24-2024 11:30-0400 Body height 180.3 cm Mini Sal MD Work Phone: [facility] 02-24-2024 11:30-0400 Body mass index (BMI) [Ratio] 32.08 kg/m2 Mini Sal MD Work Phone: [facility] 02-24-2024 11:30-0400 Body temperature 98.71 [degF] Mini Sal MD Work Phone: [facility] 02-24-2024 11:30-0400 Body weight 104.33 kg Mini Sal MD Work Phone: [facility] 02-24-2024 11:30-0400 Diastolic blood pressure 68 mm[Hg] Mini Sal MD Work Phone: [facility] 02-24-2024 11:30-0400 Heart rate 72 /min Mini Sal MD Work Phone: [facility] 02-24-2024 11:30-0400 SaO2% (BldA) [Mass fraction] 98 % Mini Sal MD Work Phone: [facility] 02-24-2024 11:30-0400 Systolic blood pressure 116 mm[Hg] Mini Sal MD Work Phone: [facility] 07-06-2023 12:57-0500 Body height 179.1 cm Mini Sal MD Work Phone: [facility] 07-06-2023 12:57-0500 Body mass index (BMI) [Ratio] 31.39 kg/m2 Mini Sal MD Work Phone: [facility] 07-06-2023 12:57-0500 Body temperature 98.8 [degF] Mini Sal MD Work Phone: [facility] 07-06-2023 12:57-0500 Body weight 100.7 kg Mini Sal MD Work Phone: [facility] 07-06-2023 12:57-0500 Diastolic blood pressure 74 mm[Hg] Mini Sal MD Work Phone: [facility] 07-06-2023 12:57-0500 Heart rate 70 /min Mini Sal MD Work Phone: [facility] 07-06-2023 12:57-0500 SaO2% (BldA) [Mass fraction] 99 % Mini Sal MD Work Phone: [facility] 07-06-2023 12:57-0500 Systolic blood pressure 122 mm[Hg] Mini Sal MD Work Phone: [facility] Encounters Encounter Date Encounter Type Care Provider Facility Start: 12-04-2024 End: 12-04-2024 Subsequent care visit Cordell Solimano CNM Work Phone: [facility] Comment on above: Encounter for prenat al care of first , third trimester ([facility]) (Primary Dx); Elevated blood pressure affecting in third trimester, antepartum ([facility]) Start: 12-04-2024 End: 12-04-2024 Bamboo flowsheet Cordell L Floro CNM Work Phone: [facility] Start: 12-04-2024 End: 12-04-2024 Bamboo flowsheet Cordell L Floro CNM Work Phone: [facility] Start: 11-29-2024 End: 11-29-2024 Subsequent care visit Cordell Leodan Jannyo CNM Work Phone: [facility] Comment on above: Large for dates affe cting management of mother, third trimester, fetus 1 ([facility]) (Primary Dx); Encounter for care of first , third trimester ([facility]); Elevated blood pressure affecting in third trimester, antepartum ([facility]) Start: 11-29-2024 End: 11-29-2024 ambulatory CORDELL L FLORO Not Available Start: 11-29-2024 End: 11-29-2024 Bamboo flowsheet Cordell L Floro CNM Work Phone: [facility] Start: 11-29-2024 End: 11-29-2024 Bamboo flowsheet Cordell L Floro CNM Work Phone: [facility] Start: 11-29-2024 End: 11-29-2024 Clinisync Result Encounter Cordell L Floro CNM Work Phone: [facility] Unsolicited Start: 11-23-2024 End: 11-23-2024 ambulatory CORDELL L FLORO Not Available Start: 11-22-2024 End: 11-22-2024 Subsequent care visit Cordell L Floro CNM Work Phone: [facility] Comment on above: Large for dates affe cting management of mother, third trimester, fetus 1 ([facility]) (Primary Dx); Encounter for care of first , third trimester ([facility]); screening for streptococcus B ([facility]); Large for dates ([facility]) Start: 11-22-2024 End: 11-22-2024 ambulatory CORDELL L FLORO Not Available Start: 11-22-2024 End: 11-22-2024 Bamboo flowsheet Cordell L Floro CNM Work Phone: [facility] Start: 11-22-2024 End: 11-22-2024 Bamboo flowsheet Cordell L Floro CNM Work Phone: [facility] Start: 11-07-2024 End: 11-07-2024 ambulatory CORDELL L FLORO Not Available Start: 11-07-2024 End: 07-08-2025 Bamboo flowsheet Cordell L Floro CNM Work [...] 08-29-2024 End: 08-29-2024 Subsequent care visit Cordell L Floro CNM [...] Telephone encounter Mini Sal MD Work Phone: [facility] Comment on above: Sleep Lab (HST/PSG/C PAP) Start: 02-24-2024 End: 02-24-2024 ambulatory [facility] Start: 02-24-2024 End: 02-24-2024 Office outpatient visit 25 minutes Mini Sal MD Work Phone: [facility] Comment on above: Obesity (BMI 30-39.9 ) (Primary Dx); Weight loss; PCOS (polycystic ovarian syndrome) Start: 01-13-2024 End: 01-13-2024 Telephone encounter Karolina Lawrence [facility] Call Karl powell Comment on above: Abdominal Pain; Dizz iness Start: 09-08-2023 End: 09-09-2023 Emergency department patient visit HARTSELLE Aimee [facility] Start: 07-06-2023 End: 07-06-2023 Office outpatient visit 25 minutes Mini Sal MD Work Phone: [facility] Comment on above: Obesity (BMI 30-39.9 ) (Primary Dx); Acute otitis externa of both ears, unspecified type Start: 07-06-2023 End: 07-06-2023 ambulatory [facility] Start: 05-26-2023 End: 05-26-2023 ambulatory [facility] Start: 05-26-2023 End: 05-26-2023 Office outpatient visit 25 minutes Mini Sal MD Work Phone: [facility] Comment on above: Obesity (BMI 30-39.9 ) (Primary Dx); Weight loss; BMI 35.0-35.9,adult Start: 04-20-2023 End: 04-20-2023 ambulatory [facility] Start: 01-10-2020 Patient encounter procedure MISSY LORENZA Facility:[facility] Start: 01-10-2020 End: 01-11-2020 Patient encounter procedure MISSY NICKERSON [facility] Start: 01-10-2020 End: 01-10-2020 Subsequent hospital visit by physician Stephy Gabriel Screening Schedule STEPHY Covshonda Screening Comment on above: Arrived Start: 01-04-2020 End: 01-05-2020 Patient encounter procedure LIT ELIZABETH [facility] Start: 01-04-2020 End: 01-04-2020 Subsequent hospital visit by physician Karel KE[facility] Start: 01-03-2020 End: 01-04-2020 Patient encounter procedure LIT ELIZABETH [facility] Start: 01-03-2020 End: 01-03-2020 Subsequent hospital visit by physician Karel KEYES Laboratory Procedures Date Procedure Procedure Detail Performing Clinician Start: 11-29-2024 US OB BPP W NON-STRESS Cordell L Floro CNM Work Phone: Start: 11-29-2024 ALL CBC WITH AUTO DIFF Cordell L Floro CNM Work Phone: Start: 10-23-2024 US OB BPP W NON-STRESS Cordell L Floro CNM Work Phone: Start: 10-23-2024 US OB CERVICAL LENGTH V alerie L Floro CNM Work Phone: Start: 10-23-2024 [facility] UA (CLEAN/CATCH) CREDIT COLLECTIONS REP/MICRO IF IND. Cordell L Floro CNM Work [...] Adult BMI Screening Adult BMI Screen ing [facility] Start: 02-23-2025 Tobacco Screening Tobacco Screening [facility] Start: 01-01-2025 Influenza vaccination N [facility] Start: 12-13-2024 End: 12-13-2024 Patient encounter procedure [facility] Start: 12-07-2024 End: 12-07-2024 Patient encounter procedure 12/07/2024 3:30 PM EDT Routine [facility] [address] [place] [phone] Cordell Gifford, [facility] [address] [place] [address] [facility] Start: 12-06-2024 End: 12-06-2024 Patient encounter procedure [facility] Start: 12-04-2024 End: 12-04-2024 Patient encounter procedure 12/04/2024 2:30 PM EDT Routine [facility] [address] [place] [phone] Cordell Gifford, CNM [address] [place] [address] Arrived [facility] Comment on above: Arrived Start: 11-29-2024 End: 11-29-2024 Patient encounter procedure [facility] Comment on above: Arrived Start: 11-23-2024 End: 11-23-2024 Professional / ancillary services management 11/23/2024 2:15 PM EDT Ancillary Procedure [facility] [address] [place] [address] [facility] Start: 11-22-2024 End: 11-22-2024 Patient encounter procedure 11/22/2024 4:00 PM EDT Routine [facility] [address] [place] [phone] Cordell Gifford, CN [address] [place], [place] [id number] Arrived [facility] Comment on above: Arrived Start: 11-22-2024 End: 11-22-2025 STREPTOCCOUS, GROUP B CULTURE STREPTOCCOUS, GROUP B CULTURE Lab Routine screening for streptococcus B ([facility]) Expected: 11/22/2024 (Approximate), Expires: 11/22/2025 [facility] Work Phone: Comment on above: Expected: 11/22/2024 (Approximate), Expires: 11/22/2025 Start: 11-22-2024 End: 11-22-2025 US for US OB follow up transabdominal approach Imaging Routine Large for dates ([facility]) Expected: 11/22/2024, Expires: 11/22/2025 [facility] Comment on above: Expected: 11/22/2024 , Expires: 11/22/2025 Start: 10-26-2024 End: 10-26-2024 Patient encounter procedure 10/26/2024 3:30 PM EDT Routine [facility] [address] [place] [phone] Cordell Gifford, [facility] [address] [place], [place] [id number] [facility] Start: 09-28-2024 End: 09-28-2024 [...] in third trimester Expected: 09/28/2024, Expires: 09/28/2025 [facility] Comment on above: Expected: 09/28/2024 , Expires: 09/28/2025 Start: 09-07-2024 Adult BMI Screening Adult BMI Screen ing [facility] Start: 09-07-2024 Tobacco Screening Tobacco Screening [facility] Start: 08-29-2024 End: 08-29-2024 Patient encounter procedure 08/29/2024 3:00 PM EDT Routine [facility] [address] [place] [phone] Cordell Gifford, CNM [address] [place] [address] Arrived [facility] Comment on above: Arrived Start: 08-28-2024 End: 08-28-2024 Patient encounter procedure 08/28/2024 5:00 PM EDT Routine [facility] [address] [place] [phone] Cordell Gifford, CNM [address] [place] [address] [facility] Start: 07-31-2024 End: 07-31-2024 Patient encounter procedure [facility] Comment on above: related co ndition in second trimester Start: 07-31-2024 End: 07-31-2024 Professional / ancillary services management 07/31/2024 5:45 PM EDT Ancillary Procedure [facility] [address] [phone] [facility] Start: 07-31-2024 End: 07-31-2025 US for [facility] Work Phone: Comment on above: Expected: 07/31/2024 , Expires: 07/31/2025 Start: 07-20-2024 End: 07-20-2024 Patient encounter procedure 07/20/2024 3:00 PM EDT Routine [facility] [address] [place] [address] Cordell Gifford CNM [address] [place] [address] [facility] Start: 07-05-2024 Adult BMI Screening Adult BMI Screen ing [facility] Start: 07-05-2024 Tobacco Screening Tobacco Screening [facility] Start: 06-29-2024 DTaP,Tdap and Td Vac cines (8 - Td or Tdap) DTaP,Tdap and Td Vaccines (8 - Td or Tdap) [facility] Start: 06-29-2024 DTaP/Tdap/Td vaccine (7 - Td) DTaP/Tdap/Td vaccine (7 - Td) [place], [place] Start: 06-22-2024 End: 06-22-2024 Patient encounter procedure [facility] Comment on above: Arrived Start: 06-20-2024 End: 06-20-2025 Thyrotropin [Units/volume] in Serum or Plasma TSH Lab Routine Elevated TSH Expected: 06/20/2024 (Approximate), Expires: 06/20/2025 [facility] Work Phone: Comment on above: Expected: 06/20/2024 (Approximate), Expires: 06/20/2025 Start: 05-24-2024 End: 05-24-2024 Patient encounter procedure 05/24/2024 8:30 AM EST Routine [facility] [address] [place] [address] Cordell Gifford CN [address] [place] [address] Arrived [facility] Comment on above: Arrived Start: 03-17-2024 Adult BMI Screening Adult BMI Screen ing [facility] Start: 03-17-2024 Tobacco Screening Tobacco Screening [facility] Start: 02-24-2024 End: 02-23-2025 Polysomnography 4 or more parameters with PAP titration Polysomnography 4 or more parameters with PAP titration Sleep Center Routine Obesity (BMI 30-39.9) Expected: 02/24/2024 (Approximate), Expires[facility] Comment on above: Expected: 02/24/2024 (Approximate), Expires: 02/23/2025 Start: 02-24-2024 End: 02-23-2025 [facility] Routine Obesity (BMI 30-39.9) Expected: 02/24/2024 (Approximate), Expires: 02/23/2025 [facility] Comment on above: Expected: 02/24/2024 (Approximate), Expires: 02/23/2025 Start: 02-24-2024 End: 03-26-2024 SARS COV 2 (COVID-19) SARS COV 2 (COVID-19) Microbiology STAT Obesity (BMI 30-39.9) Expected: 02/24/2024 (Approximate), Expires: 03/26/2024 [facility] Comment on above: Expected: 02/24/2024 (Approximate), Expires: 03/26/2024 Start: 02-24-2024 End: 02-23-2025 TSH with Reflex TSH with Reflex Lab Routine PCOS (polycystic ovarian syndrome) Expected: 02/24/2024 (Approximate), Expires: 02/23/2025 [employer] Phone: Comment on above: Expected: 02/24/2024 (Approximate), Expires: 02/23/2025 Start: 02-24-2024 End: 02-23-2025 Vitamin D 25 hydroxy Vitamin D 25 hydroxy Lab Routine PCOS (polycystic ovarian syndrome) Expected: 02/24/2024 (Approximate), Expires: 02/23/2025 [facility] Comment on above: Expected: 02/24/2024 (Approximate), Expires: 02/23/2025 Start: 01-02-2024 COVID-19 Vaccine ( season) COVID-19 Vaccine () [facility] Start: 01-02-2024 Influenza vaccination [facility] Start: 10-08-2023 End: 10-08-2023 Patient encounter procedure 10/08/2023 9:00 AM EDT Office Visit [facility] [address] [place] [id number] Mini Sal MD [address] [place] [address] [facility] Start: 01-01-2023 COVID-19 Vaccine () COVID-19 Vaccine () [facility] Start: 01-01-2023 Influenza vaccination Influenza Vacc ine [facility] Start: 10-26-2020 Screening for malign ant neoplasm of cervix Pap Smear [facility] Start: 01-02-2020 Influenza vaccination Flu vaccine (# 1) [place], [place] Start: 05-31-2018 Screening for Chlamy esthela trachomatis Chlamydia screen [place], [place] Start: 10-26-2017 Adult BMI Follow Up Plan Adult BMI F ollow Up Plan [facility] Start: 10-26-2014 HIV screening HIV screen [place], [place] Start: 2011 Depression Screening Depression Scre ening [facility] Start: 10-26-2010 HPV vaccine (1 - 2-d ose series) HPV vaccine (1 - 2-dose series) [place], [place] Start: 10-26-2005 Pneumococcal 0-64 ye ars Vaccine (1 of 1 - PPSV23) Pneumococcal 0-64 years Vaccine (1 of 1 - PPSV23) [place], [place] Start: 1999 Screening for Chlamy esthela trachomatis Chlamydia Screening [facility] Start: 1999 Tobacco Counseling Tobacco Counselin curtis [facility] End: 02-23-2025 Cortisol Cortisol Lab Routine PCOS (polycystic ovarian syndrome) 1 Occurrences starting 02/24/2024 until 02/23/2025 [facility] Comment on above: 1 Occurrences starti ng 02/24/2024 until 02/23/2025 End: 01-03-2020 Covid-19 Ambulatory Covid-19 Ambulatory Lab Routine Once for 1 Occurrences starting 01/03/2020 until 01/03/2020 [place] Comment on above: Once for 1 Occurrenc es starting 01/03/2020 until 01/03/2020 Covid-19 Ambulatory [place], [place] End: 01-10-2020 Covid-19 Ambulatory Covid-19 Ambulatory Lab Routine Once for 1 Occurrences starting 01/10/2020 until 01/10/2020 [place] Comment on above: Once for 1 Occurrenc es starting 01/10/2020 until 01/10/2020 End: 02-23-2025 Estradiol Estradiol Lab Routine PCOS (polycystic ovarian syndrome) 1 Occurrences starting 02/24/2024 until 02/23/2025 [facility] Comment on above: 1 Occurrences starti ng 02/24/2024 until 02/23/2025 End: 02-23-2025 FSH FSH Lab Routine PCOS (polycystic ovarian syndrome) 1 Occurrences starting 02/24/2024 until 02/23/2025 [facility] Comment on above: 1 Occurrences starti ng 02/24/2024 until 02/23/2025 End: 02-23-2025 Home sleep study Home sleep study Sleep Center Routine Obesity (BMI 30-39.9) 1 Occurrences starting 02/24/2024 until 02/23/2025 [facility] Comment on above: 1 Occurrences starti ng 02/24/2024 until 02/23/2025 End: 02-23-2025 Luteinizing hormone Luteinizing hormone Lab Routine PCOS (polycystic ovarian syndrome) 1 Occurrences starting 02/24/2024 until 02/23/2025 [facility] Comment on above: 1 Occurrences starti ng 02/24/2024 until 02/23/2025 End: 02-23-2025 Testosterone [Mass/volume] in Serum or Plasma Testosterone Lab Routine PCOS (polycystic ovarian syndrome) 1 Occurrences starting 02/24/2024 until 02/23/2025 [facility] Comment on above: 1 Occurrences starti ng 02/24/2024 until 02/23/2025 Immunizations Immunization Date Immunization Notes Care Provider Cristin pereira 12-17-2016 meningococcal polysaccharide (groups A, C, Y and W-135) diphtheria toxoid conjugate vaccine (MCV4P) [facility], [place] 06-29-2014 tetanus toxoid, redu marci diphtheria toxoid, and acellular pertussis vaccine, adsorbed [facility] 01-28-2012 Hepatitis A Ped/Adol (Vaqta) [facility] 09-24-2011 meningococcal polysaccharide (groups A, C, Y and W-135) diphtheria toxoid conjugate vaccine (MCV4P) [facility] 07-23-2011 Hepatitis A Ped/Adol (Vaqta) [facility], [place] 07-23-2011 varicella virus vaccine [facility], [place] 12-26-2004 diphtheria, tetanus toxoids and acellular pertussis vaccine [facility], [place] 12-26-2004 measles, mumps and r ubella virus vaccine [facility], [place] 12-26-2004 poliovirus vaccine, inactivated [facility], [place] 05-12-2001 diphtheria, tetanus toxoids and acellular pertussis vaccine [facility], [place] 05-12-2001 measles, mumps and r ubella virus vaccine [facility], [place] 05-12-2001 poliovirus vaccine, inactivated [facility], [place] 11-02-2000 haemophilus influenz ae type b vaccine, PRP-OMP conjugate [facility], [place] 11-02-2000 hepatitis B vaccine, pediatric or pediatric/adolescent dosage [facility], [place] 11-02-2000 varicella virus vaccine [facility], [place] 05-20-2000 diphtheria, tetanus toxoids and acellular pertussis vaccine [facility], [place] 03-09-2000 diphtheria, tetanus toxoids and acellular pertussis vaccine [facility], [place] 03-09-2000 haemophilus influenz ae type b vaccine, PRP-OMP conjugate [facility], [place] 03-09-2000 hepatitis B vaccine, pediatric or pediatric/adolescent dosage [facility], [place] 03-09-2000 poliovirus vaccine, inactivated [facility], [place] 1999 diphtheria, tetanus toxoids and acellular pertussis vaccine [facility], [place] 1999 haemophilus influenz ae type b vaccine, PRP-OMP conjugate [facility], [place] 1999 hepatitis B vaccine, pediatric or pediatric/adolescent dosage [facility], [place] 1999 poliovirus vaccine, inactivated [facility], [place] Payers Date Payer Category Payer Private Health Insurance [id number] 2024 Medicaid [place]ICAID [place] [id number] 2024 Medicaid [id number] 2019 [facility] Blue [facility] [id number] [id number] 2019 [employer] Blue Shie ld Managed Care - Other ANTHE[employer] [id number] 2019 Unknown [employer] BCBS OUT OF STATE PPO/TRUST [id number] 2019-Present [phone] [address] [place] [address] [id number] 2017 Unknown [id number] [id number]. [id number] 1999 Unknown [id number] 2.16.840.1.260171.3.579.2. 593 1999 Unknown [id number] 2.16.840.1.989033.3.579.2. 173 1999 Unknown [id number] 2.16.840.1.471173.3.579.2. 173 1999 Unknown [id number] 2.16.840.1.119987.3.579.2. 173 1999 Unknown [id number] 2.16.840.1.406932.3.579.2. 1286 1999 Unknown [id number] 2.16.840.1.535309.3.579.2. 1286 1999 Unknown [id number] 2.16.840.1.545433.3.579.2. 1286 1999 Unknown [id number] 2.16.840.1.774399.3.579.2. 1285 1999 Unknown [id number] 2.16.840.1.814606.3.579.2. 1285 1999 Unknown [id number] 2.16.840.1.768054.3.579.2. 1285 1999 Unknown [id number] 2.16.840.1.745590.3.579.2. 1258 1999 Unknown [id number] 2.16.840.1.321395.3.579.2. 1258 1999 Unknown [id number] 2.16.840.1.311959.3.579.2. 1258 1999 Unknown [id number] 2.16.840.1.785462.3.579.2. 1258 1999 Unknown [id number] 2.16.840.1.104027.3.579.2. 1258 1999 Unknown [id number] 2.16.840.1.678685.3.579.2. 1258 1999 Unknown [id number] 2.16.840.1.103643.3.579.2. 1258 1999 Unknown [id number] 2.16.840.1.578058.3.579.2. 1258 1999 Unknown [id number] 2.16.840.1.286861.3.579.2. 1258 1999 Unknown [id number] 2.16.840.1.959031.3.579.2. 1258 1999 Unknown [id number] 2.16.840.1.377796.3.579.2. 1258 1999 Unknown [id number] 2.16.840.1.046252.3.579.2. 1258 1999 Unknown [id number] 2.16.840.1.207777.3.579.2. 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) [place] Start: 08-06-2018 Tobacco Comment 4 cigarrettes a day [place] Start: 1999 Sex Assigned At Not on file [place], [place] Start: 09-08-2023 End: 09-09-2023 Tobacco smoking status [facility] Ex-smoker [facility] Start: 07-02-2023 History of tobacco use Current smoke r [facility] Start: 09-09-2023 Alcoholic beverage intake Lifetime non-drinker (finding) [facility] Start: 09-09-2023 End: 05-04-2024 History of Social function [facility] Start: 09-09-2023 End: 05-04-2024 Tobacco use panel [facility] Start: 04-28-2024 End: 05-04-2024 Alcoholic beverage intake Ex-drinker (finding) [facility] Start: [facility] [facility] Start: 02-18-2023 End: 09-08-2023 Tobacco use and exposure Former smokeless tobacco user [facility] Start: 03-17-2023 End: 07-06-2023 Alcohol intake Current drinker of alcohol (finding) [facility] How hard is it for y ou to pay for the very basics like food, housing, medical care, and heating Not hard at all [facility] Start: 02-18-2023 Alcohol Comment occasionally [facility] Start: 01-14-2023 Sex Female (finding) [facility] Goals Date Patient Goal Desired Activity /State Personal health goal Clinical Notes 05-26-2023 to 12-04-2024 Cordell Gifford, CN - 12/04/2024 2:30 PM EDTCordell Gifford, CN - 11/29/2024 3:00 PM EDMathieu Gifford, [facility] - 11/22/2024 4:00 PM EDMathieu Gifford, LINDA - 09/28/2024 2:30 PM EDTPatient Instructions Note Date & Type Note Facility 12-04-2024 History of Presen t illness Narrative Subjective No chief complaint on file. Jacque Horn is a 24 y.o. at 38w3d with [...] for care of first , third trimester ([facility]) Elevated blood pressure affecting in third trimester, antepartum ([facility]) Patient has been home monitoring her blood [...] 128/78 and I took it with my manual cuff and it was 130/80. I want to see her on and review blood pressures and possibly schedule her for IOL. I also questioned her [...] a routine visit. documented in this encounter [facility] 11-29-2024 History of Presen t illness Narrative Subjective No chief complaint on file. Jacque Horn is a 24 y.o. at 37w5d with [...] 150/100 and 160/90 Patient to go to [facility] L&D and orders called over for Pre-e work up, NST and BPP Patient states I haven't felt right for a couple days, just really tired. Had a headache but it went away., Diagnoses and all orders for this visit: Large for dates affecting management of mother, third trimester, fetus 1 ([facility]) Encounter for care of first , third trimester ([facility]) Elevated blood pressure affecting in third trimester, antepartum ([facility]) Continue vitamin. Labs reviewed. GBS taken. Expected mode of delivery vaginal Follow up in 1 week for a routine visit. documented in this encounter [facility] 11-22-2024 History of Presen t illness Narrative [...] management of mother, third trimester, fetus 1 ([facility]) Encounter for care of first , third trimester ([facility]) screening for streptococcus B ([facility]) - STREPTOCCOUS, GROUP B CULTURE; Future Large for dates ([facility]) - US OB follow up transabdominal approach; Future Continue vitamin. Labs reviewed. GBS taken today Expected mode of delivery Patient is measuring large for dates. She is 36.5 today and measuring 41. I will get US -growth done tomorrow. Scheduled Follow up in 1 week for a routine visit. documented in this encounter [facility] 09-28-2024 History of Presen t illness Narrative [...] a routine visit. 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 I did inquire about this more, and she states her nursing maintenance supervisor will help her when she can. I did question the liability this could place on her and especially will get more difficult as her progresses. I will write a note to her employer if needed. I did advise her to go the HR and inquire what the legal RESIDENT CARE AIDE to patient ratio is . Not only for the resident's safety, but my patient's as well. She states she will inquire about it as it's getting harder to do. Continue vitamin. Labs reviewed. Rhogam GTT . Follow up in 2 weeks for a routine visit. documented in this encounter [facility] 06-27-2024 History of Presen t illness Narrative Patient is and tested positive for COVID. Instructions to go to nearest ER for difficulty breathing, chest pain, or worsening symptoms. Rx meds sent to pharmacy documented in this encounter [facility] 06-22-2024 History of Presen t illness Narrative [...] a routine visit. documented in this encounter [facility] 05-04-2024 History of Presen t illness Narrative [...] also given office phone number and [facility] number to call in case of an emergency or after hours needs. PVU and all questions answered. We did discuss place of delivery. Patient should plan to go to [facility] for all services unless an emergency and they need to go to the closest ER. We can make other arrangements possibly if patient would like to deliver at another facility but I did explain I am now at [place] 100% of the time and would like to do all deliveries there. documented in this encounter [facility] 04-28-2024 History of Presen t illness Narrative W OB nurse visit documented in this encounter [facility] 04-03-2024 Telephone encount er Note PT TOOK a positive preganacy test and is about 3 weeks, and wants scheduled lola. [facility] 04-03-2024 Miscellaneous Notes Formattin g of this note might be different from the original. PT TOOK a positive preganacy test and is about 3 weeks, and wants scheduled lola. documented in this encounter [facility] 02-28-2024 Miscellaneous Notes Formattin g of this note might be different from the original. 02/23 Order received 02/27 Called PT LM to schedule sleep study. HST/PSG/PAP Order and 02/24/24 M. Doron Epic Notes documented in this encounter [facility] 02-28-2024 Telephone encount er Note 02/23 Order received 02/27 Called PT LM to schedule sleep study. HST/PSG/PAP Order and 02/24/24 M. Doron Epic Notes [facility] 02-24-2024 History of Presen t illness Narrative Images from the original note were not included. [address] [place] [address] [facility] [id number] Patient: Jacque Horn Date of : 2000 [...] PAP titration; Future - Ambulatory referral to [facility] Sleep Medicine; Future - Home [...] months MINI SAL MD Family Medicine Physician [facility] Family Medicine / [facility] 02/24/24 This note was completed with voice recognition software. The document was reviewed for errors however some may still be present. Please do not hesitate to contact/Epic [facility] the author to verify any questions/concerns. documented in this encounter [facility] 01-13-2024 Miscellaneous Notes Formattin g of this note might be different from the original. Contract: ob [id number] Ms Blount re 27 weeks, has been experiencing off and on pain for about 3 days, has been more steady this evening; a little dizziness Numeric page sent documented in this encounter [facility] 01-13-2024 Telephone encount er Note Contract: ob [phone] Ms Jose Alejandro pantoja 27 weeks, has been experiencing off and on pain for about 3 days, has been more steady this evening; a little dizziness [facility] 01-13-[facility]24 Telephone encount er Note Numeric page sent [facility] 07-06-2023 History of Presen t illness Narrative Images from the original note were not included. [address] [place] [phone] Patient: Jacque Horn Date of : 2000 [...] days. MINI SAL MD Family Medicine Physician [facility] Family Medicine / [facility] 07/06/23 This note was completed with voice recognition software. The document was reviewed for errors however some may still be present. Please do not hesitate to contact/Epic ms the author to verify any questions/concerns. documented in this encounter [facility] 05-26-2023 History of Presen t illness Narrative Images from the original note were not included. [address] [place] [phone] Patient: Jacque Horn Date of : [...] Visit via Real-time Synchronous Audiovisual Provider Location: [facility] [address] [place] [phone] Patient Location: Patient's home Video Visit Consent [...] that there are some limitations compared to [id number] evaluations. The patient consented to the presence of additional virtual and/or in-person participants. We elected to proceed. MINI SAL MD Family Medicine Physician [facility] Medicine / [facility] 05/26/23 This note was completed with voice recognition software. The document was reviewed for errors however some may still be present. Please do not hesitate to contact/Epic msg the author to verify any questions/concerns. documented in this encounter [facility] 05-26-2023 Instructions Mini Sal MD - 05/26/2023 7:45 AM EST Call number on back of insuracne card to find out if they cover GLP1 medications. If so, for what diagnosis? Diabetes or Weight loss? Which GLP1 medications are preferred? ie: Ozempic, wegovy, mounjaro, trulicity etc. documented in this encounter [facility] Evaluation note Diagnosis Obesity (BMI 30-39.9)- Primary Weight loss Loss of weight BMI 35.0-35.9,adult documented in this encounter [facility]* Diagnosis Obesity (BMI 30-39.9)- Primary Acute otitis externa of both ears, unspecified type documented in this encounter [facility]* Diagnosis Obesity (BMI 30-39.9)- Primary Weight loss Loss of weight PCOS (polycystic ovarian syndrome) Polycystic ovaries documented in this encounter [facility]* Diagnosis examination or test, positive result documented in this encounter [facility]* Diagnosis Elevated TSH- Primary Other [...] for care of first , third trimester ([facility]) screening for streptococcus B ([facility]) screening for Streptococcus B Large for dates ([facility]) [facility] Diagnosis Large for dates affecting management of mother, third trimester, fetus 1 ([facility])- Primary Encounter for care of first , third trimester ([facility]) Elevated blood pressure affecting in third trimester, antepartum ([facility]) [facility]* Diagnosis Encounter for care of first , third trimester ([facility])- Primary Elevated blood pressure affecting in third trimester, antepartum ([facility]) documented in this encounter [facility] Healthcare[facility] of [...] for a routine visit. documented in this [facility] HospitalInstructionsNot on filedocumented in this encounterProPremier Health [facility] SystemInstructionsNot on filedocumented in this encounterProPremier Health [facility] SystemInstructionsNot on filedocumented in this encounterProUc Health Advance Directives Documents on File Type Date Recorded Patient Stockkeeper Expl anation ACP-Advance Directive ACP-Power of Rd Project Manager Summary Purpose Family History No Family History Records FoundNo Family History Records FoundNo Family History Records FoundNo Family History Records FoundNo Family History Records Found Additional Source Comments INFORMATION SOURCE (unrecogn ized section and content) DATE CREATED AUTHOR 01/11/2020 [facility] DATE CREATED AUTHOR AUTHOR'S ORGANIZ ATION [facility] DATE CREATED AUTHOR AUTHOR'S ORGANIZ ATION 09/10/2023 [facility] DATE CREATED AUTHOR AUTHOR'S ORGANIZ ATION 02/26/2024 [facility] DATE CREATED AUTHOR AUTHOR'S ORGANIZ ATION 12/01/2024 [facility] dical Specialists EPIC Care Teams (unrecognized sec tion and content) Sales Support Coordinator Relationship Specialty Start Date End Date Tiara Casper MD PCP - General Family Medicine 02/19/23 Sales Support Coordinator Relationship Specialty Start Date End Date Tiara Casper MD PCP - General Family Medicine 02/19/23 Sales Support Coordinator Relationship Specialty Start Date End Date Tiara Casper MD PCP - General Family Medicine 02/19/23 Sales Support Coordinator Relationship Specialty Start Date End Date Mini Sal MD [address], [place] [address] PCP - General Internal Medicine 02/24/23 Sales Support Coordinator Relationship Specialty Start Date End Date Mini Sal MD [address], [place] [address] PCP - General Internal Medicine 02/24/23 Sales Support Coordinator Relationship Specialty Start Date End Date Mini Sal MD [address], [place] [address] PCP - General Internal Medicine 02/24/23 Sales Support Coordinator Relationship Specialty Start Date End Date Mini Sal MD [address], [place] [address] PCP - General Internal Medicine 02/24/23 Sales Support Coordinator Relationship Specialty Start Date End Date Mini Sal MD [address], [place] [address] PCP - General Internal Medicine 02/24/23 Sales Support Coordinator Relationship Specialty Start Date End Date Tiara Casper MD PCP - General Family Medicine 02/19/23 Sales Support Coordinator Relationship Specialty Start Date End Date Tiara Casper MD PCP - General Family Medicine 02/19/23 Sales Support Coordinator Relationship Specialty Start Date End Date Tiara Casper MD PCP - General Family Medicine 02/19/23 Sales Support Coordinator Relationship Specialty Start Date End Date Tiara Casper MD PCP - General Family Medicine 02/19/23 Sales Support Coordinator Relationship Specialty Start Date End Date Tiara Casper MD PCP - General Family Medicine 02/19/23 Sales Support Coordinator Relationship Specialty Start Date End Date Tiara Casper MD PCP - General Family Medicine 02/19/23 Sales Support Coordinator Relationship Specialty Start Date End Date Tiara Casper MD PCP - General Family Medicine 02/19/23 Sales Support Coordinator Relationship Specialty Start Date End Date Tiara Casper MD PCP - General Family Medicine 02/19/23 Sales Support Coordinator Relationship Specialty Start Date End Date Tiara Casper MD PCP - General Family Medicine 02/19/23 Sales Support Coordinator Relationship Specialty Start Date End Date Tiara Casper MD PCP - General Family Medicine 02/19/23 Sales Support Coordinator Relationship Specialty Start Date End Date Tiara Casper MD [address] [place] [address] PCP - General Family Medicine 02/19/23 Sales Support Coordinator Relationship Specialty Start Date End Date Tiara Casper MD [address] [place] [address] PCP - General Family Medicine 02/19/23 Sales Support Coordinator Relationship Specialty Start Date End Date Tiara Casper MD [address] [place] [address] PCP - General Family Medicine 02/19/23 Sales Support Coordinator Relationship Specialty Start Date End Date Tiara Casper MD [address] [place] [address] PCP - General Family Medicine 02/19/23 Reason [...] BE BASED ON THE PRIMARY CLINICAL RECORDS. [facility] [facility]. provides no warranty or guarantee of the accuracy or completeness of information in this document.
[2024-12-04 20:05] VITALS: BP 120/81; PULSE 94
[2024-12-04 20:09] LABS: Hematocrit 34.6 % (36.0-48.0); Hemoglobin 11.8 g/dL (12.0-16.0); Immature Granulocytes Abs Auto 0.13 10^3/uL (0.00-0.03); Immature Granulocytes Pct Auto 1.2 % (0.0-0.5); Lymphocytes Absolute Auto 1.9 10^3/uL (1.2-3.8); Mean Corpuscular HGB Conc 34.1 g/dL (29.9-35.2); Mean Corpuscular Hemoglobin 29.4 pg (26.7-34.0); Mean Corpuscular Volume 86.1 fL (81.0-99.0); Platelet Count 255 10^3/uL (150-450); Red Blood Count 4.02 10^6/uL (4.20-5.40); White Blood Count 10.8 10^3/uL (4.0-11.0)
[2024-12-04 20:15] VITALS: BP 120/81; PULSE 94; TEMP 36.8
[2024-12-04 20:17] LABS: Protein Creatinine Ratio Urine 0.29; Total Protein Urine Random 8.0 mg/dL (<=11.9)
[2024-12-04 20:25] LABS: Alanine Aminotransferase 16 U/L (14-59); Albumin Globulin Ratio 0.5; Albumin Level 2.4 g/dL (3.4-5.0); Alkaline Phosphatase 216 U/L (46-116); Anion Gap 11.0; Aspartate Amino Transferase 14 U/L (15-37); Blood Urea Nitrogen 15.0 mg/dL (7.0-18.0); Calcium 10.0 mg/dL (8.5-10.1); Carbon Dioxide 26.0 mmol/L (21.0-32.0); Chloride 102 mmol/L (98-107); Estimated GFR (African America >60 (>=60 mL/min/1.73m^2); Estimated GFR (Non-African Ame >60 (>=60 mL/min/1.73m^2); Globulin 4.4 g/dL; Glucose 129 mg/dL (74-106); Potassium 4.0 mmol/L (3.5-5.1); Sodium 135 mmol/L (136-145); Total Protein 6.8 g/dL (6.4-8.2)
[2024-12-04 20:26] LABS: Uric Acid 4.0 mg/dL (2.6-6.0)
[2024-12-04 20:36] LABS: Fibrinogen 461 mg/dL (200-400)
[2024-12-04 20:54] VITALS: BP 142/95; PULSE 96
[2024-12-04 22:06] VITALS: BP 147/78; PULSE 84
[2024-12-04] MEDS: DINOPROSTONE 10 MG VAG INSERT.ER VAGINAL (22:07)
--- OUTSIDE RECORDS SUMMARY | 2024-12-04 22:07 | XMS_ITS | CCD ---
Author Organization [facility] Care Team Providers Care Icebox Man Name Role Phone Rubia Romesonia I Primary Care Provider LORENZAMISSY Admitting Unavailable LORENZAMISSY ALLEN Attending Unavailable LIT ELIZABETH P Referring Unavailable MOORJANI, ROMENA I Primary Care Unavailable LIT ELIZABETH P Referring Unavailable MOCATALINOI, ROMENA I Primary Care Unavailable LORENZA MISSY F Referring Unavailable LORENZA MISSY Abreu Primary Care Unavailable Lorenza Missy Abreu Primary Care Provider [phone] DORON, MUHAMID M Primary Care Unavailable JOSH [...] Provider Mini Sal MD Primary Care Provider [phone] Tiara Casper MD Primary Care Provider CORDELL [...] sulfate 325 mg delayed release oral tablet (16 sources) Start: 10-04-2024 End: 10-04-2025 take 1 tablet by mouth in the morning ferrous sulfate (Fe Tabs) 325 (65 Fe) MG EC tablet Indications: 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 Do not crush, chew, or split. 60 tablet 11 10/04/2024 10/04/2025 Active Sfidegea-Gyb-La-FA ( 1 + IRON PO) (20 sources) Zdipvfdw-Qtv-Gz-FA ( 1 + IRON PO) Take by mouth Active vit no.447-pskt-nnkkr acid ( VITAMIN) 27 mg iron- 800 mcg tablet (3 sources) take 1 tablet by mouth in the morning vit no.795-ircr-wjdkg acid ( VITAMIN) 27 mg iron- 800 [...] 05-26-2023 05-26-2023 Chronic Other conditions (2 sources) Upbec-uxh-oxdah at regardless of gestation period; Translations: [Other [...] AUTO DIFFon BASOPHILS ABSOLUTE AUTO 0 N [facility] Basophils/100 WBC (Bld) 0.3 % 0.2 - 2.0 % [facility] Eosinophils/100 WBC (Bld) 0.8 % Low 0.9 - 7.0 % [facility] Erythrocyte distribution width (RBC) [Ratio] 14.2 % 11.0 - 15.0 % [facility] Hematocrit (Bld) [Volume fraction] 34.6 % Low 36.0 - 48.0 % [facility] Hemoglobin (Bld) [Mass/Vol] 11.8 g/dL Low 12.0 - 16.0 g/dL [facility] IMMATURE GRANULOCYTES ABS AUTO 0.13 High [facility] Immature granulocytes/100 WBC (Bld) 1.2 % High 0.0 - 0.5 % [facility] Interpretation and review of laboratory results Abnormal [facility] LYMPHOCYTES ABSOLUTE AUTO 1.9 [facility] Lymphocytes/100 WBC (Bld) 17.3 % Low 20.5 - 60.0 % [facility] MCH (RBC) [Entitic mass] 29.4 pg 26. 7 - 34.0 pg [facility] MCHC (RBC) [Mass/Vol] 34.1 g/dL 29.9 - 35.2 g/dL [facility] MCV (RBC) [Entitic vol] 86.1 fL 81.0 - 99.0 fL [facility] MONOCYTES ABSOLUTE AUTO 0.8 N [facility] Monocytes/100 WBC (Bld) 7.6 % 1.7 - 12.0 % [facility] NEUTROPHILS ABSOLUTE AUTO 7.8 High [facility] Neutrophils/100 WBC (Bld) 72.8 % 43.0 - 75.0 % [facility] Platelet mean volume (Bld) [Entitic vol] 12.2 fL 9.5 - 13.5 fL [facility] TBH EO # 0.1 [facility] TBH PLT 255 [facility] RBC 4.02 Low [facility] WBC 10.8 [facility] ALL CBC WITH AUTO DIFFon BASOPHILS ABSOLUTE AUTO 0 N [facility] Basophils/100 WBC (Bld) 0.3 % 0.2 - 2.0 % [facility] Eosinophils/100 WBC (Bld) 0.8 % Low 0.9 - 7.0 % [facility] Erythrocyte distribution width (RBC) [Ratio] 14 % 11.0 - 15.0 % [facility] Hematocrit (Bld) [Volume fraction] 35.1 % Low 36.0 - 48.0 % [facility] Hemoglobin (Bld) [Mass/Vol] 11.8 g/dL Low 12.0 - 16.0 g/dL [facility] IMMATURE GRANULOCYTES ABS AUTO 0.05 High [facility] Immature granulocytes/100 WBC (Bld) 0.5 % 0.0 - 0.5 % [facility] Interpretation and review of laboratory results Abnormal [facility] LYMPHOCYTES ABSOLUTE AUTO 1.9 [facility] Lymphocytes/100 WBC (Bld) 19.1 % Low 20.5 - 60.0 % [facility] MCH (RBC) [Entitic mass] 28.9 pg 26. 7 - 34.0 pg [facility] MCHC (RBC) [Mass/Vol] 33.6 g/dL 29.9 - 35.2 g/dL [facility] MCV (RBC) [Entitic vol] 86 fL 81.0 - 99.0 fL [facility] MONOCYTES ABSOLUTE AUTO 0.7 N [facility] Monocytes/100 WBC (Bld) 7 % 1.7 - 12.0 % [facility] NEUTROPHILS ABSOLUTE AUTO 7.1 High [facility] Neutrophils/100 WBC (Bld) 72.3 % 43.0 - 75.0 % [facility] Platelet mean volume (Bld) [Entitic vol] 12.2 fL 9.5 - 13.5 fL [facility] EO # 0.1 [facility] PLT 266 [facility] RBC 4.08 Low [facility] TB WBC 9.8 [facility] US OB BPP W NON-STRESS on 11-29-2024 [place] [address] Ultrasound Report Signed Patient: JACQUE HORN MR#: [id number] : 2000 Acct:[id number] Age/Sex: 24 / F ADM Date: Loc: [place] [address]: CORDELL GIFFORD APRN, CNM Ordering Physician: CORDELL GIFFORD APRN, CNM Date of Service: 11/29/24 Procedure(s): US OB BPP w non-stress Accession Number(s): [id number] cc: Mini Sal ND; CORDELL GIFFORD APRN, CNM [place] [address] Patient Name: JACQUE HORN MRN: [facility]:[id number] date: 2000 Sex: F Assigned Patient Location: [facility] Current Patient Location: [facility] Accession/Order Number: [id number] Exam Date: 11/29/2024 17:52 Report Date: 11/29/2024 [...] Landeros M.D. 11/29/2024 5:54 PM Dictation Location: [place] [address] Electronically authenticated by: [id number] Y Date: 11/29/2024 17:54 Dictated By: Augie Landeros M.D. Signed By: 11/29/241756 DD/ 53 TD/TT: Construction Supervisor/Carpenter: [facility] Radiology, Radiologist, - 11/29/2024 [place] [address] Ultrasound Report Signed Patient: JACQUE HORN MR#: [id number] : 2000 Acct:[id number] Age/Sex: 24 / F ADM Date: Loc: [facility] 250-[address]: CORDELL GIFFORD APRN, CNM Ordering Physician: CORDELL GIFFORD APRN, CNM Date of Service: 11/29/24 Procedure(s): US OB BPP w non-stress Accession Number(s): [id number] cc: Mini Sal ND; CORDELL GIFFORD APRN, CNM [place] [id number] Patient Name: JACQUE HORN MRN: [facility]:[id number] date: 2000 Sex: F Assigned Patient Location: [facility] Current Patient Location: [facility] Accession/Order Number: [id number] Exam Date: 11/29/2024 17:52 Report Date: 11/29/2024 [...] Landeros M.D. 11/29/2024 5:54 PM Dictation Location: [place] [address] Electronically authenticated by: [id number] Y Date: 11/29/2024 17:54 Dictated By: Augie Landeros M.D. Signed By: 11/29/241756 DD/ 53 TD/TT: Construction Supervisor/Carpenter: [facility] Ordered By: Radiologist Radiology on 11-29-2024 [facility] Work Phone: US OB FOLLOW UP [...] II, MD, PHD at 24-Nov-2024 08:35:02 AM [facility] Normal Not Available [facility] UA (CLEAN/CATCH) PROCESS MAINTENANCE TECHNICIAN/ANNABELLA RO IF IND.on 10-23-2024 BILIRUBIN URINE Negative [...] pH (U) 6.0 [pH] 5.0 - 9.0 [facility] PROTEIN URINE Negative NEG/TRACE mg/dL [facility] SPECIFIC GRAVITY URINE <=1.005 Abnormal 1.005 - 1.025 [facility] URINE MICROSCOPIC INDICATED YES [facility] UROBILINOGEN URINE 0.2 EU/dL 0.2 - 1.0 EU/dL [facility] US OB CERVICAL LENGTHon 10-02 [place] [address] Ultrasound Report Signed Patient: JACQUE HORN MR#: [id number] : 2000 Acct:[id number] Age/Sex: 23 / F ADM Date: Loc: [facility] 254-[address]: CORDELL GIFFORD APRN, CNM Ordering Physician: CORDELL GIFFORD APRN, CNM Date of Service: 10/23/24 Procedure(s): US OB cervical length Accession Number(s): [id number] cc: Mini Sal ND; CORDELL GIFFORD APRN, CNM [address] [address] Patient Name: JACQUE HORN MRN: [facility]:[id number] date: 2000 Sex: F Assigned Patient Location: [facility] Current Patient Location: Accession/Order Number: [id number] Exam Date: 10/23/2024 19:09 Report Date: 10/23/2024 [...] Ortega M.D. 10/23/2024 7:14 PM Dictation Location: [place] [address] Electronically authenticated by: [id number] Y Date: 10/23/2024 19:14 Dictated By: Rom Ortega M.D. Signed By: 10/23/241916 DD/ 13 TD/TT: Construction Supervisor/Carpenter: [facility] Radiology, Radiologist, MD - 10/23/2024 [place] [address] Ultrasound Report Signed Patient: JACQUE HORN MR#: [id number] : 2000 Acct:[id number] Age/Sex: 23 / F ADM Date: Loc: [facility] 254-[address]: CORDELL GIFFORD APRN, CNM Ordering Physician: CORDELL GIFFORD APRN, CNM Date of Service: 10/23/24 Procedure(s): US OB cervical length Accession Number(s): [id number] cc: Mini Sal ND; CORDELL GIFFORD APRN, CNM [place] [address] Patient Name: JACQUE HORN MRN: [facility]:[id number] date: 2000 Sex: F Assigned Patient Location: [facility] Current Patient Location: Accession/Order Number: [id number] Exam Date: 10/23/2024 19:09 Report Date: 10/23/2024 [...] Ortega M.D. 10/23/2024 7:14 PM Dictation Location: [place] [address] Electronically authenticated by: [id number] Y Date: 10/23/2024 19:14 Dictated By: Rom Ortega M.D. Signed By: 10/23/241916 DD/ 13 TD/TT: Construction Supervisor/Carpenter: [facility] Radiology Study observation (narrative) [facility] US OB CERVICAL LENGTHOrdered By: Radiologist Radiology on 10-23-2024 [facility] Work Phone: US OB BPP W NON-STRESS on 10-23-2024 [place] [address] Ultrasound Report Signed Patient: JACQUE HORN MR#: [id number] : 2000 Acct:[id number] Age/Sex: 23 / F ADM Date: Loc: [facility] [address]: CORDELL GIFFORD APRN, CNM Ordering Physician: CORDELL GIFFORD APRN, CNM Date of Service: 10/23/24 Procedure(s): US OB BPP w non-stress Accession Number(s): [id number] cc: Mini Sal ND; CORDELL GIFFORD APRN, CNM [place] [id number] Patient Name: JACQUE HORN MRN: [facility]:[id number] date: 2000 Sex: F Assigned Patient Location: [facility] Current Patient Location: Accession/Order Number: [id number] Exam Date: 10/23/2024 19:15 Report Date: 10/23/2024 [...] Ortega M.D. 10/23/2024 7:16 PM Dictation Location: [place] [address] Electronically authenticated by: [id number] Y Date: 10/23/2024 19:16 Dictated By: Rom Ortega M.D. Signed By: 10/23/241917 DD/ 15 TD/TT: Construction Supervisor/Carpenter: [facility] Radiology, Radiologist, MD - 10/23/2024 [place] [address] Ultrasound Report Signed Patient: JACQUE HORN MR#: [id number] : 2000 Acct:[id number] Age/Sex: 23 / F ADM Date: Loc: [facility] 254-[address]: CORDELL GIFFORD APRN, CNM Ordering Physician: CORDELL GIFFORD APRN, CNM Date of Service: 10/23/24 Procedure(s): US OB BPP w non-stress Accession Number(s): [id number] cc: Mini Sal ND; CORDELL GIFFORD APRN, CNM [place] [id number] Patient Name: JACQUE HORN MRN: [facility]:[id number] date: 2000 Sex: F Assigned Patient Location: [facility] Current Patient Location: Accession/Order Number: [id number] Exam Date: 10/23/2024 19:15 Report Date: 10/23/2024 [...] Ortega M.D. 10/23/2024 7:16 PM Dictation Location: [place] Electronically authenticated by: [id number] Y Date: 10/23/2024 19:16 Dictated By: Rom Ortega M.D. Signed By: 10/23/241917 DD/ 15 TD/TT: Construction Supervisor/Carpenter: [facility] Radiology Study observation (narrative) [facility] US OB BPP W NON-STRESS Ordered By: Radiologist Radiology on 10-23-2024 [facility] Work Phone: US OB FOLLOW UP [...] II, MD, PHD at 11-Oct-2024 08:25:22 AM [facility] Normal Not Available US OB 14+ [...] ultrasound age is used. Dictated and transcribed 08/01/24/dprobson This report has been electronically signed and approved by the interpreting radiologist. Normal Not Available Bacteria identified Cx Nom ( U)on 05-26-2024 Appearance (U) Adequate [facility] Internal identifier for Provider [id number] [facility] Specimen source Nom (Unsp spec) URINE [facility] STATUS FINAL [facility] Laboratory - Drug toxicology on 05-26-2024 1-Diteyqnrll-4,5-Dimethy l-3,3-Diphenylpyrrolidin e (EDDP) Ql (U) Negative NINF - 100 ng/mL [facility] Amphetamines Ql (U) Negative NINF - 5 00 ng/mL [facility] Barbiturates Ql (U) Negative NINF - 3 00 ng/mL [facility] Benzodiazepines Ql (U) Negative NINF - 100 ng/mL [facility] Benzoylecgonine Ql (U) Negative NINF - 150 ng/mL [facility] Opiates Ql (U) Negative NINF - 100 ng/mL [facility] oxyCODONE Ql (U) Negative NINF - 100 ng/mL [facility] Phencyclidine Ql (U) Negative NINF - 25 ng/mL [facility] Tetrahydrocannabinol Screen method >20 ng/mL Ql (U) Negative NINF - 20 ng/mL [facility] Laboratory - Microbiology an d Antimicrobial susceptibilityon 05-26-2024 Bacteria identified Cx Nom (U) SEE NOTE [facility] Comment on above: No Growth Laboratory - Miscellaneous t estson 05-26-2024 Service comment (Unsp spec) [Interp] [facility] Comment on above: This urine was martin zed for the presence of WBC, RBC, bacteria, casts, and other formed elements. Only those elements seen were reported. Laboratory - Urinalysison Bacteria LM.HPF (Urine sed) [#/Area] NONE SEEN NONE SEEN /HPF [facility] Epithelial cells.squamous LM.HPF (Urine sed) [#/Area] 0-5 < OR = 5 /HPF [facility] Hyaline casts (Urine sed) [#/Area] NONE SEEN NONE SEEN /LPF [facility] RBC LM.HPF (Urine sed) [#/Area] NONE SEEN < OR = 2 /HPF [facility] WBC LM.HPF (Urine sed) [#/Area] 6-10 Abnormal < OR = 5 /HPF [facility] N. gonorrhoeae DNA CHRISTY+probe Ql (Cervical mucus)on 05-26-2024 C. trachomatis rRNA CHRISTY+probe Ql (Unsp spec) Not detected NOT DETECTED [facility] N. gonorrhoeae rRNA CHRISTY+probe Ql (Unsp spec) Not detected NOT DETECTED [facility] No Panel Informationon 05-26 (ALWAYS MESSAGE) [facility] Comment on above: See Note 1 Note 1 This drug testing is for medical treatment only. Analysis was performed as non-forensic testing and these results should be used only by healthcare providers to render diagnosis or treatment, or to monitor progress of medical conditions. For assistance with interpreting these drug results, please contact a [employer] Toxicology Specialist: [phone] ( ), M-F, 8am-6pm EST. The analytical perfo rmance characteristics of this assay, when used to test SurePath(TM) specimens have been determined by [facility]. The modifications have not been cleared or approved by the FDA. This assay has been validated pursuant to the CLIA regulations and is used for clinical purposes. For additional information, please refer to https://education.Envio [employer]/faq/RQH314 (This link is being provided for information/ educational purposes only.) Interpretation and review of laboratory results Abnormal [facility] SPLIT 05/24/2024 FROM [id number] [employer] [facility] Organization Information Site ID: QPT Name: [facility] Address: [address] [place] [address], [address] [place] [phone] Director: Juan Mensah MD [facility] CBC panel Auto (Bld)on 05-25 Erythrocyte distribution width (RBC) [Ratio] 12.9 % 11.0 - 15.0 % [facility] Hematocrit (Bld) [Volume fraction] 39.1 % 35.0 - 45.0 % [facility] Hemoglobin (Bld) [Mass/Vol] 12.9 g/dL 11.7 - 15.5 g/dL [facility] MCH (RBC) [Entitic mass] 28.8 pg 27. 0 - 33.0 pg [facility] MCHC (RBC) [Mass/Vol] 33 g/dL 32.0 - 36.0 g/dL [facility] Comment on above: For adults, a slight decrease in the calculated MCHC value (in the range of 30 to 32 g/dL) is most likely not clinically significant; however, it should be interpreted with caution in correlation with other red cell parameters and the patient's clinical condition. MCV (RBC) [Entitic vol] 87.3 fL 80.0 - 100.0 fL [facility] Platelet mean volume (Bld) [Entitic vol] 10.4 fL 7.5 - 12.5 fL [facility] Platelets (Bld) [#/Vol] 269 10*3/uL [facility] RBC (Bld) [#/Vol] 4.48 10*6/uL [facility] WBC (Bld) [#/Vol] 10.6 10*3/uL [facility] Performing Organization Information Site ID: QTW Name: [facility] Address: [address] [place] [phone] Director: Nishi Squires [facility] Laboratory - Blood bankon ABO group Nom (Bld) O [facility] Blood group antibody screen Ql Detected [facility] Comment on above: Reference range No antibodies detected This assay is a screening test for the detection of red blood cell antibodies. The test is not to be used for pretransfusion screening or for the medical management of an alloimmunized . Rh Nom (Bld) Positive [facility] Comment on above: For additional information, please refer to http://education.Huodongxing/faq/JSJ704 (This link is being provided for informational/ educational purposes only.) Laboratory - Chemistry and C hemistry - challengeon 05-25-2024 Free T4 [Mass/Vol] 1.3 ng/dL 0.8 - 1.8 ng/dL [facility] TSH Qn 4.91 m[IU]/L High mIU/L [facility] Comment on above: Reference Range > or = 20 Years 0.40-4.50 Ranges First trimester 0.26-2.66 Second trimester 0.55-2.73 Third trimester 0.43-2.91 Laboratory - Hematology and Cell countson 05-25-2024 HbA1c (Bld) [Mass fraction] 5.5 % [facility] Comment on above: For the purpose [...] diagnosis of diabetes in children. According to [place] Diabetes Association (ADA) guidelines, hemoglobin A1c <7.0% represents optimal control in non- diabetic patients. Different metrics may apply to specific patient populations. Standards of Medical Care in Diabetes(ADA). Laboratory - Microbiology an d Antimicrobial susceptibilityon 05-25-2024 HBV surface Ag IA Ql Non-Reactive NON-REACTIVE [facility] Comment on above: For additional information, please refer to http://Zaranga.Envio Networks/faq/QYG673 (This link is being provided for informational/ educational purposes only.) HCV Ab IA Ql Non-Reactive NON-REACTIVE [facility] Comment on above: HCV antibody was non-reactive. There is no laboratory evidence of HCV infection. In most cases, no further action is required. However, if recent HCV exposure is suspected, a test for HCV RNA (test code 83464) is suggested. For additional information please refer to http://Zaranga.[employer]/faq/PUN42b4 (This link is being provided for informational/ educational purposes only.) HIV 1+2 Ab+HIV1 p24 Ag IA Ql Non-Reactive NON-REACTIVE [facility] Comment on above: HIV-1 antigen and [...] purpose. For additional information please refer to http://Zaranga.[employer]/faq/MZF738 (This link is being provided for informational/ educational purposes only.) The performance of this assay has not been clinically validated in patients less than 2 years old. Reagin Ab RPR Ql (S) Non-Reactive NON-REACTIVE [facility] Rubella virus IgG Qn (S) 1.63 [IU]/mL Index [facility] Comment on above: Index Interpretation ----- <0.90 Not consistent with immunity 0.90-0.99 Equivocal > or = 1.00 Consistent with immunity The presence of rubella IgG antibody suggests immunization or past or current infection with rubella virus. No Panel Informationon 05-25 Interpretation and review of laboratory results Abnormal [facility] COLLECTION KIT GIVEN TO PATIENT. PATIENT ADVISED TO RETURN. [employer] Organization Information Site ID: QPT Name: [facility] [employer] Address: [address] [place] [address], [address] [place] [phone] Director: Juan Mensah MD [facility] BASIC METABOLIC PANLon 09-07 Anion gap [Moles/Vol] 8 mmol/L Normal 5-15 [facility] Comment on above: Performed By: #### C BELEN ALTAMIRANO, #### [facility] ([id number]) [address] [place] [address] Calcium [Mass/Vol] 9.8 mg/dL Normal 8.5-10.5 [facility] Comment on above: Performed By: #### BELEN Chowdary BCA, #### [facility] ([id number]) [address] [place] [address] Chloride [Moles/Vol] 102 mmol/L Normal 98-109 [facility] Comment on above: Performed By: #### BELEN Chowdary BCA, #### [facility] ([id number]) [address] [place] [address] CO2 [Moles/Vol] 25 mmol/L Normal 22-32 [facility] Comment on above: Performed By: #### C BELEN ALTAMIRANO, #### [facility] ([id number]) [address] [place] [address] Creatinine [Mass/Vol] 0.66 mg/dL Normal 0.40-1.00 [facility] Comment on above: Result Comment: METH OD TRACEABLE TO IDMS STANDARD Performed By: #### C BELEN ALTAMIRANO, #### [facility] ([id number]) [address] [place] [address] eGFR (CKD-EPI) NON-RACE DEPENDENT >90 Normal >59 [facility] Comment on above: Result Comment: Reported eGFR is based on the CKD-EPI 2020 equation that does not use a race coefficient. Performed By: #### C BELEN ALTAMIRANO, #### [facility] ([id number]) [address] [place] [address] Glucose [Mass/Vol] 97 mg/dL Normal 65-99 [facility] Comment on above: Performed By: #### C BELEN ALTAMIRANO, #### [facility] ([id number]) [address] [place] [address] Potassium [Moles/Vol] 3.6 mmol/L Normal 3.5-5.0 [facility] Comment on above: Performed By: #### C BELEN ALTAMIRANO, #### [facility] ([id number]) [address] [place] [address] 67397 Sodium [Moles/Vol] 135 mmol/L Normal 134-146 [facility] Comment on above: Performed By: #### C BELEN ALTAMIRANO, #### [facility] ([id number]) [address] [place] [address] 49293 Urea nitrogen [Mass/Vol] 14 mg/dL Normal 5-23 [facility] Comment on above: Performed By: #### C BELEN ALTAMIRANO, #### [facility] ([id number]) [address] [place] [address] 49848 CBC AND AUTO DIFFon 05-08-20 24 ABSOLUTE BASOPHIL 0.1 X10E9/L Normal 0.0-0.2 [facility] Comment on above: Performed By: #### C EVELIA [facility], #### [facility] ([id number]) [address] [place] [address] 35245 ABSOLUTE NEUTROPHIL 6.9 X10E9/L High 1.5-6.6 [facility] Comment on above: Performed By: #### Ricarda ALTAMIRANO [facility], #### [facility] ([id number]) [address] [place] [address] 05241 Basophils/100 WBC (Bld) 0.8 % Normal [facility] Comment on above: Performed By: #### C EVELIA [facility], #### [facility] ([id number]) [address] [place] [address] 03597 Eosinophils (Bld) [#/Vol] 0.2 10*3/uL Normal 0.0-0.4 [facility] Comment on above: Performed By: #### Ricarda ALTAMIRANO [facility], #### [facility] ([id number]) [address] [place] [address] 99954 Eosinophils/100 WBC (Bld) 2.0 % Normal [facility] Comment on above: Performed By: #### Ricarda ALTAMIRANO [facility], #### [facility] ([id number]) [address] [place] [address] 01776 Erythrocyte distribution width (RBC) [Ratio] 12.9 % Normal 11.5-15.0 [facility] Comment on above: Performed By: #### C EVELIA [facility], #### [facility] ([id number]) [address] [place] [address] 88927 Hematocrit (Bld) [Volume fraction] 39.3 % Normal 35-47 [facility] Comment on above: Performed By: #### C BELEN ALTAMIRANO, #### [facility] ([id number]) [address] [place] [address] 43159 Hemoglobin (Bld) [Mass/Vol] 13.1 g/dL Normal 11.7-15.5 [facility] Comment on above: Performed By: #### C BELEN ALTAMIRANO, #### [facility] ([id number]) [address] [place] [address] 45028 Lymphocytes (Bld) [#/Vol] 2.2 10*3/uL Normal 1.0-3.5 [facility] Comment on above: Performed By: #### C EVELIA [facility], #### [facility] ([id number]) [address] [place] [address] 33629 Lymphocytes/100 WBC (Bld) 21.0 % Normal [facility] Comment on above: Performed By: #### Ricarda ALTAMIRANO [facility], #### [facility] ([id number]) [address] [place] [address] 49845 MCH (RBC) [Entitic mass] 29.1 pg Normal 27-34 [facility] Comment on above: Performed By: #### BELEN Chowdary BCA, #### [facility] ([id number]) [address] [place] [address] 20546 MCHC (RBC) [Mass/Vol] 33.3 g/dL Normal 32-36 [facility] Comment on above: Performed By: #### C BELEN ALTAMIRANO, #### [facility] ([id number]) [address] [place] [address] 69335 MCV (RBC) [Entitic vol] 87 fL Normal 80-100 [facility] Comment on above: Performed By: #### C BELEN ALTAMIRANO, #### [facility] ([id number]) [address] [place] [address] 84597 Monocytes (Bld) [#/Vol] 1.0 10*3/uL High 0-0.9 [facility] Comment on above: Performed By: #### Ricarda ALTAMIRANO BMP, #### [facility] ([id number]) [address] [place] [address] 40268 Monocytes/100 WBC (Bld) 9.5 % Normal [facility] Comment on above: Performed By: #### Ricarda ALTAMIRANO, [facility], #### [facility] ([id number]) [address] [place] [address] 58676 Neutrophils/100 WBC (Bld) 66.7 % Normal [facility] Comment on above: Performed By: #### BELEN Chowdary BCA, #### [facility] ([id number]) [address] [place] [address] 75465 Platelet mean volume (Bld) [Entitic vol] 8.7 fL Normal 7-12 [facility] Comment on above: Performed By: #### Ricarda ALTAMIRANO [facility], #### [facility] ([id number]) [address] [place] [address] 60237 Platelets (Bld) [#/Vol] 299 10*3/uL Normal 150-450 [facility] Comment on above: Performed By: #### Ricarda ALTAMIRANO [facility], #### [facility] ([id number]) [address] [place] [address] 47966 RBC COUNT 4.50 X10E12/L Normal 3.80-5.20 [facility] Comment on above: Performed By: #### Ricarda ALTAMIRANO, BMP, #### [facility] ([id number]) [address] [place] [address] 12620 WBC (Bld) [#/Vol] 10.4 10*3/uL Normal 4.0-11.0 [facility] Comment on above: Performed By: #### C BELEN ALTAMIRANO, 75517-6 #### [facility] ([id number]) [address] [place] [address] 16029 HCG ( test) Ql (U)o n 09-08-2023 Beta HCG ( test) Ql (U) Positive Abnormal NEG [facility] Comment on above: Performed By: #### 2 106-3 #### [facility] ([id number]) [address] [place] [address] 72006 HCG.beta subunit IA 3rd IS Q non 09-08-2023 HCG.beta subunit Qn 126 m[IU]/mL Normal [facility] Comment on above: Result Comment: NEW [...] nontrophoblastic neoplasms. Performed By: #### C BELEN ATLAMIRANO, 14709-3 #### [facility] ([id number]) [address] [place] [address] 42957 URINE CULTUREon 09-08-2023 Bacteria identified Cx Nom (U) CULTURE RESULTS >100,000 ORGANISMS/ML NORMAL UROGENITAL JUSTINE Normal [facility] Comment on above: Performed By: #### 6 30-4 #### [facility] ([id number]) [address] [place] [address], [address] [place] [address] URN MACROSCOPIC NURon 2023 BILIRUBIN PRAMOD Negative Normal NEG [facility] Comment on above: Performed By: #### N UM #### [facility] ([id number]) [address] [place] [address] 02912 BLOOD/HGB PRAMOD Large Abnormal NEG [facility] Comment on above: Performed By: #### N UM #### [facility] ([id number]) [address] [place] [address] 87020 GLUCOSE PRAMOD Negative Normal NEG [facility] Comment on above: Performed By: #### N UM #### [facility] ([id number]) [address] [place] [address] 81546 KETONES PRAMOD Negative Normal NEG [facility] Comment on above: Performed By: #### N UM #### [facility] ([id number]) [address] [place] [address] 40730 LEUKOCYTE ESTERASE PRAMOD Small Abnormal NEG [facility] Comment on above: Performed By: #### N UM #### [facility] ([id number]) [address] [place] [address] [place] [address] NITRITE PRAMOD Negative Normal NEG [facility] Comment on above: Performed By: #### N UM #### [facility] ([id number]) [address] [place] [address] 34829 PH PRAMOD 5.0 Normal 5.0-8.5 [facility] Comment on above: Performed By: #### N UM #### [facility] ([id number]) [address] [place] [address] 98807 PROTEIN PRAMOD 100 mg/dL Abnormal NEG [facility] Comment on above: Performed By: #### N UM #### [facility] ([id number]) [address] [facility], [place] [address] SPECIFIC GRAVITY PRAMOD 1.025 Normal 1.003-1.035 [facility] Comment on above: Performed By: #### N UM #### [facility] ([id number]) [address] [facility], [place] [address] UROBILINOGEN PRAMOD 0.2 eu/dL Normal <1.1 [facility] Comment on above: Performed By: #### N UM #### [facility] ([id number]) [address] [facility], [place] [address] US PREG LESS THAN 14 WKS WIT [...] Dave MD on 09/08/2023 1:54 PM Normal [facility] [id number] 01-12-2020 SARS-CoV-2 Not Detected Normal Not Detected [facility] Comment on above: Result Comment: (NOT E) This nucleic acid amplification test was developed and its performance characteristics determined by [employer]. Nucleic acid amplification tests include PCR and [...] detected) result in this assay. Performed At: [facility] [address] [place] [id number] Cindy Rodriguez MD Ph:[phone] Performed By: #### A COV #### [facility] [address] [place], [place] [id number] [employer] Card Grader: Gerardo Baez MD [id number] 01-09-2020 SARS-CoV-2 Not Detected Normal Not Detected [facility] Comment on above: Result Comment: (NOT E) This nucleic acid amplification test was developed and its performance characteristics determined by [employer]. Nucleic acid amplification tests include PCR and [...] assay. Performed At: [facility] [address] [place], [place] [id number] Bunny Esquivel [facility] Ph:[phone] Performed By: #### A COV #### [facility] [address] [place] [address] [employer] Card Grader: Gerardo Baez MD Vital Signs Date Time Vital Sign Value Performing Clinician Facility 12-04-2024 14:13-0400 Body mass index (BMI) [Ratio] 41.02 kg/m2 Cordell Padinmotiono CN Work Phone: [facility] 12-04-2024 14:13-0400 Body weight 131.54 kg Cordell Padinmotiono CN Work Phone: [facility] 12-04-2024 14:13-0400 Diastolic blood pressure 100 mm[Hg] Cordell Padinmotiono CN Work Phone: [facility] Comment on above: repeat is 130/80 and 128/78 12-04-2024 14:13-0400 Systolic blood pressure 150 mm[Hg] Cordell Padinmotiono CNM Work Phone: [facility] Comment on above: repeat is 130/80 and 128/78 11-29-2024 14:50-0400 Body mass index (BMI) [Ratio] 40.46 kg/m2 Cordell Padinmotiono CN Work Phone: [facility] 11-29-2024 14:50-0400 Body weight 129.73 kg Cordell Floro CNM Work Phone: [facility] 11-29-2024 14:50-0400 Diastolic blood pressure 90 mm[Hg] Cordell Padinmotiono CN Work Phone: [facility] Comment on above: 150/100 11-29-2024 14:50-0400 Systolic blood pressure 140 mm[Hg] Cordell Floro CNM Work Phone: [facility] Comment on above: 150/100 11-22-2024 16:01-0400 Body mass index (BMI) [Ratio] 40.6 kg/m2 Cordell Floro CNM Work Phone: [facility] 11-22-2024 16:01-0400 Body weight 130.18 kg Cordell Floro CNM Work Phone: [facility] 11-22-2024 16:01-0400 Diastolic blood pressure 80 mm[Hg] Cordell Floro CNM Work Phone: [facility] 11-22-2024 16:01-0400 Systolic blood pressure 122 mm[Hg] Cordell Floro CNM Work Phone: [facility] 09-28-2024 14:28-0400 Body mass index (BMI) [Ratio] 38.33 kg/m2 Cordell Floro CNM Work Phone: [facility] 09-28-2024 14:28-0400 Body weight 122.92 kg Cordell Floro CNM Work Phone: [facility] 09-28-2024 14:28-0400 Diastolic blood pressure 70 mm[Hg] Cordell Floro CNM Work Phone: [facility] 09-28-2024 14:28-0400 Systolic blood pressure 122 mm[Hg] Cordell Floro CNM Work Phone: [facility] 08-29-2024 15:07-0400 Body mass index (BMI) [Ratio] 37.2 kg/m2 Cordell Floro CNM Work Phone: [facility] 08-29-2024 15:07-0400 Body weight 119.3 kg Cordell Floro CNM Work Phone: [facility] 08-29-2024 15:07-0400 Diastolic blood pressure 80 mm[Hg] Cordell Floro CNM Work Phone: [facility] 08-29-2024 15:07-0400 Systolic blood pressure 118 mm[Hg] Cordell Floro CNM Work Phone: [facility] 07-31-2024 17:13-0400 Body mass index (BMI) [Ratio] 36.64 kg/m2 Cordell Floro CNM Work Phone: [facility] 07-31-2024 17:13-0400 Body weight 117.48 kg Cordell Floro CNM Work Phone: [facility] 06-22-2024 08:28-0500 Body mass index (BMI) [Ratio] 35.08 kg/m2 Cordell Floro CNM Work Phone: [facility] 06-22-2024 08:28-0500 Body weight 112.49 kg Cordell Floro CNM Work Phone: [facility] 06-22-2024 08:28-0500 Diastolic blood pressure 72 mm[Hg] Cordell Floro CNM Work Phone: [facility] 06-22-2024 08:28-0500 Systolic blood pressure 120 mm[Hg] Cordell Floro CNM Work Phone: [facility] 05-04-2024 14:32-0500 Body mass index (BMI) [Ratio] 32.96 kg/m2 Cordell Floro CNM Work Phone: [facility] 05-04-2024 14:32-0500 Body weight 105.69 kg Cordell Floro CNM Work Phone: [facility] 05-04-2024 14:32-0500 Diastolic blood pressure 70 mm[Hg] Cordell Floro CNM Work Phone: [facility] 05-04-2024 14:32-0500 Systolic blood pressure 110 mm[Hg] Cordell Floro CNM Work Phone: [facility] 02-24-2024 11:30-0400 Body height 180.3 cm Mini Sal MD Work Phone: [facility] 02-24-2024 11:30-0400 Body mass index (BMI) [Ratio] 32.08 kg/m2 Mini Sal MD Work Phone: [facility] 02-24-2024 11:30-0400 Body temperature 98.71 [degF] Mini Sal MD Work Phone: [facility] 02-24-2024 11:30-0400 Body weight 104.33 kg Mini Sal MD Work Phone: [facility] 02-24-2024 11:30-0400 Diastolic blood pressure 68 mm[Hg] Mini Sal MD Work Phone: [facility] 02-24-2024 11:30-0400 Heart rate 72 /min Mini Sal MD Work Phone: [facility] 02-24-2024 11:30-0400 SaO2% (BldA) [Mass fraction] 98 % Mini Sal MD Work Phone: [facility] 02-24-2024 11:30-0400 Systolic blood pressure 116 mm[Hg] Mini Sal MD Work Phone: [facility] 07-06-2023 12:57-0500 Body height 179.1 cm Mini Sal MD Work Phone: [facility] 07-06-2023 12:57-0500 Body mass index (BMI) [Ratio] 31.39 kg/m2 Mini Sal MD Work Phone: [facility] 07-06-2023 12:57-0500 Body temperature 98.8 [degF] Mini Sal MD Work Phone: [facility] 07-06-2023 12:57-0500 Body weight 100.7 kg Mini Sal MD Work Phone: [facility] 07-06-2023 12:57-0500 Diastolic blood pressure 74 mm[Hg] Mini Sal MD Work Phone: [facility] 07-06-2023 12:57-0500 Heart rate 70 /min Mini Sal MD Work Phone: [facility] 07-06-2023 12:57-0500 SaO2% (BldA) [Mass fraction] 99 % Mini Sla MD Work Phone: [facility] 07-06-2023 12:57-0500 Systolic blood pressure 122 mm[Hg] Mini Sal MD Work Phone: [facility] Encounters Encounter Date Encounter Type Care Provider Facility Start: 12-04-2024 End: 12-04-2024 Subsequent care visit Cordell Gifford CNM Work Phone: [facility] Comment on above: Encounter for prenat al care of first , third trimester ([facility]) (Primary Dx); Elevated blood pressure affecting in third trimester, antepartum ([facility]) Start: 12-04-2024 End: 12-04-2024 Bamboo flowsheet Cordell Solimano CNM Work Phone: [facility] Start: 12-04-2024 End: 12-04-2024 Bamboo flowsheet Cordell Solimano CNM Work Phone: [facility] Start: 12-04-2024 End: 12-04-2024 Clinisync Result Encounter Cordell Leodan Solimano CNM Work Phone: [facility] Unsolicited Start: 11-29-2024 End: 11-29-2024 Subsequent care visit Cordell Solimano CNM Work Phone: [facility] Comment on above: Large for dates affe cting management of mother, third trimester, fetus 1 ([facility]) (Primary Dx); Encounter for care of first , third trimester ([facility]); Elevated blood pressure affecting in third trimester, antepartum ([facility]) Start: 11-29-2024 End: 11-29-2024 ambulatory CORDELL L FLORO Not Available Start: 11-29-2024 End: 11-29-2024 Bamboo flowsheet Cordell L Floro CNM Work Phone: [facility] Start: 11-29-2024 End: 11-29-2024 Bamboo flowsheet Cordell L Floro CNM Work Phone: [facility] Start: 11-29-2024 End: 11-29-2024 Clinisync Result [...] fetus 1 ([facility]) (Primary Dx); Encounter for care of first , third trimester ([facility]); screening for streptococcus B ([facility]); Large for dates ([facility]) Start: 11-22-2024 End: 11-22-2024 ambulatory [...] Telephone encounter Mini Sal MD Work Phone: [facility] Comment on above: Sleep Lab (HST/PSG/C PAP) Start: 02-24-2024 End: 02-24-2024 ambulatory MINI SAL [facility] Start: 02-24-2024 End: 02-24-2024 Office outpatient visit 25 minutes Mini Sal MD Work Phone: [facility] Comment on above: Obesity (BMI 30-39.9 ) (Primary Dx); Weight loss; PCOS (polycystic ovarian syndrome) Start: 01-13-2024 End: 01-13-2024 Telephone encounter Karolina Lawrence [facility] Karl powell Comment on above: Abdominal Pain; Dizz iness Start: 09-08-2023 End: 09-09-2023 Emergency department patient visit JOSH Robson [facility] Start: 07-06-2023 End: 07-06-2023 Office outpatient visit 25 minutes Mini Sal MD Work Phone: [facility] Comment on above: Obesity (BMI 30-39.9 ) (Primary Dx); Acute otitis externa of both ears, unspecified type Start: 07-06-2023 End: 07-06-2023 ambulatory [facility] Start: 05-26-2023 End: 05-26-2023 ambulatory [facility] Start: 05-26-2023 End: 05-26-2023 Office outpatient visit 25 minutes Mini Sal MD Work Phone: [facility] Comment on above: Obesity (BMI 30-39.9 ) (Primary Dx); Weight loss; BMI 35.0-35.9,adult Start: 04-20-2023 End: 04-20-2023 ambulatory [facility] Start: 01-10-2020 Patient encounter procedure MISSY NICKERSON Facility: Start: 01-10-2020 End: 01-11-2020 Patient encounter procedure MISSY NICKERSON [facility] Start: 01-10-2020 End: 01-10-2020 Subsequent hospital visit by physician Stephy Gabriel Screening Schedule STEPHY Covshonda Screening Comment on above: Arrived Start: 01-04-2020 End: 01-05-2020 Patient encounter procedure LIT Pedroza [facility] Start: 01-04-2020 End: 01-04-2020 Subsequent hospital visit by physician Karel [facility] Start: 01-03-2020 End: 01-04-2020 Patient encounter procedure LIT ELIZABETH [facility] Start: 01-03-2020 End: 01-03-2020 Subsequent hospital visit by physician Karel KEYES Laboratory Procedures Date Procedure Procedure Detail Performing Clinician Start: 12-04-2024 ALL CBC WITH AUTO DIFF Cordell L Floro CNM Work Phone: Start: 11-29-2024 US OB BPP W NON-STRESS Cordell L Floro CNM Work Phone: Start: 11-29-2024 ALL CBC WITH AUTO DIFF Cordell L Floro CNM Work Phone: Start: 10-23-2024 US OB BPP W NON-STRESS Cordell L Floro CNM Work Phone: Start: 10-23-2024 US OB CERVICAL LENGTH V alerie L Floro CNM Work Phone: Start: 10-23-2024 [facility] UA (CLEAN/CATCH) 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 Cordell L Floro CNM Work [...] W/REFLEX TO FT4 Mery nahomi L Floro CN Work Phone: Start: 01-10-2020 COVID-19 AMBULATORY DIP GREGORYKIAM ELIZABETH Start: 01-03-2020 COVID-19 AMBULATORY DIP CJ ELIZABETH Plan of Treatment Date Care Activity Detail Author Start: 02-23-2025 Adult BMI Screening Adult BMI Screen ing [facility] Start: 02-23-2025 Tobacco Screening Tobacco Screening [facility] Start: 01-01-2025 Influ[facility] Start: 12-13-2024 End: 12-13-2024 Patient encounter procedure [facility] Start: 12-07-2024 End: 12-07-2024 Patient encounter procedure 12/07/2024 3:30 PM EDT Routine [facility] [address] [facility] [place] [place] [phone] Cordell Gifford, CN [address] [place] [address] [facility] Start: 12-06-2024 End: 12-06-2024 Patient encounter procedure [facility] Start: 12-04-2024 End: 12-04-2024 Patient encounter procedure 12/04/2024 2:30 PM EDT Routine [facility] [address] [facility] [place] [id number] Cordell Gifford, CN [address] [place] [address] Arrived [facility] Comment on above: Arrived Start: 11-29-2024 End: 11-29-2024 Patient encounter procedure [facility] Comment on above: Arrived Start: 11-23-2024 End: 11-23-2024 Professional / ancillary services management 11/23/2024 2:15 PM EDT Ancillary Procedure [facility] [address] [place] [id number] [facility] Start: 11-22-2024 End: 11-22-2024 Patient encounter procedure 11/22/2024 4:00 PM EDT Routine [facility] [address] [place] [phone] Cordell Gifford, CN [address] [place] [address] Arrived [facility] Comment on above: Arrived Start: 11-22-2024 End: 11-22-2025 STREPTOCCOUS, GROUP B CULTURE STREPTOCCOUS, GROUP B CULTURE Lab Routine screening for streptococcus B ([facility]) Expected: 11/22/2024 (Approximate), Expires: 11/22/2025 [facility] Work Phone: Comment on above: Expected: 11/22/2024 (Approximate), Expires: 11/22/2025 Start: 11-22-2024 End: 11-22-2025 US for US OB follow up transabdominal approach Imaging Routine Large for dates ([facility]) Expected: 11/22/2024, Expires: 11/22/2025 [facility] Comment on above: Expected: 11/22/2024 , Expires: 11/22/2025 Start: 10-26-2024 End: 10-26-2024 Patient encounter procedure 10/26/2024 3:30 PM EDT Routine [facility] [address] [place] [address] Cordell Gifford, LINDA [address] [place] [address] [facility] Start: 09-28-2024 End: 09-28-2024 [...] Adult BMI Screening Adult BMI Screen ing [facility] Start: 09-07-2024 Tobacco Screening Tobacco Screening [facility] Start: 08-29-2024 End: 08-29-2024 Patient encounter procedure 08/29/2024 3:00 PM EDT Routine [facility] [address] [place] [phone] Cordell Gifford, LINDA [address] [place] [address] Arrived [facility] Comment on above: Arrived Start: 08-28-2024 End: 08-28-2024 Patient encounter procedure 08/28/2024 5:00 PM EDT Routine [facility] [address] [place] [phone] Cordell Gifford CN [address] [place] [address] [facility] Start: 07-31-2024 End: 07-31-2024 Patient encounter procedure [facility] Comment on above: related co ndition in second trimester Start: 07-31-2024 End: 03-31-2025 Professional / ancillary services management 07/31/2024 5:45 PM EDT Ancillary Procedure [facility] [address] [phone] [facility] Start: 07-31-2024 End: 07-31-2025 US for [facility] Work Phone: Comment on above: Expected: 07/31/2024 , Expires: 07/31/2025 Start: 07-20-2024 End: 07-20-2024 Patient encounter procedure 07/20/2024 3:00 PM EDT Routine [facility] [address] [place] [address] Cordell Gifford CNM [address] [place] [address] [facility] Start: 07-05-2024 Adult BMI Screening Adult BMI Screen ing [facility] Start: 07-05-2024 Tobacco Screening Tobacco Screening [facility] Start: 06-29-2024 DTaP,Tdap and Td Vac cines (8 - Td or Tdap) DTaP,Tdap and Td Vaccines (8 - Td or Tdap) [facility] Start: 06-29-2024 DTaP/Tdap/Td vaccine (7 - Td) DTaP/Tdap/Td vaccine (7 - Td) [place], [place] Start: 06-22-2024 End: 06-22-2024 Patient encounter procedure [facility] Comment on above: Arrived Start: 06-20-2024 End: 06-20-2025 Thyrotropin [Units/volume] in Serum or Plasma TSH Lab Routine Elevated TSH Expected: 06/20/2024 (Approximate), Expires: 06/20/2025 [facility] Work Phone: Comment on above: Expected: 06/20/2024 (Approximate), Expires: 06/20/2025 Start: 05-24-2024 End: 05-24-2024 Patient encounter procedure 05/24/2024 8:30 AM EST Routine [facility] [address] [place] [phone] Balta Cordell L, CNM [address] [place] [address] Arrived [facility] Comment on above: Arrived Start: 03-17-2024 Adult BMI Screening Adult BMI Screen ing [facility] Start: 03-17-2024 Tobacco Screening Tobacco Screening [facility] Start: 02-24-2024 End: 02-23-2025 Polysomnography 4 or more parameters with PAP titration Polysomnography 4 or more parameters with PAP titration Sleep Center Routine Obesity (BMI 30-39.9) Expected: 02/24/2024 (Approximate), Expires: 02/23/2025 [facility] Comment on above: Expected: 02/24/2024 (Approximate), Expires: 02/23/2025 Start: 02-24-2024 End: 02-23-2025 PSG Diagnostic PSG Diagnostic Sleep Center Routine Obesity (BMI 30-39.9) Expected: 02/24/2024 (Approximate), Expires: 02/23/2025 [employer] Comment on above: Expected: 02/24/2024 (Approximate), Expires: 02/23/2025 Start: 02-24-2024 End: 03-26-2024 SARS COV 2 (COVID-19) SARS COV 2 (COVID-19) Microbiology STAT Obesity (BMI 30-39.9) Expected: 02/24/2024 (Approximate), Expires: 03/26/2024 [employer] Comment on above: Expected: 02/24/2024 (Approximate), Expires: 03/26/2024 Start: 02-24-2024 End: 02-23-2025 TSH with Reflex TSH with Reflex Lab Routine PCOS (polycystic ovarian syndrome) Expected: 02/24/2024 (Approximate), Expires: 02/23/2025 [facility] Phone: Comment on above: Expected: 02/24/2024 (Approximate), Expires: 02/23/2025 Start: 02-24-2024 End: 02-23-2025 Vitamin D 25 hydroxy Vitamin D 25 hydroxy Lab Routine PCOS (polycystic ovarian syndrome) Expected: 02/24/2024 (Approximate), Expires: 02/23/2025 [facility] Comment on above: Expected: 02/24/2024 (Approximate), Expires: 02/23/2025 Start: 01-02-2024 COVID-19 Vaccine ( season) COVID-19 Vaccine () [facility] Start: 01-02-2024 Influenza vaccination [facility] Start: 10-08-2023 End: 10-08-2023 Patient encounter procedure 10/08/2023 9:00 AM EDT Office Visit [facility] [address] [place] [address] [place] [phone] Mini Sal MD [address], [place], [place] [id number] [facility] Start: 01-01-2023 COVID-19 Vaccine () COVID-19 Vaccine () [facility] Start: 01-01-2023 Influenza vaccination Influenza Vacc ine [facility] Start: 10-26-2020 Screening for malign ant neoplasm of cervix Pap Smear [facility] Start: 01-02-2020 Influenza vaccination Flu vaccine (# 1) [place] Start: 05-31-2018 Screening for Chlamy esthela trachomatis Chlamydia screen [place] Start: 10-26-2017 Adult BMI Follow Up Plan Adult BMI F ollow Up Plan [facility] Start: 10-26-2014 HIV screening HIV screen [place], [place] Start: 2011 [facility]: 10-26-2010 HPV vaccine (1 - 2-d ose series) HPV vaccine (1 - 2-dose series) [place] Start: 10-26-2005 Pneumococcal 0-64 ye ars Vaccine (1 of 1 - PPSV23) Pneumococcal 0-64 years Vaccine (1 of 1 - PPSV23) [place] Start: 1999 Screening for Chlamy esthela trachomatis Chlamydia Screening [facility] Start: 1999 Tobacco Counseling Tobacco Counselin g [facility] End: 02-23-2025 Cortisol Cortisol Lab Routine PCOS (polycystic ovarian syndrome) 1 Occurrences starting 02/24/2024 until 02/23/2025 [facility] Comment on above: 1 Occurrences starti ng 02/24/2024 until 02/23/2025 End: 01-03-2020 Covid-19 Ambulatory Covid-19 Ambulatory Lab Routine Once for 1 Occurrences starting 01/03/2020 until 01/03/2020 [place] Comment on above: Once for 1 Occurrenc es starting 01/03/2020 until 01/03/2020 Covid-19 Ambulatory [place], [place] End: 01-10-2020 Covid-19 Ambulatory Covid-19 Ambulatory Lab Routine Once for 1 Occurrences starting 01/10/2020 until 01/10/2020 [place] Comment on above: Once for 1 Occurrenc es starting 01/10/2020 until 01/10/2020 End: 02-23-2025 Estradiol Estradiol Lab Routine PCOS (polycystic ovarian syndrome) 1 Occurrences starting 02/24/2024 until 02/23/2025 [facility] Comment on above: 1 Occurrences starti ng 02/24/2024 until 02/23/2025 End: 02-23-2025 FSH FSH Lab Routine PCOS (polycystic ovarian syndrome) 1 Occurrences starting 02/24/2024 until 02/23/2025 [facility] Comment on above: 1 Occurrences starti ng 02/24/2024 until 02/23/2025 End: 02-23-2025 Home sleep study Home sleep study Sleep Center Routine Obesity (BMI 30-39.9) 1 Occurrences starting 02/24/2024 until 02/23/2025 [facility] Comment on above: 1 Occurrences starti ng 02/24/2024 until 02/23/2025 End: 02-23-2025 Luteinizing hormone Luteinizing hormone Lab Routine PCOS (polycystic ovarian syndrome) 1 Occurrences starting 02/24/2024 until 02/23/2025 [facility] Comment on above: 1 Occurrences starti ng 02/24/2024 until 02/23/2025 End: 02-23-2025 Testosterone [Mass/volume] in Serum or Plasma Testosterone Lab Routine PCOS (polycystic ovarian syndrome) 1 Occurrences starting 02/24/2024 until 02/23/2025 [facility] Comment on above: 1 Occurrences starti ng 02/24/2024 until 02/23/2025 Immunizations Immunization Date Immunization Notes Care Provider Cristin pereira 12-17-2016 meningococcal polysaccharide (groups A, C, Y and W-135) diphtheria toxoid conjugate vaccine (MCV4P) [facility], [place] 06-29-2014 tetanus toxoid, redu marci diphtheria toxoid, and acellular pertussis vaccine, adsorbed [facility], [place] 01-28-2012 Hepatitis A Ped/Adol (Vaqta) [facility], [place] 09-24-2011 meningococcal polysaccharide (groups A, C, Y and W-135) diphtheria toxoid conjugate vaccine (MCV4P) [facility], [place] 07-23-2011 Hepatitis A Ped/Adol (Vaqta) [facility], [place] 07-23-2011 varicella virus vaccine [facility], [place] 12-26-2004 diphtheria, tetanus toxoids and acellular pertussis vaccine [facility], [place] 12-26-2004 measles, mumps and r ubella virus vaccine [facility], [place] 12-26-2004 poliovirus vaccine, inactivated [facility], [place] 05-12-2001 diphtheria, tetanus toxoids and acellular pertussis vaccine [facility], [place] 05-12-2001 measles, mumps and r ubella virus vaccine [facility], [place] 05-12-2001 poliovirus vaccine, inactivated [facility], [place] 11-02-2000 haemophilus influenz ae type b vaccine, PRP-OMP conjugate [facility], [place] 11-02-2000 hepatitis B vaccine, pediatric or pediatric/adolescent dosage [facility], [place] 11-02-2000 varicella virus vaccine [facility] [place], [place] 05-20-2000 diphtheria, tetanus toxoids and acellular pertussis vaccine [facility], [place] 03-09-2000 diphtheria, tetanus toxoids and acellular pertussis vaccine [facility], [place] 03-09-2000 haemophilus influenz ae type b vaccine, PRP-OMP conjugate [facility], [place] 03-09-2000 hepatitis B vaccine, pediatric or pediatric/adolescent dosage [facility], [place] 03-09-2000 poliovirus vaccine, inactivated [facility], MD 1999 diphtheria, tetanus toxoids and acellular pertussis vaccine [facility], MD 1999 haemophilus influenz ae type b vaccine, PRP-OMP conjugate [facility], MD 1999 hepatitis B vaccine, pediatric or pediatric/adolescent dosage [facility], [place] 1999 poliovirus vaccine, inactivated [facility], [place] Payers Date Payer Category Payer Private Health Insurance [id number] 2024 Medicaid MEDICAID [facility] [id number] 2024 Medicaid [id number] 2019 Blue [place] Blue [facility] [id number] 2019 Blue Cross Blue Shie ld Managed Care - Other [employer] [id number] 2019 Unknown ANTHEM BCBS OUT OF STATE PPO/TRUST [id number] 2019-Present [phone] [id number] [place], [place] [address] [id number] 2017 Unknown [id number] [id number]. [id number] 1999 Unknown [id number] 2.16.840.1.957186.3.579.2. 593 1999 Unknown [id number] 2.16.840.1.192876.3.579.2. 173 1999 Unknown [id number] 2.16.840.1.543197.3.579.2. 173 1999 Unknown [id number] 2.16.840.1.784176.3.579.2. 173 1999 Unknown [id number] 2.16.840.1.707419.3.579.2. 1286 1999 Unknown [id number] 2.16.840.1.780566.3.579.2. 128 1999 Unknown [id number] 2.16.840.1.492718.3.579.2. 1285 1999 Unknown [id number] 2.16.840.1.958244.3.579.2. 1285 1999 Unknown [id number] 2.16.840.1.353959.3.579.2. 1285 1999 Unknown [id number] 2.16.840.1.598217.3.579.2. 1285 1999 Unknown [id number] 2.16.840.1.482519.3.579.2. 1258 1999 Unknown [id number] 2.16.840.1.593741.3.579.2. 1258 1999 Unknown [id number] 2.16.840.1.994184.3.579.2. 1258 1999 Unknown [id number] 2.16.840.1.189550.3.579.2. 1258 1999 Unknown [id number] 2.16.840.1.769591.3.579.2. 1258 1999 Unknown [id number] 2.16.840.1.288670.3.579.2. 1258 1999 Unknown [id number] 2.16.840.1.561855.3.579.2. 1258 1999 Unknown [id number] 2.16.840.1.127447.3.579.2. 1258 1999 Unknown [id number] 2.16.840.1.870565.3.579.2. 1258 1999 Unknown [id number] 2.16.840.1.199558.3.579.2. 1258 1999 Unknown [id number] 2.16.840.1.961117.3.579.2. 1258 1999 Unknown [id number] 2.16.840.1.269201.3.579.2. 1258 1999 Unknown [id number] 2.16.840.1.200897.3.579.2. 1259 1959 Self-pay Social History Date Type Detail Facility Start: 08-06-2018 End: 02-18-2023 Tobacco smoking status NCIS Current every day smoker [place], [place] Start: 07-02-2023 History of tobacco use Cigarette Smo ker [place] Start: 08-06-2018 End: 09-09-2023 Tobacco use and exposure Never used [place] Start: 08-06-2018 Alcohol intake Current non-dr data services developer of alcohol (finding) [place] Start: 08-06-2018 Tobacco Comment 4 cigarrettes a day [place] Start: 1999 Sex Assigned At Not on file [place], [place] Start: 09-08-2023 End: 09-09-2023 Tobacco smoking status [facility] Ex-smoker [facility] Start: 07-02-2023 History of tobacco use Current smoke r [facility] Start: 09-09-2023 Alcoholic beverage intake Lifetime non-drinker (finding) [facility] Start: 09-09-2023 End: 05-04-2024 History of Social function [facility] Start: 09-09-2023 End: 05-04-2024 Tobacco use panel [facility] Start: 04-28-2024 End: 05-04-2024 Alcoholic beverage intake Ex-drinker (finding) [facility] Start: 03-24-2024 [facility] Start: 02-18-2023 End: 09-08-2023 Tobacco use and exposure Former smokeless tobacco user [facility] Start: 03-17-2023 End: 07-06-2023 Alcohol intake Current drinker of alcohol (finding) [facility] How hard is it for y ou to pay for the very basics like food, housing, medical care, and heating Not hard at all [facility] Start: 02-18-2023 Alcohol Comment occasionally [facility] Start: 01-14-2023 Sex Female (finding) [facility] Goals Date Patient Goal Desired Activity /State Personal health goal Clinical Notes 05-26-2023 to 12-04-2024 Cordell Gifford, LINDADinora - 12/04/2024 2:30 PM EDTCordell Gifford, LINDAM - 11/29/2024 3:00 PM EDMathieu Gifford, LINDAM - 11/22/2024 4:00 PM EDMathieu Gifford, LINDA [...] third trimester ([facility]) Elevated blood pressure affecting in third trimester, antepartum ([facility]) Patient has been home monitoring her blood [...] a routine visit. documented in this encounter [facility] 11-29-2024 History of Presen t illness Narrative [...] 150/100 and 160/90 Patient to go to [facility] L&D and orders called over for Pre-e work up, NST and BPP Patient states I haven't felt right for a couple days, just really tired. Had a headache but it went away., Diagnoses and all orders for this visit: Large for dates affecting management of mother, third trimester, fetus 1 ([facility]) Encounter for care of first , third trimester ([facility]) Elevated blood pressure affecting in third trimester, antepartum ([facility]) Continue vitamin. Labs reviewed. GBS taken. Expected mode of delivery vaginal Follow up in 1 week for a routine visit. documented in this encounter [facility] 11-22-2024 History of Presen t illness Narrative [...] fetus 1 ([facility]) Encounter for care of first , third trimester ([facility]) screening for streptococcus B ([facility]) - STREPTOCCOUS, GROUP B CULTURE; Future Large for dates ([facility]) - US OB follow up transabdominal approach; Future Continue vitamin. Labs reviewed. GBS taken today Expected mode of delivery Patient is measuring large for dates. She is 36.5 today and measuring 41. I will get US -growth done tomorrow. Scheduled Follow up in 1 week for a routine visit. documented in this encounter [facility] 09-28-2024 History of Presen t illness [...] a routine visit. 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 I did inquire about this more, and she states her nursing complaint evaluation supervisor will help her when she can. I did question the liability this could place on her and especially will get more difficult as her progresses. I will write a note to her employer if needed. I did advise her to go the HR and inquire what the legal ETL ANALYST to patient ratio is . Not only for the resident's safety, but my patient's as well. She states she will inquire about it as it's getting harder to do. Continue vitamin. Labs reviewed. Rhogam GTT . Follow up in 2 weeks for a routine visit. documented in this encounter [facility] 06-27-2024 History of Presen t illness Narrative Patient is and tested positive for COVID. Instructions to go to nearest ER for difficulty breathing, chest pain, or worsening symptoms. Rx meds sent to pharmacy documented in this encounter [facility] 06-22-2024 History of Presen t illness [...] a routine visit. documented in this encounter [facility] 05-04-2024 History of Presen t illness [...] also given office phone number and [facility] number to call in case of an emergency or after hours needs. PVU and all questions answered. We did discuss place of delivery. Patient should plan to go to [facility] for all services unless an emergency and they need to go to the closest ER. We can make other arrangements possibly if patient would like to deliver at another facility but I did explain I am now at [place] 100% of the time and would like to do all deliveries there. documented in this encounter [facility] 04-28-2024 History of Presen t illness Narrative W OB nurse visit documented in this encounter [facility] 04-03-2024 Telephone encount er Note PT TOOK a positive preganacy test and is about 3 weeks, and wants scheduled lola. [facility] 04-03-2024 Miscellaneous Notes Formattin g of this note might be different from the original. PT TOOK a positive preganacy test and is about 3 weeks, and wants scheduled lola. documented in this encounter [facility] 02-28-2024 Miscellaneous Notes Formattin g of this note might be different from the original. 02/23 Order received 02/27 Called PT LM to schedule sleep study. HST/PSG/PAP Order and 02/24/24 M. Doron Epic Notes documented in this encounter [facility] 02-28-2024 Telephone encount er Note 02/23 Order received 02/27 Called PT LM to schedule sleep study. HST/PSG/PAP Order and 02/24/24 M. Doron Epic Notes [facility] 02-24-2024 History of Presen t illness Narrative Images from the original note were not included. [address] [place] [phone] Patient: Jacque Horn Date of : [...] titration; Future - Ambulatory referral to [facility] Sleep Medicine; Future - Home sleep study; [...] months MINI SAL MD Family Medicine Physician [facility] / [facility] 02/24/24 This note was completed with voice recognition software. The document was reviewed for errors however some may still be present. Please do not hesitate to contact/Epic [facility] the author to verify any questions/concerns. documented in this encounter [facility] 01-13-2024 Miscellaneous Notes Formattin g of this note might be different from the original. Contract: ob [id number] Ms Blount re 27 weeks, has been experiencing off and on pain for about 3 days, has been more steady this evening; a little dizziness Numeric page sent documented in this encounter [facility] 01-13-2024 Telephone encount er Note Contract: ob [id number] Ms Siebnaller re 27 weeks, has been experiencing off and on pain for about 3 days, has been more steady this evening; a little dizziness [facility] 01-13-2024 Telephone encount er Note Numeric page sent [facility] 07-06-2023 History of Presen t illness Narrative Images from the original note were not included. [address] [place] [phone] Patient: Jacque Horn Date of : 2000 [...] days. MINI SAL MD Family Medicine Physician [facility] / [facility] 07/06/23 This note was completed with voice recognition software. The document was reviewed for errors however some may still be present. Please do not hesitate to contact/Epic [facility] the author to verify any questions/concerns. documented in this encounter [facility] 05-26-2023 History of Presen t illness Narrative Images from the original note were not included. [address] [place] [phone] Patient: Jacque Horn Date of : [...] Real-time Synchronous Audiovisual Provider Location: [facility] [address] [place], [place] [id number] Patient Location: Patient's home Video Visit Consent [...] that there are some limitations compared to [id number] evaluations. The patient consented to the presence of additional virtual and/or in-person participants. We elected to proceed. MINI SAL MD Family Medicine Physician [facility] / [facility] 05/26/23 This note was completed with voice recognition software. The document was reviewed for errors however some may still be present. Please do not hesitate to contact/Epic msg the author to verify any questions/concerns. documented in this encounter [facility] 05-26-2023 Instructions Mini Sal MD - 05/26/2023 7:45 AM EST Call number on back of insuracne card to find out if they cover GLP1 medications. If so, for what diagnosis? Diabetes or Weight loss? Which GLP1 medications are preferred? ie: Ozempic, wegovy, mounjaro, trulicity etc. documented in this encounter [facility] Evaluation note Diagnosis Obesity (BMI 30-39.9)- Primary Weight loss Loss of weight BMI 35.0-35.9,adult [facility] Diagnosis Obesity (BMI 30-39.9)- Primary Acute otitis externa of both ears, unspecified type [facility] Diagnosis Obesity (BMI 30-39.9)- Primary Weight loss Loss of weight PCOS (polycystic ovarian syndrome) Polycystic ovaries [facility] Diagnosis examination or test, positive result [...] management of mother, third trimester, fetus 1 ([facility])- Primary Encounter for care of first , third trimester ([facility]) screening for streptococcus B ([facility]) screening for Streptococcus B Large for dates ([facility]) [facility] Diagnosis Large for dates affecting management of mother, third trimester, fetus 1 ([facility])- Primary Encounter for care of first , third trimester ([facility]) Elevated blood pressure affecting in third trimester, antepartum ([facility]) [facility] Diagnosis Encounter for care of first , third trimester ([facility])- Primary Elevated blood pressure affecting in third trimester, antepartum ([facility]) documented in this encounter [facility] Present illness Narrative* Cordell Gifford, ASA - 07/31/2024 7:00 PM EDT Subjective No [...] for a routine visit. documented in this encounterNOPhelps HealthInstructionsNot on filedocumented in this encounterProVan Wert County Hospital SystemInstructionsNot on filedocumented in this encounterProVan Wert County Hospital SystemInstructionsNot on filedocumented in this encounterProVan Wert [facility] Advance Directives Documents on File Type Date Recorded Patient Personal Fitness Manager Expl anation ACP-Advance Directive ACP-Power of Booth Usher Summary Purpose Family History No Family History Records FoundNo Family History Records FoundNo Family History Records FoundNo Family History Records FoundNo Family History Records Found Additional Source Comments INFORMATION SOURCE (unrecogn ized section and content) DATE CREATED AUTHOR 01/11/2020 [facility] DATE CREATED AUTHOR AUTHOR'S ORGANIZ ATION 01/13/2020 [facility] DATE CREATED AUTHOR AUTHOR'S ORGANIZ ATION 09/10/2023 [facility] DATE CREATED AUTHOR AUTHOR'S ORGANIZ ATION 02/26/2024 [facility] DATE CREATED AUTHOR AUTHOR'S ORGANIZ ATION 12/01/2024 [facility] dical Specialists [employer] Care Teams (unrecognized sec tion and content) Icebox Man Relationship Specialty Start Date End Date Tiara Casper MD PCP - General Family Medicine 02/19/23 Icebox Man Relationship Specialty Start Date End Date Tiara Casper MD PCP - General Family Medicine 02/19/23 Icebox Man Relationship Specialty Start Date End Date Tiara Casper MD PCP - General Family Medicine 02/19/23 Icebox Man Relationship Specialty Start Date End Date Mini Sal MD [address], [place] [address] PCP - General Internal Medicine 02/24/23 Icebox Man Relationship Specialty Start Date End Date Mini Sal MD [address], [place] [address] PCP - General Internal Medicine 02/24/23 Icebox Man Relationship Specialty Start Date End Date Mini Sal MD [address], [place] [address] PCP - General Internal Medicine 02/24/23 Icebox Man Relationship Specialty Start Date End Date Mini Sal MD [address], [place] [address] PCP - General Internal Medicine 02/24/23 Icebox Man Relationship Specialty Start Date End Date Mini Sal MD [address], [place] [address] PCP - General Internal Medicine 02/24/23 Icebox Man Relationship Specialty Start Date End Date Tiara Casper MD PCP - General Family Medicine 02/19/23 Icebox Man Relationship Specialty Start Date End Date Tiara Casper MD PCP - General Family Medicine 02/19/23 Icebox Man Relationship Specialty Start Date End Date Tiara Casper MD PCP - General Family Medicine 02/19/23 Icebox Man Relationship Specialty Start Date End Date Tiara Casper MD PCP - General Family Medicine 02/19/23 Icebox Man Relationship Specialty Start Date End Date Tiara Casper MD PCP - General Family Medicine 02/19/23 Icebox Man Relationship Specialty Start Date End Date Tiara Casper MD PCP - General Family Medicine 02/19/23 Icebox Man Relationship Specialty Start Date End Date Tiara Casper MD PCP - General Family Medicine 02/19/23 Icebox Man Relationship Specialty Start Date End Date Tiara Casper MD PCP - General Family Medicine 02/19/23 Icebox Man Relationship Specialty Start Date End Date Tiara Casper MD PCP - General Family Medicine 02/19/23 Icebox Man Relationship Specialty Start Date End Date Tiara Casper MD PCP - General Family Medicine 02/19/23 Icebox Man Relationship Specialty Start Date End Date Tiara Casper MD [address], [address] [place] [address] PCP - General Family Medicine 02/19/23 Icebox Man Relationship Specialty Start Date End Date Tiara Casper MD [address] [facility] [place] [address] PCP - General Family Medicine 02/19/23 Icebox Man Relationship Specialty Start Date End Date Tiara Casper MD [address], [address] [place] [address] PCP - General Family Medicine 02/19/23 Icebox Man Relationship Specialty Start Date End Date Tiara Casper MD [address] [facility] [address] PCP - General Family Medicine 02/19/23 Icebox Man Relationship Specialty Start Date End Date Tiara Casper MD [address] [facility] [address] PCP - General Family Medicine 02/19/23 Reason [...] BE BASED ON THE PRIMARY CLINICAL RECORDS. [facility]. provides no warranty or guarantee of the accuracy or completeness of information in this document.
[2024-12-04 22:18] LABS: Cannabinoid Screen Urine NEGATIVE (NEGATIVE); Methamphetamines Screen Urine NEGATIVE (NEGATIVE); Tricyclic Antidepressant Urine NEGATIVE (NEGATIVE)
[2024-12-04 22:43] VITALS: BP 120/81; PULSE 94; TEMP 36.8
[2024-12-04] MEDS: LABETALOL HCL 100 MG TABLET PO (22:50)
[2024-12-04 23:15] VITALS: BP 128/70; PULSE 90
[2024-12-05] VITALS (41 sets, daily range): BP systolic 110–167; BP diastolic 56–100; PULSE 73–102; TEMP 35.7–36.9
[2024-12-05] MEDS: LABETALOL HCL 100 MG TABLET PO ×2 (08:17→22:14)
--- NOTE | 2024-12-05 08:59 | P.OBHP_ITS ---
OB - H&P: HPI History of Present Illness Chief complaint: Rule out Labor : 2 Para: 0 Gestational age based on last menstrual period: 38.4 Indications for induction: maternal hypertension History of Present Dating criteria: LMP confirmed by 1st trimester US care: good care Ultrasounds: normal 1st trimester US and normal mid trimester US complications: induced hypertension Labs Blood type: O (+) positive Rubella: immune RPR/VDLR: nonreactive GBS status: negative HBsAG: negative [facility] Medical History (Updated 12/05/24 @ 09:09 by CORDELL MALIK APRN, CNM) PCOS (polycystic ovarian syndrome) ?E28.2 - Polycystic ovarian syndrome (ICD-10) Social History Highest level of school completed/degree received: high school graduate Little interest or pleasure in doing things: not at all Feeling down, depressed, or hopeless: not at all Meds Home Medications and Allergies Home Medications ?Medication ?Instructions ?Recorded ?Confirmed ?Type ferrous sulfate 325 mg (65 mg 325 mg PO DAILY 11/28/24 12/04/24 History iron) tablet,delayed release Allergies Allergy/AdvReac Type Severity Reaction Status Date / Time No Known Drug Allergies Allergy Verified 12/04/24 22:37 Exam Constitutional Vital Signs, click to edit/add: Last Vital Signs Temp 96.6 F L 12/05/24 02:12 Pulse 78 12/05/24 08:20 Resp 16 12/05/24 02:13 BP 139/78 12/05/24 08:20 O2 Del Method Room Air 12/04/24 22:43 Documenting provider has reviewed patient's vital signs: yes Common normals: no apparent distress General appearance: cooperative, comfortable, well kempt and well developed HENMT Common normals: normocephalic Eye Common normals: EOMs intact bilaterally General eye: normal appearance of both eyes Neck & C-Spine Common normals: no lymphadenopathy Lymph Lymphatic: no lymphadenopathy noted Chest Common normals: inspection of chest normal Respiratory Common normals: normal respiratory effort, no retractions, no use of accessory muscles and clear to auscultation bilaterally Effort & inspection: able to speak in complete sentences Auscultation: clear to auscultation bilaterally Cardio Common normals: regular rate and regular rhythm Rate: regular rate Rhythm: regular rhythm GI Common normals: Normal to inspection, nondistended, normoactive bowel sounds present Inspection: normal to inspection Auscultation: normoactive bowel sounds Palpation: soft Percussion: normal to percussion Common normals: no CVA tenderness Back & Pelvis Common normals: no CVA tenderness Thoracic spine/upper back: normal to inspection Lumbar spine/lower back: normal to inspection Extremity Common normals: normal to inspection Neuro Common normals: oriented x3 Sensorium/orientation: awake, alert, oriented to person, oriented to place and oriented to time Psych Common normals: mental status grossly normal, thought process normal, cooperative, affect normal, speech normal, activity/motor behavior normal, denies hallucinations, denies homicidal ideation and denies suicidal ideation Appearance: grossly normal Attitude: calm Activity/motor behavior: appropriate eye contact Results Labs Labs: Short CBC 12/04/24 Range/Units 20:00 WBC 10.8 (4.0-11.0) 10^3/uL Hgb 11.8 L (12.0-16.0) g/dL Hct 34.6 L (36.0-48.0) % Plt Count 255 (150-450) 10^3/uL BMP 12/04/24 20:00 Sodium 135 L Potassium 4.0 Chloride 102 Carbon Dioxide 26.0 BUN 15.0 Creatinine 0.50 L Glucose 129 H Calcium 10.0 Liver Function 12/04/24 Range/Units 20:00 Total Bilirubin 0.2 (0.2-1.0) mg/dL AST 14 L (15-37) U/L ALT 16 (14-59) U/L Alkaline Phosphatase 216 H (46-116) U/L Albumin 2.4 L (3.4-5.0) g/dL OB - A/P Assessment and Plan (1) induced hypertension: (2) Term :
[2024-12-05] MEDS: OXYTOCIN/0.9 % SODIUM CHLORIDE 10 UNITS/500 ML PLAST..BAG 6 UNIT IV (10:45)
--- NOTE | 2024-12-05 12:29 | PM.EN ---
Event Note Event Note: to room for patient assessment. She is resting in bed and states I have been sleeping. AROM performed with sterile [place] with return of moderate amount of clear odorless fluid. heart tones within normal range before, during and after rupture of membranes. Patient tolerated procedure well.
[2024-12-05] MEDS: OXYTOCIN/0.9 % SODIUM CHLORIDE 10 UNITS/500 ML PLAST..BAG 60 UNIT IV (21:00)
[2024-12-06] VITALS (110 sets, daily range): BP systolic 96–160; BP diastolic 55–97; PULSE 72–108; TEMP 36.6–36.9; O2SAT 96–99
--- NOTE | 2024-12-06 08:02 | P.OBPN_ITS ---
OB - PN: Subj Subjective Patient comments: no complaints [place] status: doing well feeding status: exclusively bottle feeding Exam Constitutional Vital Signs, click to edit/add: Last Vital Signs Temp 97.8 F 12/06/24 07:00 Pulse 90 12/06/24 07:22 Resp 16 12/05/24 02:13 BP 131/81 12/06/24 07:22 O2 Del Method Room Air 12/04/24 22:43 Documenting provider has reviewed patient's vital signs: yes Common normals: no apparent distress Exam limitations: altered mental status General appearance: cooperative, comfortable, well kempt and well developed Orientation/consciousness: Yes awake, Yes oriented to person, Yes oriented to place and Yes oriented to time HENMT Common normals: normocephalic Eye Common normals: EOMs intact bilaterally General eye: normal appearance of both eyes Visual acuity: acuity normal Neck & C-Spine Common normals: full ROM General: normal visual inspection Lymph Lymphatic: no lymphadenopathy noted Chest Common normals: inspection of chest normal Respiratory Common normals: normal respiratory effort, no retractions, no use of accessory muscles, clear to auscultation bilaterally and percussion normal Effort & inspection: able to speak in complete sentences Auscultation: clear to auscultation bilaterally Cardio Common normals: regular rate and regular rhythm Rate: regular rate Rhythm: regular rhythm GI Common normals: Normal to inspection, nondistended, normoactive bowel sounds present Auscultation: normoactive bowel sounds Palpation: soft Common normals: no CVA tenderness Back & Pelvis Common normals: no CVA tenderness Thoracic spine/upper back: normal to inspection Extremity Common normals: normal to inspection and full ROM Neuro Common normals: oriented x3 Sensorium/orientation: awake, alert, oriented to person, oriented to place and oriented to time Psych Common normals: mental status grossly normal, thought process normal, cooperative, affect normal, speech normal, activity/motor behavior normal, denies hallucinations, denies homicidal ideation and denies suicidal ideation Attitude: calm OB - PN: A/P Assessment and Plan (1) induced hypertension: Qualifiers: Trimester: third trimester Qualified Code(s): O13.3 - Gestational [-induced] hypertension without significant proteinuria, third trimester (2) Term : Time Spent with Patient Time: Total time spent is greater than 50% in coordination of care (as documented) at patient's floor/unit and/or counseling patient: Total time spent with greater than 50% in coordination of care (as documented) at patient's floor/unit and/or counseling patient: less than 15 minutes
[2024-12-06] MEDS: OXYTOCIN/0.9 % SODIUM CHLORIDE 10 UNITS/500 ML PLAST..BAG 60 UNIT IV (08:03)
[2024-12-06] MEDS: LABETALOL HCL 100 MG TABLET PO ×2 (09:10→21:22)
[2024-12-06] MEDS: PENICILLIN G POTASSIUM 2,500,000 UNIT in 0.9 % SODIUM CHLORIDE 50 ML 100 UNIT IV (11:54)
[2024-12-06] MEDS: ROPIVACAINE HCL/PF 400 MG/200 ML PREMIX 12 MG EPIDURAL (12:30)
[2024-12-06] MEDS: CITRIC ACID/SODIUM CITRATE 30 ML SOLUTION ORACIT SHOHL'S SOLN PO (16:24)
[2024-12-06] MEDS: FAMOTIDINE/PF 20 MG/2 ML VIAL IV (16:25)
[2024-12-06] MEDS: METOCLOPRAMIDE HCL 10 MG/2 ML VIAL IVP (16:25)
[2024-12-06] MEDS: CEFAZOLIN SODIUM/DEXTROSE,ISO 2 GM/50 ML PIGGYBACK IV (16:26)
--- NOTE | 2024-12-06 17:14 | PM.ONB ---
Brief Operative Note Date of procedure: 12/06/24 Pre-op diagnosis general: iup at 38 5/7wks, chronic htn, failure to descend, failure to dilate Post-op diagnosis: same as pre-op Procedure: NAME OF PROCEDURE: [ section ] PROCEDURE: Patient was taken back to the Operating Room where she was given a spinal anesthesia with Duramorph without difficulty. She was prepped and draped in the normal sterile fashion. A Pfannenstiel skin incision was then made 2 cm above the symphysis pubis and carried down to underlying rectus fascia using a Bovie. The fascia was incised in the midline and extended laterally using Franklin scissors. Two Sarah clamps were placed on the superior aspect of the fascia and dissected off the underlying rectus muscles. The same was performed on the inferior aspect as well. The muscles were then in the midline. Peritoneum was identified and entered bluntly. The peritoneum was then extended superiorly and inferiorly with good visualization of the bladder. The bladder blade was inserted. A low transverse incision was made on the patient's uterus and extended laterally digitally. The infant was then delivered atraumatically after the bladder blade was removed in the cephalic position. The cord was clamped and cut. Cord blood was obtained. The was handed off to awaiting team. The patient's placenta was spontaneously delivered. The uterus was then exteriorized. The uterus was cleared of all clots and debris. The bladder blade was reinserted. The patient's uterine incision was closed using #0 Vicryl in a running lock fashion. Excellent hemostasis was assured. The uterus was then returned to the patient's abdomen. The patient's abdomen was copiously irrigated using warm saline. Peritoneal gutters were cleared of all clots and debris. Again excellent hemostasis was assured. The patient's peritoneum was closed using 3-0 Vicryl in a running fashion. The patient's fascia was closed using #0 Vicryl in a running fashion. The patient's skin was closed using 4-0 Vicryl subcuticularly. The patient tolerated the procedure well. Sponge, lap, and needle counts were correct x2. The patient was taken to the Recovery Room in stable condition. Anesthesia: epidural Surgeon: Raymond Ross Judo Instructor: CORDELL MALIK Estimated blood loss (mL): 575 Pathology: other (placenta) Condition: stable Disposition: floor Urinary Catheter Management Urinary Catheter Management Urethral: Cath placed during this visit: no
--- NOTE | 2024-12-06 17:15 | PM.OBPRCCS ---
Procedure Pre-op/Post-op diagnoses: Pre-Op/Post-Op Diagnoses Operation Date: 12/06/24 16:00 <No data on this case meets the specified criteria> Procedure: Procedures Operation Date: 12/06/24 16:00 Actual Procedure Side Surgeon p Not Applicable Raymond Ross DO Load Out Supervisor: CORDELL MALIK Estimated blood loss (mL): 575 Disposition: PACU Anesthesia type: Epidural
--- NOTE | 2024-12-06 18:07 | PM.EN ---
Event Note Event Note: Aquatic Physiotherapist Note: I first assisted Dr Ross with a primary low transverse section. I assisted the physician as directed. I independently closed the SQ layer with 3-0 vicryl and then I independently closed the skin incision layer with 4-0 vicryl without difficulty. Hemostasis noted at completion of case. Patient tolerated procedure well
[2024-12-07 00:16] VITALS: O2SAT 96
[2024-12-07 00:17] VITALS: BP 112/63; TEMP 36.6
[2024-12-07] MEDS: KETOROLAC TROMETHAMINE 30 MG/ML VIAL IVP ×4 (00:20→20:39)
[2024-12-07] MEDS: ACETAMINOPHEN 500 MG TABLET 1000 MG PO ×2 (00:52→20:40)
[2024-12-07 04:36] VITALS: BP 112/70; TEMP 36.7; O2SAT 96
[2024-12-07] MEDS: ENOXAPARIN SODIUM 40 MG/0.4 ML SYRINGE SUBQ (04:45)
[2024-12-07 06:38] LABS: Hematocrit 30.1 % (36.0-48.0); Hemoglobin 9.8 g/dL (12.0-16.0); Mean Corpuscular HGB Conc 32.6 g/dL (29.9-35.2); Mean Corpuscular Hemoglobin 28.5 pg (26.7-34.0); Mean Corpuscular Volume 87.5 fL (81.0-99.0); Platelet Count 215 10^3/uL (150-450); Red Blood Count 3.44 10^6/uL (4.20-5.40); White Blood Count 18.8 10^3/uL (4.0-11.0)
[2024-12-07 07:27] LABS: Lymphocytes Absolute Manual 2.25 10^3/uL (1.20-3.80); Lymphocytes Percent Manual 12.0 % (20.5-60.0); Segmented Neut Absolute Manual 15.41 10^3/uL (1.4-6.5); Segmented Neutrophils % Manual 82.0 (43.0-75.0)
[2024-12-07 07:28] LABS: Basophils Abs Manual 0.00 10^3/uL (0.00-0.10); Basophils Percent Manual 0.0 % (0.2-2.0); Eosinophils Absolute Manual 0.00 10^3/uL (0.00-0.70); Eosinophils Percent Manual 0.0 % (0.9-7.0); Monocytes Absolute Manual 1.12 10^3/uL (0.30-0.80); Monocytes Percent Manual 6.0 % (1.7-12.0)
[2024-12-07 07:46] VITALS: BP 101/69; PULSE 80; TEMP 36.7; TEMP 36.9; O2SAT 98
--- NOTE | 2024-12-07 08:35 | P.OBPN_ITS ---
OB - PN: Subj Subjective Patient comments: no complaints [place] status: doing well [place] feeding status: exclusively Exam Constitutional Vital Signs, click to edit/add: Last Vital Signs Temp 98.0 F 12/07/24 04:36 Pulse 81 12/06/24 21:20 Resp 15 12/06/24 21:20 BP 112/70 12/07/24 04:36 Pulse Ox 96 12/07/24 04:36 O2 Del Method Room Air 12/06/24 19:50 Documenting provider has reviewed patient's vital signs: yes Common normals: no apparent distress Exam limitations: altered mental status General appearance: cooperative, comfortable and well kempt Orientation/consciousness: Yes awake, Yes oriented to person, Yes oriented to place and Yes oriented to time HENMT Common normals: normocephalic Head and scalp: normal to inspection Eye Common normals: EOMs intact bilaterally General eye: normal appearance of both eyes Alignment: alignment normal Neck & C-Spine Common normals: full ROM and no lymphadenopathy General: normal visual inspection Lymph Lymphatic: no lymphadenopathy noted Chest Common normals: inspection of chest normal Respiratory Common normals: normal respiratory effort, no retractions, no use of accessory muscles and clear to auscultation bilaterally Effort & inspection: able to speak in complete sentences Auscultation: clear to auscultation bilaterally Cardio Common normals: regular rate and regular rhythm Rate: regular rate Rhythm: regular rhythm GI Common normals: Normal to inspection, nondistended, normoactive bowel sounds present Inspection: normal to inspection Palpation: soft Common normals: no CVA tenderness External Female Exam: normal appearance of the urethra Back & Pelvis Common normals: no CVA tenderness Thoracic spine/upper back: normal to inspection Extremity Common normals: normal to inspection General: normal exam except as noted Neuro Common normals: oriented x3 Sensorium/orientation: awake, alert, oriented to person, oriented to place and oriented to time Psych Common normals: mental status grossly normal, thought process normal, cooperative, affect normal, speech normal, activity/motor behavior normal, denies hallucinations, denies homicidal ideation and denies suicidal ideation Attitude: calm Results Labs Labs: Short CBC 12/07/24 Range/Units 06:25 WBC 18.8 H (4.0-11.0) 10^3/uL Hgb 9.8 L (12.0-16.0) g/dL Hct 30.1 L (36.0-48.0) % Plt Count 215 (150-450) 10^3/uL Urinary Catheter Management Urinary Catheter Management Urethral: Cath placed during this visit: yes Urethral indwelling: No Insertion date: 12/06/24 OB - PN: A/P Assessment and Plan (1) induced hypertension: Qualifiers: Trimester: third trimester Qualified Code(s): O13.3 - Gestational [-induced] hypertension without significant proteinuria, third trimes ter (2) Term : Plan - day: 1 Plan: routine postop care Time Spent with Patient Time: Total time spent is greater than 50% in coordination of care (as documented) at patient's floor/unit and/or counseling patient: Total time spent with greater than 50% in coordination of care (as documented) at patient's floor/unit and/or counseling patient: less than 15 minutes
[2024-12-07 12:32] VITALS: BP 112/65; PULSE 74; TEMP 36.7; O2SAT 97
--- NOTE | 2024-12-07 13:17 | SWNOTE1 ---
SW consulted for financial concerns. SW spoke to nurse and pt had questions in regards to Medicaid and father being on certificate. SW spoke with pt and father of baby. They voiced baby and pt doing well. They do have everything they need at home and they do have a good support system. Pt was tearful. She voiced baby did not sleep well last night and they had been here for a few days, it was a long labor. Pt voiced she is alright. SW asked about financial concerns? Pt voiced she is on her mother's insurance now until she has to get off of it. She did ask if baby can be on her Medicaid that she has secondary, even if father signs certificate. SW advised that SW was not 100% sure, but does think baby can. SW advised pt that SW can provide number for [employer] and they can talk directly to someone that specializes in Medicaid services. They voiced that would be great. She is also looking in to pediatricians and who will take Medicaid. She wants baby to go to her PCP eventually and will be calling her PCP once she knows that baby will be on Medicaid for sure. At this time no further questions. SW to follow as needed.
[2024-12-07 16:20] VITALS: BP 109/72; PULSE 72; TEMP 36.7; O2SAT 98
[2024-12-07] MEDS: LABETALOL HCL 100 MG TABLET PO (20:39)
[2024-12-07] MEDS: DOCUSATE SODIUM 100 MG CAPSULE PO (20:40)
[2024-12-08] VITALS (7 sets, daily range): BP systolic 120–134; BP diastolic 59–83; PULSE 74–103; TEMP 36.8–37.1; O2SAT 98–99
[2024-12-08] MEDS: ACETAMINOPHEN 500 MG TABLET 1000 MG PO ×3 (04:59→23:31)
[2024-12-08] MEDS: KETOROLAC TROMETHAMINE 30 MG/ML VIAL IVP (05:06)
[2024-12-08] MEDS: ENOXAPARIN SODIUM 40 MG/0.4 ML SYRINGE SUBQ (05:07)
[2024-12-08] MEDS: LABETALOL HCL 100 MG TABLET PO ×2 (09:15→21:11)
[2024-12-08] MEDS: DOCUSATE SODIUM 100 MG CAPSULE PO ×2 (09:16→21:11)
--- NOTE | 2024-12-08 10:05 | PM.OBPN ---
OB - PN: Subj Subjective Patient comments: no complaints [place] status: doing well and well [place] feeding status: exclusively Exam Constitutional Vital Signs, click to edit/add: Last Vital Signs Temp 98.7 F 12/08/24 00:26 Pulse 72 12/07/24 16:20 Resp 18 12/07/24 16:20 BP 132/72 12/08/24 00:26 Pulse Ox 99 12/08/24 00:25 O2 Del Method Room Air 12/08/24 00:30 Documenting provider has reviewed patient's vital signs: yes Common normals: no apparent distress Exam limitations: altered mental status General appearance: cooperative Nutritional appearance: obese Orientation/consciousness: Yes awake, Yes oriented to person, Yes oriented to place and Yes oriented to time HENMT Common normals: normocephalic Face and sinus: normal facial exam Eye Common normals: EOMs intact bilaterally Neck & C-Spine Common normals: full ROM and no lymphadenopathy General: normal visual inspection Lymph Lymphatic: no lymphadenopathy noted Chest Common normals: inspection of chest normal Respiratory Common normals: normal respiratory effort Effort & inspection: able to speak in complete sentences Auscultation: clear to auscultation bilaterally Cardio Common normals: regular rate and regular rhythm Rate: regular rate Rhythm: regular rhythm GI Common normals: Normal to inspection, nondistended, normoactive bowel sounds present Inspection: normal to inspection Auscultation: normoactive bowel sounds Palpation: soft Common normals: no CVA tenderness Back & Pelvis Common normals: no CVA tenderness Extremity Common normals: normal to inspection General: normal exam except as noted Neuro Common normals: oriented x3 Sensorium/orientation: awake, alert, oriented to person, oriented to place and oriented to time Psych Common normals: mental status grossly normal, thought process normal, cooperative, affect normal and speech normal Attitude: calm Urinary Catheter Management Urinary Catheter Management Urethral: Cath placed during this visit: yes Urethral indwelling: No Insertion date: 12/06/24 OB - PN: A/P Assessment and Plan (1) induced hypertension: Qualifiers: Trimester: third trimester Qualified Code(s): O13.3 - Gestational [-induced] hypertension without significant proteinuria, third trimester (2) Term : Plan - day: 2 Time Spent with Patient Time: Total time spent is greater than 50% in coordination of care (as documented) at patient's floor/unit and/or counseling patient: Total time spent with greater than 50% in coordination of care (as documented) at patient's floor/unit and/or counseling patient: less than 15 minutes
[2024-12-08] MEDS: FUROSEMIDE 20 MG TABLET PO (10:31)
[2024-12-08] MEDS: IBUPROFEN 400 MG TABLET 800 MG PO ×3 (12:36→21:11)
[2024-12-08] MEDS: CALCIUM CARBONATE 500 MG (200MG ELEMENTAL) TAB CHEW PO (18:48)
[2024-12-09] MEDS: ACETAMINOPHEN 500 MG TABLET 1000 MG PO ×2 (05:23→05:25)
[2024-12-09] MEDS: ENOXAPARIN SODIUM 40 MG/0.4 ML SYRINGE SUBQ (05:24)
[2024-12-09 08:15] VITALS: PULSE 84; TEMP 36.7
[2024-12-09 08:18] VITALS: BP 171/78; PULSE 84
[2024-12-09] MEDS: DOCUSATE SODIUM 100 MG CAPSULE PO (08:19)
[2024-12-09] MEDS: LABETALOL HCL 100 MG TABLET PO (08:19)
[2024-12-09] MEDS: IBUPROFEN 400 MG TABLET 800 MG PO (08:20)
[2024-12-09 09:06] VITALS: BP 134/66; PULSE 88
[2024-12-09 09:07] VITALS: BP 134/66
--- NOTE | 2024-12-09 11:08 | PM.OBPN ---
OB - PN: Subj Subjective Patient comments: no complaints and pain well controlled [place] status: doing well Exam Constitutional Vital Signs, click to edit/add: Last Vital Signs Temp 98.1 F 12/09/24 08:15 Pulse 88 12/09/24 09:06 Resp 18 12/09/24 08:15 BP 134/66 12/09/24 09:07 Pulse Ox 98 12/08/24 15:51 O2 Del Method Room Air 12/08/24 23:35 Documenting provider has reviewed patient's vital signs: yes Common normals: no apparent distress Chest Common normals: inspection of chest normal Respiratory Common normals: normal respiratory effort and clear to auscultation bilaterally Cardio Common normals: regular rate and regular rhythm GI Common normals: Normal to inspection, nondistended, normoactive bowel sounds present Extremity Common normals: normal to inspection, no clubbing, cyanosis or edema and no calf tenderness Urinary Catheter Management Urinary Catheter Management Urethral: Cath placed during this visit: yes Urethral indwelling: No Insertion date: 12/06/24 OB - PN: A/P Assessment and Plan (1) induced hypertension: Qualifiers: Trimester: third trimester Qualified Code(s): O13.3 - Gestational [-induced] hypertension without significant proteinuria, third trimester (2) Term : Plan - day: 3 Plan: routine postop care, discharge home and other (fu 1wk) Time Spent with Patient Time: Total time spent is greater than 50% in coordination of care (as documented) at patient's floor/unit and/or counseling patient: Total time spent with greater than 50% in coordination of care (as documented) at patient's floor/unit and/or counseling patient: less than 15 minutes
== END 2024-12-09 14:50 | disposition home or self-care (01) | DRG 788 ==
PROVIDERS: Obstetrics & Gynecology; Admitting Provider Midwife; PCP Student in an Organized Health Care Education/Training Program; Visit Provider Midwife
PROC: 10D00Z1 Extraction of Products of Conception, Low, Open Approach (ICD-10-PCS; CPT 59514; principal; 2024-12-06 16:00)
DX: O13.4 Gestational [pregnancy-induced] hypertension without significant proteinuria, complicating childbirth (principal); Z3A.38 38 weeks gestation of pregnancy; Z37.0 Single live birth; O99.284 Endocrine, nutritional and metabolic diseases complicating childbirth; E28.2 Polycystic ovarian syndrome; O62.0 Primary inadequate contractions
CPT/HCPCS: 36415; 59050; 76818; 80053; 80307; 82570; 83615; 84156; 84550; 85007; 85025; 85027; 85384; 86850; 86900; 86901; 88307; 94667; 94668; J0131; J0690; J1100; J1650; J1885; J2274; J2300; J2371; J2405; J2540; J2590; J2765; J2795; J3010; J3490

== ENCOUNTER 2024-12-12 08:05 | Outpatient (OUT) | payer BC, OTHER, SELFPAY ==
[2024-12-12 11:46] VITALS: BP 141/96; PULSE 80; TEMP 36.7; O2SAT 97
--- NOTE | 2024-12-12 11:46 | NUTR.NU ---
Jacque and 6 day old Evon arrive for follow up visit. FOB here as well. Parents states everything is going well Mom denies concerns for self and states feels well. Taking Labetolol 100 mg po BID as prescribed. Has also been tracking daily BP at home. Highest BP 140/99 noted. VSS stable, initial BP 141/96, retaken 15 min later with 134/84. Jacque denies s/s of elevated BP. No headache, visual disturbances or epigastric discomfort. Does have +2-+3 edema of lower legs, states is much better than day of discharge. Assessment WNL. Pt to see PCP tomorrow. States is pumping for milk for bottle feeding. Has now been obtaining 1 oz each breast, every 3 hours around the clock. Pumps 8 times per day. Discussed power pumping as well. Evon with VSS and assessment WNL. BAby 9-8 at , 8-9 at discharge (10%) and today is 9-1.5. Parents pleased with weight gain. Discussed appropriate feeding amounts and verbalized understanding. No concerns for mom and baby noted. Baby will be seen by PCP tomorrow. Parents deny questions or concerns. Aware of MOMS group and to call for questions about pumping. Leaves ambulatory for home.
== END 2024-12-12 11:51 | disposition home or self-care (01) ==
LOC: FBCO 08:11
PROVIDERS: PCP Student in an Organized Health Care Education/Training Program; Visit Provider Midwife
DX: Z39.1 Encounter for care and examination of lactating mother (principal)